=== PATIENT | female | born 1935 | race Asian ===

== ENCOUNTER 2016-10-08 09:34 | Emergency (ER) | payer MEDICARE, MEDICAID ==
--- NOTE | 2016-10-08 09:56 | ED Physician Chart ---
Chief Complaint/HPI - Patient Information Date Seen:: 10/08/16 Time Seen:: 09:40 Chief Complaint:: left shoulder pain History of Present Illness:: Patient fell out of bed last night injuring her left shoulder. Allergies:: Allergies Allergy/AdvReac Type Severity Reaction Status Date / Time MDX No Known Allergies - Nka Allergy Verified 05/10/15 16:37 [No Known Allergies - Nka] Historian:: Patient Review:: Nurse's Note Reviewed Review of Systems - Review of Systems General/Constitutional: No fever, No chills Skin: No skin lesions Head: No headache Eyes: No loss of vision ENT: No earache Neck: No neck pain Cardio Vascular: No chest pain, No palpitations Pulmonary: No SOB GI: No nausea, No vomiting G/U: No dysuria Musculoskeletal: No bone or joint pain, No muscle pain Endocrine: No polyuria, No polydipsia Psychiatric: No prior psych history, No depression, No anxiety Hematopoietic: No bruising Allergic/Immuno: No urticaria Neurological: No syncope, Focal symptoms Past Medical History - Past Medical History Past Medical History: HTN, DM, CVA/TIA, Other (less sided paralysis; thrombocytopenia; arthritis; asthma; cardiomegaly; acute embolism and thrombosis of left femoral vein; chronic renal disease; colostomy; GERD; diabetes; hyperlipidemia; colon carcinoma) Family Medical History - Family Member Mother History Unknown: Yes Physical Exam - Physical Examination General/Constitutional: Well-developed, well-nourished Other Gen/Cons comments:: Patient's skin is very pale although her conjunctivae are normal color Head: Atraumatic Eyes: Lids, conjuctiva normal Skin: No rash ENMT: External ears, nose nl Neck: No nuchal rigidity Respiratory: Nl effort/Exclusion, Clear to Auscultation Cardio Vascular: RRR GI: No tenderness/rebounding/guarding, No organomegaly, No hernia, Normal BS's, Nondistended, No mass/bruits : No CVA tenderness Other Extremities comments:: Left-sided paralysis; tenderness humeral head left shoulder and surgical neck left shoulder Neuro/Psych: Alert/oriented Other Neuro/Psych comments:: Slight drooping left side of mouth Labs/Radiology/EKG Results - Lab Results Results: Fracture surgical neck left humerus Assessment - Assessment General Assessment: I spoke to Dr. Pranav Gonzalez who felt patient could return to her facility. ED Septic Shock - . Is Septic Shock (SBP<90, OR Lactate>4 mmol\L) present?: No Reassessment (Disposition) - Reassessment Reassessment Condition:: Unchanged - Diagnosis Diagnosis:: Fracture surgical neck humerus left shoulder - Aftercare/Follow up Instructions Aftercare/Follow-Up Instructions:: Refer to Discharge Instructions - Patient Disposition Discharge/Transfer:: Risk Control Director Care - SNF Condition at Disposition:: Stable, Unchanged
--- NOTE | 2016-10-08 10:18 | Diagnostic Imaging Report ---
Left shoulder (2 views) HISTORY: Pain Exam demonstrates mildly displaced fracture involving the left humeral neck. No definite dislocation. Degenerative changes with narrowing and hypertrophic bone formation noted about the acromioclavicular joint. Hypertrophic degenerative changes noted along the lateral aspect of the humeral head. IMPRESSION: 1. Mildly displaced fracture through the left humeral neck 2. Degenerative changes
== END 2016-10-08 12:15 | disposition home or self-care (01) ==
LOC: ER 09:34
DX: S42.295A Other nondisplaced fracture of upper end of left humerus, initial encounter for closed fracture (principal); I10 Essential (primary) hypertension; E11.9 Type 2 diabetes mellitus without complications; Z86.73 Personal history of transient ischemic attack (TIA), and cerebral infarction without residual deficits; W06.XXXA Fall from bed, initial encounter; Y93.89 Activity, other specified; Y92.89 Other specified places as the place of occurrence of the external cause; Y99.8 Other external cause status
CPT/HCPCS: 73030-TC-LT; Z7502

== ENCOUNTER 2016-10-23 00:08 | Inpatient (IN) | payer MEDICARE, MEDICAID ==
--- NOTE | 2016-10-23 00:47 | ED Physician Chart ---
Chief Complaint/HPI - Patient Information Date Seen:: 10/23/16 Time Seen:: 00:15 Chief Complaint:: anemia History of Present Illness:: Labs drawn yesterday showed a hemoglobin of 5.6 and a hematocrit of 17.6 and ABO and of 43 and a creatinine at 2.67. Allergies:: Allergies Allergy/AdvReac Type Severity Reaction Status Date / Time No Known Allergies Allergy Verified 10/08/16 10:25 Vitals:: Vital Signs - 8 hr 10/23/16 00:26 Temp 98.3 F HR 62 RR 19 BP 171/56 O2 Sat % 96 Historian:: Patient Review:: Nurse's Note Reviewed, Transfer documents Reviewed Review of Systems - Review of Systems General/Constitutional: No fever, No chills Skin: No skin lesions Head: No headache Eyes: No loss of vision ENT: No earache Neck: No neck pain Cardio Vascular: No chest pain Pulmonary: No SOB GI: No nausea, No vomiting G/U: No dysuria Musculoskeletal: No bone or joint pain, No muscle pain Endocrine: No polyuria, No polydipsia Psychiatric: No prior psych history Past Medical History - Past Medical History Past Medical History: CVA/TIA, Other (left hemiplegia; thrombocytopenia; cardiomegaly; status post deep vein thrombosis; bronchitis; asthma; chronic renal disease; colon carcinoma; diabetes; thyroidism; hyper lipidemia; ) Family History: None Social History: Non Smoker, No Alcohol, Care Facility Surgical History: other (colostomy) Psychiatricy History: None Family Medical History - Family Member Mother History Unknown: Yes Physical Exam - Physical Examination General/Constitutional: No distress Other Gen/Cons comments:: Very pale Head: Atraumatic Eyes: Lids, conjuctiva normal Skin: Nl inspection, No rash ENMT: External ears, nose nl Neck: No nuchal rigidity Respiratory: Nl effort/Exclusion Cardio Vascular: RRR GI: No tenderness/rebounding/guarding : No CVA tenderness Extremities: Normal digits & nails Other Neuro/Psych comments:: Left hemiplegia ED Septic Shock - . Is Septic Shock (SBP<90, OR Lactate>4 mmol\L) present?: No - <6hrs of presentation: Vital Signs: Vital Signs - 8 hr 10/23/16 00:26 Temp 98.3 F HR 62 RR 19 BP 171/56 O2 Sat % 96 Reassessment (Disposition) - Reassessment Reassessment Condition:: Unchanged - Diagnosis Diagnosis:: Anemia; left hemiplegia - Patient Disposition Admitted to:: Med/Surg Spoke to:: Ashish Gonzalez Admitting Medical Physician:: Ashish Gonzalez Condition at Disposition:: Stable, Unchanged
[2016-10-23 01:17] LABS: MEAN CELL VOLUME 88.5 fl (81-100); MEAN CORPUSCULAR HEMOGLOBIN 28.9 pg (27.0-31.0); MEAN CORPUSCULAR HGB CONC 32.7 pg (28.0-36.0); MEAN PLATELET VOLUME 12.1 fl; PLATELET COUNT 71 Th/cmm (150-400); RED BLOOD COUNT 2.04 Mil/cmm (3.80-5.20); RED CELL DISTRIBUTION WIDTH 16.3 % (11.5-20.0)
[2016-10-23 01:22] LABS: HEMATOCRIT 18.1 % (35.0-45.0); HEMOGLOBIN 5.9 gm/dL (11.7-16.1)
[2016-10-23 01:23] LABS: INR 1.05 (0.5-1.4); PROTHROMBIN TIME (TEST) 10.9 SECONDS (9.5-11.5)
[2016-10-23 01:26] LABS: ANION GAP 10.5 (7.0-16.0); BUN - UREA NITROGEN 42 mg/dL (7-25); CALCIUM SERUM 8.9 mg/dL (8.6-10.3); CARBON DIOXIDE 21.9 mEq/L (21.0-31.0); CHLORIDE 110 mEq/L (98-107); CREATININE - SERUM 2.8 mg/dL (0.6-1.2); GLUCOSE 243 mg/dL (70-105); POTASSIUM SERUM 4.4 mEq/L (3.5-5.1); SODIUM SERUM 138 mEq/L (136-145)
[2016-10-23 01:43] LABS: ANISOCYTOSIS 1+; MICROCYTOSIS 1+; NEUTROPHILS 84 % (40-80); PLATELET ESTIMATE DECREASED PLATELETS (NORMAL); PLATELET MORPHOLOGY NORMAL (NORMAL); POLYCHROMASIA 1+; TOTAL CELLS COUNTED 100
[2016-10-23] MEDS: D5-0.45NS 1,000 ML IV SCH (03:00)
--- NOTE | 2016-10-23 03:46 | Admit Criteria Form ---
Admit Criteria Forms - Admit Criteria Diagnosis: ANEMIA Clinical Indications for Inpatient Care (Place 'X' for any and all applicable criteria) Ongoing inpatient care may be needed for anemia with 1 or more of the following (1)(2)(3)(4)(18)(37): [X]I. Severe signs or symptoms unresponsive to transfusion or volume replacement, including ANY ONE of the following: []a) Heart failure []b) Chest pain []c) Myocardial ischemia []d) Exertional dyspnea []e) Syncope []f) Acute peripheral ischemia (eg, pulseless, cool, mottled, or cyanotic extremity) [X]g) Other severe signs or symptoms []II. Cognitive impairment []III. Active hemorrhage []IV.Active hemolysis with rapidly progressive anemia []V. Hemodynamic instability Extended stay beyond goal length of stay for the primary condition may be needed until ALL of the following are present (1)(2)(3)(4): []a) Hemodynamic stability []b) Any active blood loss controlled []c) Severe signs or symptoms resolved []d) Mental status normal or at baseline []e) Stable hemoglobin after transfusion []f) Any underlying disorder or complications of treatment controlled The original [employer] content created by [employer] has been revised. The portions of the content which have been revised are identified through the use of italic text or in bold, and [email or web address] has neither reviewed nor approved the modified material. All other unmodified content is copyright [facility] [email or web address]. Please see references footnoted in the original [facility] edition 2016
[2016-10-23 04:26] LABS: URINE COLOR YELLOW
[2016-10-23 04:27] LABS: URINE BILIRUBIN NEGATIVE (NEGATIVE); URINE BLOOD SMALL (NEGATIVE); URINE GLUCOSE (UA) 250 mg/dL (NEGATIVE); URINE KETONE 15 mg/dL (NEGATIVE); URINE PROTEIN >300 mg/dL (NEGATIVE); URINE UROBILINOGEN 0.2 E.U./dL (0.2 - 1.0)
[2016-10-23 04:28] LABS: URINE AMORPHOUS SEDIMENT MODERATE URATES (NONE SEEN); URINE BACTERIA MANY /hpf (NONE SEEN); URINE EPITHELIAL CELLS FEW /lpf (FEW)
[2016-10-23] MEDS ORDERED: Magnesium Hydroxide (MOM) 30 mL UDC PO PRN (07:28)
[2016-10-23] MEDS ORDERED: INSULIN HUMAN REGULAR 100 UNITS/ML UNIT SUBQ SCH (09:00)
[2016-10-23] MEDS: Fenofibrate, Micronized 134 mg Cap PO SCH (09:49)
[2016-10-23] MEDS: Levothyroxine 0.025 Mg Tab PO SCH (09:49)
[2016-10-23] MEDS: Ferrous Sulfate 325 MG TAB PO SCH (09:51)
[2016-10-23] MEDS: INSULIN ASPART SLIDING SCALE 100 UNITS/ML UNIT SUBQ SCH ×3 (12:07→22:39)
--- NOTE | 2016-10-23 15:18 | Consultation ---
Consult Note - Consult Note Service Date: 10/23/16 Consult Note: PHYSICIAN Consultation Note: Date of Admission: 10/23/16 Purpose of Consultation: Kidney Failure Chief Complaint: abnormal labs History of Present Illness: 80 y/o [place] PMH: CKD was brought in because of abnormal labs. 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 A few hours prior to admission, his labs revealed hemoglobin/hematocrit of 5.6/17.6 and BUN/CR in the 43/2.67. Labs at ER revealed hemoglobin/hematocrit of 5.9/18.1 and BUN/creatinine 42/2.8. No obvious bleed (hematemesis, melena, hematochezia, epistaxis, dysfunctional bleeding, hemoptysis). Past Medical History: CKD, hypertension, type 2 diabetes, left leg DVT, dyslipidemia, GERD, status post CVA with left geri, bronchial asthma, colon CA, thrombocytopenia, severe malnutrition, anemia of CKD Allergies Allergy/AdvReac Type Severity Reaction Status Date / Time No Known Allergies Allergy Verified 10/08/16 10:25 Vital Signs Temp 99.0 F 10/23/16 12:00 Pulse 62 10/23/16 12:30 Resp 18 10/23/16 12:00 BP 171/69 10/23/16 12:30 Pulse Ox 92 10/23/16 12:00 Laboratory Results - last 24 hr 10/23/16 10/23/16 02:45 11:28 POC Glucose 248 H Urine Source CATH Urine Color YELLOW Urine Clarity HAZY Urine pH 5.0 Ur Specific [place] 1.025 Urine Protein >300 H Urine Glucose (UA) 250 H Urine Ketones 15 H Urine Blood SMALL H Urine Nitrate POSITIVE H Urine Bilirubin NEGATIVE Urine Urobilinogen 0.2 Ur Leukocyte Esterase NEGATIVE Urine RBC 2-5 Urine WBC 2-5 Ur Epithelial Cells FEW Amorphous Sediment MODERATE URATES Urine Bacteria MANY Home Medication Medication Instructions Recorded Type Atenolol [Tenormin*] 100 mg PO DAILY 05/10/15 History Glimepiride [Amaryl*] 4 mg PO DAILY 05/10/15 History Insulin Aspart Mix 70/30 [NovoLOG 18 units SUBQ QPM 05/10/15 History MIX 70/30] Insulin Aspart Mix 70/30 [NovoLOG 30 units SUBQ QAM 05/10/15 History MIX 70/30] Insulin Human Regular [humuLIN R] 0 units SUBQ BID 05/10/15 History Levothyroxine [Synthroid] 25 mcg PO DAILY 05/10/15 History Nitroglycerin [Nitroglycerin*] 0.4 mg SL Q5MIN PRN 05/10/15 History amLODIPine Besylate [Norvasc*] 10 mg PO DAILY 05/10/15 History cloNIDine HCl [Catapres] 0.1 mg PO BID 05/10/15 History Acetaminophen [Tylenol] 650 mg PO Q6HR PRN 06/07/15 History Simvastatin [Zocor] 10 mg PO QPM 06/07/15 History Fenofibrate Nanocrystallized 134 mg PO DAILY 06/25/15 History [Tricor] Insulin Aspart Sliding Scale 0 units SUBQ ACHS #0 unit 06/27/15 Rx [NovoLOG INSULIN SLIDING SCALE] Aspirin 81 mg PO DAILY 10/23/16 History Ferrous Sulfate [Feosol] 325 mg PO DAILY 10/23/16 History Gabapentin 300 mg PO DAILY 10/23/16 History Losartan Potassium [Cozaar] 50 mg PO DAILY 10/23/16 History Magnesium Hydroxide [Milk of 30 ml PO DAILY PRN 10/23/16 History Magnesia] Ondansetron HCl [Zofran*] 4 mg PO Q6HR PRN 10/23/16 History Ranitidine HCl [Zantac] 150 mg PO HS 10/23/16 History Tramadol HCl [Ultram] 50 mg PO Q12HR 10/23/16 History Current Medications Generic Name Dose Route Start Last Admin Trade Name Freq PRN Reason Stop Dose Admin Amlodipine Besylate 10 mg 10/23/16 09:00 10/23/16 09:49 Norvasc PO 12/22/16 08:59 10 mg DAILY VLAD Administration Atenolol 100 mg 10/23/16 09:00 10/23/16 09:49 Tenormin PO 12/22/16 08:59 100 mg DAILY VLAD Administration Clonidine HCl 0.1 mg 10/23/16 09:00 10/23/16 09:49 Catapres PO 12/22/16 08:59 0.1 mg BID VLAD Administration Clonidine HCl 0.1 mg 10/23/16 11:13 10/23/16 11:30 Catapres PO 12/22/16 11:12 0.1 mg Q8HR PRN Administration BP MAINTENANCE (PER PROTOCOL) Fenofibrate 134 mg 10/23/16 09:00 10/23/16 09:49 Tricor PO 12/22/16 08:59 134 mg DAILY VLAD Administration Ferrous Sulfate 325 mg 10/23/16 09:00 10/23/16 09:51 Iron PO 12/22/16 08:59 325 mg DAILY VLAD Administration Gabapentin 300 mg 10/23/16 09:00 10/23/16 09:50 Neurontin PO 12/22/16 08:59 300 mg DAILY VLAD Administration Dextrose/Sodium Chloride 1,000 mls @ 50 mls/hr 10/23/16 02:19 10/23/16 03:00 D5-0.45ns IV 12/22/16 02:18 50 mls/hr .Q20H VLAD Administration Ceftriaxone Sodium 1 gm/ 50 mls @ 100 mls/hr 10/23/16 09:00 Dextrose IV 12/22/16 08:59 Q24H VLAD Insulin Aspart 0 units 10/23/16 11:30 10/23/16 12:07 Novolog Insulin Sliding Scale SUBQ 12/22/16 11:29 Not Given ACHS VLAD Protocol Levothyroxine Sodium 0.025 mg 10/23/16 08:15 10/23/16 09:49 Synthroid PO 12/22/16 08:14 0.025 mg QDAC VLAD Administration Losartan Potassium 50 mg 10/23/16 09:00 10/23/16 09:50 Cozaar PO 12/22/16 08:59 50 mg DAILY VLAD Administration Magnesium Hydroxide 30 ml 10/23/16 07:28 Milk Of Magnesia PO 12/22/16 07:27 DAILY PRN Constipation Nitroglycerin 0.4 mg 10/23/16 07:28 Nitrostat SL 12/22/16 07:27 Q5MIN PRN Chest Pain Ondansetron HCl 4 mg 10/23/16 07:28 Zofran Odt PO Q6HR PRN Nausea / Vomiting Pantoprazole Sodium 40 mg 10/23/16 09:00 Protonix IVP 12/22/16 08:59 QDAC VLAD Review of Systems: A 12 point ROS was reviewed with the pertinent positive and negatives noted in the HPI. Social History Smoking Status Never smoker Drug Use No Alcohol Use No Family Medical History Family Medical History Start: 10/23/16 04: 16 Freq: ONCE Status: Active Document 10/23/16 04:16 THOMAS (Rec: 10/23/16 08:24 THOMAS [id number]) Family Medical History Mother History Unknown Yes Ethnicity Unknown Living Status Unknown Other Medical History Patien unable to give information regarding family history. Physical Exam: General: Alert and Oriented x3, No Acute Distress HEENT: EOMI Bilaterally, PERRLA Bilaterally, Head is normocephalic, atraumatic on inspection. 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
[2016-10-23] MEDS ORDERED: Magnesium Citrate 1.75 GM/300 mL Bottle PO ONE (15:19)
--- NOTE | 2016-10-23 15:25 | Consultation ---
Consult Note - Consult Note Service Date: 10/23/16 (site) Referring Physician: Pranav Gonzalez Consult Note: PHYSICIAN Consultation Note: Date of Admission: 10/23/16 Purpose of Consultation: Evaluation for anemia. Chief Complaint: 80-year-old poor historian with visceral diabetes hypertension hyperlipidemia and colon cancer who presented with weakness and found to be severely anemic with hemoglobin 5.9 patient denies any overt GI bleed she thinks have lost some weight is occasional nausea vomiting occasional loose bowel movements from the colostomy bag multilobe any bleeding from the History of Present Illness: Patient GLADYS BRAY was admitted to [facility] Unit I with ANEMIA. Past Medical History: Diabetes mellitus, hypertension, hyperlipidemia, and history of colon cancer status post resection and colostomy Allergies Allergy/AdvReac Type Severity Reaction Status Date / Time No Known Allergies Allergy Verified 10/08/16 10:25 Vital Signs Temp 99.0 F 10/23/16 12:00 Pulse 62 10/23/16 12:30 Resp 18 10/23/16 12:00 BP 171/69 10/23/16 12:30 Pulse Ox 92 10/23/16 12:00 Laboratory Results - last 24 hr 10/23/16 10/23/16 02:45 11:28 POC Glucose 248 H Urine Source CATH Urine Color YELLOW Urine Clarity HAZY Urine pH 5.0 Ur Specific [place] 1.025 Urine Protein >300 H Urine Glucose (UA) 250 H Urine Ketones 15 H Urine Blood SMALL H Urine Nitrate POSITIVE H Urine Bilirubin NEGATIVE Urine Urobilinogen 0.2 Ur Leukocyte Esterase NEGATIVE Urine RBC 2-5 Urine WBC 2-5 Ur Epithelial Cells FEW Amorphous Sediment MODERATE URATES Urine Bacteria MANY Home Medication Medication Instructions Recorded Type Atenolol [Tenormin*] 100 mg PO DAILY 05/10/15 History Glimepiride [Amaryl*] 4 mg PO DAILY 05/10/15 History Insulin Aspart Mix 70/30 [NovoLOG 18 units SUBQ QPM 05/10/15 History MIX 70/30] Insulin Aspart Mix 70/30 [NovoLOG 30 units SUBQ QAM 05/10/15 History MIX 70/30] Insulin Human Regular [humuLIN R] 0 units SUBQ BID 05/10/15 History Levothyroxine [Synthroid] 25 mcg PO DAILY 05/10/15 History Nitroglycerin [Nitroglycerin*] 0.4 mg SL Q5MIN PRN 05/10/15 History amLODIPine Besylate [Norvasc*] 10 mg PO DAILY 05/10/15 History cloNIDine HCl [Catapres] 0.1 mg PO BID 05/10/15 History Acetaminophen [Tylenol] 650 mg PO Q6HR PRN 06/07/15 History Simvastatin [Zocor] 10 mg PO QPM 06/07/15 History Fenofibrate Nanocrystallized 134 mg PO DAILY 06/25/15 History [Tricor] Insulin Aspart Sliding Scale 0 units SUBQ ACHS #0 unit 06/27/15 Rx [NovoLOG INSULIN SLIDING SCALE] Aspirin 81 mg PO DAILY 10/23/16 History Ferrous Sulfate [Feosol] 325 mg PO DAILY 10/23/16 History Gabapentin 300 mg PO DAILY 10/23/16 History Losartan Potassium [Cozaar] 50 mg PO DAILY 10/23/16 History Magnesium Hydroxide [Milk of 30 ml PO DAILY PRN 10/23/16 History Magnesia] Ondansetron HCl [Zofran*] 4 mg PO Q6HR PRN 10/23/16 History Ranitidine HCl [Zantac] 150 mg PO HS 10/23/16 History Tramadol HCl [Ultram] 50 mg PO Q12HR 10/23/16 History Current Medications Generic Name Dose Route Start Last Admin Trade Name Fre PRN Reason Stop Dose Admin Amlodipine Besylate 10 mg 10/23/16 09:00 10/23/16 09:49 Norvasc PO 12/22/16 08:59 10 mg DAILY VLAD Administration Atenolol 100 mg 10/23/16 09:00 10/23/16 09:49 Tenormin PO 12/22/16 08:59 100 mg DAILY VLAD Administration Clonidine HCl 0.1 mg 10/23/16 09:00 10/23/16 09:49 Catapres PO 12/22/16 08:59 0.1 mg BID VLAD Administration Clonidine HCl 0.1 mg 10/23/16 11:13 10/23/16 11:30 Catapres PO 12/22/16 11:12 0.1 mg Q8HR PRN Administration BP MAINTENANCE (PER PROTOCOL) Fenofibrate 134 mg 10/23/16 09:00 10/23/16 09:49 Tricor PO 12/22/16 08:59 134 mg DAILY VLAD Administration Ferrous Sulfate 325 mg 10/23/16 09:00 10/23/16 09:51 Iron PO 12/22/16 08:59 325 mg DAILY VLAD Administration Gabapentin 300 mg 10/23/16 09:00 10/23/16 09:50 Neurontin PO 12/22/16 08:59 300 mg DAILY VLAD Administration Dextrose/Sodium Chloride 1,000 mls @ 50 mls/hr 10/23/16 02:19 10/23/16 03:00 D5-0.45ns IV 12/22/16 02:18 50 mls/hr .Q20H VLDA Administration Ceftriaxone Sodium 1 gm/ 50 mls @ 100 mls/hr 10/23/16 09:00 Dextrose IV 12/22/16 08:59 Q24H VLAD Insulin Aspart 0 units 10/23/16 11:30 10/23/16 12:07 Novolog Insulin Sliding Scale SUBQ 12/22/16 11:29 Not Given ACHS VLAD Protocol Levothyroxine Sodium 0.025 mg 10/23/16 08:15 10/23/16 09:49 Synthroid PO 12/22/16 08:14 0.025 mg QDAC VLAD Administration Losartan Potassium 50 mg 10/23/16 09:00 10/23/16 09:50 Cozaar PO 12/22/16 08:59 50 mg DAILY VLAD Administration Magnesium Citrate 17.5 gm 10/23/16 15:19 Citroma PO 10/23/16 15:20 X1 ONE Magnesium Hydroxide 30 ml 10/23/16 07:28 Milk Of Magnesia PO 12/22/16 07:27 DAILY PRN Constipation Nitroglycerin 0.4 mg 10/23/16 07:28 Nitrostat SL 12/22/16 07:27 Q5MIN PRN Chest Pain Ondansetron HCl 4 mg 10/23/16 07:28 Zofran Odt PO Q6HR PRN Nausea / Vomiting Pantoprazole Sodium 40 mg 10/23/16 09:00 Protonix IVP 12/22/16 08:59 QDAC VLAD Review of Systems: A 12 point ROS was reviewed with the pertinent positive and negatives noted in the HPI. Social History Smoking Status Never smoker Drug Use No Alcohol Use No Family Medical History Family Medical History Start: 10/23/16 04: 16 Freq: ONCE Status: Active Document 10/23/16 04:16 NBENASA (Rec: 10/23/16 08:24 THOMAS [id number]) Family Medical History Mother History Unknown Yes Ethnicity Unknown Living Status Unknown Other Medical History Patien unable to give information regarding family history. Physical Exam: General: Alert and Oriented x3, No Acute Distress HEENT: EOMI Bilaterally, PERRLA Bilaterally, Head is normocephalic, atraumatic on inspection. Cardio: +S1/S2 Auscultated, RRR, no murmurs/rubs/gallops noted Respiratory: Clear to Auscultate Bilaterally Abdominal: Soft, Nondistended, Nontender to palpation x 4 quadrants. There is a midline scar with previous surgery and the colostomy on the left side of the abdomen Genital/Urinary: Extremities: No Edema noted in the lower extremities Neurological: Cranial Nerves II-XII intact bilaterally, Gait Steady, No Focal Deficits noted. Assessment/Plan: 1. Severe anemia. Patient is to be transfused 2 units of packed RBC today then check H&H and continue to transfuse as needed. Patient will need to have endoscopy and colonoscopy once she is being transfused. Upper bowel preps or possibly Wednesday or Wednesday depending on the status. 2. history of colon cancer. According to the patient she hasn't had a colonoscopy for 5 years. She is due for colonoscopy both as a surveillance and for evaluation of the anemia. Other medical problems such as diabetes hypertension hyperlipidemia etc. as per Dr. Sebastian. Thank you Dr. Giovanna brown but speaking with the overall size you have any further questions please let me know Tanisha Mason Osama A. [id number]
[2016-10-23] MEDS ORDERED: VTE Chemical Prophylaxis Screen/Admission MC PRN (15:40)
[2016-10-23 17:58] LABS: HEMOGLOBIN 9.4 gm/dL (11.7-16.1)
[2016-10-24 06:10] LABS: % BASOPHILS 0.3 % (0.0-2.0); % EOSINOPHILS 2.9 % (0.0-5.0); % LYMPHOCYTES 21.6 % (20.0-50.0); % MONOCYTES 5.5 % (2.0-10.0); % NEUTROPHILS 69.7 % (40.0-80.0); HEMATOCRIT 26.9 % (35.0-45.0); MEAN CELL VOLUME 88.4 fl (81-100); MEAN CORPUSCULAR HEMOGLOBIN 29.5 pg (27.0-31.0); MEAN CORPUSCULAR HGB CONC 33.4 pg (28.0-36.0); MEAN PLATELET VOLUME 12.6 fl; NEUTROPHILE ABSOLUTE 8.4 Th/cmm (1.8-8.0); PLATELET COUNT 64 Th/cmm (150-400); RED BLOOD COUNT 3.05 Mil/cmm (3.80-5.20); RED CELL DISTRIBUTION WIDTH 13.7 % (11.5-20.0)
[2016-10-24 06:14] LABS: WHITE BLOOD COUNT 12.1 Th/cmm (4.8-10.8)
[2016-10-24 06:27] LABS: ALB/GLOB RATIO 1.1 (1.0-1.8); ALKALINE PHOSPHATASE 69 U/L (34-104); ANION GAP 6.7 (7.0-16.0); BILIRUBIN,TOTAL 0.3 mg/dL (0.3-1.0); BUN - UREA NITROGEN 40 mg/dL (7-25); BUN/CREATININE RATIO 14.8; CALCIUM SERUM 8.4 mg/dL (8.6-10.3); CARBON DIOXIDE 22.6 mEq/L (21.0-31.0); CHLORIDE 113 mEq/L (98-107); CREATININE - SERUM 2.7 mg/dL (0.6-1.2); GLUCOSE 157 mg/dL (70-105); MAGNESIUM 2.7 mg/dL (1.9-2.7); PHOSPHOROUS 2.6 mg/dL (2.5-5.0); POTASSIUM SERUM 4.3 mEq/L (3.5-5.1); SGOT 11 U/L (13-39); SGPT/ALT 6 U/L (7-52); SODIUM SERUM 138 mEq/L (136-145); URIC ACID 7.2 mg/dL (2.3-6.6)
[2016-10-24 06:32] LABS: INR 1.03 (0.5-1.4); PROTHROMBIN TIME (TEST) 10.7 SECONDS (9.5-11.5)
[2016-10-24] MEDS: INSULIN ASPART SLIDING SCALE 100 UNITS/ML UNIT SUBQ SCH ×4 (06:51→20:29)
[2016-10-24] MEDS: Levothyroxine 0.025 Mg Tab PO SCH (09:40)
[2016-10-24] MEDS: Fenofibrate, Micronized 134 mg Cap PO SCH (09:41)
[2016-10-24] MEDS: Ferrous Sulfate 325 MG TAB PO SCH (09:41)
--- NOTE | 2016-10-24 10:20 | Diagnostic Imaging Report ---
Examination: Renal ultrasound. HISTORY: Chronic renal failure. Findings. Real-time ultrasound sedation kidneys performed multiple planes. The study demonstrates right kidney measuring 10.6 x 4.8 x 4.3 cm. There is evidence for hypoechoic structure in the right upper renal pole measuring 1.5 x 1.2 cm might represent a prominent column of [place],clinical correlation CT examination of the helpful. Left kidney measures 10.0 x 5 x 4.7 cm contains a small 2.1 cm cyst in the left lower renal pole. There is no evidence of obstructive uropathy or nephrolithiasis. The urinary bladder contains Hager catheter. IMPRESSION 1. 1.5 x 1.2 cm hyperechoic structure in the upper pole of right kidney might represent a column of K[place]hawn. 2. 2.1 cm cyst inferior left renal pole. No evidence of obstructive uropathy or hydronephrosis. No evidence for nephrolithiasis. Report 3. Urinary bladder contains a Hager catheter
[2016-10-24] MEDS: D5-0.45NS 1,000 ML IV SCH (11:53)
--- NOTE | 2016-10-24 15:01 | Consultation ---
Consult Note - Consult Note Service Date: 10/24/16 Referring Physician: Ashish Gonzalez Consult Note: PHYSICIAN Consultation Note: Date of Admission: 10/23/16 Purpose of Consultation: ANEMIA Chief Complaint: History of Present Illness: Patient GLADYS BRAY was admitted to [facility] with ANEMIA. WAS TRANSFUSED AND HGB IMPROVED FROM 5 TO 9. STOOL OB IS POSITIVE. WAS SEEN BY GI/ REVIEW OF OLD RECORDS ARE CONSISTENT WITH IRON DEFICIENCY AND ANEMIA OF CHRONIC DISEASE. Past Medical History: Diagnoses ANEMIA IN CHRONIC KIDNEY DISEASE (10/23/16) ANEMIA, UNSPECIFIED (10/23/16) THROMBOCYTOPENIA, UNSPECIFIED (10/23/16) TYPE 2 DIABETES MELLITUS W DIABETIC CHRONIC KIDNEY DISEASE (10/23/16) UNSPECIFIED SEVERE PROTEIN-CALORIE MALNUTRITION (10/23/16) HYPERLIPIDEMIA, UNSPECIFIED (10/23/16) HYPERTENSIVE CHRONIC KIDNEY DISEASE W STG 1-4/UNSP CHR KDNY (10/23/16) CARDIOMEGALY (10/23/16) HEMIPLGA FOLLOWING CEREBRAL INFRC AFFECTING LEFT NONDOM SIDE (10/23/16) UNSPECIFIED ASTHMA, UNCOMPLICATED (10/23/16) CHRONIC KIDNEY DISEASE, UNSPECIFIED (10/23/16) URINARY TRACT INFECTION, SITE NOT SPECIFIED (10/23/16) DO NOT RESUSCITATE (10/23/16) PERSONAL HISTORY OF MALIGNANT NEOPLASM OF LARGE INTESTINE (10/23/16) COLOSTOMY STATUS (10/23/16) Allergies Allergy/AdvReac Type Severity Reaction Status Date / Time No Known Allergies Allergy Verified 10/08/16 10:25 Vital Signs Temp 97.0 F 10/24/16 11:31 Pulse 53 10/24/16 11:31 Resp 18 10/24/16 11:31 BP 148/65 10/24/16 11:31 Pulse Ox 96 10/24/16 11:31 Intake & Output 10/23/16 10/24/16 10/24/16 18:59 06:59 18:59 Intake Total 50 1200 50 Output Total 550 Balance 50 650 50 Weight (lbs) 62.777 kg Intake: Intake, IV Amount 50 1000 50 D5-0.45NS 1,000 ml @ 50 1000 mls/hr IV .Q20H [facility] Rx#: [id number] cefTRIAXone 1 gm In 50 50 Dextrose 5% 50 ml @ 100 mls/hr IV Q24H [facility] Rx#: [id number] Oral 200 Output: Urine 550 Laboratory Results - last 24 hr 10/23/16 10/23/16 10/23/16 16:31 17:30 17:30 WBC RBC Hgb Hct MCV MCH MCHC Differential RDW Plt Count MPV Neutrophils % Lymphocytes % Monocytes % Eosinophils % Basophils % Eos Smear Source URINE Eos Smear Total Cells NONE SEEN PT INR PTT (Actin FS) Sodium Potassium Chloride Carbon Dioxide Anion Gap BUN Creatinine Est GFR ( Amer) Est GFR (Non-Af Amer) BUN/Creatinine Ratio Glucose POC Glucose 242 H Uric Acid Calcium Phosphorus Magnesium Total Bilirubin AST ALT Alkaline Phosphatase Total Protein Albumin Globulin Albumin/Globulin Ratio Ur Random Sodium 48 Urine Creatinine 89.0 Stool Occult Blood 10/23/16 10/23/16 10/24/16 17:48 22:27 05:42 WBC 12.1 H RBC 3.05 L Hgb 9.4 L D 9.0 L Hct 28.0 L D 26.9 L MCV 88.4 MCH 29.5 MCHC Differential 33.4 RDW 13.7 Plt Count 64 L MPV 12.6 Neutrophils % 69.7 Lymphocytes % 21.6 Monocytes % 5.5 Eosinophils % 2.9 Basophils % 0.3 Eos Smear Source Eos Smear Total Cells PT INR PTT (Actin FS) Sodium Potassium Chloride Carbon Dioxide Anion Gap BUN Creatinine Est GFR ( Amer) Est GFR (Non-Af Amer) BUN/Creatinine Ratio Glucose POC Glucose 251 H Uric Acid Calcium Phosphorus Magnesium Total Bilirubin AST ALT Alkaline Phosphatase Total Protein Albumin Globulin Albumin/Globulin Ratio Ur Random Sodium Urine Creatinine Stool Occult Blood 10/24/16 10/24/16 10/24/16 05:42 05:42 06:41 WBC RBC Hgb Hct MCV MCH MCHC Differential RDW Plt Count MPV Neutrophils % Lymphocytes % Monocytes % Eosinophils % Basophils % Eos Smear Source Eos Smear Total Cells PT 10.7 INR 1.03 PTT (Actin FS) 23.4 L Sodium 138 Potassium 4.3 Chloride 113 H Carbon Dioxide 22.6 Anion Gap 6.7 L BUN 40 H Creatinine 2.7 H Est GFR ( Amer) TNP Est GFR (Non-Af Amer) TNP BUN/Creatinine Ratio 14.8 Glucose 157 H POC Glucose 179 H Uric Acid 7.2 H Calcium 8.4 L Phosphorus 2.6 Magnesium 2.7 Total Bilirubin 0.3 AST 11 L ALT 6 L Alkaline Phosphatase 69 Total Protein 5.8 L Albumin 3.0 L Globulin 2.8 Albumin/Globulin Ratio 1.1 Ur Random Sodium Urine Creatinine Stool Occult Blood 10/24/16 10/24/16 09:50 11:15 WBC RBC Hgb Hct MCV MCH MCHC Differential RDW Plt Count MPV Neutrophils % Lymphocytes % Monocytes % Eosinophils % Basophils % Eos Smear Source Eos Smear Total Cells PT INR PTT (Actin FS) Sodium Potassium Chloride Carbon Dioxide Anion Gap BUN Creatinine Est GFR ( Amer) Est GFR (Non-Af Amer) BUN/Creatinine Ratio Glucose POC Glucose 225 H Uric Acid Calcium Phosphorus Magnesium Total Bilirubin AST ALT Alkaline Phosphatase Total Protein Albumin Globulin Albumin/Globulin Ratio Ur Random Sodium Urine Creatinine Stool Occult Blood POSITIVE Home Medication Medication Instructions Recorded Type Atenolol [Tenormin*] 100 mg PO DAILY 05/10/15 History Glimepiride [Amaryl*] 4 mg PO DAILY 05/10/15 History Insulin Aspart Mix 70/30 [NovoLOG 18 units SUBQ QPM 05/10/15 History MIX 70/30] Insulin Aspart Mix 70/30 [NovoLOG 30 units SUBQ QAM 05/10/15 History MIX 70/30] Insulin Human Regular [humuLIN R] 0 units SUBQ BID 05/10/15 History Levothyroxine [Synthroid] 25 mcg PO DAILY 05/10/15 History Nitroglycerin [Nitroglycerin*] 0.4 mg SL Q5MIN PRN 05/10/15 History amLODIPine Besylate [Norvasc*] 10 mg PO DAILY 05/10/15 History cloNIDine HCl [Catapres] 0.1 mg PO BID 05/10/15 History Acetaminophen [Tylenol] 650 mg PO Q6HR PRN 06/07/15 History Simvastatin [Zocor] 10 mg PO QPM 06/07/15 History Fenofibrate Nanocrystallized 134 mg PO DAILY 06/25/15 History [Tricor] Insulin Aspart Sliding Scale 0 units SUBQ ACHS #0 unit 06/27/15 Rx [NovoLOG INSULIN SLIDING SCALE] Aspirin 81 mg PO DAILY 10/23/16 History Ferrous Sulfate [Feosol] 325 mg PO DAILY 10/23/16 History Gabapentin 300 mg PO DAILY 10/23/16 History Losartan Potassium [Cozaar] 50 mg PO DAILY 10/23/16 History Magnesium Hydroxide [Milk of 30 ml PO DAILY PRN 10/23/16 History Magnesia] Ondansetron HCl [Zofran*] 4 mg PO Q6HR PRN 10/23/16 History Ranitidine HCl [Zantac] 150 mg PO HS 10/23/16 History Tramadol HCl [Ultram] 50 mg PO Q12HR 10/23/16 History Current Medications Generic Name Dose Route Start Last Admin Trade Name Freq PRN Reason Stop Dose Admin Amlodipine Besylate 10 mg 10/23/16 09:00 10/24/16 09:40 Norvasc PO 12/22/16 08:59 10 mg DAILY [facility] Administration Atenolol 100 mg 10/23/16 09:00 10/24/16 09:41 Tenormin PO 12/22/16 08:59 100 mg DAILY [facility] Administration Clonidine HCl 0.1 mg 10/23/16 09:00 10/24/16 09:40 Catapres PO 12/22/16 08:59 0.1 mg BID [facility] Administration Clonidine HCl 0.1 mg 10/23/16 11:13 10/23/16 11:30 Catapres PO 12/22/16 11:12 0.1 mg Q8HR PRN Administration BP MAINTENANCE (PER PROTOCOL) Fenofibrate 134 mg 10/23/16 09:00 10/24/16 09:41 Tricor PO 12/22/16 08:59 134 mg DAILY [facility] Administration Ferrous Sulfate 325 mg 10/23/16 09:00 10/24/16 09:41 Iron PO 12/22/16 08:59 325 mg DAILY [facility] Administration Gabapentin 300 mg 10/23/16 09:00 10/24/16 09:40 Neurontin PO 12/22/16 08:59 300 mg DAILY [facility] Administration Dextrose/Sodium Chloride 1,000 mls @ 50 mls/hr 10/23/16 02:19 10/24/16 11:53 D5-0.45ns IV 12/22/16 02:18 50 mls/hr .Q20H [facility] Administration Ceftriaxone Sodium 1 gm/ 50 mls @ 100 mls/hr 10/23/16 09:00 10/24/16 09:53 Dextrose IV 12/22/16 08:59 Infused Q24H [facility] Infusion Insulin Aspart 0 units 10/23/16 11:30 10/24/16 11:55 Novolog Insulin Sliding Scale SUBQ 12/22/16 11:29 4 units ACHS VLAD Administration Protocol Levothyroxine Sodium 0.025 mg 10/23/16 08:15 10/24/16 09:40 Synthroid PO 12/22/16 08:14 0.025 mg QDAC [facility] Administration Losartan Potassium 50 mg 10/23/16 09:00 10/24/16 09:41 Cozaar PO 12/22/16 08:59 50 mg DAILY [facility] Administration Magnesium Hydroxide 30 ml 10/23/16 07:28 Milk Of Magnesia PO 12/22/16 07:27 DAILY PRN Constipation Miscellaneous 1 ea 10/23/16 15:40 Vte Chemical Prophylaxis Screen/ Admission 12/22/16 15:39 PRN PRN PROTOCOL Nitroglycerin 0.4 mg 10/23/16 07:28 Nitrostat SL 12/22/16 07:27 Q5MIN PRN Chest Pain Ondansetron HCl 4 mg 10/23/16 07:28 Zofran Odt PO Q6HR PRN Nausea / Vomiting Pantoprazole Sodium 40 mg 10/23/16 09:00 10/24/16 09:41 Protonix IVP 12/22/16 08:59 40 mg QDAC [facility] Administration Review of Systems: A 12 point ROS was reviewed with the pertinent positive and negatives noted in the HPI. Social History Smoking Status Never smoker Drug Use No Alcohol Use No Family Medical History Family Medical History Start: 10/23/16 04: 16 Freq: ONCE Status: Active Document 10/23/16 04:16 THOMAS (Rec: 10/23/16 08:24 THOMAS [id number]) Family Medical History Mother History Unknown Yes Ethnicity Unknown Living Status Unknown Other Medical History Patien unable to give information regarding family history. Physical Exam: General: Alert and Oriented x3, No Acute Distress HEENT: EOMI Bilaterally, PERRLA Bilaterally, Head is normocephalic, atraumatic on inspection. Cardio: +S1/S2 Auscultated, RRR, no murmurs/rubs/gallops noted Respiratory: Clear to Auscultate Bilaterally Abdominal: Soft, Nondistended, Nontender to palpation x 4 quadrants Genital/Urinary: Extremities: No Edema noted in the lower extremities Neurological: Cranial Nerves II-XII intact bilaterally, Gait Steady, No Focal Deficits noted. Assessment/Plan: * ANEMIA OF GI BLOOD LOSS * IRON DEFICIENCY ANEMIA * ANEMIA OF CHRONIC KIDNEY DISEASE START IV IRON, FOLIC ACID THEN EPOGEN AFTER CORRECTING IRON STORES. Signed, Rex Lyn [id number]
[2016-10-24] MEDS: Sodium Ferric Gluconate 125 MG in Sodium Chloride 0.9% 100 ML IV SCH (15:46)
--- NOTE | 2016-10-24 15:58 | General Progress Note ---
Subjective - Review of Systems Service Date: 10/24/16 Subjective: Alert, feels better Objective - Results Result Diagrams: 10/24/16 05:42 10/24/16 05:42 Recent Labs: Laboratory Last Values WBC 12.1 Th/cmm (4.8-10.8) H 10/24/16 05:42 RBC 3.05 Mil/cmm (3.80-5.20) L 10/24/16 05:42 Hgb 9.0 gm/dL (11.7-16.1) L 10/24/16 05:42 Hct 26.9 % (35.0-45.0) L 10/24/16 05:42 MCV 88.4 fl (81-100) 10/24/16 05:42 MCH 29.5 pg (27.0-31.0) 10/24/16 05:42 MCHC Differential 33.4 pg (28.0-36.0) 10/24/16 05:42 RDW 13.7 % (11.5-20.0) 10/24/16 05:42 Plt Count 64 Th/cmm (150-400) L 10/24/16 05:42 MPV 12.6 fl 10/24/16 05:42 Neutrophils % 69.7 % (40.0-80.0) 10/24/16 05:42 Lymphocytes % 21.6 % (20.0-50.0) 10/24/16 05:42 Monocytes % 5.5 % (2.0-10.0) 10/24/16 05:42 Eosinophils % 2.9 % (0.0-5.0) 10/24/16 05:42 Basophils % 0.3 % (0.0-2.0) 10/24/16 05:42 Neutrophils (Manual) 84 % (40-80) H 10/23/16 01:03 Lymphocytes 14 % (20-50) L 10/23/16 01:03 Monocytes 2 % (2-10) 10/23/16 01:03 Platelet Estimate DECREASED PLATELETS (NORMAL) 10/23/16 01:03 Platelet Morphology NORMAL (NORMAL) 10/23/16 01:03 Polychromasia 1+ 10/23/16 01:03 Anisocytosis 1+ 10/23/16 01:03 Microcytosis 1+ 10/23/16 01:03 RBC Morph Micro Appear ABNORMAL (NORMAL) 10/23/16 01:03 Eos Smear Source URINE 10/23/16 17:30 Eos Smear Total Cells NONE SEEN (NONE SEEN) 10/23/16 17:30 PT 10.7 SECONDS (9.5-11.5) 10/24/16 05:42 INR 1.03 (0.5-1.4) 10/24/16 05:42 PTT (Actin FS) 23.4 SECONDS (26.0-38.0) L 10/24/16 05:42 Sodium 138 mEq/L (136-145) 10/24/16 05:42 Potassium 4.3 mEq/L (3.5-5.1) 10/24/16 05:42 Chloride 113 mEq/L (98-107) H 10/24/16 05:42 Carbon Dioxide 22.6 mEq/L (21.0-31.0) 10/24/16 05:42 Anion Gap 6.7 (7.0-16.0) L 10/24/16 05:42 BUN 40 mg/dL (7-25) H 10/24/16 05:42 Creatinine 2.7 mg/dL (0.6-1.2) H 10/24/16 05:42 Est GFR ( Amer) TNP 10/24/16 05:42 Est GFR (Non-Af Amer) TNP 10/24/16 05:42 BUN/Creatinine Ratio 14.8 10/24/16 05:42 Glucose 157 mg/dL (70-105) H 10/24/16 05:42 POC Glucose 225 MG/DL (70 - 105) H 10/24/16 11:15 Hemoglobin A1c % 7.1 % (4.0-6.0) H 10/23/16 01:03 Whole Bld Lactic Acid 0.59 mmol/L (0.60-1.99) L 10/23/16 01:03 Uric Acid 7.2 mg/dL (2.3-6.6) H 10/24/16 05:42 Calcium 8.4 mg/dL (8.6-10.3) L 10/24/16 05:42 Phosphorus 2.6 mg/dL (2.5-5.0) 10/24/16 05:42 Magnesium 2.7 mg/dL (1.9-2.7) 10/24/16 05:42 Total Bilirubin 0.3 mg/dL (0.3-1.0) 10/24/16 05:42 AST 11 U/L (13-39) L 10/24/16 05:42 ALT 6 U/L (7-52) L 10/24/16 05:42 Alkaline Phosphatase 69 U/L (34-104) 10/24/16 05:42 Total Protein 5.8 gm/dL (6.0-8.3) L 10/24/16 05:42 Albumin 3.0 gm/dL (3.7-5.3) L 10/24/16 05:42 Globulin 2.8 gm/dL 10/24/16 05:42 Albumin/Globulin Ratio 1.1 (1.0-1.8) 10/24/16 05:42 Urine Source CATH 10/23/16 02:45 Urine Color YELLOW 10/23/16 02:45 Urine Clarity HAZY (CLEAR) 10/23/16 02:45 Urine pH 5.0 10/23/16 02:45 Ur Specific Frederica 1.025 (1.005-1.030) 10/23/16 02:45 Urine Protein >300 mg/dL (NEGATIVE) H 10/23/16 02:45 Urine Glucose (UA) 250 mg/dL (NEGATIVE) H 10/23/16 02:45 Urine Ketones 15 mg/dL (NEGATIVE) H 10/23/16 02:45 Urine Blood SMALL (NEGATIVE) H 10/23/16 02:45 Urine Nitrate POSITIVE (NEGATIVE) H 10/23/16 02:45 Urine Bilirubin NEGATIVE (NEGATIVE) 10/23/16 02:45 Urine Urobilinogen 0.2 E.U./dL (0.2 - 1.0) 10/23/16 02:45 Ur Leukocyte Esterase NEGATIVE (NEGATIVE) 10/23/16 02:45 Urine RBC 2-5 /hpf (0-5) 10/23/16 02:45 Urine WBC 2-5 /hpf (0-5) 10/23/16 02:45 Ur Epithelial Cells FEW /lpf (FEW) 10/23/16 02:45 Amorphous Sediment MODERATE URATES (NONE SEEN) 10/23/16 02:45 Urine Bacteria MANY /hpf (NONE SEEN) 10/23/16 02:45 Ur Random Sodium 48 mmol/L 10/23/16 17:30 Urine Creatinine 89.0 mg/dl (28.0-217.0) 10/23/16 17:30 Stool Occult Blood POSITIVE (NEGATIVE) 10/24/16 09:50 Blood Type O POSITIVE 10/23/16 01:03 Antibody Screen NEGATIVE 10/23/16 01:03 Crossmatch See Detail 10/23/16 01:03 - Physical Exam Vitals and I&O: Vital Signs Temp 97.0 F 10/24/16 11:31 Pulse 53 10/24/16 11:31 Resp 18 10/24/16 11:31 BP 148/65 10/24/16 11:31 Pulse Ox 96 10/24/16 11:31 Intake & Output 10/23/16 10/24/16 10/24/16 18:59 06:59 18:59 Intake Total 50 1200 50 Output Total 550 Balance 50 650 50 Weight (lbs) 62.777 kg Intake: Intake, IV Amount 50 1000 50 D5-0.45NS 1,000 ml @ 50 1000 mls/hr IV .Q20H [facility] Rx#: [id number] cefTRIAXone 1 gm In 50 50 Dextrose 5% 50 ml @ 100 mls/hr IV Q24H [facility] Rx#: [id number] Oral 200 Output: Urine 550 Active Medications: Current Medications Amlodipine Besylate (Norvasc) 10 mg PO DAILY [facility] Stop: 12/22/16 08:59 Last Admin: 10/24/16 09:40 Dose: 10 mg Atenolol (Tenormin) 100 mg PO DAILY [facility] Stop: 12/22/16 08:59 Last Admin: 10/24/16 09:41 Dose: 100 mg Clonidine HCl (Catapres) 0.1 mg PO BID [facility] Stop: 12/22/16 08:59 Last Admin: 10/24/16 09:40 Dose: 0.1 mg Clonidine HCl (Catapres) 0.1 mg PO Q8HR PRN PRN Reason: BP MAINTENANCE (PER PROTOCOL) Stop: 12/22/16 11:12 Last Admin: 10/23/16 11:30 Dose: 0.1 mg Fenofibrate (Tricor) 134 mg PO DAILY [facility] Stop: 12/22/16 08:59 Last Admin: 10/24/16 09:41 Dose: 134 mg Ferrous Sulfate (Iron) 325 mg PO DAILY [facility] Stop: 12/22/16 08:59 Last Admin: 10/24/16 09:41 Dose: 325 mg Folic Acid (Folate) 1 mg PO DAILY [facility] Stop: 12/24/16 08:59 Gabapentin (Neurontin) 300 mg PO DAILY [facility] Stop: 12/22/16 08:59 Last Admin: 10/24/16 09:40 Dose: 300 mg Ceftriaxone Sodium 1 gm/ (Dextrose) 50 mls @ 100 mls/hr IV Q24H [facility] Stop: 12/22/16 08:59 Last Infusion: 10/24/16 09:53 Dose: Infused Ferric Sodium Gluconate Complex 125 mg/ Sodium Chloride 110 mls @ 100 mls/hr IV Q24HR [facility] Stop: 11/01/16 15:14 Last Admin: 10/24/16 15:46 Dose: 100 mls/hr Insulin Aspart (Novolog Insulin Sliding Scale) 0 units SUBQ ACHS [facility] PRN Reason: Protocol Stop: 12/22/16 11:29 Last Admin: 10/24/16 11:55 Dose: 4 units Levothyroxine Sodium (Synthroid) 0.025 mg PO QDAC [facility] Stop: 12/22/16 08:14 Last Admin: 10/24/16 09:40 Dose: 0.025 mg Losartan Potassium (Cozaar) 50 mg PO DAILY [facility] Stop: 12/22/16 08:59 Last Admin: 10/24/16 09:41 Dose: 50 mg Magnesium Hydroxide (Milk Of Magnesia) 30 ml PO DAILY PRN PRN Reason: Constipation Stop: 12/22/16 07:27 Miscellaneous (Vte Chemical Prophylaxis Screen/ Admission) 1 ea [facility] PRN PRN PRN Reason: PROTOCOL Stop: 12/22/16 15:39 Nitroglycerin (Nitrostat) 0.4 mg SL Q5MIN PRN PRN Reason: Chest Pain Stop: 12/22/16 07:27 Ondansetron HCl (Zofran Odt) 4 mg PO Q6HR PRN PRN Reason: Nausea / Vomiting Pantoprazole Sodium (Protonix) 40 mg IVP QDAC [facility] Stop: 12/22/16 08:59 Last Admin: 10/24/16 09:41 Dose: 40 mg General: Alert, Oriented x3, No acute distress HEENT: Atraumatic, PERRLA, EOMI, Mucous membr. moist/pink Neck: Supple, +2 carotid pulse wo bruit Cardiovascular: Regular rate, Normal S1, Normal S2 Lungs: Clear to auscultation Abdomen: Bowel sounds, Soft Extremities: no Edema Neurological: Sensation intact Skin: no Rash Psych/Mental Status: Mood NL - Procedures Procedures: Procedures Procedure Code Date BLOOD TRANSFUSION SERVICE 63963 10/23/16 TRANSFUSE NONAUT PLATELETS IN PERIPH VEIN, [facility] [id number] 06/25/15 TRANSFUSE NONAUT RED BLOOD CELLS IN PERIPH VEIN, [facility] [id number] 10/23/16 Assessment/Plan - Problem List Patient Problems: All Active Problems Severe hypertension (Acute) I10 - Assessment Assessment: 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, hypertensive nephrosclerosis History of hypertension with CKD Type 2 diabetes mellitus with CKD Anemia acute on chronic disease Left leg DVT Status post CVA with left hemiparesis Dyslipidemia Colon CA status post colostomy Thrombocytopenia - Plan Plan: Lab - Result Diagrams 10/24/16 05:42 10/24/16 05:42 Current Medications Amlodipine Besylate (Norvasc) 10 mg PO DAILY [facility] Stop: 12/22/16 08:59 Last Admin: 10/24/16 09:40 Dose: 10 mg Atenolol (Tenormin) 100 mg PO DAILY [facility] Stop: 12/22/16 08:59 Last Admin: 10/24/16 09:41 Dose: 100 mg Clonidine HCl (Catapres) 0.1 mg PO BID [facility] Stop: 12/22/16 08:59 Last Admin: 10/24/16 09:40 Dose: 0.1 mg Clonidine HCl (Catapres) 0.1 mg PO Q8HR PRN PRN Reason: BP MAINTENANCE (PER PROTOCOL) Stop: 12/22/16 11:12 Last Admin: 10/23/16 11:30 Dose: 0.1 mg Fenofibrate (Tricor) 134 mg PO DAILY [facility] Stop: 12/22/16 08:59 Last Admin: 10/24/16 09:41 Dose: 134 mg Ferrous Sulfate (Iron) 325 mg PO DAILY [facility] Stop: 12/22/16 08:59 Last Admin: 10/24/16 09:41 Dose: 325 mg Folic Acid (Folate) 1 mg PO DAILY [facility] Stop: 12/24/16 08:59 Gabapentin (Neurontin) 300 mg PO DAILY [facility] Stop: 12/22/16 08:59 Last Admin: 10/24/16 09:40 Dose: 300 mg Ceftriaxone Sodium 1 gm/ (Dextrose) 50 mls @ 100 mls/hr IV Q24H [facility] Stop: 12/22/16 08:59 Last Infusion: 10/24/16 09:53 Dose: Infused Ferric Sodium Gluconate Complex 125 mg/ Sodium Chloride 110 mls @ 100 mls/hr IV Q24HR [facility] Stop: 11/01/16 15:14 Last Admin: 10/24/16 15:46 Dose: 100 mls/hr Insulin Aspart (Novolog Insulin Sliding Scale) 0 units SUBQ ACHS [facility] PRN Reason: Protocol Stop: 12/22/16 11:29 Last Admin: 10/24/16 11:55 Dose: 4 units Levothyroxine Sodium (Synthroid) 0.025 mg PO QDAC [facility] Stop: 12/22/16 08:14 Last Admin: 10/24/16 09:40 Dose: 0.025 mg Losartan Potassium (Cozaar) 50 mg PO DAILY [facility] Stop: 12/22/16 08:59 Last Admin: 10/24/16 09:41 Dose: 50 mg Magnesium Hydroxide (Milk Of Magnesia) 30 ml PO DAILY PRN PRN Reason: Constipation Stop: 12/22/16 07:27 Miscellaneous (Vte Chemical Prophylaxis Screen/ Admission) 1 ea [facility] PRN PRN PRN Reason: PROTOCOL Stop: 12/22/16 15:39 Nitroglycerin (Nitrostat) 0.4 mg SL Q5MIN PRN PRN Reason: Chest Pain Stop: 12/22/16 07:27 Ondansetron HCl (Zofran Odt) 4 mg PO Q6HR PRN PRN Reason: Nausea / Vomiting Pantoprazole Sodium (Protonix) 40 mg IVP QDAC [facility] Stop: 12/22/16 08:59 Last Admin: 10/24/16 09:41 Dose: 40 mg Kidney function basically discussing with a creatinine of 2.7 Increase IV fluid rate Hemoglobin/hematocrit improved to 9/20 6.9 after transfusion Stool for occult blood positive Started on IV iron by hematology Follow-up electrolytes, CBC Nutritional Asmnt/Malnutr-PDOC - Dietary Evaluation Malnutrition Findings (Please click <Entered> for more info): Nutritional Asmnt/Malnutrition Start: 10/23/16 12: 44 Text: Status: Complete Freq: Document 10/23/16 12:44 GSUN (Rec: 10/23/16 12:54 GSTRICIA [id number]) Nutritional Asmnt/Malnutrition Patient General Information Nutritional Screening High Risk Screening Diagnosis ER: enemia, left hemiplegia Pertinent Medical Hx/Surgical Hx ER: CVA/TIA, left hemiplegia, thrombocytopenia, cardiomegaly , s/p deep vein thrombosis, bronchitis, asthma, chronic renal disease, colon carcinoma , DM, thyroidism hyperlipidemia, colostomy Subjective Information 80 year old female from SNF. Pt undergoing blood transfusion during time of visit. Pt was pleasant, gave yes and no responses only. Not suitable for nutrition edu due to pt appeared lethargic. Teeth intact, pt denied difficulties chewing/ swallowing, denied allergies. Pt stated usually good appetite. No significant wasting noted. Spoek to WILIAN Tenorio RN stated NPO for now. Pt report UBW 131lb, CBW via bedscale 136.1lb. Current Diet Order/ Nutrition Support Per WILIAN Tenorio, verbally, pt is NPO for now. Pertinent Medications D5-0.45ns, Iron, Novolog, Synthroid, MOM, Zofran, Protonix Pertinent Labs 10/23: BUN 42H, creatinine 2.8H, glucose 243H, A1c 7.1H Nutritional Hx/Data Height 1.57 m Height (Calculated Centimeters) 157.5 Current Weight (lbs) 61.734 kg Weight (Calculated Kilograms) 61.7 Weight (Calculated Grams) 10771.9 Usual body Weight (lbs) 131 [place] Body Weight 110 Weight Status Approriate GI Symptoms Food Allergies No Usual diet at home [facility] [place], [facility]: CCHO, regular texture, thin consistency Estimated Nutritional Goals BEE in Kcals: Using Current wt Calories/Kcals/Kg CBW 136.1lb/61.9 Kcals Calculated 1548-1857kcal (25-30kcal/kg) Protein: Using Current wt Protein Calculated 62g (1g/kg) Fluid: ml 1548-1857ml (1ml/kcal) Nutritional Problem 1. Problem Problem No nutritional problem at this time. Intervention/Recommendation Comments 1. When medically feasible to resume diet, recommend [id number] low sodium diet. Expected Outcomes/Goals Expected Outcomes/Goals 1. PO intake to meet at least 75% of estimated nutritional needs.
[2016-10-24] MEDS ORDERED: Magnesium Citrate 1.75 GM/300 mL Bottle PO ONE (16:06)
[2016-10-25] MEDS: D5-0.45NS 1,000 ML IV SCH ×2 (03:24→18:43)
[2016-10-25] MEDS: Levothyroxine 0.025 Mg Tab PO SCH (06:34)
[2016-10-25] MEDS: INSULIN ASPART SLIDING SCALE 100 UNITS/ML UNIT SUBQ SCH ×4 (06:37→21:00)
[2016-10-25 06:57] LABS: % BASOPHILS 0.4 % (0.0-2.0); % LYMPHOCYTES 21.7 % (20.0-50.0); % MONOCYTES 5.9 % (2.0-10.0); HEMATOCRIT 27.7 % (35.0-45.0); HEMOGLOBIN 9.3 gm/dL (11.7-16.1); MEAN CELL VOLUME 88.3 fl (81-100); MEAN CORPUSCULAR HEMOGLOBIN 29.5 pg (27.0-31.0); MEAN CORPUSCULAR HGB CONC 33.4 pg (28.0-36.0); MEAN PLATELET VOLUME 12.2 fl; NEUTROPHILE ABSOLUTE 5.5 Th/cmm (1.8-8.0); PLATELET COUNT 57 Th/cmm (150-400); RED BLOOD COUNT 3.13 Mil/cmm (3.80-5.20); RED CELL DISTRIBUTION WIDTH 14.1 % (11.5-20.0); WHITE BLOOD COUNT 8.2 Th/cmm (4.8-10.8)
[2016-10-25 07:16] LABS: PROTHROMBIN TIME (TEST) 10.4 SECONDS (9.5-11.5)
[2016-10-25 07:20] LABS: ALB/GLOB RATIO 1.1 (1.0-1.8); ALKALINE PHOSPHATASE 71 U/L (34-104); ANION GAP 6.7 (7.0-16.0); BILIRUBIN,TOTAL 0.3 mg/dL (0.3-1.0); BUN - UREA NITROGEN 26 mg/dL (7-25); BUN/CREATININE RATIO 11.8; CALCIUM SERUM 8.1 mg/dL (8.6-10.3); CARBON DIOXIDE 21.2 mEq/L (21.0-31.0); CHLORIDE 113 mEq/L (98-107); CREATININE - SERUM 2.2 mg/dL (0.6-1.2); GLUCOSE 209 mg/dL (70-105); POTASSIUM SERUM 3.9 mEq/L (3.5-5.1); SGOT 17 U/L (13-39); SGPT/ALT 5 U/L (7-52); SODIUM SERUM 137 mEq/L (136-145)
[2016-10-25 08:07] LABS: IRON SATURATION 9 % (15-55); TIBC (LCI) 375 ug/dL (250-450); UIBC 342 ug/dL (118-369)
[2016-10-25] MEDS: Ferrous Sulfate 325 MG TAB PO SCH (08:20)
[2016-10-25] MEDS: Fenofibrate, Micronized 134 mg Cap PO SCH (08:20)
[2016-10-25] MEDS: Sodium Ferric Gluconate 125 MG in Sodium Chloride 0.9% 100 ML IV SCH (14:34)
--- NOTE | 2016-10-25 15:41 | General Progress Note ---
Subjective - Review of Systems Service Date: 10/25/16 Subjective: Alert, feels better Objective - Results Result Diagrams: 10/25/16 06:25 10/25/16 06:25 Recent Labs: Laboratory Last Values WBC 8.2 Th/cmm (4.8-10.8) D 10/25/16 06:25 RBC 3.13 Mil/cmm (3.80-5.20) L 10/25/16 06:25 Hgb 9.3 gm/dL (11.7-16.1) L 10/25/16 06:25 Hct 27.7 % (35.0-45.0) L 10/25/16 06:25 MCV 88.3 fl (81-100) 10/25/16 06:25 MCH 29.5 pg (27.0-31.0) 10/25/16 06:25 MCHC Differential 33.4 pg (28.0-36.0) 10/25/16 06:25 RDW 14.1 % (11.5-20.0) 10/25/16 06:25 Plt Count 57 Th/cmm (150-400) L 10/25/16 06:25 MPV 12.2 fl 10/25/16 06:25 Neutrophils % 67.0 % (40.0-80.0) 10/25/16 06:25 Lymphocytes % 21.7 % (20.0-50.0) 10/25/16 06:25 Monocytes % 5.9 % (2.0-10.0) 10/25/16 06:25 Eosinophils % 5.0 % (0.0-5.0) 10/25/16 06:25 Basophils % 0.4 % (0.0-2.0) 10/25/16 06:25 Neutrophils (Manual) 84 % (40-80) H 10/23/16 01:03 Lymphocytes 14 % (20-50) L 10/23/16 01:03 Monocytes 2 % (2-10) 10/23/16 01:03 Platelet Estimate DECREASED PLATELETS (NORMAL) 10/23/16 01:03 Platelet Morphology NORMAL (NORMAL) 10/23/16 01:03 Polychromasia 1+ 10/23/16 01:03 Anisocytosis 1+ 10/23/16 01:03 Microcytosis 1+ 10/23/16 01:03 RBC Morph Micro Appear ABNORMAL (NORMAL) 10/23/16 01:03 Eos Smear Source URINE 10/23/16 17:30 Eos Smear Total Cells NONE SEEN (NONE SEEN) 10/23/16 17:30 PT 10.4 SECONDS (9.5-11.5) 10/25/16 06:25 INR 1.00 (0.5-1.4) 10/25/16 06:25 PTT (Actin FS) 27.0 SECONDS (26.0-38.0) 10/25/16 06:25 Sodium 137 mEq/L (136-145) 10/25/16 06:25 Potassium 3.9 mEq/L (3.5-5.1) 10/25/16 06:25 Chloride 113 mEq/L (98-107) H 10/25/16 06:25 Carbon Dioxide 21.2 mEq/L (21.0-31.0) 10/25/16 06:25 Anion Gap 6.7 (7.0-16.0) L 10/25/16 06:25 BUN 26 mg/dL (7-25) H 10/25/16 06:25 Creatinine 2.2 mg/dL (0.6-1.2) H 10/25/16 06:25 Est GFR ( Amer) TNP 10/25/16 06:25 Est GFR (Non-Af Amer) TNP 10/25/16 06:25 BUN/Creatinine Ratio 11.8 10/25/16 06:25 Glucose 209 mg/dL (70-105) H 10/25/16 06:25 POC Glucose 167 MG/DL (70 - 105) H 10/25/16 15:28 Hemoglobin A1c % 7.1 % (4.0-6.0) H 10/23/16 01:03 Whole Bld Lactic Acid 0.59 mmol/L (0.60-1.99) L 10/23/16 01:03 Uric Acid 7.2 mg/dL (2.3-6.6) H 10/24/16 05:42 Calcium 8.1 mg/dL (8.6-10.3) L 10/25/16 06:25 Phosphorus 2.6 mg/dL (2.5-5.0) 10/24/16 05:42 Magnesium 2.7 mg/dL (1.9-2.7) 10/24/16 05:42 Iron 33 ug/dL (27-139) 10/24/16 05:42 TIBC 375 ug/dL (250-450) 10/24/16 05:42 Iron Saturation 9 % (15-55) L 10/24/16 05:42 Unsaturated IBC 342 ug/dL (118-369) 10/24/16 05:42 Total Bilirubin 0.3 mg/dL (0.3-1.0) 10/25/16 06:25 AST 17 U/L (13-39) 10/25/16 06:25 ALT 5 U/L (7-52) L 10/25/16 06:25 Alkaline Phosphatase 71 U/L (34-104) 10/25/16 06:25 Total Protein 5.8 gm/dL (6.0-8.3) L 10/25/16 06:25 Albumin 3.0 gm/dL (3.7-5.3) L 10/25/16 06:25 Globulin 2.8 gm/dL 10/25/16 06:25 Albumin/Globulin Ratio 1.1 (1.0-1.8) 10/25/16 06:25 Urine Source CATH 10/23/16 02:45 Urine Color YELLOW 10/23/16 02:45 Urine Clarity HAZY (CLEAR) 10/23/16 02:45 Urine pH 5.0 10/23/16 02:45 Ur Specific [place] 1.025 (1.005-1.030) 10/23/16 02:45 Urine Protein >300 mg/dL (NEGATIVE) H 10/23/16 02:45 Urine Glucose (UA) 250 mg/dL (NEGATIVE) H 10/23/16 02:45 Urine Ketones 15 mg/dL (NEGATIVE) H 10/23/16 02:45 Urine Blood SMALL (NEGATIVE) H 10/23/16 02:45 Urine Nitrate POSITIVE (NEGATIVE) H 10/23/16 02:45 Urine Bilirubin NEGATIVE (NEGATIVE) 10/23/16 02:45 Urine Urobilinogen 0.2 E.U./dL (0.2 - 1.0) 10/23/16 02:45 Ur Leukocyte Esterase NEGATIVE (NEGATIVE) 10/23/16 02:45 Urine RBC 2-5 /hpf (0-5) 10/23/16 02:45 Urine WBC 2-5 /hpf (0-5) 10/23/16 02:45 Ur Epithelial Cells FEW /lpf (FEW) 10/23/16 02:45 Amorphous Sediment MODERATE URATES (NONE SEEN) 10/23/16 02:45 Urine Bacteria MANY /hpf (NONE SEEN) 10/23/16 02:45 Ur Random Sodium 48 mmol/L 10/23/16 17:30 Urine Creatinine 89.0 mg/dl (28.0-217.0) 10/23/16 17:30 Stool Occult Blood POSITIVE (NEGATIVE) 10/25/16 07:50 Blood Type O POSITIVE 10/23/16 01:03 Antibody Screen NEGATIVE 10/23/16 01:03 Crossmatch See Detail 10/23/16 01:03 - Physical Exam Vitals and I&O: Vital Signs Temp 97.4 F 10/25/16 12:00 Pulse 53 10/25/16 12:00 Resp 18 10/25/16 12:00 BP 162/69 10/25/16 12:00 Pulse Ox 98 10/25/16 12:00 Intake & Output 10/24/16 10/25/16 10/25/16 18:59 06:59 18:59 Intake Total 160 350 50 Output Total 1000 Balance 160 -650 50 Weight (lbs) 62.641 kg Intake: Intake, IV Amount 160 50 Sodium Ferric Gluconate 110 125 mg In Sodium Chloride 0.9% 100 ml @ 100 mls/hr IV Q24HR [facility] Rx#: [id number] cefTRIAXone 1 gm In 50 50 Dextrose 5% 50 ml @ 100 mls/hr IV Q24H [facility] Rx#: [id number] Oral 350 Output: Urine 800 Stool 200 Active Medications: Current Medications Amlodipine Besylate (Norvasc) 10 mg PO DAILY [facility] Stop: 12/22/16 08:59 Last Admin: 10/25/16 08:22 Dose: 10 mg Atenolol (Tenormin) 100 mg PO DAILY [facility] Stop: 12/22/16 08:59 Last Admin: 10/25/16 08:21 Dose: 100 mg Bisacodyl (Dulcolax 5 Mg Ec Tab) 10 mg PO X1 ONE Stop: 10/25/16 16:01 Last Admin: 10/25/16 15:25 Dose: 10 mg Clonidine HCl (Catapres) 0.1 mg PO BID [facility] Stop: 12/22/16 08:59 Last Admin: 10/25/16 08:21 Dose: 0.1 mg Clonidine HCl (Catapres) 0.1 mg PO Q8HR PRN PRN Reason: BP MAINTENANCE (PER PROTOCOL) Stop: 12/22/16 11:12 Last Admin: 10/23/16 11:30 Dose: 0.1 mg Fenofibrate (Tricor) 134 mg PO DAILY [facility] Stop: 12/22/16 08:59 Last Admin: 10/25/16 08:20 Dose: 134 mg Ferrous Sulfate (Iron) 325 mg PO DAILY [facility] Stop: 12/22/16 08:59 Last Admin: 10/25/16 08:20 Dose: 325 mg Folic Acid (Folate) 1 mg PO DAILY [facility] Stop: 12/24/16 08:59 Last Admin: 10/25/16 08:20 Dose: 1 mg Gabapentin (Neurontin) 300 mg PO DAILY [facility] Stop: 12/22/16 08:59 Last Admin: 10/25/16 08:21 Dose: 300 mg Ceftriaxone Sodium 1 gm/ (Dextrose) 50 mls @ 100 mls/hr IV Q24H [facility] Stop: 12/22/16 08:59 Last Infusion: 10/25/16 08:48 Dose: Infused Ferric Sodium Gluconate Complex 125 mg/ Sodium Chloride 110 mls @ 100 mls/hr IV Q24HR [facility] Stop: 11/01/16 15:14 Last Admin: 10/25/16 14:34 Dose: 100 mls/hr Dextrose/Sodium Chloride (D5-0.45ns) 1,000 mls @ 75 mls/hr IV .[id number] [facility] Stop: 12/22/16 02:18 Last Admin: 10/25/16 03:24 Dose: 75 mls/hr Insulin Aspart (Novolog Insulin Sliding Scale) 0 units SUBQ ACHS [facility] PRN Reason: Protocol Stop: 12/22/16 11:29 Last Admin: 10/25/16 11:22 Dose: 4 units Levothyroxine Sodium (Synthroid) 0.025 mg PO QDAC [facility] Stop: 12/22/16 08:14 Last Admin: 10/25/16 06:34 Dose: 0.025 mg Losartan Potassium (Cozaar) 50 mg PO DAILY [facility] Stop: 12/22/16 08:59 Last Admin: 10/25/16 08:21 Dose: 50 mg Magnesium Hydroxide (Milk Of Magnesia) 30 ml PO DAILY PRN PRN Reason: Constipation Stop: 12/22/16 07:27 Miscellaneous (Vte Chemical Prophylaxis Screen/ Admission) 1 ea [facility] PRN PRN PRN Reason: PROTOCOL Stop: 12/22/16 15:39 Nitroglycerin (Nitrostat) 0.4 mg SL Q5MIN PRN PRN Reason: Chest Pain Stop: 12/22/16 07:27 Ondansetron HCl (Zofran Odt) 4 mg PO Q6HR PRN PRN Reason: Nausea / Vomiting Pantoprazole Sodium (Protonix) 40 mg IVP QDAC [facility] Stop: 12/22/16 08:59 Last Admin: 10/25/16 06:35 Dose: 40 mg Polyethylene Glycol/Electrolytes (Golytely) 4,000 ml PO X1 ONE Stop: 10/25/16 16:07 Last Admin: 10/25/16 15:26 Dose: 4,000 ml General: Alert, Oriented x3, No acute distress HEENT: Atraumatic, PERRLA, EOMI, Mucous membr. moist/pink Neck: Supple, +2 carotid pulse wo bruit Cardiovascular: Regular rate, Normal S1, Normal S2 Lungs: Clear to auscultation Abdomen: Bowel sounds, Soft Extremities: no Edema Neurological: Sensation intact Skin: no Rash Psych/Mental Status: Mood NL - Procedures Procedures: Procedures Procedure Code Date BLOOD TRANSFUSION SERVICE 69382 10/23/16 TRANSFUSE NONAUT PLATELETS IN PERIPH VEIN, [facility] [id number] 06/25/15 TRANSFUSE NONAUT RED BLOOD CELLS IN PERIPH VEIN, 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, hypertensive nephrosclerosis History of hypertension with CKD Type 2 diabetes mellitus with CKD Anemia acute on chronic disease Left leg DVT Status post CVA with left hemiparesis Dyslipidemia Colon CA status post colostomy Thrombocytopenia - Plan Plan: Lab - Result Diagrams 10/24/16 05:42 10/24/16 05:42 Current Medications Amlodipine Besylate (Norvasc) 10 mg PO DAILY [facility] Stop: 12/22/16 08:59 Last Admin: 10/24/16 09:40 Dose: 10 mg Atenolol (Tenormin) 100 mg PO DAILY [facility] Stop: 12/22/16 08:59 Last Admin: 10/24/16 09:41 Dose: 100 mg Clonidine HCl (Catapres) 0.1 mg PO BID [facility] Stop: 12/22/16 08:59 Last Admin: 10/24/16 09:40 Dose: 0.1 mg Clonidine HCl (Catapres) 0.1 mg PO Q8HR PRN PRN Reason: BP MAINTENANCE (PER PROTOCOL) Stop: 12/22/16 11:12 Last Admin: 10/23/16 11:30 Dose: 0.1 mg Fenofibrate (Tricor) 134 mg PO DAILY [facility] Stop: 12/22/16 08:59 Last Admin: 10/24/16 09:41 Dose: 134 mg Ferrous Sulfate (Iron) 325 mg PO DAILY [facility] Stop: 12/22/16 08:59 Last Admin: 10/24/16 09:41 Dose: 325 mg Folic Acid (Folate) 1 mg PO DAILY [facility] Stop: 12/24/16 08:59 Gabapentin (Neurontin) 300 mg PO DAILY [facility] Stop: 12/22/16 08:59 Last Admin: 10/24/16 09:40 Dose: 300 mg Ceftriaxone Sodium 1 gm/ (Dextrose) 50 mls @ 100 mls/hr IV Q24H [facility] Stop: 12/22/16 08:59 Last Infusion: 10/24/16 09:53 Dose: Infused Ferric Sodium Gluconate Complex 125 mg/ Sodium Chloride 110 mls @ 100 mls/hr IV Q24HR [facility] Stop: 11/01/16 15:14 Last Admin: 10/24/16 15:46 Dose: 100 mls/hr Insulin Aspart (Novolog Insulin Sliding Scale) 0 units SUBQ ACHS [facility] PRN Reason: Protocol Stop: 12/22/16 11:29 Last Admin: 10/24/16 11:55 Dose: 4 units Levothyroxine Sodium (Synthroid) 0.025 mg PO QDAC [facility] Stop: 12/22/16 08:14 Last Admin: 10/24/16 09:40 Dose: 0.025 mg Losartan Potassium (Cozaar) 50 mg PO DAILY [facility] Stop: 12/22/16 08:59 Last Admin: 10/24/16 09:41 Dose: 50 mg Magnesium Hydroxide (Milk Of Magnesia) 30 ml PO DAILY PRN PRN Reason: Constipation Stop: 12/22/16 07:27 Miscellaneous (Vte Chemical Prophylaxis Screen/ Admission) 1 ea [facility] PRN PRN PRN Reason: PROTOCOL Stop: 12/22/16 15:39 Nitroglycerin (Nitrostat) 0.4 mg SL Q5MIN PRN PRN Reason: Chest Pain Stop: 12/22/16 07:27 Ondansetron HCl (Zofran Odt) 4 mg PO Q6HR PRN PRN Reason: Nausea / Vomiting Pantoprazole Sodium (Protonix) 40 mg IVP QDAC [facility] Stop: 12/22/16 08:59 Last Admin: 10/24/16 09:41 Dose: 40 mg Kidney function improving with BUN/creatinine of 26/2.2 Increase IV fluid rate Hemoglobin/hematocrit improved to 9.3 over 27.7 after transfusion Stool for occult blood positive Started on IV iron by hematology Follow-up electrolytes, CBC For EGD and colonoscopy in a.m. Nutritional Asmnt/Malnutr-PDOC - Dietary Evaluation Malnutrition Findings (Please click <Entered> for more info): Nutritional Asmnt/Malnutrition Start: 10/23/16 12: 44 Text: Status: Complete Freq: Document 10/23/16 12:44 GSUN (Rec: 10/23/16 12:54 GSUN [id number]) Nutritional Asmnt/Malnutrition Patient General Information Nutritional Screening High Risk Screening Diagnosis ER: enemia, left hemiplegia Pertinent Medical Hx/Surgical Hx ER: CVA/TIA, left hemiplegia, thrombocytopenia, cardiomegaly , s/p deep vein thrombosis, bronchitis, asthma, chronic renal disease, colon carcinoma , DM, thyroidism hyperlipidemia, colostomy Subjective Information 80 year old female from SNF. Pt undergoing blood transfusion during time of visit. Pt was pleasant, gave yes and no responses only. Not suitable for nutrition edu due to pt appeared lethargic. Teeth intact, pt denied difficulties chewing/ swallowing, denied allergies. Pt stated usually good appetite. No significant wasting noted. Spoek to WILIAN Tenorio RN stated NPO for now. Pt report UBW 131lb, CBW via bedscale 136.1lb. Current Diet Order/ Nutrition Support Per WILIAN Tenorio, verbally, pt is NPO for now. Pertinent Medications D5-0.45ns, Iron, Novolog, Synthroid, MOM, Zofran, Protonix Pertinent Labs 7/7: BUN 42H, creatinine 2.8H, glucose 243H, A1c 7.1H Nutritional Hx/Data Height 1.57 m Height (Calculated Centimeters) 157.5 Current Weight (lbs) 61.734 kg Weight (Calculated Kilograms) 61.7 Weight (Calculated Grams) 95961.9 Usual body Weight (lbs) 131 [place] Body Weight 110 Weight Status Approriate GI Symptoms Food Allergies No Usual diet at home [facility] [place], regular texture, thin consistency Estimated Nutritional Goals BEE in Kcals: Using Current wt Calories/Kcals/Kg CBW 136.1lb/61.9 Kcals Calculated 1548-1857kcal (25-30kcal/kg) Protein: Using Current wt Protein Calculated 62g (1g/kg) Fluid: ml 1548-1857ml (1ml/kcal) Nutritional Problem 1. Problem Problem No nutritional problem at this time. Intervention/Recommendation Comments 1. When medically feasible to resume diet, recommend [id number] low sodium diet. Expected Outcomes/Goals Expected Outcomes/Goals 1. PO intake to meet at least 75% of estimated nutritional needs.
[2016-10-25] MEDS ORDERED: Magnesium Citrate 1.75 GM/300 mL Bottle PO ONE (21:11)
[2016-10-25] MEDS ORDERED: Magnesium Citrate 1.75 GM/300 mL Bottle ONE (21:49)
[2016-10-26] MEDS: Levothyroxine 0.025 Mg Tab PO SCH (06:58)
[2016-10-26] MEDS: INSULIN ASPART SLIDING SCALE 100 UNITS/ML UNIT SUBQ SCH ×2 (07:03→11:34)
[2016-10-26 07:17] LABS: % BASOPHILS 0.3 % (0.0-2.0); % EOSINOPHILS 3.9 % (0.0-5.0); % LYMPHOCYTES 18.6 % (20.0-50.0); % MONOCYTES 5.8 % (2.0-10.0); % NEUTROPHILS 71.4 % (40.0-80.0); HEMATOCRIT 28.1 % (35.0-45.0); HEMOGLOBIN 9.4 gm/dL (11.7-16.1); MEAN CORPUSCULAR HEMOGLOBIN 29.7 pg (27.0-31.0); MEAN CORPUSCULAR HGB CONC 33.3 pg (28.0-36.0); MEAN PLATELET VOLUME 12.4 fl; RED BLOOD COUNT 3.15 Mil/cmm (3.80-5.20); RED CELL DISTRIBUTION WIDTH 14.3 % (11.5-20.0); WHITE BLOOD COUNT 8.4 Th/cmm (4.8-10.8)
[2016-10-26 07:25] LABS: ANION GAP 7.2 (7.0-16.0); BUN - UREA NITROGEN 18 mg/dL (7-25); BUN/CREATININE RATIO 9.5; CARBON DIOXIDE 20.6 mEq/L (21.0-31.0); CHLORIDE 112 mEq/L (98-107); CREATININE - SERUM 1.9 mg/dL (0.6-1.2); GLUCOSE 222 mg/dL (70-105); POTASSIUM SERUM 3.8 mEq/L (3.5-5.1); SODIUM SERUM 136 mEq/L (136-145)
[2016-10-26 07:26] LABS: PLATELET COUNT 64 Th/cmm (150-400)
[2016-10-26] MEDS: Fenofibrate, Micronized 134 mg Cap PO SCH (08:59)
[2016-10-26] MEDS: Ferrous Sulfate 325 MG TAB PO SCH (08:59)
[2016-10-26] MEDS: D5-0.45NS 1,000 ML IV SCH (11:27)
--- NOTE | 2016-10-26 11:51 | General Progress Note ---
Subjective - Review of Systems Service Date: 10/26/16 Events since last encounter: no bleeding Objective - Results Result Diagrams: 10/26/16 06:10 10/26/16 06:10 Recent Labs: Laboratory Last Values WBC 8.4 Th/cmm (4.8-10.8) 10/26/16 06:10 RBC 3.15 Mil/cmm (3.80-5.20) L 10/26/16 06:10 Hgb 9.4 gm/dL (11.7-16.1) L 10/26/16 06:10 Hct 28.1 % (35.0-45.0) L 10/26/16 06:10 MCV 89.0 fl (81-100) 10/26/16 06:10 MCH 29.7 pg (27.0-31.0) 10/26/16 06:10 MCHC Differential 33.3 pg (28.0-36.0) 10/26/16 06:10 RDW 14.3 % (11.5-20.0) 10/26/16 06:10 Plt Count 64 Th/cmm (150-400) L 10/26/16 06:10 MPV 12.4 fl 10/26/16 06:10 Neutrophils % 71.4 % (40.0-80.0) 10/26/16 06:10 Lymphocytes % 18.6 % (20.0-50.0) L 10/26/16 06:10 Monocytes % 5.8 % (2.0-10.0) 10/26/16 06:10 Eosinophils % 3.9 % (0.0-5.0) 10/26/16 06:10 Basophils % 0.3 % (0.0-2.0) 10/26/16 06:10 Neutrophils (Manual) 84 % (40-80) H 10/23/16 01:03 Lymphocytes 14 % (20-50) L 10/23/16 01:03 Monocytes 2 % (2-10) 10/23/16 01:03 Platelet Estimate DECREASED PLATELETS (NORMAL) 10/23/16 01:03 Platelet Morphology NORMAL (NORMAL) 10/23/16 01:03 Polychromasia 1+ 10/23/16 01:03 Anisocytosis 1+ 10/23/16 01:03 Microcytosis 1+ 10/23/16 01:03 RBC Morph Micro Appear ABNORMAL (NORMAL) 10/23/16 01:03 Eos Smear Source URINE 10/23/16 17:30 Eos Smear Total Cells NONE SEEN (NONE SEEN) 10/23/16 17:30 PT 10.4 SECONDS (9.5-11.5) 10/25/16 06:25 INR 1.00 (0.5-1.4) 10/25/16 06:25 PTT (Actin FS) 27.0 SECONDS (26.0-38.0) 10/25/16 06:25 Sodium 136 mEq/L (136-145) 10/26/16 06:10 Potassium 3.8 mEq/L (3.5-5.1) 10/26/16 06:10 Chloride 112 mEq/L (98-107) H 10/26/16 06:10 Carbon Dioxide 20.6 mEq/L (21.0-31.0) L 10/26/16 06:10 Anion Gap 7.2 (7.0-16.0) 10/26/16 06:10 BUN 18 mg/dL (7-25) 10/26/16 06:10 Creatinine 1.9 mg/dL (0.6-1.2) H 10/26/16 06:10 Est GFR ( Amer) TNP 10/26/16 06:10 Est GFR (Non-Af Amer) TNP 10/26/16 06:10 BUN/Creatinine Ratio 9.5 10/26/16 06:10 Glucose 222 mg/dL (70-105) H 10/26/16 06:10 POC Glucose 264 MG/DL (70 - 105) H 10/26/16 08:50 Hemoglobin A1c % 7.1 % (4.0-6.0) H 10/23/16 01:03 Whole Bld Lactic Acid 0.59 mmol/L (0.60-1.99) L 10/23/16 01:03 Uric Acid 7.2 mg/dL (2.3-6.6) H 10/24/16 05:42 Calcium 8.0 mg/dL (8.6-10.3) L 10/26/16 06:10 Phosphorus 2.6 mg/dL (2.5-5.0) 10/24/16 05:42 Magnesium 2.7 mg/dL (1.9-2.7) 10/24/16 05:42 Iron 33 ug/dL (27-139) 10/24/16 05:42 TIBC 375 ug/dL (250-450) 10/24/16 05:42 Iron Saturation 9 % (15-55) L 10/24/16 05:42 Unsaturated IBC 342 ug/dL (118-369) 10/24/16 05:42 Total Bilirubin 0.3 mg/dL (0.3-1.0) 10/25/16 06:25 AST 17 U/L (13-39) 10/25/16 06:25 ALT 5 U/L (7-52) L 10/25/16 06:25 Alkaline Phosphatase 71 U/L (34-104) 10/25/16 06:25 Total Protein 5.8 gm/dL (6.0-8.3) L 10/25/16 06:25 Albumin 3.0 gm/dL (3.7-5.3) L 10/25/16 06:25 Globulin 2.8 gm/dL 10/25/16 06:25 Albumin/Globulin Ratio 1.1 (1.0-1.8) 10/25/16 06:25 Urine Source CATH 10/23/16 02:45 Urine Color YELLOW 10/23/16 02:45 Urine Clarity HAZY (CLEAR) 10/23/16 02:45 Urine pH 5.0 10/23/16 02:45 Ur Specific [place] 1.025 (1.005-1.030) 10/23/16 02:45 Urine Protein >300 mg/dL (NEGATIVE) H 10/23/16 02:45 Urine Glucose (UA) 250 mg/dL (NEGATIVE) H 10/23/16 02:45 Urine Ketones 15 mg/dL (NEGATIVE) H 10/23/16 02:45 Urine Blood SMALL (NEGATIVE) H 10/23/16 02:45 Urine Nitrate POSITIVE (NEGATIVE) H 10/23/16 02:45 Urine Bilirubin NEGATIVE (NEGATIVE) 10/23/16 02:45 Urine Urobilinogen 0.2 E.U./dL (0.2 - 1.0) 10/23/16 02:45 Ur Leukocyte Esterase NEGATIVE (NEGATIVE) 10/23/16 02:45 Urine RBC 2-5 /hpf (0-5) 10/23/16 02:45 Urine WBC 2-5 /hpf (0-5) 10/23/16 02:45 Ur Epithelial Cells FEW /lpf (FEW) 10/23/16 02:45 Amorphous Sediment MODERATE URATES (NONE SEEN) 10/23/16 02:45 Urine Bacteria MANY /hpf (NONE SEEN) 10/23/16 02:45 Ur Random Sodium 48 mmol/L 10/23/16 17:30 Urine Creatinine 89.0 mg/dl (28.0-217.0) 10/23/16 17:30 Stool Occult Blood POSITIVE (NEGATIVE) 10/25/16 07:50 Blood Type O POSITIVE 10/23/16 01:03 Antibody Screen NEGATIVE 10/23/16 01:03 Crossmatch See Detail 10/23/16 01:03 - Physical Exam Vitals and I&O: Vital Signs Temp 97 F 10/26/16 08:42 Pulse 55 10/26/16 09:16 Resp 20 10/26/16 08:42 BP 164/67 10/26/16 09:16 Pulse Ox 96 10/26/16 08:42 Intake & Output 10/25/16 10/26/16 10/26/16 18:59 06:59 18:59 Intake Total 4344 741 8338 Output Total 1400 Balance 1160 -1280 1050 Weight (lbs) 63.594 kg Intake: Intake, IV Amount 1160 1050 D5-0.45NS 1,000 ml @ 75 1000 1000 mls/hr IV .[id number] [facility] Rx #:[id number] Sodium Ferric Gluconate 110 125 mg In Sodium Chloride 0.9% 100 ml @ 100 mls/hr IV Q24HR [facility] Rx#: [id number] cefTRIAXone 1 gm In 50 50 Dextrose 5% 50 ml @ 100 mls/hr IV Q24H [facility] Rx#: [id number] Oral 120 Output: Urine 700 Other 700 Other: # Bowel Movements 0 Stool Characteristics Soft Active Medications: Current Medications Amlodipine Besylate (Norvasc) 10 mg PO DAILY [facility] Stop: 12/22/16 08:59 Last Admin: 10/26/16 09:15 Dose: Not Given Atenolol (Tenormin) 100 mg PO DAILY [facility] Stop: 12/22/16 08:59 Last Admin: 10/26/16 09:16 Dose: Not Given Clonidine HCl (Catapres) 0.1 mg PO BID [facility] Stop: 12/22/16 08:59 Last Admin: 10/26/16 08:59 Dose: 0.1 mg Clonidine HCl (Catapres) 0.1 mg PO Q8HR PRN PRN Reason: BP MAINTENANCE (PER PROTOCOL) Stop: 12/22/16 11:12 Last Admin: 10/23/16 11:30 Dose: 0.1 mg Fenofibrate (Tricor) 134 mg PO DAILY [facility] Stop: 12/22/16 08:59 Last Admin: 10/26/16 08:59 Dose: 134 mg Ferrous Sulfate (Iron) 325 mg PO DAILY [facility] Stop: 12/22/16 08:59 Last Admin: 10/26/16 08:59 Dose: 325 mg Folic Acid (Folate) 1 mg PO DAILY [facility] Stop: 12/24/16 08:59 Last Admin: 10/26/16 08:59 Dose: 1 mg Gabapentin (Neurontin) 300 mg PO DAILY [facility] Stop: 12/22/16 08:59 Last Admin: 10/26/16 08:59 Dose: 300 mg Ceftriaxone Sodium 1 gm/ (Dextrose) 50 mls @ 100 mls/hr IV Q24H [facility] Stop: 12/22/16 08:59 Last Infusion: 10/26/16 10:31 Dose: Infused Ferric Sodium Gluconate Complex 125 mg/ Sodium Chloride 110 mls @ 100 mls/hr IV Q24HR [facility] Stop: 11/01/16 15:14 Last Infusion: 10/25/16 15:40 Dose: Infused Dextrose/Sodium Chloride (D5-0.45ns) 1,000 mls @ 75 mls/hr IV .[id number] [facility] Stop: 12/22/16 02:18 Last Admin: 10/26/16 11:27 Dose: 75 mls/hr Insulin Aspart (Novolog Insulin Sliding Scale) 0 units SUBQ ACHS [facility] PRN Reason: Protocol Stop: 12/22/16 11:29 Last Admin: 10/26/16 11:34 Dose: 6 units Levothyroxine Sodium (Synthroid) 0.025 mg PO QDAC [facility] Stop: 12/22/16 08:14 Last Admin: 10/26/16 06:58 Dose: 0.025 mg Losartan Potassium (Cozaar) 50 mg PO DAILY [facility] Stop: 12/22/16 08:59 Last Admin: 10/26/16 09:12 Dose: 50 mg Magnesium Hydroxide (Milk Of Magnesia) 30 ml PO DAILY PRN PRN Reason: Constipation Stop: 12/22/16 07:27 Miscellaneous (Vte Chemical Prophylaxis Screen/ Admission) 1 ea [facility] PRN PRN PRN Reason: PROTOCOL Stop: 12/22/16 15:39 Nitroglycerin (Nitrostat) 0.4 mg SL Q5MIN PRN PRN Reason: Chest Pain Stop: 12/22/16 07:27 Ondansetron HCl (Zofran Odt) 4 mg PO Q6HR PRN PRN Reason: Nausea / Vomiting Pantoprazole Sodium (Protonix) 40 mg IVP QDAC [facility] Stop: 12/22/16 08:59 Last Admin: 10/26/16 06:58 Dose: 40 mg General: Alert, Oriented x3, No acute distress HEENT: Atraumatic, PERRLA, EOMI, Mucous membr. moist/pink Neck: Supple, +2 carotid pulse wo bruit Cardiovascular: Regular rate, Normal S1, Normal S2 Lungs: Clear to auscultation Abdomen: Bowel sounds, Soft Extremities: no Edema Neurological: Sensation intact Skin: no Rash Psych/Mental Status: Mood NL - Procedures Procedures: Procedures Procedure Code Date BLOOD TRANSFUSION SERVICE 13918 10/23/16 TRANSFUSE NONAUT PLATELETS IN PERIPH VEIN, [facility] 13961P4 06/25/15 TRANSFUSE NONAUT RED BLOOD CELLS IN PERIPH VEIN, [facility] 71708S0 10/23/16 Assessment/Plan - Problem List Patient Problems: All Active Problems Severe hypertension (Acute) I10 - Assessment Assessment: * Anemia of chronic kidney disease. * Anemia of iron deficiency. * Anemia of GI blood loss. continue iv iron follow GI rec. Continue folic acid Nutritional Asmnt/Malnutr-PDOC - Dietary Evaluation Malnutrition Findings (Please click <Entered> for more info): Nutritional Asmnt/Malnutrition Start: 10/23/16 12: 44 Text: Status: Complete Freq: Document 10/23/16 12:44 GSUN (Rec: 10/23/16 12:54 GSUN [id number]) Nutritional Asmnt/Malnutrition Patient General Information Nutritional Screening High Risk Screening Diagnosis ER: enemia, left hemiplegia Pertinent Medical Hx/Surgical Hx ER: CVA/TIA, left hemiplegia, thrombocytopenia, cardiomegaly , s/p deep vein thrombosis, bronchitis, asthma, chronic renal disease, colon carcinoma , DM, thyroidism hyperlipidemia, colostomy Subjective Information 80 year old female from SNF. Pt undergoing blood transfusion during time of visit. Pt was pleasant, gave yes and no responses only. Not suitable for nutrition edu due to pt appeared lethargic. Teeth intact, pt denied difficulties chewing/ swallowing, denied allergies. Pt stated usually good appetite. No significant wasting noted. Spoek to WILIAN Tenorio RN stated NPO for now. Pt report UBW 131lb, CBW via bedscale 136.1lb. Current Diet Order/ Nutrition Support Per WILIAN Tenorio, verbally, pt is NPO for now. Pertinent Medications D5-0.45ns, Iron, Novolog, Synthroid, MOM, Zofran, Protonix Pertinent Labs 10/23: BUN 42H, creatinine 2.8H, glucose 243H, A1c 7.1H Nutritional Hx/Data Height 1.57 m Height (Calculated Centimeters) 157.5 Current Weight (lbs) 61.734 kg Weight (Calculated Kilograms) 61.7 Weight (Calculated Grams) 30749.9 Usual body Weight (lbs) 131 [place] Body Weight 110 Weight Status Approriate GI Symptoms Food Allergies No Usual diet at home [facility]: CCHO, regular texture, thin consistency Estimated Nutritional Goals BEE in Kcals: Using Current wt Calories/Kcals/Kg CBW 136.1lb/61.9 Kcals Calculated 1548-1857kcal (25-30kcal/kg) Protein: Using Current wt Protein Calculated 62g (1g/kg) Fluid: ml 1548-1857ml (1ml/kcal) Nutritional Problem 1. Problem Problem No nutritional problem at this time. Intervention/Recommendation Comments 1. When medically feasible to resume diet, recommend [id number] low sodium diet. Expected Outcomes/Goals Expected Outcomes/Goals 1. PO intake to meet at least 75% of estimated nutritional needs.
--- NOTE | 2016-10-26 12:33 | General Progress Note ---
Subjective - Review of Systems Service Date: 10/26/16 Subjective: Alert, feels better Objective - Results Result Diagrams: 10/26/16 06:10 10/26/16 06:10 Recent Labs: Laboratory Last Values WBC 8.4 Th/cmm (4.8-10.8) 10/26/16 06:10 RBC 3.15 Mil/cmm (3.80-5.20) L 10/26/16 06:10 Hgb 9.4 gm/dL (11.7-16.1) L 10/26/16 06:10 Hct 28.1 % (35.0-45.0) L 10/26/16 06:10 MCV 89.0 fl (81-100) 10/26/16 06:10 MCH 29.7 pg (27.0-31.0) 10/26/16 06:10 MCHC Differential 33.3 pg (28.0-36.0) 10/26/16 06:10 RDW 14.3 % (11.5-20.0) 10/26/16 06:10 Plt Count 64 Th/cmm (150-400) L 10/26/16 06:10 MPV 12.4 fl 10/26/16 06:10 Neutrophils % 71.4 % (40.0-80.0) 10/26/16 06:10 Lymphocytes % 18.6 % (20.0-50.0) L 10/26/16 06:10 Monocytes % 5.8 % (2.0-10.0) 10/26/16 06:10 Eosinophils % 3.9 % (0.0-5.0) 10/26/16 06:10 Basophils % 0.3 % (0.0-2.0) 10/26/16 06:10 Neutrophils (Manual) 84 % (40-80) H 10/23/16 01:03 Lymphocytes 14 % (20-50) L 10/23/16 01:03 Monocytes 2 % (2-10) 10/23/16 01:03 Platelet Estimate DECREASED PLATELETS (NORMAL) 10/23/16 01:03 Platelet Morphology NORMAL (NORMAL) 10/23/16 01:03 Polychromasia 1+ 10/23/16 01:03 Anisocytosis 1+ 10/23/16 01:03 Microcytosis 1+ 10/23/16 01:03 RBC Morph Micro Appear ABNORMAL (NORMAL) 10/23/16 01:03 Eos Smear Source URINE 10/23/16 17:30 Eos Smear Total Cells NONE SEEN (NONE SEEN) 10/23/16 17:30 PT 10.4 SECONDS (9.5-11.5) 10/25/16 06:25 INR 1.00 (0.5-1.4) 10/25/16 06:25 PTT (Actin FS) 27.0 SECONDS (26.0-38.0) 10/25/16 06:25 Sodium 136 mEq/L (136-145) 10/26/16 06:10 Potassium 3.8 mEq/L (3.5-5.1) 10/26/16 06:10 Chloride 112 mEq/L (98-107) H 10/26/16 06:10 Carbon Dioxide 20.6 mEq/L (21.0-31.0) L 10/26/16 06:10 Anion Gap 7.2 (7.0-16.0) 10/26/16 06:10 BUN 18 mg/dL (7-25) 10/26/16 06:10 Creatinine 1.9 mg/dL (0.6-1.2) H 10/26/16 06:10 Est GFR ( Amer) TNP 10/26/16 06:10 Est GFR (Non-Af Amer) TNP 10/26/16 06:10 BUN/Creatinine Ratio 9.5 10/26/16 06:10 Glucose 222 mg/dL (70-105) H 10/26/16 06:10 POC Glucose 286 MG/DL (70 - 105) H 10/26/16 11:28 Hemoglobin A1c % 7.1 % (4.0-6.0) H 10/23/16 01:03 Whole Bld Lactic Acid 0.59 mmol/L (0.60-1.99) L 10/23/16 01:03 Uric Acid 7.2 mg/dL (2.3-6.6) H 10/24/16 05:42 Calcium 8.0 mg/dL (8.6-10.3) L 10/26/16 06:10 Phosphorus 2.6 mg/dL (2.5-5.0) 10/24/16 05:42 Magnesium 2.7 mg/dL (1.9-2.7) 10/24/16 05:42 Iron 33 ug/dL (27-139) 10/24/16 05:42 TIBC 375 ug/dL (250-450) 10/24/16 05:42 Iron Saturation 9 % (15-55) L 10/24/16 05:42 Unsaturated IBC 342 ug/dL (118-369) 10/24/16 05:42 Total Bilirubin 0.3 mg/dL (0.3-1.0) 10/25/16 06:25 AST 17 U/L (13-39) 10/25/16 06:25 ALT 5 U/L (7-52) L 10/25/16 06:25 Alkaline Phosphatase 71 U/L (34-104) 10/25/16 06:25 Total Protein 5.8 gm/dL (6.0-8.3) L 10/25/16 06:25 Albumin 3.0 gm/dL (3.7-5.3) L 10/25/16 06:25 Globulin 2.8 gm/dL 10/25/16 06:25 Albumin/Globulin Ratio 1.1 (1.0-1.8) 10/25/16 06:25 Urine Source CATH 10/23/16 02:45 Urine Color YELLOW 10/23/16 02:45 Urine Clarity HAZY (CLEAR) 10/23/16 02:45 Urine pH 5.0 10/23/16 02:45 Ur Specific [place] 1.025 (1.005-1.030) 10/23/16 02:45 Urine Protein >300 mg/dL (NEGATIVE) H 10/23/16 02:45 Urine Glucose (UA) 250 mg/dL (NEGATIVE) H 10/23/16 02:45 Urine Ketones 15 mg/dL (NEGATIVE) H 10/23/16 02:45 Urine Blood SMALL (NEGATIVE) H 10/23/16 02:45 Urine Nitrate POSITIVE (NEGATIVE) H 10/23/16 02:45 Urine Bilirubin NEGATIVE (NEGATIVE) 10/23/16 02:45 Urine Urobilinogen 0.2 E.U./dL (0.2 - 1.0) 10/23/16 02:45 Ur Leukocyte Esterase NEGATIVE (NEGATIVE) 10/23/16 02:45 Urine RBC 2-5 /hpf (0-5) 10/23/16 02:45 Urine WBC 2-5 /hpf (0-5) 10/23/16 02:45 Ur Epithelial Cells FEW /lpf (FEW) 10/23/16 02:45 Amorphous Sediment MODERATE URATES (NONE SEEN) 10/23/16 02:45 Urine Bacteria MANY /hpf (NONE SEEN) 10/23/16 02:45 Ur Random Sodium 48 mmol/L 10/23/16 17:30 Urine Creatinine 89.0 mg/dl (28.0-217.0) 10/23/16 17:30 Stool Occult Blood POSITIVE (NEGATIVE) 10/25/16 07:50 Blood Type O POSITIVE 10/23/16 01:03 Antibody Screen NEGATIVE 10/23/16 01:03 Crossmatch See Detail 10/23/16 01:03 - Physical Exam Vitals and I&O: Vital Signs Temp 97.3 F 10/26/16 11:53 Pulse 59 10/26/16 11:53 Resp 20 10/26/16 11:53 BP 166/67 10/26/16 11:53 Pulse Ox 96 10/26/16 11:53 Intake & Output 10/25/16 10/26/16 10/26/16 18:59 06:59 18:59 Intake Total 7967 346 9539 Output Total 1400 Balance 1160 -1280 1050 Weight (lbs) 63.594 kg Intake: Intake, IV Amount 1160 1050 D5-0.45NS 1,000 ml @ 75 1000 1000 mls/hr IV .[id number] VLAD Rx #:[id number] Sodium Ferric Gluconate 110 125 mg In Sodium Chloride 0.9% 100 ml @ 100 mls/hr IV Q24HR VLAD Rx#: [id number] cefTRIAXone 1 gm In 50 50 Dextrose 5% 50 ml @ 100 mls/hr IV Q24H VLAD Rx#: [id number] Oral 120 Output: Urine 700 Other 700 Other: # Bowel Movements 0 Stool Characteristics Soft Active Medications: Current Medications Amlodipine Besylate (Norvasc) 10 mg PO DAILY [facility] Stop: 12/22/16 08:59 Last Admin: 10/26/16 09:15 Dose: Not Given Atenolol (Tenormin) 100 mg PO DAILY VLAD Stop: 12/22/16 08:59 Last Admin: 10/26/16 09:16 Dose: Not Given Clonidine HCl (Catapres) 0.1 mg PO BID [facility] Stop: 12/22/16 08:59 Last Admin: 10/26/16 08:59 Dose: 0.1 mg Clonidine HCl (Catapres) 0.1 mg PO Q8HR PRN PRN Reason: BP MAINTENANCE (PER PROTOCOL) Stop: 12/22/16 11:12 Last Admin: 10/23/16 11:30 Dose: 0.1 mg Fenofibrate (Tricor) 134 mg PO DAILY VLAD Stop: 12/22/16 08:59 Last Admin: 10/26/16 08:59 Dose: 134 mg Ferrous Sulfate (Iron) 325 mg PO DAILY VLAD Stop: 12/22/16 08:59 Last Admin: 10/26/16 08:59 Dose: 325 mg Folic Acid (Folate) 1 mg PO DAILY VLAD Stop: 12/24/16 08:59 Last Admin: 10/26/16 08:59 Dose: 1 mg Gabapentin (Neurontin) 300 mg PO DAILY VLAD Stop: 12/22/16 08:59 Last Admin: 10/26/16 08:59 Dose: 300 mg Ceftriaxone Sodium 1 gm/ (Dextrose) 50 mls @ 100 mls/hr IV Q24H VLAD Stop: 12/22/16 08:59 Last Infusion: 10/26/16 10:31 Dose: Infused Ferric Sodium Gluconate Complex 125 mg/ Sodium Chloride 110 mls @ 100 mls/hr IV Q24HR VLAD Stop: 11/01/16 15:14 Last Infusion: 10/25/16 15:40 Dose: Infused Dextrose/Sodium Chloride (D5-0.45ns) 1,000 mls @ 75 mls/hr IV .[id number] [facility] Stop: 12/22/16 02:18 Last Admin: 10/26/16 11:27 Dose: 75 mls/hr Insulin Aspart (Novolog Insulin Sliding Scale) 0 units SUBQ ACHS VLAD PRN Reason: Protocol Stop: 12/22/16 11:29 Last Admin: 10/26/16 11:34 Dose: 6 units Levothyroxine Sodium (Synthroid) 0.025 mg PO QDAC VLAD Stop: 12/22/16 08:14 Last Admin: 10/26/16 06:58 Dose: 0.025 mg Losartan Potassium (Cozaar) 50 mg PO DAILY [facility] Stop: 12/22/16 08:59 Last Admin: 10/26/16 09:12 Dose: 50 mg Magnesium Hydroxide (Milk Of Magnesia) 30 ml PO DAILY PRN PRN Reason: Constipation Stop: 12/22/16 07:27 Miscellaneous (Vte Chemical Prophylaxis Screen/ Admission) 1 ea [facility] PRN PRN PRN Reason: PROTOCOL Stop: 12/22/16 15:39 Nitroglycerin (Nitrostat) 0.4 mg SL Q5MIN PRN PRN Reason: Chest Pain Stop: 12/22/16 07:27 Ondansetron HCl (Zofran Odt) 4 mg PO Q6HR PRN PRN Reason: Nausea / Vomiting Pantoprazole Sodium (Protonix) 40 mg IVP QDAC VLAD Stop: 12/22/16 08:59 Last Admin: 10/26/16 06:58 Dose: 40 mg General: Alert, Oriented x3, No acute distress HEENT: Atraumatic, PERRLA, EOMI, Mucous membr. moist/pink Neck: Supple, +2 carotid pulse wo bruit Cardiovascular: Regular rate, Normal S1, Normal S2 Lungs: Clear to auscultation Abdomen: Bowel sounds, Soft Extremities: no Edema Neurological: Sensation intact Skin: no Rash Psych/Mental Status: Mood NL - Procedures Procedures: Procedures Procedure Code Date BLOOD TRANSFUSION SERVICE 56084 10/23/16 TRANSFUSE NONAUT PLATELETS IN PERIPH VEIN, [facility] 25139Y1 06/25/15 TRANSFUSE NONAUT RED BLOOD CELLS IN PERIPH VEIN, [facility] 34355R1 10/23/16 Assessment/Plan - Problem List Patient Problems: All Active Problems Severe hypertension (Acute) I10 - Assessment Assessment: CKD secondary to diabetic nephropathy, hypertensive nephrosclerosis History of hypertension with CKD Type 2 diabetes mellitus with CKD Anemia acute on chronic disease Left leg DVT Status post CVA with left hemiparesis Dyslipidemia Colon CA status post colostomy Thrombocytopenia - Plan Plan: Lab - Result Diagrams 10/24/16 05:42 10/24/16 05:42 Current Medications Amlodipine Besylate (Norvasc) 10 mg PO DAILY VLAD Stop: 12/22/16 08:59 Last Admin: 10/24/16 09:40 Dose: 10 mg Atenolol (Tenormin) 100 mg PO DAILY VLAD Stop: 12/22/16 08:59 Last Admin: 10/24/16 09:41 Dose: 100 mg Clonidine HCl (Catapres) 0.1 mg PO BID VLAD Stop: 12/22/16 08:59 Last Admin: 10/24/16 09:40 Dose: 0.1 mg Clonidine HCl (Catapres) 0.1 mg PO Q8HR PRN PRN Reason: BP MAINTENANCE (PER PROTOCOL) Stop: 12/22/16 11:12 Last Admin: 10/23/16 11:30 Dose: 0.1 mg Fenofibrate (Tricor) 134 mg PO DAILY VLAD Stop: 12/22/16 08:59 Last Admin: 10/24/16 09:41 Dose: 134 mg Ferrous Sulfate (Iron) 325 mg PO DAILY VLAD Stop: 12/22/16 08:59 Last Admin: 10/24/16 09:41 Dose: 325 mg Folic Acid (Folate) 1 mg PO DAILY [facility] Stop: 12/24/16 08:59 Gabapentin (Neurontin) 300 mg PO DAILY VLAD Stop: 12/22/16 08:59 Last Admin: 10/24/16 09:40 Dose: 300 mg Ceftriaxone Sodium 1 gm/ (Dextrose) 50 mls @ 100 mls/hr IV Q24H VLAD Stop: 12/22/16 08:59 Last Infusion: 10/24/16 09:53 Dose: Infused Ferric Sodium Gluconate Complex 125 mg/ Sodium Chloride 110 mls @ 100 mls/hr IV Q24HR [facility] Stop: 11/01/16 15:14 Last Admin: 10/24/16 15:46 Dose: 100 mls/hr Insulin Aspart (Novolog Insulin Sliding Scale) 0 units SUBQ ACHS VLAD PRN Reason: Protocol Stop: 12/22/16 11:29 Last Admin: 10/24/16 11:55 Dose: 4 units Levothyroxine Sodium (Synthroid) 0.025 mg PO QDAC [facility] Stop: 12/22/16 08:14 Last Admin: 10/24/16 09:40 Dose: 0.025 mg Losartan Potassium (Cozaar) 50 mg PO DAILY [facility] Stop: 12/22/16 08:59 Last Admin: 10/24/16 09:41 Dose: 50 mg Magnesium Hydroxide (Milk Of Magnesia) 30 ml PO DAILY PRN PRN Reason: Constipation Stop: 12/22/16 07:27 Miscellaneous (Vte Chemical Prophylaxis Screen/ Admission) 1 ea [facility] PRN PRN PRN Reason: PROTOCOL Stop: 12/22/16 15:39 Nitroglycerin (Nitrostat) 0.4 mg SL Q5MIN PRN PRN Reason: Chest Pain Stop: 12/22/16 07:27 Ondansetron HCl (Zofran Odt) 4 mg PO Q6HR PRN PRN Reason: Nausea / Vomiting Pantoprazole Sodium (Protonix) 40 mg IVP QDAC VLAD Stop: 12/22/16 08:59 Last Admin: 10/24/16 09:41 Dose: 40 mg Kidney function improving with BUN/creatinine of 18/1.9 Increase IV fluid rate Hemoglobin/hematocrit improved to 9.4/28.1 after transfusion Stool for occult blood positive Started on IV iron by hematology Family refused further workup Possible DC back to ECF Nutritional Asmnt/Malnutr-PDOC - Dietary Evaluation Malnutrition Findings (Please click <Entered> for more info): Nutritional Asmnt/Malnutrition Start: 10/23/16 12: 44 Text: Status: Complete Freq: Document 10/23/16 12:44 GSUN (Rec: 10/23/16 12:54 GSUN [id number]) Nutritional Asmnt/Malnutrition Patient General Information Nutritional Screening High Risk Screening Diagnosis ER: enemia, left hemiplegia Pertinent Medical Hx/Surgical Hx ER: CVA/TIA, left hemiplegia, thrombocytopenia, cardiomegaly , s/p deep vein thrombosis, bronchitis, asthma, chronic renal disease, colon carcinoma , DM, thyroidism hyperlipidemia, colostomy Subjective Information 80 year old female from SNF. Pt undergoing blood transfusion during time of visit. Pt was pleasant, gave yes and no responses only. Not suitable for nutrition edu due to pt appeared lethargic. Teeth intact, pt denied difficulties chewing/ swallowing, denied allergies. Pt stated usually good appetite. No significant wasting noted. Spoek to WILIAN Tenorio RN stated NPO for now. Pt report UBW 131lb, CBW via bedscale 136.1lb. Current Diet Order/ Nutrition Support Per WILIAN Tenorio, verbally, pt is NPO for now. Pertinent Medications D5-0.45ns, Iron, Novolog, Synthroid, MOM, Zofran, Protonix Pertinent Labs 10/23: BUN 42H, creatinine 2.8H, glucose 243H, A1c 7.1H Nutritional Hx/Data Height 1.57 m Height (Calculated Centimeters) 157.5 Current Weight (lbs) 61.734 kg Weight (Calculated Kilograms) 61.7 Weight (Calculated Grams) 74366.9 Usual body Weight (lbs) 131 [place] Body Weight 110 Weight Status Approriate GI Symptoms Food Allergies No Usual diet at home [facility]: CCHO, regular texture, thin consistency Estimated Nutritional Goals BEE in Kcals: Using Current wt Calories/Kcals/Kg CBW 136.1lb/61.9 Kcals Calculated 1548-1857kcal (25-30kcal/kg) Protein: Using Current wt Protein Calculated 62g (1g/kg) Fluid: ml 1548-1857ml (1ml/kcal) Nutritional Problem 1. Problem Problem No nutritional problem at this time. Intervention/Recommendation Comments 1. When medically feasible to resume diet, recommend [id number] low sodium diet. Expected Outcomes/Goals Expected Outcomes/Goals 1. PO intake to meet at least 75% of estimated nutritional needs.
== END 2016-10-26 13:15 | disposition home or self-care (01) | DRG 377 ==
LOC: ER 00:08 → MSI 02:10
PROVIDERS: ADMIT Family Medicine; ATTEND Family Medicine
PROC: 30233N1 Transfusion of Nonautologous Red Blood Cells into Peripheral Vein, Percutaneous Approach (ICD-10-PCS; principal; 2016-10-23)
DX: K92.2 Gastrointestinal hemorrhage, unspecified (principal); E43 Unspecified severe protein-calorie malnutrition; D69.6 Thrombocytopenia, unspecified; I69.354 Hemiplegia and hemiparesis following cerebral infarction affecting left non-dominant side; E11.21 Type 2 diabetes mellitus with diabetic nephropathy; N39.0 Urinary tract infection, site not specified; N18.9 Chronic kidney disease, unspecified; I12.9 Hypertensive chronic kidney disease with stage 1 through stage 4 chronic kidney disease, or unspecified chronic kidney disease; E78.5 Hyperlipidemia, unspecified; D50.0 Iron deficiency anemia secondary to blood loss (chronic); J45.909 Unspecified asthma, uncomplicated; D63.1 Anemia in chronic kidney disease; K21.9 Gastro-esophageal reflux disease without esophagitis; Z85.038 Personal history of other malignant neoplasm of large intestine; Z93.3 Colostomy status; Z79.01 Long term (current) use of anticoagulants; Z79.4 Long term (current) use of insulin; Z86.718 Personal history of other venous thrombosis and embolism; Z68.25 Body mass index [BMI] 25.0-25.9, adult
CPT/HCPCS: 36415-UA; 76770-TC; 80048-TC; 80053-TC; 81001-TC; 81015-TC; 82270-TC; 82570-TC; 82728-90; 82948-90; 83036-90; 83540-90; 83550-90; 83605; 83735-TC; 84100-TC; 84300-TC; 84550-TC; 85007-TC; 85014-TC; 85018-TC; 85025-TC; 85027-TC; 85610-TC; 85730-TC; 86850-TC; 86900-TC; 86901-TC; 86922-TC; C9113; J0696; J1815; J2916; J7040; P9016; Z7610

== ENCOUNTER 2016-11-03 20:56 | Inpatient (IN) | payer MEDICARE, MEDICAID ==
--- NOTE | 2016-11-03 21:21 | ED Physician Chart ---
Chief Complaint/HPI - Patient Information Date Seen:: 11/03/16 Time Seen:: 21:15 Chief Complaint:: low platelets History of Present Illness:: pt sent from [facility] after vomited 1x earlier. c/o abd p earlier but not now. pt had recent labs showing very low plts. pt looks very pale. she has a colostomy that has been fxning ok. no blood loss/bleeding recently no fever. nonambulatory from l side cva weakness. PMD DR Brothers Allergies:: Allergies Allergy/AdvReac Type Severity Reaction Status Date / Time No Known Allergies Allergy Verified 10/08/16 10:25 Historian:: Patient Review of Systems - Review of Systems General/Constitutional: No fever, No chills, No weight loss, No weakness, No diaphoresis, No edema, No loss of appetite Skin: No skin lesions, No rash, No bruising Head: No headache, No light-headedness Eyes: No loss of vision, No pain, No diplopia ENT: No earache, No nasal drainage, No sore throat, No tinnitus Neck: No neck pain, No swelling, No thyromegaly, No stiffness, No mass noted Cardio Vascular: No chest pain, No palpitations, No PND, No orthopnea, No edema Pulmonary: No SOB, No cough, No sputum, No wheezing GI: No nausea, No vomiting, No diarrhea, No pain, No melena, No hematochezia, No constipation, No hematemesis G/U: No dysuria, No frequency, No hematuria Musculoskeletal: No bone or joint pain, No back pain, No muscle pain Endocrine: No polyuria, No polydipsia Psychiatric: No prior psych history, No depression, No anxiety, No suicidal ideation Hematopoietic: No bruising, No lymphadenopathy Allergic/Immuno: No urticaria, No angioedema Neurological: No syncope, No focal symptoms, No weakness, No paresthesia, No headache, No seizure, No dizziness, No confusion, No vertigo Past Medical History - Past Medical History Past Medical History: HTN, DM, CVA/TIA (l side weak), Dyslipidemia, Other ( anemia, fx l shldr, colostomy...hx colon ca s/p sx) Social History: Care Facility Surgical History: other (colostomy bag 2nd ca colon sx) Medication: Reviewed Family Medical History - Family Member Mother History Unknown: Yes Ethnicity: Unknown Living Status: Unknown Physical Exam - Physical Examination General/Constitutional: Awake, Well-developed, well-nourished, Alert, No distress, GCS 15, Non-toxic appearing, Ambulatory Other Gen/Cons comments:: very pale. alert/oriented. no sob. Head: Atraumatic Eyes: Lids, conjuctiva normal, PERRL, EOMI Skin: Nl inspection, No rash, No skin lesions, No ecchymosis, Well hydrated, No lymphadenopathy ENMT: External ears, nose nl, Nasal exam nl, Lips, teeth, gums nl Neck: Nontender, Full ROM w/o pain, No JVD, No nuchal rigidity, No bruit, No mass, No stridor Respiratory: Nl effort/Exclusion, Clear to Auscultation, No Wheeze/Rhonchi/Rales Cardio Vascular: RRR, No murmur, gallop, rubs, NL S1 S2 GI: No tenderness/rebounding/guarding, No organomegaly, No hernia, Normal BS's, Nondistended, No mass/bruits, No McBurney tenderness Other GI comments:: colostomy site at l abd appears clean noninfected abd is soft and nontndr. pos nabs. : No CVA tenderness Extremities: No tenderness or effusion, Full ROM, normal strength in all extremities, No edema, Normal digits & nails Neuro/Psych: Alert/oriented, DTR's symmetric, Normal sensory exam, Judgement/ insight normal, Mood normal, Normal gait, No focal deficits Other Neuro/Psych comments:: l side weak from prior cva Misc: normal gait, Normal back, No paraspinal tenderness Labs/Radiology/EKG Results - Lab Results Results: Laboratory Tests 11/03/16 11/03/16 11/03/16 21:49 21:49 21:49 WBC 10.1 D RBC 3.46 L Hgb 10.3 L Hct 30.5 L MCV 88.3 MCH 29.8 MCHC Differential 33.8 RDW 14.8 Plt Count 68 L MPV 11.8 Neutrophils % 75.0 Lymphocytes % 18.8 L Monocytes % 4.2 Eosinophils % 1.5 Basophils % 0.5 PT 10.9 INR 1.05 PTT (Actin FS) 27.7 Sodium 133 L Potassium 4.9 Chloride 105 Carbon Dioxide 23.4 Anion Gap 9.5 BUN 21 Creatinine 2.2 H Est GFR ( Amer) TNP Est GFR (Non-Af Amer) TNP BUN/Creatinine Ratio 9.5 Glucose 130 H Calcium 9.0 Total Bilirubin 0.4 AST 19 ALT 10 Alkaline Phosphatase 82 Troponin I Total Protein 7.1 Albumin 3.3 L Globulin 3.8 Albumin/Globulin Ratio 0.9 L Lipase 3 L Urine Source Urine Color Urine Clarity Urine pH Ur Specific [place] Urine Protein Urine Glucose (UA) Urine Ketones Urine Blood Urine Nitrate Urine Bilirubin Urine Urobilinogen Ur Leukocyte Esterase Urine RBC Urine WBC Ur Epithelial Cells Urine Bacteria Blood Type Antibody Screen 11/03/16 11/03/16 11/03/16 21:49 21:49 22:00 WBC RBC Hgb Hct MCV MCH MCHC Differential RDW Plt Count MPV Neutrophils % Lymphocytes % Monocytes % Eosinophils % Basophils % PT INR PTT (Actin FS) Sodium Potassium Chloride Carbon Dioxide Anion Gap BUN Creatinine Est GFR ( Amer) Est GFR (Non-Af Amer) BUN/Creatinine Ratio Glucose Calcium Total Bilirubin AST ALT Alkaline Phosphatase Troponin I 0.01 Total Protein Albumin Globulin Albumin/Globulin Ratio Lipase Urine Source CLEAN C Urine Color YELLOW Urine Clarity CLEAR Urine pH 6.0 Ur Specific [place] 1.010 Urine Protein NEGATIVE Urine Glucose (UA) NEGATIVE Urine Ketones NEGATIVE Urine Blood NEGATIVE Urine Nitrate NEGATIVE Urine Bilirubin NEGATIVE Urine Urobilinogen 0.2 Ur Leukocyte Esterase NEGATIVE Urine RBC 0-2 Urine WBC 0-2 Ur Epithelial Cells FEW Urine Bacteria FEW Blood Type O POSITIVE Antibody Screen NEGATIVE ED Septic Shock - . Is Septic Shock (SBP<90, OR Lactate>4 mmol\L) present?: No Reassessment (Disposition) - Reassessment Reassessment:: case dw dr brothers who has mad decision to admit pt Reassessment Condition:: Unchanged - Diagnosis Diagnosis:: 1 anemia 2 thrombocytopenia - Patient Disposition Admitted to:: Med/Surg Condition at Disposition:: Unchanged
[2016-11-03 22:00] LABS: % BASOPHILS 0.5 % (0.0-2.0); % EOSINOPHILS 1.5 % (0.0-5.0); % LYMPHOCYTES 18.8 % (20.0-50.0); % MONOCYTES 4.2 % (2.0-10.0); HEMATOCRIT 30.5 % (35.0-45.0); HEMOGLOBIN 10.3 gm/dL (11.7-16.1); MEAN CELL VOLUME 88.3 fl (81-100); MEAN CORPUSCULAR HEMOGLOBIN 29.8 pg (27.0-31.0); MEAN CORPUSCULAR HGB CONC 33.8 pg (28.0-36.0); MEAN PLATELET VOLUME 11.8 fl; NEUTROPHILE ABSOLUTE 7.5 Th/cmm (1.8-8.0); PLATELET COUNT 68 Th/cmm (150-400); RED BLOOD COUNT 3.46 Mil/cmm (3.80-5.20); RED CELL DISTRIBUTION WIDTH 14.8 % (11.5-20.0)
[2016-11-03 22:01] LABS: WHITE BLOOD COUNT 10.1 Th/cmm (4.8-10.8)
[2016-11-03 22:17] LABS: INR 1.05 (0.5-1.4); PROTHROMBIN TIME (TEST) 10.9 SECONDS (9.5-11.5)
[2016-11-03 22:33] LABS: ALB/GLOB RATIO 0.9 (1.0-1.8); ANION GAP 9.5 (7.0-16.0); BUN - UREA NITROGEN 21 mg/dL (7-25); BUN/CREATININE RATIO 9.5; CARBON DIOXIDE 23.4 mEq/L (21.0-31.0); CHLORIDE 105 mEq/L (98-107); CREATININE - SERUM 2.2 mg/dL (0.6-1.2); GLUCOSE 130 mg/dL (70-105); POTASSIUM SERUM 4.9 mEq/L (3.5-5.1); SODIUM SERUM 133 mEq/L (136-145)
[2016-11-03 22:34] LABS: ALKALINE PHOSPHATASE 82 U/L (34-104); BILIRUBIN,TOTAL 0.4 mg/dL (0.3-1.0); LIPASE 3 U/L (11-82); SGOT 19 U/L (13-39); SGPT/ALT 10 U/L (7-52)
[2016-11-03 22:44] LABS: URINE BILIRUBIN NEGATIVE (NEGATIVE); URINE BLOOD NEGATIVE (NEGATIVE); URINE COLOR YELLOW; URINE GLUCOSE (UA) NEGATIVE (NEGATIVE); URINE KETONE NEGATIVE (NEGATIVE); URINE PROTEIN NEGATIVE (NEGATIVE); URINE UROBILINOGEN 0.2 E.U./dL (0.2 - 1.0)
[2016-11-03 22:45] LABS: URINE BACTERIA FEW /hpf (NONE SEEN); URINE EPITHELIAL CELLS FEW /lpf (FEW); URINE RBC 0-2 /hpf (0-5); URINE WBC 0-2 /hpf (0-5)
--- NOTE | 2016-11-04 00:24 | Admit Criteria Form ---
Admit Criteria Forms - Admit Criteria Diagnosis: ANEMIA, IRON DEFICIENCY OR UNSPECIFIED Clinical Indications for Inpatient Care (Place 'X' for any and all applicable criteria): Admission is indicated for ANY ONE of the following(1)(2)(3)(4)(5)(6)(7): [X] I. Inpatient admission required rather than observation care (Also use Anemia, Iron Deficiency or Unspecified: Observation Care guideline as appropriate) because of ANY ONE of the following: [] a) Hemodynamic instability that is severe or persistent [] b) Active bleeding that cannot be rapidly controlled [] c) CVS symptoms (i.e., dyspnea, chest pain, heart failure) that are severe or persistent [] d) Neurologic symptoms (i.e., cognitive impairment, recurrent syncope or near syncope) that are severe or persistent [] e) Cardiac arrhythmias of immediate concern [] f) Acute peripheral ischemia (e.g., pulseless, cool, mottled, or cyanotic extremity) [] g) High-risk low platelet count [] h) Acute renal failure [] i) Ongoing transfusion for blood loss (greater than 2 units) [] j) IV fluid to replace significant ongoing (eg, >24 hours) losses (> 3 L/m2 per day) [] k) Pulmonary artery catheter monitoring [] l) Supplemental oxygen or respiratory treatments for over 24 hours that are performable only in acute inpatient setting [] m) Immediate inpatient surgery [X] n) Other condition, treatment or monitoring requiring inpatient admission [] II Active massive hemorrhage [] III. Active hemolysis with rapidly progressive anemia [A](6) Extended stay beyond goal length of stay may be needed for (17)(18) []a) Diagnosed cause of anemia requiring longer hospitalization (eg, active GI bleeding, immune hemolysis requiring electrophoresis, complications of malignancy requiring acute care []b) Continued emergent anemia indicators (23) []c) Transfusion reactions []d) Associated leukopenia or thrombocytopenia needing inpatient care []e) Active comorbidities (eg, renal failure, heart failure) The original [employer] content created by [employer] has been revised. The portions of the content which have been revised are identified through the use of italic text or in bold. [employer] has neither reviewed nor approved the modified material. All other unmodified content is copyright [employer]. Please see references footnoted in the original [facility] edition 2016 Admit Criteria Met?: Yes
[2016-11-04 07:03] LABS: HEMATOCRIT 28.2 % (35.0-45.0); HEMOGLOBIN 9.2 gm/dL (11.7-16.1); MEAN CELL VOLUME 88.8 fl (81-100); MEAN CORPUSCULAR HEMOGLOBIN 29.1 pg (27.0-31.0); MEAN CORPUSCULAR HGB CONC 32.7 pg (28.0-36.0); PLATELET COUNT 65 Th/cmm (150-400); RED BLOOD COUNT 3.18 Mil/cmm (3.80-5.20); RED CELL DISTRIBUTION WIDTH 14.6 % (11.5-20.0)
--- NOTE | 2016-11-04 07:40 | Consultation ---
Consult Note - Consult Note Service Date: 11/04/16 Consult Note: PHYSICIAN Consultation Note: Date of Admission: 11/03/16 Purpose of Consultation: Chief Complaint: vomiting History of Present Illness: Patient GLADYS BRAY was admitted to location Medical/Surgical Unit I with ANEMIA,THROMBOCYTOPENIA. C/o upper abd pain with vomiting. Denies GI bleeding, diarrhea, constipation. Past Medical History: Colon CA Allergies Allergy/AdvReac Type Severity Reaction Status Date / Time No Known Allergies Allergy Verified 10/08/16 10:25 Vital Signs Temp 98.1 F 11/04/16 06:39 Pulse 66 11/04/16 06:39 Resp 18 11/04/16 06:39 BP 115/60 11/04/16 06:39 Pulse Ox 97 11/04/16 06:39 Laboratory Results - last 24 hr 11/04/16 06:40 WBC 8.0 D RBC 3.18 L Hgb 9.2 L Hct 28.2 L MCV 88.8 MCH 29.1 MCHC Differential 32.7 RDW 14.6 Plt Count 65 L MPV 11.0 Home Medication Medication Instructions Recorded Type Atenolol [Tenormin*] 100 mg PO DAILY 05/10/15 History Glimepiride [Amaryl*] 4 mg PO DAILY 05/10/15 History Insulin Aspart Mix 70/30 [NovoLOG 18 units SUBQ QPM 05/10/15 History MIX 70/30] Insulin Aspart Mix 70/30 [NovoLOG 30 units SUBQ QAM 05/10/15 History MIX 70/30] Insulin Human Regular [humuLIN R] 0 units SUBQ BID 05/10/15 History Levothyroxine [Synthroid] 25 mcg PO DAILY 05/10/15 History Nitroglycerin [Nitroglycerin*] 0.4 mg SL Q5MIN PRN 05/10/15 History amLODIPine Besylate [Norvasc*] 10 mg PO DAILY 05/10/15 History cloNIDine HCl [Catapres] 0.1 mg PO BID 05/10/15 History Acetaminophen [Tylenol] 650 mg PO Q6HR PRN 06/07/15 History Simvastatin [Zocor] 10 mg PO QPM 06/07/15 History Fenofibrate Nanocrystallized 134 mg PO DAILY 06/25/15 History [Tricor] Insulin Aspart Sliding Scale 0 units SUBQ ACHS #0 unit 06/27/15 Rx [NovoLOG INSULIN SLIDING SCALE] Aspirin 81 mg PO DAILY 10/23/16 History Ferrous Sulfate [Feosol*] 325 mg PO DAILY 10/23/16 History Gabapentin 300 mg PO DAILY 10/23/16 History Losartan Potassium [Cozaar] 50 mg PO DAILY 10/23/16 History Magnesium Hydroxide [Milk of 30 ml PO DAILY PRN 10/23/16 History Magnesia] Ondansetron HCl [Zofran*] 4 mg PO Q6HR PRN 10/23/16 History Ranitidine HCl [Zantac] 150 mg PO HS 10/23/16 History Tramadol HCl [Ultram] 50 mg PO Q12HR 10/23/16 History Folic Acid [Folate*] 1 mg PO DAILY tab 10/26/16 Rx cloNIDine HCl [Catapres] 0.1 mg PO Q8HR PRN tab 10/26/16 Rx Glucagon,Human Recombinant 1 mg IM DAILY PRN 11/03/16 History [Glucagon Emergency Kit] Current Medications Generic Name Dose Route Start Last Admin Trade Name Freq PRN Reason Stop Dose Admin Ondansetron HCl 4 mg 11/03/16 23:18 Zofran IV 01/02/17 23:17 Q4H PRN Nausea Review of Systems: A 12 point ROS was reviewed with the pertinent positive and negatives noted in the HPI. Physical Exam: General: WDWN NAD HEENT: clear op Cardio: rrr Respiratory:cta nl eff Abdominal:soft nd ttp upper abd Genital/Urinary: Extremities: no cyanosis Neurological: aao x 3 Assessment: 80 yo female with vomiting and upper abd pain. Could be pud vs gallstones vs pancreatitis etc. Plan: 1.egd 2.check ct 3.check labs 4.heme eval for low plt 5.ppi Signed, Marco A Uriarte M.D. [id number]
--- NOTE | 2016-11-04 08:06 | History and Physical ---
History of Present Illness - HPI Chief Complaint: abdominal pain, nausea, vomiting HPI: 80 y/o female who was transferred to [facility] ER from [facility] for abdominal pain, nausea, and vomiting. Patient was initially sent to the ER one week ago for similar complaints. Was admitted for severe anemia and given 2 units of packed RBC's Was to have an upper and lower endoscopy but patient refused at the time. The patient return to the ER for similar complaints but was noted to have thrombocytopenia. Patient has a history of colostomy, colon CA CVA/TIA, Left Hemiplegia, thrombocytopenia, cardiomegaly, S/P DVT, Bronchitis , Asthma, CRF, Diabetes mellitus, thyroid disorder and hyperlipidemia. While in the ER patient has an initially WBC 8.0, Hemoglobin of 9.2 hemotocrit of 28.2 and platelets of 65K. Patient was subsequently admitted for further evaluation and treatment. 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: CVA, TIA GI: Report: GI Bleed, Other (Colon CA, colostomy) Rheumatologic: Report: Other (Osteoarthritis) Renal/: Report: Chronic Renal Failure Endocrine: Report: Diabetes, Hypothyroidism (Colostomy) Family Medical History - Family Member Mother History Unknown: Yes Ethnicity: Unknown Living Status: Unknown Social History Smoke: No Alcohol: None Drugs: None Lives: Detention - Medications Home Medications: Home Medication Medication Instructions Recorded Type Atenolol [Tenormin*] 100 mg PO DAILY 05/10/15 History Glimepiride [Amaryl*] 4 mg PO DAILY 05/10/15 History Insulin Aspart Mix 70/30 [NovoLOG 18 units SUBQ QPM 05/10/15 History MIX 70/30] Insulin Aspart Mix 70/30 [NovoLOG 30 units SUBQ QAM 05/10/15 History MIX 70/30] Insulin Human Regular [humuLIN R] 0 units SUBQ BID 05/10/15 History Levothyroxine [Synthroid] 25 mcg PO DAILY 05/10/15 History Nitroglycerin [Nitroglycerin*] 0.4 mg SL Q5MIN PRN 05/10/15 History amLODIPine Besylate [Norvasc*] 10 mg PO DAILY 05/10/15 History cloNIDine HCl [Catapres] 0.1 mg PO BID 05/10/15 History Acetaminophen [Tylenol] 650 mg PO Q6HR PRN 06/07/15 History Simvastatin [Zocor] 10 mg PO QPM 06/07/15 History Fenofibrate Nanocrystallized 134 mg PO DAILY 06/25/15 History [Tricor] Insulin Aspart Sliding Scale 0 units SUBQ ACHS #0 unit 06/27/15 Rx [NovoLOG INSULIN SLIDING SCALE] Aspirin 81 mg PO DAILY 10/23/16 History Ferrous Sulfate [Feosol*] 325 mg PO DAILY 10/23/16 History Gabapentin 300 mg PO DAILY 10/23/16 History Losartan Potassium [Cozaar] 50 mg PO DAILY 10/23/16 History Magnesium Hydroxide [Milk of 30 ml PO DAILY PRN 10/23/16 History Magnesia] Ondansetron HCl [Zofran*] 4 mg PO Q6HR PRN 10/23/16 History Ranitidine HCl [Zantac] 150 mg PO HS 10/23/16 History Tramadol HCl [Ultram] 50 mg PO Q12HR 10/23/16 History Folic Acid [Folate*] 1 mg PO DAILY tab 10/26/16 Rx cloNIDine HCl [Catapres] 0.1 mg PO Q8HR PRN tab 10/26/16 Rx Glucagon,Human Recombinant 1 mg IM DAILY PRN 11/03/16 History [Glucagon Emergency Kit] - Allergies Allergies/Adverse Reactions: Allergies Allergy/AdvReac Type Severity Reaction Status Date / Time No Known Allergies Allergy Verified 10/08/16 10:25 Review of Systems - Review of Systems Constitutional: Report: No Significant Eyes: Report: No Significant Respiratory: Report: No Significant Cardiovascular: Report: No Significant Gastrointestinal: Report: Nausea, Vomiting, Abdominal Pain Neurological: Report: No Significant Physical Exam - Physical Exam Abdomen: Report: Tender to palpation - Lab Results All Lab Results last 24 hours: Laboratory Last Values WBC 8.0 Th/cmm (4.8-10.8) D 11/04/16 06:40 RBC 3.18 Mil/cmm (3.80-5.20) L 11/04/16 06:40 Hgb 9.2 gm/dL (11.7-16.1) L 11/04/16 06:40 Hct 28.2 % (35.0-45.0) L 11/04/16 06:40 MCV 88.8 fl (81-100) 11/04/16 06:40 MCH 29.1 pg (27.0-31.0) 11/04/16 06:40 MCHC Differential 32.7 pg (28.0-36.0) 11/04/16 06:40 RDW 14.6 % (11.5-20.0) 11/04/16 06:40 Plt Count 65 Th/cmm (150-400) L 11/04/16 06:40 MPV 11.0 fl 11/04/16 06:40 Neutrophils % 75.0 % (40.0-80.0) 11/03/16 21:49 Lymphocytes % 18.8 % (20.0-50.0) L 11/03/16 21:49 Monocytes % 4.2 % (2.0-10.0) 11/03/16 21:49 Eosinophils % 1.5 % (0.0-5.0) 11/03/16 21:49 Basophils % 0.5 % (0.0-2.0) 11/03/16 21:49 PT 10.9 SECONDS (9.5-11.5) 11/03/16 21:49 INR 1.05 (0.5-1.4) 11/03/16 21:49 PTT (Actin FS) 27.7 SECONDS (26.0-38.0) 11/03/16 21:49 Sodium 133 mEq/L (136-145) L 11/03/16 21:49 Potassium 4.9 mEq/L (3.5-5.1) 11/03/16 21:49 Chloride 105 mEq/L (98-107) 11/03/16 21:49 Carbon Dioxide 23.4 mEq/L (21.0-31.0) 11/03/16 21:49 Anion Gap 9.5 (7.0-16.0) 11/03/16 21:49 BUN 21 mg/dL (7-25) 11/03/16 21:49 Creatinine 2.2 mg/dL (0.6-1.2) H 11/03/16 21:49 Est GFR ( Amer) TNP 11/03/16 21:49 Est GFR (Non-Af Amer) TNP 11/03/16 21:49 BUN/Creatinine Ratio 9.5 11/03/16 21:49 Glucose 130 mg/dL (70-105) H 11/03/16 21:49 Calcium 9.0 mg/dL (8.6-10.3) 11/03/16 21:49 Total Bilirubin 0.4 mg/dL (0.3-1.0) 11/03/16 21:49 AST 19 U/L (13-39) 11/03/16 21:49 ALT 10 U/L (7-52) 11/03/16 21:49 Alkaline Phosphatase 82 U/L (34-104) 11/03/16 21:49 Troponin I 0.01 ng/mL (0.01-0.05) 11/03/16 21:49 Total Protein 7.1 gm/dL (6.0-8.3) 11/03/16 21:49 Albumin 3.3 gm/dL (3.7-5.3) L 11/03/16 21:49 Globulin 3.8 gm/dL 11/03/16 21:49 Albumin/Globulin Ratio 0.9 (1.0-1.8) L 11/03/16 21:49 Lipase 3 U/L (11-82) L 11/03/16 21:49 Urine Source CLEAN C 11/03/16 22:00 Urine Color YELLOW 11/03/16 22:00 Urine Clarity CLEAR (CLEAR) 11/03/16 22:00 Urine pH 6.0 11/03/16 22:00 Ur Specific [place] 1.010 (1.005-1.030) 11/03/16 22:00 Urine Protein NEGATIVE mg/dL (NEGATIVE) 11/03/16 22:00 Urine Glucose (UA) NEGATIVE mg/dL (NEGATIVE) 11/03/16 22:00 Urine Ketones NEGATIVE mg/dL (NEGATIVE) 11/03/16 22:00 Urine Blood NEGATIVE (NEGATIVE) 11/03/16 22:00 Urine Nitrate NEGATIVE (NEGATIVE) 11/03/16 22:00 Urine Bilirubin NEGATIVE (NEGATIVE) 11/03/16 22:00 Urine Urobilinogen 0.2 E.U./dL (0.2 - 1.0) 11/03/16 22:00 Ur Leukocyte Esterase NEGATIVE (NEGATIVE) 11/03/16 22:00 Urine RBC 0-2 /hpf (0-5) 11/03/16 22:00 Urine WBC 0-2 /hpf (0-5) 11/03/16 22:00 Ur Epithelial Cells FEW /lpf (FEW) 11/03/16 22:00 Urine Bacteria FEW /hpf (NONE SEEN) 11/03/16 22:00 Blood Type O POSITIVE 11/03/16 21:49 Antibody Screen NEGATIVE 11/03/16 21:49 Laboratory Results - last 24 hr 11/04/16 06:40 WBC 8.0 D RBC 3.18 L Hgb 9.2 L Hct 28.2 L MCV 88.8 MCH 29.1 MCHC Differential 32.7 RDW 14.6 Plt Count 65 L MPV 11.0 - Assessment Assessment: Anemia acute vs chronic Thrombocytopenia CVA TIA Left Hemiplegia Cardiomegaly S/P DVT Bronchitis/Asthma Chronic renal Failure Colon CA Diabetes Mellitus Thyroid disorder Hyperlipidemia - Plan Plan: Will repeat CBC this AM Will order GI consult Will order Hem/Onc Consult will resume previous medications Patient to have CT scan of the abdomen
[2016-11-04] MEDS ORDERED: GLUCAGON HCl 1 MG KIT IM PRN (08:15)
[2016-11-04] MEDS ORDERED: Magnesium Hydroxide (MOM) 30 mL UDC PO PRN (08:15)
[2016-11-04 08:48] LABS: BAND NEUTROPHILE 1 % (0-10); BASOPHIL 1 % (0-3); EOSINOPHIL 2 % (0-5); NEUTROPHILS 64 % (40-80); TOTAL CELLS COUNTED 100
[2016-11-04 08:49] LABS: ANISOCYTOSIS 1+; PLATELET ESTIMATE DECREASED PLATELETS (NORMAL); PLATELET MORPHOLOGY NORMAL (NORMAL)
[2016-11-04] MEDS ORDERED: INSULIN HUMAN REGULAR 100 UNITS/ML UNIT SUBQ SCH (09:00)
[2016-11-04] MEDS ORDERED: Non-Formulary Item 1 EA (Insulin Aspart Mix 70/30 [Novolog Mix 70/30] 30 UNITS) SUBQ SCH (09:00)
[2016-11-04] MEDS: Ferrous Sulfate 325 MG TAB PO SCH (11:01)
[2016-11-04] MEDS ORDERED: INSULIN ASPART SLIDING SCALE 100 UNITS/ML UNIT SUBQ SCH (11:30)
--- NOTE | 2016-11-04 12:13 | Consultation ---
Consult Note - Consult Note Service Date: 10/28/16 Consult Note: PHYSICIAN Consultation Note: Date of Admission: 11/03/16 Purpose of Consultation: colon cancer Chief Complaint: anemia History of Present Illness: Patient GLADYS BRAY was admitted to location Medical/Surgical Unit I with ANEMIA,THROMBOCYTOPENIA. she has h/o colon cancer and anemia. refused colonoscopy in the past. No reported bleeding. Past Medical History: colon cancer CKD DM ANEMIA Allergies Allergy/AdvReac Type Severity Reaction Status Date / Time No Known Allergies Allergy Verified 10/08/16 10:25 Vital Signs Temp 97.8 F 11/04/16 08:28 Pulse 52 11/04/16 11:01 Resp 19 11/04/16 11:41 BP 169/57 11/04/16 11:01 Pulse Ox 94 11/04/16 08:28 Intake & Output 11/03/16 11/04/16 11/04/16 18:59 06:59 18:59 Weight (lbs) 50 kg Laboratory Results - last 24 hr 11/04/16 11/04/16 06:40 10:59 WBC 8.0 D RBC 3.18 L Hgb 9.2 L Hct 28.2 L MCV 88.8 MCH 29.1 MCHC Differential 32.7 RDW 14.6 Plt Count 65 L MPV 11.0 Band Neutrophils % 1 Neutrophils (Manual) 64 Lymphocytes 24 Monocytes 8 Eosinophils 2 Basophils 1 Platelet Estimate DECREASED PLATELETS Platelet Morphology NORMAL Anisocytosis 1+ RBC Morph Micro Appear ABNORMAL POC Glucose 142 H Home Medication Medication Instructions Recorded Type Atenolol [Tenormin*] 100 mg PO DAILY 05/10/15 History Glimepiride [Amaryl*] 4 mg PO DAILY 05/10/15 History Insulin Aspart Mix 70/30 [NovoLOG 18 units SUBQ QPM 05/10/15 History MIX 70/30] Insulin Aspart Mix 70/30 [NovoLOG 30 units SUBQ QAM 05/10/15 History MIX 70/30] Insulin Human Regular [humuLIN R] 0 units SUBQ BID 05/10/15 History Levothyroxine [Synthroid] 25 mcg PO DAILY 05/10/15 History Nitroglycerin [Nitroglycerin*] 0.4 mg SL Q5MIN PRN 05/10/15 History amLODIPine Besylate [Norvasc*] 10 mg PO DAILY 05/10/15 History cloNIDine HCl [Catapres] 0.1 mg PO BID 05/10/15 History Acetaminophen [Tylenol] 650 mg PO Q6HR PRN 06/07/15 History Simvastatin [Zocor] 10 mg PO QPM 06/07/15 History Fenofibrate Nanocrystallized 134 mg PO DAILY 06/25/15 History [Tricor] Insulin Aspart Sliding Scale 0 units SUBQ ACHS #0 unit 06/27/15 Rx [NovoLOG INSULIN SLIDING SCALE] Aspirin 81 mg PO DAILY 10/23/16 History Ferrous Sulfate [Feosol*] 325 mg PO DAILY 10/23/16 History Gabapentin 300 mg PO DAILY 10/23/16 History Losartan Potassium [Cozaar] 50 mg PO DAILY 10/23/16 History Magnesium Hydroxide [Milk of 30 ml PO DAILY PRN 10/23/16 History Magnesia] Ondansetron HCl [Zofran*] 4 mg PO Q6HR PRN 10/23/16 History Ranitidine HCl [Zantac] 150 mg PO HS 10/23/16 History Tramadol HCl [Ultram] 50 mg PO Q12HR 10/23/16 History Folic Acid [Folate*] 1 mg PO DAILY tab 10/26/16 Rx cloNIDine HCl [Catapres] 0.1 mg PO Q8HR PRN tab 10/26/16 Rx Glucagon,Human Recombinant 1 mg IM DAILY PRN 11/03/16 History [Glucagon Emergency Kit] Current Medications Generic Name Dose Route Start Last Admin Trade Name Freq PRN Reason Stop Dose Admin Acetaminophen 650 mg 11/04/16 08:15 Tylenol PO 01/03/17 08:14 Q6H PRN MILD Pain Amlodipine Besylate 10 mg 11/04/16 09:00 11/04/16 11:01 Norvasc PO 01/03/17 08:59 10 mg DAILY VLAD Administration Atenolol 100 mg 11/04/16 09:00 Tenormin PO 01/03/17 08:59 DAILY VLAD Clonidine HCl 0.1 mg 11/04/16 08:15 Catapres PO 01/03/17 08:14 Q8H PRN BP MAINTENANCE (PER PROTOCOL) Clonidine HCl 0.1 mg 11/04/16 09:00 11/04/16 11:01 Catapres PO 01/03/17 08:59 0.1 mg BID VLAD Administration Famotidine 20 mg 11/04/16 21:00 Pepcid PO 01/03/17 20:59 HS VLAD Fenofibrate 134 mg 11/04/16 09:00 Tricor PO 01/03/17 08:59 DAILY VLAD Ferrous Sulfate 325 mg 11/04/16 09:00 11/04/16 11:01 Iron PO 01/03/17 08:59 325 mg DAILY VLAD Administration Folic Acid 1 mg 11/04/16 09:00 11/04/16 11:01 Folate PO 01/03/17 08:59 1 mg DAILY VLAD Administration Gabapentin 300 mg 11/04/16 09:00 11/04/16 11:01 Neurontin PO 01/03/17 08:59 300 mg DAILY VLAD Administration Glimepiride 4 mg 11/04/16 09:00 Amaryl PO 01/03/17 08:59 DAILY VLAD Glucagon 1 mg 11/04/16 08:15 Glucagen IM DAILY PRN IF BS BELOW 60 Ferric Sodium Gluconate 110 mls @ 100 mls/hr 11/04/16 12:15 Complex 125 mg/ Sodium IV 11/12/16 12:14 Chloride Q24HR [facility] Insulin Aspart 1 units 11/04/16 11:30 Novolog Insulin Sliding Scale SUBQ 01/03/17 11:29 ACHS [facility] Protocol Insulin Human Isoph/Insulin Regular 30 units 11/05/16 06:30 Novolin 70/30 SUBQ 01/04/17 06:29 QAM [facility] Protocol Insulin Human Isoph/Insulin Regular 18 units 11/04/16 17:00 Novolin 70/30 SUBQ 01/03/17 16:59 QPM [facility] Protocol Insulin Human Regular 1 units 11/04/16 09:00 Novolin R SUBQ 01/03/17 08:59 BID [facility] Levothyroxine Sodium 0.025 mg 11/04/16 10:00 Synthroid PO 01/03/17 09:59 QDAC [facility] Losartan Potassium 50 mg 11/04/16 09:00 Cozaar PO 01/03/17 08:59 DAILY VLAD Magnesium Hydroxide 30 ml 11/04/16 08:15 Milk Of Magnesia PO 01/03/17 08:14 DAILY PRN Constipation Nitroglycerin 0.4 mg 11/04/16 08:15 Nitrostat SL 01/03/17 08:14 Q5MIN PRN Chest Pain Ondansetron HCl 4 mg 11/03/16 23:18 Zofran IV 01/02/17 23:17 Q4H PRN Nausea Ondansetron HCl 4 mg 11/04/16 08:15 Zofran Odt SL 01/03/17 08:14 Q6H PRN Nausea / Vomiting Pantoprazole Sodium 40 mg 11/04/16 09:00 11/04/16 09:33 Protonix IVP 01/03/17 08:59 40 mg DAILY VLAD Administration Simvastatin 10 mg 11/04/16 17:00 Zocor PO 01/03/17 16:59 QPM [facility] Protocol Tramadol HCl 50 mg 11/04/16 10:00 11/04/16 11:01 Ultram PO 01/03/17 09:59 50 mg Q12H VLAD Administration Review of Systems: A 12 point ROS was reviewed with the pertinent positive and negatives noted in the HPI. Social History Smoking Status Smoker, status unknown Family Medical History Family Medical History Start: 11/04/16 00: 19 Freq: ONCE Status: Active Document 11/04/16 00:19 MARIANA (Rec: 11/04/16 11:26 MARIANA [id number]) Family Medical History Mother History Unknown Yes Ethnicity Non- Living Status Still Living Hx Family Cancer Yes Hx Family Coronary Artery Disease No Hx Family Congestive Heart Failure No Hx Family Hypertension Yes Hx Family Stroke Yes Hx Family Diabetes Yes Hx Family Seizures No Hx Family Dementia No Hx Family AIDS No Hx Family HIV No Hx Family COPD No Hx Family Hepatitis No Hx Family Psychiatric Problems No Hx Family Tuberculosis No Physical Exam: General: PALE HEENT: ATRAUMAATIC Cardio: Respiratory: Abdominal: COLOSTOMY Genital/Urinary: Extremities: NO EDEMA Neurological: Assessment: * ANEMIA OF CKD * MILD THROMBOCYTOPENIA * Plan: * IV FERRLECIT * CONTINUE FOLIC ACID * CHECK OB AND COLONSCOPY Signed, Rex Lyn [id number]
--- NOTE | 2016-11-04 12:21 | Diagnostic Imaging Report ---
CT scan abdomen and pelvis without intravenous contrast HISTORY: Pain Total DLP equals 451 CTDI equals 10.4 Axial sections were obtained from the xiphoid process down to the pubic symphysis. Limited sections of the lower chest demonstrate a linear density in the right lower lobe consistent with scarring or subsegmental atelectasis. The liver exhibits a normal size and contour. No focal lesions. Surgical clips are seen in the tommie hepatis region consistent with a prior cholecystectomy. The spleen appears normal. No focal amenities seen in the region of the pancreas. The right kidney appears normal. There is a focal defect noted in the lateral cortex of the left kidney consistent with scarring. No calculi or hydronephrosis. An inferior vena cava filter is seen. Atherosclerotic calcination seen in the abdominal aorta and iliac vessels. There is an approximate 4.5 cm defect noted in the left lower anterior abdominal wall associated with nondilated small bowel extending into the subcutaneous tissues. Little change compared to prior study of June 26, 2015. The remainder of the pelvis demonstrates preservation of normal fat planes. No abnormal soft tissue masses or abnormal fluid collections. Intraluminal air is seen within the urinary bladder presumably related to recent catheterization. Degenerative changes seen to the spine. IMPRESSION: 1. Defect in the left lower anterior abdominal wall associated with nondilated small bowel extending into the subcutaneous fatty tissues. The appearance is unchanged compared with prior study of June 26, 2015. 2. Findings of a prior cholecystectomy 3. Inferior vena cava filter 4. Atherosclerotic vascular changes 5. Small amount of air within the lumen of the urinary bladder presumably related to recent catheterization.
[2016-11-04] MEDS: Sodium Ferric Gluconate 125 MG in Sodium Chloride 0.9% 100 ML IV SCH (13:04)
[2016-11-04] MEDS: Fenofibrate, Micronized 134 mg Cap PO SCH (13:12)
[2016-11-04] MEDS: Levothyroxine 0.025 Mg Tab PO SCH (13:12)
[2016-11-04] MEDS ORDERED: VTE Chemical Prophylaxis Screen/Admission MC PRN (14:15)
[2016-11-04] MEDS ORDERED: INSULIN ASPART MIX SUBQ SCH (17:00)
[2016-11-04] MEDS: INSULIN 70/30 100 UNITS/ML SUBQ SCH (17:10)
--- NOTE | 2016-11-04 19:51 | Consultation ---
Consult Note - Consult Note Service Date: 11/04/16 Consult Note: PHYSICIAN Consultation Note: Date of Admission: 11/03/16 Purpose of Consultation: Chronic kidney disease Chief Complaint: Worsening kidney function History of Present Illness: 77-year-old [place] past medical history chronic kidney disease who came in because of abdominal pain. One day prior to admission, labs drawn revealed a hemoglobin/hematocrit of 9.1/ 27.9. She was recently transfused 3 units 2 weeks ago. If the hours prior to admission, she experienced recurrent abdominal pain. This was associated with nausea and vomiting. She was then brought to the emergency room for further evaluation and management. Patient has history of chronic kidney disease. Her BUN and creatinine were 19/ 1.96 at the [facility]. However her BUN/creatinine upon admission here were 21/2.2. There was no history of diarrhea, fever/chills, melena, hematochezia. Past Medical History: CK D Colon CA Anemia acute on chronic kidney disease Status post CVA with left hemiplegia Bronchial asthma Type 2 diabetes mellitus mellitus Essential hypertension Alzheimer dementia Left proximal humeral fracture Past surgical history: Status post colostomy Diagnoses ANEMIA IN CHRONIC KIDNEY DISEASE (11/03/16) THROMBOCYTOPENIA, UNSPECIFIED (11/03/16) TYPE 2 DIABETES MELLITUS WITHOUT COMPLICATIONS (11/03/16) HYPERLIPIDEMIA, UNSPECIFIED (11/03/16) CARDIOMEGALY (11/03/16) HEMIPLGA FOL UNSP CEREBVASC DISEASE AFF LEFT NONDOM SIDE (11/03/16) UNSPECIFIED OSTEOARTHRITIS, UNSPECIFIED SITE (11/03/16) CHRONIC KIDNEY DISEASE, UNSPECIFIED (11/03/16) UNSPECIFIED ABDOMINAL PAIN (11/03/16) DO NOT RESUSCITATE (11/03/16) PERSONAL HISTORY OF MALIGNANT NEOPLASM OF LARGE INTESTINE (11/03/16) PERSONAL HISTORY OF OTHER VENOUS THROMBOSIS AND EMBOLISM (11/03/16) COLOSTOMY STATUS (11/03/16) Allergies Allergy/AdvReac Type Severity Reaction Status Date / Time No Known Allergies Allergy Verified 10/08/16 10:25 Vital Signs Temp 97.7 F 11/04/16 16:00 Pulse 65 11/04/16 17:11 Resp 18 11/04/16 16:00 BP 152/70 11/04/16 16:00 Pulse Ox 93 11/04/16 12:00 Intake & Output 07/11/04/16 11/05/16 06:59 18:59 06:59 Intake Total 110 Balance 110 Weight (lbs) 50 kg Intake: Intake, IV Amount 110 Sodium Ferric Gluconate 110 125 mg In Sodium Chloride 0.9% 100 ml @ 100 mls/hr IV Q24H [facility] Rx#: [id number] Laboratory Results - last 24 hr 11/04/16 11/04/16 11/04/16 06:40 10:59 16:23 WBC 8.0 D RBC 3.18 L Hgb 9.2 L Hct 28.2 L MCV 88.8 MCH 29.1 MCHC Differential 32.7 RDW 14.6 Plt Count 65 L MPV 11.0 Band Neutrophils % 1 Neutrophils (Manual) 64 Lymphocytes 24 Monocytes 8 Eosinophils 2 Basophils 1 Platelet Estimate DECREASED PLATELETS Platelet Morphology NORMAL Anisocytosis 1+ RBC Morph Micro Appear ABNORMAL POC Glucose 142 H 214 H Home Medication Medication Instructions Recorded Type Atenolol [Tenormin*] 100 mg PO DAILY 05/10/15 History Glimepiride [Amaryl*] 4 mg PO DAILY 05/10/15 History Insulin Aspart Mix 70/30 [NovoLOG 18 units SUBQ QPM 05/10/15 History MIX 70/30] Insulin Aspart Mix 70/30 [NovoLOG 30 units SUBQ QAM 05/10/15 History MIX 70/30] Insulin Human Regular [humuLIN R] 0 units SUBQ BID 05/10/15 History Levothyroxine [Synthroid] 25 mcg PO DAILY 05/10/15 History Nitroglycerin [Nitroglycerin*] 0.4 mg SL Q5MIN PRN 05/10/15 History amLODIPine Besylate [Norvasc*] 10 mg PO DAILY 05/10/15 History cloNIDine HCl [Catapres] 0.1 mg PO BID 05/10/15 History Acetaminophen [Tylenol] 650 mg PO Q6HR PRN 06/07/15 History Simvastatin [Zocor] 10 mg PO QPM 06/07/15 History Fenofibrate Nanocrystallized 134 mg PO DAILY 06/25/15 History [Tricor] Insulin Aspart Sliding Scale 0 units SUBQ ACHS #0 unit 06/27/15 Rx [NovoLOG INSULIN SLIDING SCALE] Aspirin 81 mg PO DAILY 10/23/16 History Ferrous Sulfate [Feosol*] 325 mg PO DAILY 10/23/16 History Gabapentin 300 mg PO DAILY 10/23/16 History Losartan Potassium [Cozaar] 50 mg PO DAILY 10/23/16 History Magnesium Hydroxide [Milk of 30 ml PO DAILY PRN 10/23/16 History Magnesia] Ondansetron HCl [Zofran*] 4 mg PO Q6HR PRN 10/23/16 History Ranitidine HCl [Zantac] 150 mg PO HS 10/23/16 History Tramadol HCl [Ultram] 50 mg PO Q12HR 10/23/16 History Folic Acid [Folate*] 1 mg PO DAILY tab 10/26/16 Rx cloNIDine HCl [Catapres] 0.1 mg PO Q8HR PRN tab 10/26/16 Rx Glucagon,Human Recombinant 1 mg IM DAILY PRN 11/03/16 History [Glucagon Emergency Kit] Current Medications Generic Name Dose Route Start Last Admin Trade Name Freq PRN Reason Stop Dose Admin Acetaminophen 650 mg 11/04/16 08:15 Tylenol PO 01/03/17 08:14 Q6H PRN MILD Pain Amlodipine Besylate 10 mg 11/04/16 09:00 11/04/16 11:01 Norvasc PO 01/03/17 08:59 10 mg DAILY VLAD Administration Atenolol 100 mg 11/04/16 09:00 11/04/16 13:12 Tenormin PO 01/03/17 08:59 100 mg DAILY VLAD Administration Clonidine HCl 0.1 mg 11/04/16 08:15 Catapres PO 01/03/17 08:14 Q8H PRN BP MAINTENANCE (PER PROTOCOL) Clonidine HCl 0.1 mg 11/04/16 09:00 11/04/16 17:11 Catapres PO 01/03/17 08:59 0.1 mg BID VLAD Administration Famotidine 20 mg 11/04/16 21:00 Pepcid PO 01/03/17 20:59 HS VLAD Fenofibrate 134 mg 11/04/16 09:00 11/04/16 13:12 Tricor PO 01/03/17 08:59 134 mg DAILY VLAD Administration Ferrous Sulfate 325 mg 11/04/16 09:00 11/04/16 11:01 Iron PO 01/03/17 08:59 325 mg DAILY VLAD Administration Folic Acid 1 mg 11/04/16 09:00 11/04/16 11:01 Folate PO 01/03/17 08:59 1 mg DAILY VLAD Administration Gabapentin 300 mg 11/04/16 09:00 11/04/16 11:01 Neurontin PO 01/03/17 08:59 300 mg DAILY VLAD Administration Glimepiride 4 mg 11/04/16 09:00 11/04/16 13:12 Amaryl PO 01/03/17 08:59 4 mg DAILY VLAD Administration Glucagon 1 mg 11/04/16 08:15 Glucagen IM DAILY PRN IF BS BELOW 60 Ferric Sodium Gluconate 110 mls @ 100 mls/hr 11/04/16 14:00 11/04/16 17:11 Complex 125 mg/ Sodium IV 11/14/16 13:59 Infused Chloride Q24H VLAD Infusion Insulin Aspart 2 - 12 units 11/04/16 17:09 Novolog Insulin Sliding Scale SUBQ 01/03/17 17:07 ACHS VLAD Protocol Insulin Human Isoph/Insulin Regular 30 units 11/05/16 07:30 Novolin 70/30 SUBQ 01/04/17 07:29 QDAC [facility] Protocol Insulin Human Isoph/Insulin Regular 18 units 11/04/16 17:00 11/04/16 17:10 Novolin 70/30 SUBQ 01/03/17 16:59 18 units QPM VLAD Administration Protocol Levothyroxine Sodium 0.025 mg 11/04/16 10:00 11/04/16 13:12 Synthroid PO 01/03/17 09:59 0.025 mg QDAC VLAD Administration Losartan Potassium 50 mg 11/04/16 09:00 11/04/16 13:12 Cozaar PO 01/03/17 08:59 50 mg DAILY VLAD Administration Magnesium Hydroxide 30 ml 11/04/16 08:15 Milk Of Magnesia PO 01/03/17 08:14 DAILY PRN Constipation Miscellaneous 1 ea 11/04/16 14:15 Vte Chemical Prophylaxis Screen/ Admission 01/03/17 14:14 PRN PRN PROTOCOL Nitroglycerin 0.4 mg 11/04/16 08:15 Nitrostat SL 01/03/17 08:14 Q5MIN PRN Chest Pain Ondansetron HCl 4 mg 11/03/16 23:18 Zofran IV 01/02/17 23:17 Q4H PRN Nausea Ondansetron HCl 4 mg 11/04/16 08:15 Zofran Odt 01/03/17 08:14 Q6H PRN Nausea / Vomiting Pantoprazole Sodium 40 mg 11/04/16 09:00 11/04/16 09:33 Protonix IVP 01/03/17 08:59 40 mg DAILY VLAD Administration Simvastatin 10 mg 11/04/16 17:00 11/04/16 17:11 Zocor PO 01/03/17 16:59 10 mg QPM VLAD Administration Protocol Tramadol HCl 50 mg 11/04/16 10:00 11/04/16 11:01 Ultram PO 01/03/17 09:59 50 mg Q12H VLAD Administration Review of Systems: A 12 point ROS was reviewed with the pertinent positive and negatives noted in the HPI. Social History Smoking Status Smoker, status unknown Family Medical History Family Medical History Start: 11/04/16 00: 19 Freq: ONCE Status: Active Document 11/04/16 00:19 MARIANA (Rec: 11/04/16 11:26 MARIANA [id number]) Family Medical History Mother History Unknown Yes Ethnicity Non- Living Status Still Living Hx Family Cancer Yes Hx Family Coronary Artery Disease No Hx Family Congestive Heart Failure No Hx Family Hypertension Yes Hx Family Stroke Yes Hx Family Diabetes Yes Hx Family Seizures No Hx Family Dementia No Hx Family AIDS No Hx Family HIV No Hx Family COPD No Hx Family Hepatitis No Hx Family Psychiatric Problems No Hx Family Tuberculosis No Physical Exam: General: Sleeping, arousable, denies further abdominal pain extraocular muscles intact, conjunctivae HEENT: Extraocular muscles intact, pale conjunctivae Cardio: S1-S2, no rub Respiratory: Clear to auscultation without any wheeze Abdominal: Flat soft positive for bowel sounds no tenderness on palpation, no muscle rigidity or guarding, presence of left colostomy bag Genital/Urinary: Within normal limits Extremities: No evidence of edema nor cyanosis, palpable femoral but unable to palpate dorsalis pedis or popliteal arteries Neurological: Arousable, motor left is 4/5, right is 5 over 5, sensory intact Assessment: 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 Her current lab values may represent gradual progression of her kidney disease. Colon CA, status post colostomy Anemia acute on chronic kidney disease Acute thrombocytopenia possibly DIC, or from meds Abdominal pain etiology the visceral in nature? Possible vitiligo? Status post CVA with left hemiparesis Bronchial asthma Type 2 diabetes mellitus with CK D Essential hypertension with CK D Alzheimer dementia Left proximal humerus fracture Plan: Urine sodium, eosinophils and creatinine Urine microalbumin to creatinine ratio Encouraged increase by mouth fluid intake Follow up electrolytes and CBC Transfuse as necessary Signed, Paul Carrasco [id number]
[2016-11-04] MEDS: INSULIN ASPART SLIDING SCALE 100 UNITS/ML UNIT SUBQ SCH (21:00)
[2016-11-04] MEDS ORDERED: Dextrose 50% 50 mL Abboject IVP ONE (21:24)
[2016-11-04] MEDS: D5-0.45NS 1,000 ML IV SCH (23:56)
[2016-11-05 07:23] LABS: HEMATOCRIT 29.7 % (35.0-45.0); HEMOGLOBIN 9.7 gm/dL (11.7-16.1); MEAN CORPUSCULAR HEMOGLOBIN 29.1 pg (27.0-31.0); MEAN CORPUSCULAR HGB CONC 32.7 pg (28.0-36.0); MEAN PLATELET VOLUME 11.4 fl; RED BLOOD COUNT 3.34 Mil/cmm (3.80-5.20); RED CELL DISTRIBUTION WIDTH 14.2 % (11.5-20.0)
[2016-11-05] MEDS: INSULIN ASPART SLIDING SCALE 100 UNITS/ML UNIT SUBQ SCH ×4 (07:44→23:07)
[2016-11-05] MEDS: Levothyroxine 0.025 Mg Tab PO SCH (07:44)
[2016-11-05] MEDS: INSULIN 70/30 100 UNITS/ML SUBQ SCH ×2 (07:44→18:57)
--- NOTE | 2016-11-05 07:52 | Operative Report ---
GI Operative Report - Gastroenterology Procedure:: EGD with bx Indication for procedure:: vomiting and abd pain Procedure consent:: risk benefits alternatives discussed mentioned bleeding infection perforation disability cardiopulmonary distress/arrest need for surgery family gave informed consent Anesthesia:: mac Preoperative diagnosis:: vomiting abd pain Postoperative diagnosis:: esophagitis mild duodenal ulcers Description of Procedure:: egd with bx Recommendations:: 1.GE at 37 cm with mild esophagitis and small hiatal hernia s/p bx 2.normal stomach 3.duodenal ulcers x 3 in the bulb s/p bx 1.take protonix bid 2.await bx 3.consider surgery eval for repair of abd hernia per hospitalist and pcp
[2016-11-05 08:07] LABS: ALKALINE PHOSPHATASE 77 U/L (34-104); ANION GAP 6.7 (7.0-16.0); BILIRUBIN,TOTAL 0.3 mg/dL (0.3-1.0); BUN - UREA NITROGEN 23 mg/dL (7-25); BUN/CREATININE RATIO 10.5; CALCIUM SERUM 8.8 mg/dL (8.6-10.3); CARBON DIOXIDE 25.1 mEq/L (21.0-31.0); CHLORIDE 104 mEq/L (98-107); CREATININE - SERUM 2.2 mg/dL (0.6-1.2); GLUCOSE 184 mg/dL (70-105); POTASSIUM SERUM 4.8 mEq/L (3.5-5.1); SGOT 13 U/L (13-39); SGPT/ALT 7 U/L (7-52); SODIUM SERUM 131 mEq/L (136-145)
[2016-11-05 08:15] LABS: INR 1.02 (0.5-1.4); PLATELET COUNT 46 Th/cmm (150-400); PROTHROMBIN TIME (TEST) 10.6 SECONDS (9.5-11.5); WHITE BLOOD COUNT 6.3 Th/cmm (4.8-10.8)
--- NOTE | 2016-11-05 08:20 | General Progress Note ---
Subjective - Review of Systems Service Date: 11/05/16 Subjective: For GI evaluation this AM. Patient at GI lab this morning for evaluation of abdominal pain and anemia with history of colon ca. Objective - Results Result Diagrams: 11/05/16 07:15 11/05/16 07:15 Recent Labs: Laboratory Last Values WBC 6.3 Th/cmm (4.8-10.8) D 11/05/16 07:15 RBC 3.34 Mil/cmm (3.80-5.20) L 11/05/16 07:15 Hgb 9.7 gm/dL (11.7-16.1) L 11/05/16 07:15 Hct 29.7 % (35.0-45.0) L 11/05/16 07:15 MCV 89.0 fl (81-100) 11/05/16 07:15 MCH 29.1 pg (27.0-31.0) 11/05/16 07:15 MCHC Differential 32.7 pg (28.0-36.0) 11/05/16 07:15 RDW 14.2 % (11.5-20.0) 11/05/16 07:15 Plt Count 46 Th/cmm (150-400) L D 11/05/16 07:15 MPV 11.4 fl 11/05/16 07:15 Neutrophils % 75.0 % (40.0-80.0) 11/03/16 21:49 Band Neutrophils % 1 % (0-10) 11/04/16 06:40 Lymphocytes % 18.8 % (20.0-50.0) L 11/03/16 21:49 Monocytes % 4.2 % (2.0-10.0) 11/03/16 21:49 Eosinophils % 1.5 % (0.0-5.0) 11/03/16 21:49 Basophils % 0.5 % (0.0-2.0) 11/03/16 21:49 Neutrophils (Manual) 64 % (40-80) 11/04/16 06:40 Lymphocytes 24 % (20-50) 11/04/16 06:40 Monocytes 8 % (2-10) 11/04/16 06:40 Eosinophils 2 % (0-5) 11/04/16 06:40 Basophils 1 % (0-3) 11/04/16 06:40 Platelet Estimate DECREASED PLATELETS (NORMAL) 11/04/16 06:40 Platelet Morphology NORMAL (NORMAL) 11/04/16 06:40 Anisocytosis 1+ 11/04/16 06:40 RBC Morph Micro Appear ABNORMAL (NORMAL) 11/04/16 06:40 PT 10.6 SECONDS (9.5-11.5) 11/05/16 07:15 INR 1.02 (0.5-1.4) 11/05/16 07:15 PTT (Actin FS) 27.7 SECONDS (26.0-38.0) 11/03/16 21:49 Sodium 131 mEq/L (136-145) L 11/05/16 07:15 Potassium 4.8 mEq/L (3.5-5.1) 11/05/16 07:15 Chloride 104 mEq/L (98-107) 11/05/16 07:15 Carbon Dioxide 25.1 mEq/L (21.0-31.0) 11/05/16 07:15 Anion Gap 6.7 (7.0-16.0) L 11/05/16 07:15 BUN 23 mg/dL (7-25) 11/05/16 07:15 Creatinine 2.2 mg/dL (0.6-1.2) H 11/05/16 07:15 Est GFR ( Amer) TNP 11/05/16 07:15 Est GFR (Non-Af Amer) TNP 11/05/16 07:15 BUN/Creatinine Ratio 10.5 11/05/16 07:15 Glucose 184 mg/dL (70-105) H 11/05/16 07:15 POC Glucose 175 MG/DL (70 - 105) H 11/05/16 06:02 Calcium 8.8 mg/dL (8.6-10.3) 11/05/16 07:15 Total Bilirubin 0.3 mg/dL (0.3-1.0) 11/05/16 07:15 AST 13 U/L (13-39) 11/05/16 07:15 ALT 7 U/L (7-52) 11/05/16 07:15 Alkaline Phosphatase 77 U/L (34-104) 11/05/16 07:15 Troponin I 0.01 ng/mL (0.01-0.05) 11/03/16 21:49 Total Protein 6.3 gm/dL (6.0-8.3) 11/05/16 07:15 Albumin 3.2 gm/dL (3.7-5.3) L 11/05/16 07:15 Globulin 3.1 gm/dL 11/05/16 07:15 Albumin/Globulin Ratio 1.0 (1.0-1.8) 11/05/16 07:15 Lipase 3 U/L (11-82) L 11/03/16 21:49 Urine Source CLEAN C 11/03/16 22:00 Urine Color YELLOW 11/03/16 22:00 Urine Clarity CLEAR (CLEAR) 11/03/16 22:00 Urine pH 6.0 11/03/16 22:00 Ur Specific [place] 1.010 (1.005-1.030) 11/03/16 22:00 Urine Protein NEGATIVE mg/dL (NEGATIVE) 11/03/16 22:00 Urine Glucose (UA) NEGATIVE mg/dL (NEGATIVE) 11/03/16 22:00 Urine Ketones NEGATIVE mg/dL (NEGATIVE) 11/03/16 22:00 Urine Blood NEGATIVE (NEGATIVE) 11/03/16 22:00 Urine Nitrate NEGATIVE (NEGATIVE) 11/03/16 22:00 Urine Bilirubin NEGATIVE (NEGATIVE) 11/03/16 22:00 Urine Urobilinogen 0.2 E.U./dL (0.2 - 1.0) 11/03/16 22:00 Ur Leukocyte Esterase NEGATIVE (NEGATIVE) 11/03/16 22:00 Urine RBC 0-2 /hpf (0-5) 11/03/16 22:00 Urine WBC 0-2 /hpf (0-5) 11/03/16 22:00 Ur Epithelial Cells FEW /lpf (FEW) 11/03/16 22:00 Urine Bacteria FEW /hpf (NONE SEEN) 11/03/16 22:00 Blood Type O POSITIVE 11/03/16 21:49 Antibody Screen NEGATIVE 11/03/16 21:49 - Physical Exam Vitals and I&O: Vital Signs Temp 96.3 F 11/05/16 04:00 Pulse 46 11/05/16 04:00 Resp 18 11/05/16 04:00 BP 157/76 11/05/16 04:00 Pulse Ox 92 11/05/16 04:00 Intake & Output 11/04/16 11/05/16 11/05/16 18:59 06:59 18:59 Intake Total 110 Balance 110 Weight (lbs) 49.442 kg 50 kg Intake: Intake, IV Amount 110 Sodium Ferric Gluconate 110 125 mg In Sodium Chloride 0.9% 100 ml @ 100 mls/hr IV Q24H [facility] Rx#: [id number] Other: # Voids 1 # Bowel Movements 0 Active Medications: Current Medications Acetaminophen (Tylenol) 650 mg PO Q6H PRN PRN Reason: MILD Pain Stop: 01/03/17 08:14 Amlodipine Besylate (Norvasc) 10 mg PO DAILY [facility] Stop: 01/03/17 08:59 Last Admin: 11/04/16 11:01 Dose: 10 mg Atenolol (Tenormin) 100 mg PO DAILY [facility] Stop: 01/03/17 08:59 Last Admin: 11/04/16 13:12 Dose: 100 mg Clonidine HCl (Catapres) 0.1 mg PO Q8H PRN PRN Reason: BP MAINTENANCE (PER PROTOCOL) Stop: 01/03/17 08:14 Clonidine HCl (Catapres) 0.1 mg PO BID [facility] Stop: 01/03/17 08:59 Last Admin: 11/04/16 17:11 Dose: 0.1 mg Famotidine (Pepcid) 20 mg PO HS [facility] Stop: 01/03/17 20:59 Last Admin: 11/04/16 21:16 Dose: 20 mg Fenofibrate (Tricor) 134 mg PO DAILY [facility] Stop: 01/03/17 08:59 Last Admin: 11/04/16 13:12 Dose: 134 mg Ferrous Sulfate (Iron) 325 mg PO DAILY [facility] Stop: 01/03/17 08:59 Last Admin: 11/04/16 11:01 Dose: 325 mg Folic Acid (Folate) 1 mg PO DAILY [facility] Stop: 01/03/17 08:59 Last Admin: 11/04/16 11:01 Dose: 1 mg Gabapentin (Neurontin) 300 mg PO DAILY [facility] Stop: 01/03/17 08:59 Last Admin: 11/04/16 11:01 Dose: 300 mg Glimepiride (Amaryl) 4 mg PO DAILY [facility] Stop: 01/03/17 08:59 Last Admin: 11/04/16 13:12 Dose: 4 mg Glucagon (Glucagen) 1 mg IM DAILY PRN PRN Reason: IF BS BELOW 60 Ferric Sodium Gluconate Complex 125 mg/ Sodium Chloride 110 mls @ 100 mls/hr IV Q24H [facility] Stop: 11/14/16 13:59 Last Infusion: 11/04/16 17:11 Dose: Infused Dextrose/Sodium Chloride (D5-0.45ns) 1,000 mls @ 50 mls/hr IV .Q20H [facility] Stop: 01/03/17 23:16 Last Admin: 11/04/16 23:56 Dose: 50 mls/hr Insulin Aspart (Novolog Insulin Sliding Scale) 2 - 12 units SUBQ ACHS VLAD PRN Reason: Protocol Stop: 01/03/17 17:07 Last Admin: 11/05/16 07:44 Dose: Not Given Insulin Human Isoph/Insulin Regular (Novolin 70/30) 30 units SUBQ QDAC VLAD PRN Reason: Protocol Stop: 01/04/17 07:29 Last Admin: 11/05/16 07:44 Dose: Not Given Insulin Human Isoph/Insulin Regular (Novolin 70/30) 18 units SUBQ QPM VLAD PRN Reason: Protocol Stop: 01/03/17 16:59 Last Admin: 11/04/16 17:10 Dose: 18 units Levothyroxine Sodium (Synthroid) 0.025 mg PO QDAC [facility] Stop: 01/03/17 09:59 Last Admin: 11/05/16 07:44 Dose: Not Given Losartan Potassium (Cozaar) 50 mg PO DAILY [facility] Stop: 01/03/17 08:59 Last Admin: 11/04/16 13:12 Dose: 50 mg Magnesium Hydroxide (Milk Of Magnesia) 30 ml PO DAILY PRN PRN Reason: Constipation Stop: 01/03/17 08:14 Miscellaneous (Vte Chemical Prophylaxis Screen/ Admission) 1 ea MC PRN PRN PRN Reason: PROTOCOL Stop: 01/03/17 14:14 Nitroglycerin (Nitrostat) 0.4 mg SL Q5MIN PRN PRN Reason: Chest Pain Stop: 01/03/17 08:14 Ondansetron HCl (Zofran) 4 mg IV Q4H PRN PRN Reason: Nausea Stop: 01/02/17 23:17 Ondansetron HCl (Zofran Odt) 4 mg SL Q6H PRN PRN Reason: Nausea / Vomiting Stop: 01/03/17 08:14 Pantoprazole Sodium (Protonix) 40 mg IVP BID VLAD Stop: 01/04/17 08:59 Simvastatin (Zocor) 10 mg PO QPM VLAD PRN Reason: Protocol Stop: 01/03/17 16:59 Last Admin: 11/04/16 17:11 Dose: 10 mg Tramadol HCl (Ultram) 50 mg PO Q12H [facility] Stop: 01/03/17 09:59 Last Admin: 11/04/16 21:16 Dose: 50 mg General: Alert HEENT: Atraumatic Neck: Supple Cardiovascular: Regular rate Lungs: Clear to auscultation Abdomen: Bowel sounds - Procedures Procedures: Procedures Procedure Code Date BLOOD TRANSFUSION SERVICE 64782 10/23/16 TRANSFUSE NONAUT PLATELETS IN PERIPH VEIN, [facility] [id number] 06/25/15 TRANSFUSE NONAUT RED BLOOD CELLS IN PERIPH VEIN, [facility] [id number] 10/23/16 Assessment/Plan - Problem List Patient Problems: All Active Problems Abdominal hernia (Acute) Duodenal ulcer (Acute) Hyponatremia (Acute) E87.1 Asthma (Acute) J45.909 CVA, old, 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 - Assessment Assessment: Anemia acute vs chronic Thrombocytopenia CVA TIA Left Hemiplegia Cardiomegaly S/P DVT Bronchitis/Asthma Chronic renal Failure Colon CA Diabetes Mellitus Thyroid disorder Hyperlipidemia abdominal hernia - Plan Plan: Will repeat CBC this AM Will order GI consult Will order Hem/Onc Consult will resume previous medications Patient to have CT scan of the abdomen Will request surgical consult with Dr. Michael for evaluation of abdominal hernia noted on CT scan
--- NOTE | 2016-11-05 09:14 | Consultation ---
Consult Note - Consult Note Service Date: 11/05/16 Consult Note: PHYSICIAN Consultation Note: Date of Admission: 11/03/16 Purpose of Consultation: Chief Complaint: History of Present Illness: Patient GLADYS BRAY was admitted to [facility] I with ANEMIA,THROMBOCYTOPENIA. 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 (11/03/16) UNSPECIFIED OSTEOARTHRITIS, UNSPECIFIED SITE (11/03/16) CHRONIC KIDNEY DISEASE, UNSPECIFIED (11/03/16) UNSPECIFIED ABDOMINAL PAIN (11/03/16) DO NOT RESUSCITATE (11/03/16) PERSONAL HISTORY OF MALIGNANT NEOPLASM OF LARGE INTESTINE (11/03/16) PERSONAL HISTORY OF OTHER VENOUS THROMBOSIS AND EMBOLISM (11/03/16) COLOSTOMY STATUS (11/03/16) Allergies Allergy/AdvReac Type Severity Reaction Status Date / Time No Known Allergies Allergy Verified 10/08/16 10:25 Vital Signs Temp 96.3 F 11/05/16 04:00 Pulse 46 11/05/16 04:00 Resp 18 11/05/16 04:00 BP 157/76 11/05/16 04:00 Pulse Ox 92 11/05/16 04:00 Intake & Output 11/04/16 11/05/16 11/05/16 18:59 06:59 18:59 Intake Total 110 Balance 110 Weight (lbs) 49.442 kg 50 kg Intake: Intake, IV Amount 110 Sodium Ferric Gluconate 110 125 mg In Sodium Chloride 0.9% 100 ml @ 100 mls/hr IV Q24H [facility] Rx#: [id number] Other: # Voids 1 # Bowel Movements 0 Laboratory Results - last 24 hr 11/04/16 11/04/16 11/04/16 10:59 16:23 21:49 WBC RBC Hgb Hct MCV MCH MCHC Differential RDW Plt Count MPV PT INR Sodium Potassium Chloride Carbon Dioxide Anion Gap BUN Creatinine Est GFR ( Amer) Est GFR (Non-Af Amer) BUN/Creatinine Ratio Glucose 253 H POC Glucose 142 H 214 H Calcium Total Bilirubin AST ALT Alkaline Phosphatase Total Protein Albumin Globulin Albumin/Globulin Ratio 11/04/16 11/05/16 11/05/16 22:09 06:02 07:15 WBC RBC Hgb Hct MCV MCH MCHC Differential RDW Plt Count MPV PT 10.6 INR 1.02 Sodium Potassium Chloride Carbon Dioxide Anion Gap BUN Creatinine Est GFR ( Amer) Est GFR (Non-Af Amer) BUN/Creatinine Ratio Glucose POC Glucose 182 H 175 H Calcium Total Bilirubin AST ALT Alkaline Phosphatase Total Protein Albumin Globulin Albumin/Globulin Ratio 11/05/16 11/05/16 07:15 07:15 WBC 6.3 D RBC 3.34 L Hgb 9.7 L Hct 29.7 L MCV 89.0 MCH 29.1 MCHC Differential 32.7 RDW 14.2 Plt Count 46 L D MPV 11.4 PT INR Sodium 131 L Potassium 4.8 Chloride 104 Carbon Dioxide 25.1 Anion Gap 6.7 L BUN 23 Creatinine 2.2 H Est GFR ( Amer) TNP Est GFR (Non-Af Amer) TNP BUN/Creatinine Ratio 10.5 Glucose 184 H POC Glucose Calcium 8.8 Total Bilirubin 0.3 AST 13 ALT 7 Alkaline Phosphatase 77 Total Protein 6.3 Albumin 3.2 L Globulin 3.1 Albumin/Globulin Ratio 1.0 Home Medication Medication Instructions Recorded Type Atenolol [Tenormin*] 100 mg PO DAILY 05/10/15 History Glimepiride [Amaryl*] 4 mg PO DAILY 05/10/15 History Insulin Aspart Mix 70/30 [NovoLOG 18 units SUBQ QPM 05/10/15 History MIX 70/30] Insulin Aspart Mix 70/30 [NovoLOG 30 units SUBQ QAM 05/10/15 History MIX 70/30] Insulin Human Regular [humuLIN R] 0 units SUBQ BID 05/10/15 History Levothyroxine [Synthroid] 25 mcg PO DAILY 05/10/15 History Nitroglycerin [Nitroglycerin*] 0.4 mg SL Q5MIN PRN 05/10/15 History amLODIPine Besylate [Norvasc*] 10 mg PO DAILY 05/10/15 History cloNIDine HCl [Catapres] 0.1 mg PO BID 05/10/15 History Acetaminophen [Tylenol] 650 mg PO Q6HR PRN 06/07/15 History Simvastatin [Zocor] 10 mg PO QPM 06/07/15 History Fenofibrate Nanocrystallized 134 mg PO DAILY 06/25/15 History [Tricor] Insulin Aspart Sliding Scale 0 units SUBQ ACHS #0 unit 06/27/15 Rx [NovoLOG INSULIN SLIDING SCALE] Aspirin 81 mg PO DAILY 10/23/16 History Ferrous Sulfate [Feosol*] 325 mg PO DAILY 10/23/16 History Gabapentin 300 mg PO DAILY 10/23/16 History Losartan Potassium [Cozaar] 50 mg PO DAILY 10/23/16 History Magnesium Hydroxide [Milk of 30 ml PO DAILY PRN 10/23/16 History Magnesia] Ondansetron HCl [Zofran*] 4 mg PO Q6HR PRN 10/23/16 History Ranitidine HCl [Zantac] 150 mg PO HS 10/23/16 History Tramadol HCl [Ultram] 50 mg PO Q12HR 10/23/16 History Folic Acid [Folate*] 1 mg PO DAILY tab 10/26/16 Rx cloNIDine HCl [Catapres] 0.1 mg PO Q8HR PRN tab 10/26/16 Rx Glucagon,Human Recombinant 1 mg IM DAILY PRN 11/03/16 History [Glucagon Emergency Kit] Current Medications Generic Name Dose Route Start Last Admin Trade Name Freq PRN Reason Stop Dose Admin Acetaminophen 650 mg 11/04/16 08:15 Tylenol PO 01/03/17 08:14 Q6H PRN MILD Pain Amlodipine Besylate 10 mg 11/04/16 09:00 11/04/16 11:01 Norvasc PO 01/03/17 08:59 10 mg DAILY VLAD Administration Atenolol 100 mg 11/04/16 09:00 11/04/16 13:12 Tenormin PO 01/03/17 08:59 100 mg DAILY VLAD Administration Clonidine HCl 0.1 mg 11/04/16 08:15 Catapres PO 01/03/17 08:14 Q8H PRN BP MAINTENANCE (PER PROTOCOL) Clonidine HCl 0.1 mg 11/04/16 09:00 11/04/16 17:11 Catapres PO 01/03/17 08:59 0.1 mg BID VLAD Administration Famotidine 20 mg 11/04/16 21:00 11/04/16 21:16 Pepcid PO 01/03/17 20:59 20 mg HS VLAD Administration Fenofibrate 134 mg 11/04/16 09:00 11/04/16 13:12 Tricor PO 01/03/17 08:59 134 mg DAILY VLAD Administration Ferrous Sulfate 325 mg 11/04/16 09:00 11/04/16 11:01 Iron PO 01/03/17 08:59 325 mg DAILY VLAD Administration Folic Acid 1 mg 11/04/16 09:00 11/04/16 11:01 Folate PO 01/03/17 08:59 1 mg DAILY VLAD Administration Gabapentin 300 mg 11/04/16 09:00 11/04/16 11:01 Neurontin PO 01/03/17 08:59 300 mg DAILY VLAD Administration Glimepiride 4 mg 11/04/16 09:00 11/04/16 13:12 Amaryl PO 01/03/17 08:59 4 mg DAILY VLAD Administration Glucagon 1 mg 11/04/16 08:15 Glucagen IM DAILY PRN IF BS BELOW 60 Ferric Sodium Gluconate 110 mls @ 100 mls/hr 11/04/16 14:00 11/04/16 17:11 Complex 125 mg/ Sodium IV 11/14/16 13:59 Infused Chloride Q24H VLAD Infusion Dextrose/Sodium Chloride 1,000 mls @ 50 mls/hr 11/04/16 23:17 11/04/16 23:56 D5-0.45ns IV 01/03/17 23:16 50 mls/hr .Q20H VLAD Administration Insulin Aspart 2 - 12 units 11/04/16 17:09 11/05/16 07:44 Novolog Insulin Sliding Scale SUBQ 01/03/17 17:07 Not Given ACHS [facility] Protocol Insulin Human Isoph/Insulin Regular 30 units 11/05/16 07:30 11/05/16 07:44 Novolin 70/30 SUBQ 01/04/17 07:29 Not Given QDAC [facility] Protocol Insulin Human Isoph/Insulin Regular 18 units 11/04/16 17:00 11/04/16 17:10 Novolin 70/30 SUBQ 01/03/17 16:59 18 units QPM VLAD Administration Protocol Levothyroxine Sodium 0.025 mg 11/04/16 10:00 11/05/16 07:44 Synthroid PO 01/03/17 09:59 Not Given QDAC VLAD Losartan Potassium 50 mg 11/04/16 09:00 11/04/16 13:12 Cozaar PO 01/03/17 08:59 50 mg DAILY VLAD Administration Magnesium Hydroxide 30 ml 11/04/16 08:15 Milk Of Magnesia PO 01/03/17 08:14 DAILY PRN Constipation Miscellaneous 1 ea 11/04/16 14:15 Vte Chemical Prophylaxis Screen/ Admission 01/03/17 14:14 PRN PRN PROTOCOL Nitroglycerin 0.4 mg 11/04/16 08:15 Nitrostat SL 01/03/17 08:14 Q5MIN PRN Chest Pain Ondansetron HCl 4 mg 11/03/16 23:18 Zofran IV 01/02/17 23:17 Q4H PRN Nausea Ondansetron HCl 4 mg 11/04/16 08:15 Zofran Odt SL 01/03/17 08:14 Q6H PRN Nausea / Vomiting Pantoprazole Sodium 40 mg 11/05/16 09:00 Protonix IVP 01/04/17 08:59 BID VLAD Simvastatin 10 mg 11/04/16 17:00 11/04/16 17:11 Zocor PO 01/03/17 16:59 10 mg QPM VLAD Administration Protocol Tramadol HCl 50 mg 11/04/16 10:00 11/04/16 21:16 Ultram PO 01/03/17 09:59 50 mg Q12H VLAD Administration Review of Systems: A 12 point ROS was reviewed with the pertinent positive and negatives noted in the HPI. Social History Smoking Status Smoker, status unknown Family Medical History Family Medical History Start: 11/04/16 00: 19 Freq: ONCE Status: Active Document 11/04/16 00:19 MARIANA (Rec: 11/04/16 11:26 MARIANA [id number]) Family Medical History Mother History Unknown Yes Ethnicity Non- Living Status Still Living Hx Family Cancer Yes Hx Family Coronary Artery Disease No Hx Family Congestive Heart Failure No Hx Family Hypertension Yes Hx Family Stroke Yes Hx Family Diabetes Yes Hx Family Seizures No Hx Family Dementia No Hx Family AIDS No Hx Family HIV No Hx Family COPD No Hx Family Hepatitis No Hx Family Psychiatric Problems No Hx Family Tuberculosis No Physical Exam: General: HEENT: Cardio: Respiratory: Abdominal: Genital/Urinary: Extremities: Neurological: Assessment: EGD results noted. Has hiatal hernia and gastric ulcers Plan: continue antacid treatment, pending test results for H.Pylori Signed, Milo Michael [id number]
[2016-11-05 09:40] LABS: BAND NEUTROPHILE 1 % (0-10); BASOPHIL 1 % (0-3); EOSINOPHIL 2 % (0-5); NEUTROPHILS 67 % (40-80); TOTAL CELLS COUNTED 100
[2016-11-05 09:41] LABS: PLATELET ESTIMATE DECREASED PLATELETS (NORMAL); PLATELET MORPHOLOGY NORMAL (NORMAL)
[2016-11-05] MEDS: Fenofibrate, Micronized 134 mg Cap PO SCH (09:59)
[2016-11-05] MEDS: Ferrous Sulfate 325 MG TAB PO SCH (10:00)
--- NOTE | 2016-11-05 11:29 | Diagnostic Imaging Report ---
Ultrasound abdomen HISTORY: Decreased platelet counts, previous cholecystectomy COMPARISON: The abdomen and pelvis on 11/04/2017 and ultrasound abdomen on 116 Technique: Sonography of the abdomen was performed in multiple planes. FINDINGS: The liver demonstrates normal echogenicity with no evidence of focal lesions. The liver measures 14.6 cm. The patient is status post cholecystectomy. The Common bile duct measures 4 mm. Evaluation of the pancreas is limited due to bowel gas. The right kidney measures 10.5 cm. No evidence of focal lesions or hydronephrosis. The left kidney measures 10.0 cm. There is a 2.8 cm sonolucent lesion of the left inferior pole compatible with a cyst.. No evidence of hydronephrosis. The spleen measures 9.7 x 3.8 cm. The visualized portion of the abdominal aorta are within normal limits in size. Atherosclerotic vascular disease is noted. IMPRESSION: Spleen within normal limits in size measuring 9.7 x 3.8 cm. 2.8 cm sonolucent lesion of left kidney most compatible with a cyst. Evidence of prior cholecystectomy. Atherosclerotic vascular disease.
--- NOTE | 2016-11-05 12:33 | Diagnostic Imaging Report ---
Exam: Chest x-ray portable supine. HISTORY: Preop. Portable supine examination of chest at 0550 hours was reviewed. The study demonstrates displaced fracture off the left humeral neck. There is evidence for medial displacement of the proximal shaft approximately 2 cm. Mediastinal structures midline. The heart is prominent. No acute pulmonic infiltrates or effusions are noted. The aortic arch calcified. IMPRESSION: Displaced fracture of the left humeral neck.
--- NOTE | 2016-11-05 14:27 | General Progress Note ---
Subjective - Review of Systems Service Date: 11/05/16 Subjective: Alert, denied any further nausea and vomiting, abdominal pain resolved Objective - Results Result Diagrams: 11/05/16 07:15 11/05/16 07:15 Recent Labs: Laboratory Last Values WBC 6.3 Th/cmm (4.8-10.8) D 11/05/16 07:15 RBC 3.34 Mil/cmm (3.80-5.20) L 11/05/16 07:15 Hgb 9.7 gm/dL (11.7-16.1) L 11/05/16 07:15 Hct 29.7 % (35.0-45.0) L 11/05/16 07:15 MCV 89.0 fl (81-100) 11/05/16 07:15 MCH 29.1 pg (27.0-31.0) 11/05/16 07:15 MCHC Differential 32.7 pg (28.0-36.0) 11/05/16 07:15 RDW 14.2 % (11.5-20.0) 11/05/16 07:15 Plt Count 46 Th/cmm (150-400) L D 11/05/16 07:15 MPV 11.4 fl 11/05/16 07:15 Neutrophils % 75.0 % (40.0-80.0) 11/03/16 21:49 Band Neutrophils % 1 % (0-10) 11/05/16 07:15 Lymphocytes % 18.8 % (20.0-50.0) L 11/03/16 21:49 Monocytes % 4.2 % (2.0-10.0) 11/03/16 21:49 Eosinophils % 1.5 % (0.0-5.0) 11/03/16 21:49 Basophils % 0.5 % (0.0-2.0) 11/03/16 21:49 Neutrophils (Manual) 67 % (40-80) 11/05/16 07:15 Lymphocytes 24 % (20-50) 11/05/16 07:15 Monocytes 5 % (2-10) 11/05/16 07:15 Eosinophils 2 % (0-5) 11/05/16 07:15 Basophils 1 % (0-3) 11/05/16 07:15 Platelet Estimate DECREASED PLATELETS (NORMAL) 11/05/16 07:15 Platelet Morphology NORMAL (NORMAL) 11/05/16 07:15 Anisocytosis 1+ 11/04/16 06:40 RBC Morph Micro Appear NORMAL (NORMAL) 11/05/16 07:15 PT 10.6 SECONDS (9.5-11.5) 11/05/16 07:15 INR 1.02 (0.5-1.4) 11/05/16 07:15 PTT (Actin FS) 27.7 SECONDS (26.0-38.0) 11/03/16 21:49 Sodium 131 mEq/L (136-145) L 11/05/16 07:15 Potassium 4.8 mEq/L (3.5-5.1) 11/05/16 07:15 Chloride 104 mEq/L (98-107) 11/05/16 07:15 Carbon Dioxide 25.1 mEq/L (21.0-31.0) 11/05/16 07:15 Anion Gap 6.7 (7.0-16.0) L 11/05/16 07:15 BUN 23 mg/dL (7-25) 11/05/16 07:15 Creatinine 2.2 mg/dL (0.6-1.2) H 11/05/16 07:15 Est GFR ( Amer) TNP 11/05/16 07:15 Est GFR (Non-Af Amer) TNP 11/05/16 07:15 BUN/Creatinine Ratio 10.5 11/05/16 07:15 Glucose 184 mg/dL (70-105) H 11/05/16 07:15 POC Glucose 142 MG/DL (70 - 105) H 11/05/16 13:06 Calcium 8.8 mg/dL (8.6-10.3) 11/05/16 07:15 Total Bilirubin 0.3 mg/dL (0.3-1.0) 11/05/16 07:15 AST 13 U/L (13-39) 11/05/16 07:15 ALT 7 U/L (7-52) 11/05/16 07:15 Alkaline Phosphatase 77 U/L (34-104) 11/05/16 07:15 Troponin I 0.01 ng/mL (0.01-0.05) 11/03/16 21:49 Total Protein 6.3 gm/dL (6.0-8.3) 11/05/16 07:15 Albumin 3.2 gm/dL (3.7-5.3) L 11/05/16 07:15 Globulin 3.1 gm/dL 11/05/16 07:15 Albumin/Globulin Ratio 1.0 (1.0-1.8) 11/05/16 07:15 Lipase 3 U/L (11-82) L 11/03/16 21:49 Urine Source CLEAN C 11/03/16 22:00 Urine Color YELLOW 11/03/16 22:00 Urine Clarity CLEAR (CLEAR) 11/03/16 22:00 Urine pH 6.0 11/03/16 22:00 Ur Specific [place] 1.010 (1.005-1.030) 11/03/16 22:00 Urine Protein NEGATIVE mg/dL (NEGATIVE) 11/03/16 22:00 Urine Glucose (UA) NEGATIVE mg/dL (NEGATIVE) 11/03/16 22:00 Urine Ketones NEGATIVE mg/dL (NEGATIVE) 11/03/16 22:00 Urine Blood NEGATIVE (NEGATIVE) 11/03/16 22:00 Urine Nitrate NEGATIVE (NEGATIVE) 11/03/16 22:00 Urine Bilirubin NEGATIVE (NEGATIVE) 11/03/16 22:00 Urine Urobilinogen 0.2 E.U./dL (0.2 - 1.0) 11/03/16 22:00 Ur Leukocyte Esterase NEGATIVE (NEGATIVE) 11/03/16 22:00 Urine RBC 0-2 /hpf (0-5) 11/03/16 22:00 Urine WBC 0-2 /hpf (0-5) 11/03/16 22:00 Ur Epithelial Cells FEW /lpf (FEW) 11/03/16 22:00 Urine Bacteria FEW /hpf (NONE SEEN) 11/03/16 22:00 Blood Type O POSITIVE 11/03/16 21:49 Antibody Screen NEGATIVE 11/03/16 21:49 - Physical Exam Vitals and I&O: Vital Signs Temp 96.3 F 11/05/16 04:00 Pulse 48 11/05/16 10:08 Resp 18 11/05/16 04:00 BP 181/83 11/05/16 10:04 Pulse Ox 92 11/05/16 04:00 Intake & Output 11/04/16 11/05/16 11/05/16 18:59 06:59 18:59 Intake Total 110 Balance 110 Weight (lbs) 49.442 kg 50 kg Intake: Intake, IV Amount 110 Sodium Ferric Gluconate 110 125 mg In Sodium Chloride 0.9% 100 ml @ 100 mls/hr IV Q24H [facility] Rx#: [id number] Other: # Voids 1 # Bowel Movements 0 Active Medications: Current Medications Acetaminophen (Tylenol) 650 mg PO Q6H PRN PRN Reason: MILD Pain Stop: 01/03/17 08:14 Amlodipine Besylate (Norvasc) 10 mg PO DAILY [facility] Stop: 01/03/17 08:59 Last Admin: 11/05/16 09:59 Dose: 10 mg Atenolol (Tenormin) 100 mg PO DAILY [facility] Stop: 01/03/17 08:59 Last Admin: 11/05/16 10:04 Dose: Not Given Clonidine HCl (Catapres) 0.1 mg PO Q8H PRN PRN Reason: BP MAINTENANCE (PER PROTOCOL) Stop: 01/03/17 08:14 Last Admin: 11/05/16 09:58 Dose: 0.1 mg Clonidine HCl (Catapres) 0.1 mg PO BID [facility] Stop: 01/03/17 08:59 Last Admin: 11/05/16 10:08 Dose: 0.1 mg Famotidine (Pepcid) 20 mg PO HS [facility] Stop: 01/03/17 20:59 Last Admin: 11/04/16 21:16 Dose: 20 mg Fenofibrate (Tricor) 134 mg PO DAILY [facility] Stop: 01/03/17 08:59 Last Admin: 11/05/16 09:59 Dose: 134 mg Ferrous Sulfate (Iron) 325 mg PO DAILY [facility] Stop: 01/03/17 08:59 Last Admin: 11/05/16 10:00 Dose: 325 mg Folic Acid (Folate) 1 mg PO DAILY [facility] Stop: 01/03/17 08:59 Last Admin: 11/05/16 09:59 Dose: 1 mg Gabapentin (Neurontin) 300 mg PO DAILY [facility] Stop: 01/03/17 08:59 Last Admin: 11/05/16 09:57 Dose: 300 mg Glimepiride (Amaryl) 4 mg PO DAILY [facility] Stop: 01/03/17 08:59 Last Admin: 11/05/16 09:59 Dose: 4 mg Glucagon (Glucagen) 1 mg IM DAILY PRN PRN Reason: IF BS BELOW 60 Ferric Sodium Gluconate Complex 125 mg/ Sodium Chloride 110 mls @ 100 mls/hr IV Q24H [facility] Stop: 11/14/16 13:59 Last Infusion: 11/04/16 17:11 Dose: Infused Dextrose/Sodium Chloride (D5-0.45ns) 1,000 mls @ 50 mls/hr IV .Q20H [facility] Stop: 01/03/17 23:16 Last Admin: 11/04/16 23:56 Dose: 50 mls/hr Insulin Aspart (Novolog Insulin Sliding Scale) 2 - 12 units SUBQ ACHS [facility] PRN Reason: Protocol Stop: 01/03/17 17:07 Last Admin: 11/05/16 13:50 Dose: Not Given Insulin Human Isoph/Insulin Regular (Novolin 70/30) 30 units SUBQ QDAC [facility] PRN Reason: Protocol Stop: 01/04/17 07:29 Last Admin: 11/05/16 07:44 Dose: Not Given Insulin Human Isoph/Insulin Regular (Novolin 70/30) 18 units SUBQ QPM [facility] PRN Reason: Protocol Stop: 01/03/17 16:59 Last Admin: 11/04/16 17:10 Dose: 18 units Levothyroxine Sodium (Synthroid) 0.025 mg PO QDAC [facility] Stop: 01/03/17 09:59 Last Admin: 11/05/16 07:44 Dose: Not Given Losartan Potassium (Cozaar) 50 mg PO DAILY [facility] Stop: 01/03/17 08:59 Last Admin: 11/05/16 10:00 Dose: 50 mg Magnesium Hydroxide (Milk Of Magnesia) 30 ml PO DAILY PRN PRN Reason: Constipation Stop: 01/03/17 08:14 Miscellaneous (Vte Chemical Prophylaxis Screen/ Admission) 1 ea [facility] PRN PRN PRN Reason: PROTOCOL Stop: 01/03/17 14:14 Nitroglycerin (Nitrostat) 0.4 mg SL Q5MIN PRN PRN Reason: Chest Pain Stop: 01/03/17 08:14 Ondansetron HCl (Zofran) 4 mg IV Q4H PRN PRN Reason: Nausea Stop: 01/02/17 23:17 Ondansetron HCl (Zofran Odt) 4 mg SL Q6H PRN PRN Reason: Nausea / Vomiting Stop: 01/03/17 08:14 Pantoprazole Sodium (Protonix) 40 mg IVP BID [facility] Stop: 01/04/17 08:59 Last Admin: 11/05/16 10:06 Dose: 40 mg Simvastatin (Zocor) 10 mg PO QPM [facility] PRN Reason: Protocol Stop: 01/03/17 16:59 Last Admin: 11/04/16 17:11 Dose: 10 mg Tramadol HCl (Ultram) 50 mg PO Q12H [facility] Stop: 01/03/17 09:59 Last Admin: 11/05/16 10:00 Dose: 50 mg General: Alert HEENT: Atraumatic Neck: Supple, +2 carotid pulse wo bruit Cardiovascular: Regular rate, Normal S1, Normal S2 Lungs: Clear to auscultation, Normal air movement Abdomen: Bowel sounds, Soft, no Tender Extremities: no Edema Neurological: Sensation intact Skin: no Rash Psych/Mental Status: Mood NL - Procedures Procedures: Procedures Procedure Code Date BLOOD TRANSFUSION SERVICE 08051 10/23/16 EGD BIOPSY SINGLE/MULTIPLE 84361 11/03/16 EXCISION OF ESOPHAGUS, ENDO, DIAGN [id number] 11/03/16 TRANSFUSE NONAUT PLATELETS IN PERIPH VEIN, [facility] [id number] 06/25/15 TRANSFUSE NONAUT RED BLOOD CELLS IN PERIPH VEIN, [facility] [id number] 10/23/16 Assessment/Plan - Problem List Patient Problems: All Active Problems Abdominal hernia (Acute) Duodenal ulcer (Acute) Hyponatremia (Acute) E87.1 Asthma (Acute) J45.909 CVA, old, 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 - Assessment Assessment: Chronic kidney disease Colon CA status post colostomy Anemia acute on chronic kidney disease Acute thrombocytopenia Abdominal pain etiology? Status post CVA with left hemiparesis Bronchial asthma Type 2 diabetes mellitus with CKD Essential hypertension with CKD Alzheimer dementia Left proximal humeral fracture - Plan Plan: Lab - Result Diagrams 11/05/16 07:15 11/05/16 07:15 Current Medications Acetaminophen (Tylenol) 650 mg PO Q6H PRN PRN Reason: MILD Pain Stop: 01/03/17 08:14 Amlodipine Besylate (Norvasc) 10 mg PO DAILY [facility] Stop: 01/03/17 08:59 Last Admin: 11/05/16 09:59 Dose: 10 mg Atenolol (Tenormin) 100 mg PO DAILY [facility] Stop: 01/03/17 08:59 Last Admin: 11/05/16 10:04 Dose: Not Given Clonidine HCl (Catapres) 0.1 mg PO Q8H PRN PRN Reason: BP MAINTENANCE (PER PROTOCOL) Stop: 01/03/17 08:14 Last Admin: 11/05/16 09:58 Dose: 0.1 mg Clonidine HCl (Catapres) 0.1 mg PO BID [facility]AD Stop: 01/03/17 08:59 Last Admin: 11/05/16 10:08 Dose: 0.1 mg Famotidine (Pepcid) 20 mg PO HS [facility] Stop: 01/03/17 20:59 Last Admin: 11/04/16 21:16 Dose: 20 mg Fenofibrate (Tricor) 134 mg PO DAILY [facility] Stop: 01/03/17 08:59 Last Admin: 11/05/16 09:59 Dose: 134 mg Ferrous Sulfate (Iron) 325 mg PO DAILY [facility] Stop: 01/03/17 08:59 Last Admin: 11/05/16 10:00 Dose: 325 mg Folic Acid (Folate) 1 mg PO DAILY [facility] Stop: 01/03/17 08:59 Last Admin: 11/05/16 09:59 Dose: 1 mg Gabapentin (Neurontin) 300 mg PO DAILY [facility] Stop: 01/03/17 08:59 Last Admin: 11/05/16 09:57 Dose: 300 mg Glimepiride (Amaryl) 4 mg PO DAILY [facility] Stop: 01/03/17 08:59 Last Admin: 11/05/16 09:59 Dose: 4 mg Glucagon (Glucagen) 1 mg IM DAILY PRN PRN Reason: IF BS BELOW 60 Ferric Sodium Gluconate Complex 125 mg/ Sodium Chloride 110 mls @ 100 mls/hr IV Q24H [facility] Stop: 11/14/16 13:59 Last Infusion: 11/04/16 17:11 Dose: Infused Dextrose/Sodium Chloride (D5-0.45ns) 1,000 mls @ 50 mls/hr IV .Q20H [facility] Stop: 01/03/17 23:16 Last Admin: 11/04/16 23:56 Dose: 50 mls/hr Insulin Aspart (Novolog Insulin Sliding Scale) 2 - 12 units SUBQ ACHS [facility] PRN Reason: Protocol Stop: 01/03/17 17:07 Last Admin: 11/05/16 13:50 Dose: Not Given Insulin Human Isoph/Insulin Regular (Novolin 70/30) 30 units SUBQ QDAC [facility] PRN Reason: Protocol Stop: 01/04/17 07:29 Last Admin: 11/05/16 07:44 Dose: Not Given Insulin Human Isoph/Insulin Regular (Novolin 70/30) 18 units SUBQ QPM [facility] PRN Reason: Protocol Stop: 01/03/17 16:59 Last Admin: 11/04/16 17:10 Dose: 18 units Levothyroxine Sodium (Synthroid) 0.025 mg PO QDAC [facility] Stop: 01/03/17 09:59 Last Admin: 11/05/16 07:44 Dose: Not Given Losartan Potassium (Cozaar) 50 mg PO DAILY [facility] Stop: 01/03/17 08:59 Last Admin: 11/05/16 10:00 Dose: 50 mg Magnesium Hydroxide (Milk Of Magnesia) 30 ml PO DAILY PRN PRN Reason: Constipation Stop: 01/03/17 08:14 Miscellaneous (Vte Chemical Prophylaxis Screen/ Admission) 1 ea [facility] PRN PRN PRN Reason: PROTOCOL Stop: 01/03/17 14:14 Nitroglycerin (Nitrostat) 0.4 mg SL Q5MIN PRN PRN Reason: Chest Pain Stop: 01/03/17 08:14 Ondansetron HCl (Zofran) 4 mg IV Q4H PRN PRN Reason: Nausea Stop: 01/02/17 23:17 Ondansetron HCl (Zofran Odt) 4 mg SL Q6H PRN PRN Reason: Nausea / Vomiting Stop: 01/03/17 08:14 Pantoprazole Sodium (Protonix) 40 mg IVP BID [facility] Stop: 01/04/17 08:59 Last Admin: 11/05/16 10:06 Dose: 40 mg Simvastatin (Zocor) 10 mg PO QPM VLAD PRN Reason: Protocol Stop: 01/03/17 16:59 Last Admin: 11/04/16 17:11 Dose: 10 mg Tramadol HCl (Ultram) 50 mg PO Q12H [facility] Stop: 01/03/17 09:59 Last Admin: 11/05/16 10:00 Dose: 50 mg Kidney function remains stable with a BUN/creatinine of 23/2.2 She has adequate urine output Follow-up kidney workup
[2016-11-05] MEDS: Sodium Ferric Gluconate 125 MG in Sodium Chloride 0.9% 100 ML IV SCH (17:00)
[2016-11-06] MEDS: INSULIN ASPART SLIDING SCALE 100 UNITS/ML UNIT SUBQ SCH ×4 (01:05→17:04)
--- NOTE | 2016-11-06 07:54 | General Progress Note ---
Subjective - Review of Systems Service Date: 11/06/16 Subjective: Patient is awake, alert, afebrile Objective - Results Result Diagrams: 11/05/16 07:15 11/05/16 07:15 Recent Labs: Laboratory Last Values WBC 6.3 Th/cmm (4.8-10.8) D 11/05/16 07:15 RBC 3.34 Mil/cmm (3.80-5.20) L 11/05/16 07:15 Hgb 9.7 gm/dL (11.7-16.1) L 11/05/16 07:15 Hct 29.7 % (35.0-45.0) L 11/05/16 07:15 MCV 89.0 fl (81-100) 11/05/16 07:15 MCH 29.1 pg (27.0-31.0) 11/05/16 07:15 MCHC Differential 32.7 pg (28.0-36.0) 11/05/16 07:15 RDW 14.2 % (11.5-20.0) 11/05/16 07:15 Plt Count 46 Th/cmm (150-400) L D 11/05/16 07:15 MPV 11.4 fl 11/05/16 07:15 Neutrophils % 75.0 % (40.0-80.0) 11/03/16 21:49 Band Neutrophils % 1 % (0-10) 11/05/16 07:15 Lymphocytes % 18.8 % (20.0-50.0) L 11/03/16 21:49 Monocytes % 4.2 % (2.0-10.0) 11/03/16 21:49 Eosinophils % 1.5 % (0.0-5.0) 11/03/16 21:49 Basophils % 0.5 % (0.0-2.0) 11/03/16 21:49 Neutrophils (Manual) 67 % (40-80) 11/05/16 07:15 Lymphocytes 24 % (20-50) 11/05/16 07:15 Monocytes 5 % (2-10) 11/05/16 07:15 Eosinophils 2 % (0-5) 11/05/16 07:15 Basophils 1 % (0-3) 11/05/16 07:15 Platelet Estimate DECREASED PLATELETS (NORMAL) 11/05/16 07:15 Platelet Morphology NORMAL (NORMAL) 11/05/16 07:15 Anisocytosis 1+ 11/04/16 06:40 RBC Morph Micro Appear NORMAL (NORMAL) 11/05/16 07:15 PT 10.6 SECONDS (9.5-11.5) 11/05/16 07:15 INR 1.02 (0.5-1.4) 11/05/16 07:15 PTT (Actin FS) 27.7 SECONDS (26.0-38.0) 11/03/16 21:49 Sodium 131 mEq/L (136-145) L 11/05/16 07:15 Potassium 4.8 mEq/L (3.5-5.1) 11/05/16 07:15 Chloride 104 mEq/L (98-107) 11/05/16 07:15 Carbon Dioxide 25.1 mEq/L (21.0-31.0) 11/05/16 07:15 Anion Gap 6.7 (7.0-16.0) L 11/05/16 07:15 BUN 23 mg/dL (7-25) 11/05/16 07:15 Creatinine 2.2 mg/dL (0.6-1.2) H 11/05/16 07:15 Est GFR ( Amer) TNP 11/05/16 07:15 Est GFR (Non-Af Amer) TNP 11/05/16 07:15 BUN/Creatinine Ratio 10.5 11/05/16 07:15 Glucose 184 mg/dL (70-105) H 11/05/16 07:15 POC Glucose 70 MG/DL (70 - 105) 11/06/16 06:42 Calcium 8.8 mg/dL (8.6-10.3) 11/05/16 07:15 Total Bilirubin 0.3 mg/dL (0.3-1.0) 11/05/16 07:15 AST 13 U/L (13-39) 11/05/16 07:15 ALT 7 U/L (7-52) 11/05/16 07:15 Alkaline Phosphatase 77 U/L (34-104) 11/05/16 07:15 Troponin I 0.01 ng/mL (0.01-0.05) 11/03/16 21:49 Total Protein 6.3 gm/dL (6.0-8.3) 11/05/16 07:15 Albumin 3.2 gm/dL (3.7-5.3) L 11/05/16 07:15 Globulin 3.1 gm/dL 11/05/16 07:15 Albumin/Globulin Ratio 1.0 (1.0-1.8) 11/05/16 07:15 Lipase 3 U/L (11-82) L 11/03/16 21:49 Urine Source CLEAN C 11/03/16 22:00 Urine Color YELLOW 11/03/16 22:00 Urine Clarity CLEAR (CLEAR) 11/03/16 22:00 Urine pH 6.0 11/03/16 22:00 Ur Specific [place] 1.010 (1.005-1.030) 11/03/16 22:00 Urine Protein NEGATIVE mg/dL (NEGATIVE) 11/03/16 22:00 Urine Glucose (UA) NEGATIVE mg/dL (NEGATIVE) 11/03/16 22:00 Urine Ketones NEGATIVE mg/dL (NEGATIVE) 11/03/16 22:00 Urine Blood NEGATIVE (NEGATIVE) 11/03/16 22:00 Urine Nitrate NEGATIVE (NEGATIVE) 11/03/16 22:00 Urine Bilirubin NEGATIVE (NEGATIVE) 11/03/16 22:00 Urine Urobilinogen 0.2 E.U./dL (0.2 - 1.0) 11/03/16 22:00 Ur Leukocyte Esterase NEGATIVE (NEGATIVE) 11/03/16 22:00 Urine RBC 0-2 /hpf (0-5) 11/03/16 22:00 Urine WBC 0-2 /hpf (0-5) 11/03/16 22:00 Ur Epithelial Cells FEW /lpf (FEW) 11/03/16 22:00 Urine Bacteria FEW /hpf (NONE SEEN) 11/03/16 22:00 Blood Type O POSITIVE 11/03/16 21:49 Antibody Screen NEGATIVE 11/03/16 21:49 - Physical Exam Vitals and I&O: Vital Signs Temp 97.0 F 11/06/16 05:13 Pulse 49 11/06/16 05:13 Resp 18 11/06/16 05:13 BP 120/53 11/06/16 05:13 Pulse Ox 95 11/06/16 05:13 Intake & Output 11/05/16 11/06/16 11/06/16 18:59 06:59 18:59 Intake Total 400 Output Total 0 Balance 400 0 Weight (lbs) 49.895 kg 50.53 kg Intake: Oral 400 Output: Stool 0 Other: # Voids 2 2 Active Medications: Current Medications Acetaminophen (Tylenol) 650 mg PO Q6H PRN PRN Reason: MILD Pain Stop: 01/03/17 08:14 Amlodipine Besylate (Norvasc) 10 mg PO DAILY [facility] Stop: 01/03/17 08:59 Last Admin: 11/05/16 09:59 Dose: 10 mg Atenolol (Tenormin) 100 mg PO DAILY [facility] Stop: 01/03/17 08:59 Last Admin: 11/05/16 10:04 Dose: Not Given Clonidine HCl (Catapres) 0.1 mg PO Q8H PRN PRN Reason: BP MAINTENANCE (PER PROTOCOL) Stop: 01/03/17 08:14 Last Admin: 11/05/16 09:58 Dose: 0.1 mg Famotidine (Pepcid) 20 mg PO HS [facility] Stop: 01/03/17 20:59 Last Admin: 11/05/16 21:29 Dose: 20 mg Fenofibrate (Tricor) 134 mg PO DAILY [facility] Stop: 01/03/17 08:59 Last Admin: 11/05/16 09:59 Dose: 134 mg Ferrous Sulfate (Iron) 325 mg PO DAILY [facility] Stop: 01/03/17 08:59 Last Admin: 11/05/16 10:00 Dose: 325 mg Folic Acid (Folate) 1 mg PO DAILY [facility] Stop: 01/03/17 08:59 Last Admin: 11/05/16 09:59 Dose: 1 mg Gabapentin (Neurontin) 300 mg PO DAILY [facility] Stop: 01/03/17 08:59 Last Admin: 11/05/16 09:57 Dose: 300 mg Glimepiride (Amaryl) 4 mg PO DAILY [facility] Stop: 01/03/17 08:59 Last Admin: 11/05/16 09:59 Dose: 4 mg Glucagon (Glucagen) 1 mg IM DAILY PRN PRN Reason: IF BS BELOW 60 Ferric Sodium Gluconate Complex 125 mg/ Sodium Chloride 110 mls @ 100 mls/hr IV Q24H [facility] Stop: 11/14/16 13:59 Last Admin: 11/05/16 17:00 Dose: 100 mls/hr Dextrose/Sodium Chloride (D5-0.45ns) 1,000 mls @ 50 mls/hr IV .Q20H [facility] Stop: 01/03/17 23:16 Last Admin: 11/04/16 23:56 Dose: 50 mls/hr Insulin Aspart (Novolog Insulin Sliding Scale) 2 - 12 units SUBQ ACHS [facility] PRN Reason: Protocol Stop: 01/03/17 17:07 Last Admin: 11/05/16 23:07 Dose: Not Given Insulin Human Isoph/Insulin Regular (Novolin 70/30) 30 units SUBQ QDAC [facility] PRN Reason: Protocol Stop: 01/04/17 07:29 Last Admin: 11/05/16 07:44 Dose: Not Given Insulin Human Isoph/Insulin Regular (Novolin 70/30) 18 units SUBQ QPM [facility] PRN Reason: Protocol Stop: 01/03/17 16:59 Last Admin: 11/05/16 18:57 Dose: 18 units Levothyroxine Sodium (Synthroid) 0.025 mg PO QDAC [facility] Stop: 01/03/17 09:59 Last Admin: 11/05/16 07:44 Dose: Not Given Losartan Potassium (Cozaar) 50 mg PO DAILY [facility] Stop: 01/03/17 08:59 Last Admin: 11/05/16 10:00 Dose: 50 mg Magnesium Hydroxide (Milk Of Magnesia) 30 ml PO DAILY PRN PRN Reason: Constipation Stop: 01/03/17 08:14 Miscellaneous (Vte Chemical Prophylaxis Screen/ Admission) 1 ea [facility] PRN PRN PRN Reason: PROTOCOL Stop: 01/03/17 14:14 Nitroglycerin (Nitrostat) 0.4 mg SL Q5MIN PRN PRN Reason: Chest Pain Stop: 01/03/17 08:14 Ondansetron HCl (Zofran) 4 mg IV Q4H PRN PRN Reason: Nausea Stop: 01/02/17 23:17 Ondansetron HCl (Zofran Odt) 4 mg SL Q6H PRN PRN Reason: Nausea / Vomiting Stop: 01/03/17 08:14 Pantoprazole Sodium (Protonix) 40 mg IVP BID [facility] Stop: 01/04/17 08:59 Last Admin: 11/05/16 19:01 Dose: 40 mg Simvastatin (Zocor) 10 mg PO QPM [facility] PRN Reason: Protocol Stop: 01/03/17 16:59 Last Admin: 11/05/16 19:02 Dose: 10 mg Tramadol HCl (Ultram) 50 mg PO Q12H [facility] Stop: 01/03/17 09:59 Last Admin: 11/05/16 21:31 Dose: 50 mg General: Alert HEENT: Atraumatic Neck: Supple, +2 carotid pulse wo bruit Cardiovascular: Regular rate, Normal S1, Normal S2 Lungs: Clear to auscultation, Normal air movement Abdomen: Bowel sounds, Soft, no Tender Extremities: no Edema Neurological: Sensation intact Skin: no Rash Psych/Mental Status: Mood NL - Procedures Procedures: Procedures Procedure Code Date BLOOD TRANSFUSION SERVICE 58948 10/23/16 EGD BIOPSY SINGLE/MULTIPLE 00389 11/03/16 EXCISION OF ESOPHAGUS, ENDO, DIAGN [id number] 11/03/16 TRANSFUSE NONAUT PLATELETS IN PERIPH VEIN, [facility] [id number] 06/25/15 TRANSFUSE NONAUT RED BLOOD CELLS IN PERIPH VEIN, [facility] [id number] 10/23/16 Assessment/Plan - Problem List Patient Problems: All Active Problems Abdominal hernia (Acute) Duodenal ulcer (Acute) Hyponatremia (Acute) E87.1 Asthma (Acute) J45.909 CVA, old, 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 - Assessment Assessment: Anemia acute vs chronic Thrombocytopenia CVA TIA Left Hemiplegia Cardiomegaly S/P DVT Bronchitis/Asthma Chronic renal Failure Colon CA Diabetes Mellitus Thyroid disorder Hyperlipidemia abdominal hernia - Plan Plan: Will repeat CBC this AM Will order GI consult Will order Hem/Onc Consult will resume previous medications Patient to have CT scan of the abdomen Will request surgical consult with Dr. Michael for evaluation of abdominal hernia noted on CT scan. Patient evaluated by General Surgery. Please see dictated note. Patient recently underwent upper endoscopy for severe anemia. Please dictated report. Now on Protonix BID. Awaiting biopsy. Patient was seen and evaluated by Hem/Onc for anemia and thrombocytopenia. Please see dictated report. Patient was seen and evaluated by Nephrology for chronic renal failure. Please see dictated report.
[2016-11-06] MEDS: D5-0.45NS 1,000 ML IV SCH (08:00)
[2016-11-06 08:10] LABS: HEMATOCRIT 28.9 % (35.0-45.0); HEMOGLOBIN 9.6 gm/dL (11.7-16.1); MEAN CELL VOLUME 88.9 fl (81-100); MEAN CORPUSCULAR HEMOGLOBIN 29.4 pg (27.0-31.0); MEAN CORPUSCULAR HGB CONC 33.1 pg (28.0-36.0); MEAN PLATELET VOLUME 10.5 fl; PLATELET COUNT 47 Th/cmm (150-400); RED BLOOD COUNT 3.25 Mil/cmm (3.80-5.20); RED CELL DISTRIBUTION WIDTH 14.2 % (11.5-20.0)
[2016-11-06 08:13] LABS: BUN - UREA NITROGEN 20 mg/dL (7-25); BUN/CREATININE RATIO 9.5; CALCIUM SERUM 8.3 mg/dL (8.6-10.3); CARBON DIOXIDE 20.3 mEq/L (21.0-31.0); CHLORIDE 109 mEq/L (98-107); CREATININE - SERUM 2.1 mg/dL (0.6-1.2); GLUCOSE 61 mg/dL (70-105); PHOSPHOROUS 2.8 mg/dL (2.5-5.0); POTASSIUM SERUM 4.3 mEq/L (3.5-5.1); SODIUM SERUM 133 mEq/L (136-145); URIC ACID 5.2 mg/dL (2.3-6.6)
[2016-11-06 08:18] LABS: WHITE BLOOD COUNT 9.4 Th/cmm (4.8-10.8)
[2016-11-06] MEDS: Fenofibrate, Micronized 134 mg Cap PO SCH (08:20)
[2016-11-06] MEDS: Ferrous Sulfate 325 MG TAB PO SCH (08:20)
--- NOTE | 2016-11-06 08:29 | General Progress Note ---
Subjective - Review of Systems Service Date: 11/06/16 Events since last encounter: feeling better today denies pain tolerating oral intake Objective - Results Result Diagrams: 11/06/16 06:50 11/05/16 07:15 Recent Labs: Laboratory Last Values WBC 9.4 Th/cmm (4.8-10.8) D 11/06/16 06:50 RBC 3.25 Mil/cmm (3.80-5.20) L 11/06/16 06:50 Hgb 9.6 gm/dL (11.7-16.1) L 11/06/16 06:50 Hct 28.9 % (35.0-45.0) L 11/06/16 06:50 MCV 88.9 fl (81-100) 11/06/16 06:50 MCH 29.4 pg (27.0-31.0) 11/06/16 06:50 MCHC Differential 33.1 pg (28.0-36.0) 11/06/16 06:50 RDW 14.2 % (11.5-20.0) 11/06/16 06:50 Plt Count 47 Th/cmm (150-400) L 11/06/16 06:50 MPV 10.5 fl 11/06/16 06:50 Neutrophils % 75.0 % (40.0-80.0) 11/03/16 21:49 Band Neutrophils % 1 % (0-10) 11/05/16 07:15 Lymphocytes % 18.8 % (20.0-50.0) L 11/03/16 21:49 Monocytes % 4.2 % (2.0-10.0) 11/03/16 21:49 Eosinophils % 1.5 % (0.0-5.0) 11/03/16 21:49 Basophils % 0.5 % (0.0-2.0) 11/03/16 21:49 Neutrophils (Manual) 67 % (40-80) 11/05/16 07:15 Lymphocytes 24 % (20-50) 11/05/16 07:15 Monocytes 5 % (2-10) 11/05/16 07:15 Eosinophils 2 % (0-5) 11/05/16 07:15 Basophils 1 % (0-3) 11/05/16 07:15 Platelet Estimate DECREASED PLATELETS (NORMAL) 11/05/16 07:15 Platelet Morphology NORMAL (NORMAL) 11/05/16 07:15 Anisocytosis 1+ 11/04/16 06:40 RBC Morph Micro Appear NORMAL (NORMAL) 11/05/16 07:15 PT 10.6 SECONDS (9.5-11.5) 11/05/16 07:15 INR 1.02 (0.5-1.4) 11/05/16 07:15 PTT (Actin FS) 27.7 SECONDS (26.0-38.0) 11/03/16 21:49 Sodium 131 mEq/L (136-145) L 11/05/16 07:15 Potassium 4.8 mEq/L (3.5-5.1) 11/05/16 07:15 Chloride 104 mEq/L (98-107) 11/05/16 07:15 Carbon Dioxide 25.1 mEq/L (21.0-31.0) 11/05/16 07:15 Anion Gap 6.7 (7.0-16.0) L 11/05/16 07:15 BUN 23 mg/dL (7-25) 11/05/16 07:15 Creatinine 2.2 mg/dL (0.6-1.2) H 11/05/16 07:15 Est GFR ( Amer) TNP 11/05/16 07:15 Est GFR (Non-Af Amer) TNP 11/05/16 07:15 BUN/Creatinine Ratio 10.5 11/05/16 07:15 Glucose 184 mg/dL (70-105) H 11/05/16 07:15 POC Glucose 70 MG/DL (70 - 105) 11/06/16 06:42 Calcium 8.8 mg/dL (8.6-10.3) 11/05/16 07:15 Total Bilirubin 0.3 mg/dL (0.3-1.0) 11/05/16 07:15 AST 13 U/L (13-39) 11/05/16 07:15 ALT 7 U/L (7-52) 11/05/16 07:15 Alkaline Phosphatase 77 U/L (34-104) 11/05/16 07:15 Troponin I 0.01 ng/mL (0.01-0.05) 11/03/16 21:49 Total Protein 6.3 gm/dL (6.0-8.3) 11/05/16 07:15 Albumin 3.2 gm/dL (3.7-5.3) L 11/05/16 07:15 Globulin 3.1 gm/dL 11/05/16 07:15 Albumin/Globulin Ratio 1.0 (1.0-1.8) 11/05/16 07:15 Lipase 3 U/L (11-82) L 11/03/16 21:49 Urine Source CLEAN C 11/03/16 22:00 Urine Color YELLOW 11/03/16 22:00 Urine Clarity CLEAR (CLEAR) 11/03/16 22:00 Urine pH 6.0 11/03/16 22:00 Ur Specific [place] 1.010 (1.005-1.030) 11/03/16 22:00 Urine Protein NEGATIVE mg/dL (NEGATIVE) 11/03/16 22:00 Urine Glucose (UA) NEGATIVE mg/dL (NEGATIVE) 11/03/16 22:00 Urine Ketones NEGATIVE mg/dL (NEGATIVE) 11/03/16 22:00 Urine Blood NEGATIVE (NEGATIVE) 11/03/16 22:00 Urine Nitrate NEGATIVE (NEGATIVE) 11/03/16 22:00 Urine Bilirubin NEGATIVE (NEGATIVE) 11/03/16 22:00 Urine Urobilinogen 0.2 E.U./dL (0.2 - 1.0) 11/03/16 22:00 Ur Leukocyte Esterase NEGATIVE (NEGATIVE) 11/03/16 22:00 Urine RBC 0-2 /hpf (0-5) 11/03/16 22:00 Urine WBC 0-2 /hpf (0-5) 11/03/16 22:00 Ur Epithelial Cells FEW /lpf (FEW) 11/03/16 22:00 Urine Bacteria FEW /hpf (NONE SEEN) 11/03/16 22:00 Blood Type O POSITIVE 11/03/16 21:49 Antibody Screen NEGATIVE 11/03/16 21:49 - Physical Exam Vitals and I&O: Vital Signs Temp 97.0 F 11/06/16 05:13 Pulse 49 11/06/16 05:13 Resp 18 11/06/16 05:13 BP 120/53 11/06/16 05:13 Pulse Ox 95 11/06/16 05:13 Intake & Output 07/20/17 07/21/17 07/21/17 18:59 06:59 18:59 Intake Total 400 Output Total 0 Balance 400 0 Weight (lbs) 49.895 kg 50.53 kg Intake: Oral 400 Output: Stool 0 Other: # Voids 2 2 Active Medications: Current Medications Acetaminophen (Tylenol) 650 mg PO Q6H PRN PRN Reason: MILD Pain Stop: 01/03/17 08:14 Amlodipine Besylate (Norvasc) 10 mg PO DAILY [facility] Stop: 01/03/17 08:59 Last Admin: 11/05/16 09:59 Dose: 10 mg Atenolol (Tenormin) 100 mg PO DAILY [facility] Stop: 01/03/17 08:59 Last Admin: 11/05/16 10:04 Dose: Not Given Clonidine HCl (Catapres) 0.1 mg PO Q8H PRN PRN Reason: BP MAINTENANCE (PER PROTOCOL) Stop: 01/03/17 08:14 Last Admin: 11/05/16 09:58 Dose: 0.1 mg Famotidine (Pepcid) 20 mg PO HS [facility] Stop: 01/03/17 20:59 Last Admin: 11/05/16 21:29 Dose: 20 mg Fenofibrate (Tricor) 134 mg PO DAILY [facility] Stop: 01/03/17 08:59 Last Admin: 11/06/16 08:20 Dose: 134 mg Ferrous Sulfate (Iron) 325 mg PO DAILY [facility] Stop: 01/03/17 08:59 Last Admin: 11/06/16 08:20 Dose: 325 mg Folic Acid (Folate) 1 mg PO DAILY [facility] Stop: 01/03/17 08:59 Last Admin: 11/06/16 08:20 Dose: 1 mg Gabapentin (Neurontin) 300 mg PO DAILY [facility] Stop: 01/03/17 08:59 Last Admin: 11/06/16 08:20 Dose: 300 mg Glimepiride (Amaryl) 4 mg PO DAILY [facility] Stop: 01/03/17 08:59 Last Admin: 11/06/16 08:20 Dose: 4 mg Glucagon (Glucagen) 1 mg IM DAILY PRN PRN Reason: IF BS BELOW 60 Ferric Sodium Gluconate Complex 125 mg/ Sodium Chloride 110 mls @ 100 mls/hr IV Q24H [facility] Stop: 11/14/16 13:59 Last Admin: 11/05/16 17:00 Dose: 100 mls/hr Dextrose/Sodium Chloride (D5-0.45ns) 1,000 mls @ 50 mls/hr IV .Q20H [facility] Stop: 01/03/17 23:16 Last Admin: 11/04/16 23:56 Dose: 50 mls/hr Insulin Aspart (Novolog Insulin Sliding Scale) 2 - 12 units SUBQ ACHS [facility] PRN Reason: Protocol Stop: 01/03/17 17:07 Last Admin: 11/05/16 23:07 Dose: Not Given Insulin Human Isoph/Insulin Regular (Novolin 70/30) 30 units SUBQ QDAC [facility] PRN Reason: Protocol Stop: 01/04/17 07:29 Last Admin: 11/05/16 07:44 Dose: Not Given Insulin Human Isoph/Insulin Regular (Novolin 70/30) 18 units SUBQ QPM [facility] PRN Reason: Protocol Stop: 01/03/17 16:59 Last Admin: 11/05/16 18:57 Dose: 18 units Levothyroxine Sodium (Synthroid) 0.025 mg PO QDAC [facility] Stop: 01/03/17 09:59 Last Admin: 11/05/16 07:44 Dose: Not Given Losartan Potassium (Cozaar) 50 mg PO DAILY [facility] Stop: 01/03/17 08:59 Last Admin: 11/05/16 10:00 Dose: 50 mg Magnesium Hydroxide (Milk Of Magnesia) 30 ml PO DAILY PRN PRN Reason: Constipation Stop: 01/03/17 08:14 Miscellaneous (Vte Chemical Prophylaxis Screen/ Admission) 1 ea [facility] PRN PRN PRN Reason: PROTOCOL Stop: 01/03/17 14:14 Nitroglycerin (Nitrostat) 0.4 mg SL Q5MIN PRN PRN Reason: Chest Pain Stop: 01/03/17 08:14 Ondansetron HCl (Zofran) 4 mg IV Q4H PRN PRN Reason: Nausea Stop: 01/02/17 23:17 Ondansetron HCl (Zofran Odt) 4 mg SL Q6H PRN PRN Reason: Nausea / Vomiting Stop: 01/03/17 08:14 Pantoprazole Sodium (Protonix) 40 mg IVP BID [facility] Stop: 01/04/17 08:59 Last Admin: 11/05/16 19:01 Dose: 40 mg Simvastatin (Zocor) 10 mg PO QPM [facility] PRN Reason: Protocol Stop: 01/03/17 16:59 Last Admin: 11/05/16 19:02 Dose: 10 mg Tramadol HCl (Ultram) 50 mg PO Q12H [facility] Stop: 01/03/17 09:59 Last Admin: 11/05/16 21:31 Dose: 50 mg General: Alert HEENT: Atraumatic Neck: Supple, +2 carotid pulse wo bruit Cardiovascular: Regular rate, Normal S1, Normal S2 Lungs: Clear to auscultation, Normal air movement Abdomen: Bowel sounds, Soft, no Tender Extremities: no Edema Neurological: Sensation intact Skin: no Rash Psych/Mental Status: Mood NL - Procedures Procedures: Procedures Procedure Code Date BLOOD TRANSFUSION SERVICE 28998 10/23/16 EGD BIOPSY SINGLE/MULTIPLE 52135 11/03/16 EXCISION OF ESOPHAGUS, ENDO, DIAGN [id number] 11/03/16 TRANSFUSE NONAUT PLATELETS IN PERIPH VEIN, [facility] [id number] 06/25/15 TRANSFUSE NONAUT RED BLOOD CELLS IN PERIPH VEIN, [facility] [id number] 10/23/16 Assessment/Plan - Problem List Patient Problems: All Active Problems Abdominal hernia (Acute) Duodenal ulcer (Acute) Hyponatremia (Acute) E87.1 Asthma (Acute) J45.909 CVA, old, 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
[2016-11-06 09:10] LABS: ALKALINE PHOSPHATASE 69 U/L (34-104); ANION GAP 9.9 (7.0-16.0); BILIRUBIN,TOTAL 0.3 mg/dL (0.3-1.0); BUN - UREA NITROGEN 20 mg/dL (7-25); BUN/CREATININE RATIO 9.5; CALCIUM SERUM 8.3 mg/dL (8.6-10.3); CARBON DIOXIDE 18.4 mEq/L (21.0-31.0); CHLORIDE 109 mEq/L (98-107); CREATININE - SERUM 2.1 mg/dL (0.6-1.2); GLUCOSE 60 mg/dL (70-105); POTASSIUM SERUM 4.3 mEq/L (3.5-5.1); SGOT 14 U/L (13-39); SGPT/ALT 5 U/L (7-52); SODIUM SERUM 133 mEq/L (136-145)
[2016-11-06 09:17] LABS: BAND NEUTROPHILE 1 % (0-10); EOSINOPHIL 7 % (0-5); NEUTROPHILS 63 % (40-80); TOTAL CELLS COUNTED 100
[2016-11-06 09:18] LABS: PLATELET ESTIMATE DECREASED PLATELETS (NORMAL)
[2016-11-06] MEDS: INSULIN 70/30 100 UNITS/ML SUBQ SCH ×2 (09:55→17:06)
--- NOTE | 2016-11-06 11:51 | Pathology Report ---
[id number] Collection date: 11/05/2016 Surgeon: Dr. Fanny Uriarte Specimen Description: 1: Duodenum biopsy 2: Antrum biopsy 3: Esophagus biopsy Gross Description: Part I: Received in formalin are two villavicencio soft tissue fragments each measuring 0.1 cm in greatest dimension. Totally submitted in one cassette labeled A. Gross Description: Part II: Received in formalin is a single fragment of villavicencio soft tissue measuring 0.2 cm in greatest dimension. Totally submitted in one cassette labeled B. Gross Description: Part III: Received in formalin are two villavicencio soft tissue fragments each measuring 0.1 cm in greatest dimension. Totally submitted in one cassette labeled C. Microscopic Description: Part I: The histologic sections show duodenal mucosa with intact intestinal villi, showing no evidence for villous abnormality. Focal areas show mild chronic inflammation consisting of slightly increased number of lymphocytes and plasma cells. Diagnosis: Part I: 1. Mild non-specific chronic inflammation, duodenal biopsy. 2. There is no evidence for celiac disease / Spr[place]. Microscopic Description: Part II: The histologic sections show gastric mucosa with mild chronic inflammation present consisting of lymphocytes and plasma cells. The Giemsa stain shows no evidence for Helicobacter pylori. Diagnosis: Part II: 1. Mild chronic gastritis, antrum biopsy. 2. The Giemsa stain is negative for Helicobacter pylori. Microscopic Description: Part III: The histologic sections show esophageal squamous mucosa with mild chronic inflammation present consisting of slightly increased numbers of lymphocytes and plasma cells. The PAS stain shows no evidence for fungal organisms. The Alcian blue stain shows no evidence for abnormality. Diagnosis: Part III: Mild chronic esophagitis. [facility]# [id number] [facility]
--- NOTE | 2016-11-06 14:46 | General Progress Note ---
Subjective - Review of Systems Service Date: 11/06/16 Subjective: Alert, denied any further nausea and vomiting, abdominal pain resolved Objective - Results Result Diagrams: 11/06/16 06:50 11/06/16 06:50 Recent Labs: Laboratory Last Values WBC 9.4 Th/cmm (4.8-10.8) D 11/06/16 06:50 RBC 3.25 Mil/cmm (3.80-5.20) L 11/06/16 06:50 Hgb 9.6 gm/dL (11.7-16.1) L 11/06/16 06:50 Hct 28.9 % (35.0-45.0) L 11/06/16 06:50 MCV 88.9 fl (81-100) 11/06/16 06:50 MCH 29.4 pg (27.0-31.0) 11/06/16 06:50 MCHC Differential 33.1 pg (28.0-36.0) 11/06/16 06:50 RDW 14.2 % (11.5-20.0) 11/06/16 06:50 Plt Count 47 Th/cmm (150-400) L 11/06/16 06:50 MPV 10.5 fl 11/06/16 06:50 Neutrophils % 75.0 % (40.0-80.0) 11/03/16 21:49 Band Neutrophils % 1 % (0-10) 11/06/16 06:50 Lymphocytes % 18.8 % (20.0-50.0) L 11/03/16 21:49 Monocytes % 4.2 % (2.0-10.0) 11/03/16 21:49 Eosinophils % 1.5 % (0.0-5.0) 11/03/16 21:49 Basophils % 0.5 % (0.0-2.0) 11/03/16 21:49 Neutrophils (Manual) 63 % (40-80) 11/06/16 06:50 Lymphocytes 24 % (20-50) 11/06/16 06:50 Monocytes 5 % (2-10) 11/06/16 06:50 Eosinophils 7 % (0-5) H 11/06/16 06:50 Basophils 1 % (0-3) 11/05/16 07:15 Platelet Estimate DECREASED PLATELETS (NORMAL) 11/06/16 06:50 Platelet Morphology NORMAL (NORMAL) 11/05/16 07:15 Anisocytosis 1+ 11/04/16 06:40 RBC Morph Micro Appear NORMAL (NORMAL) 11/05/16 07:15 PT 10.6 SECONDS (9.5-11.5) 11/05/16 07:15 INR 1.02 (0.5-1.4) 11/05/16 07:15 PTT (Actin FS) 27.7 SECONDS (26.0-38.0) 11/03/16 21:49 Sodium 133 mEq/L (136-145) L 11/06/16 06:50 Potassium 4.3 mEq/L (3.5-5.1) 11/06/16 06:50 Chloride 109 mEq/L (98-107) H 11/06/16 06:50 Carbon Dioxide 18.4 mEq/L (21.0-31.0) L 11/06/16 06:50 Anion Gap 9.9 (7.0-16.0) 11/06/16 06:50 BUN 20 mg/dL (7-25) 11/06/16 06:50 Creatinine 2.1 mg/dL (0.6-1.2) H 11/06/16 06:50 Est GFR ( Amer) TNP 11/06/16 06:50 Est GFR (Non-Af Amer) TNP 11/06/16 06:50 BUN/Creatinine Ratio 9.5 11/06/16 06:50 Glucose 60 mg/dL (70-105) L 11/06/16 06:50 POC Glucose 71 MG/DL (70 - 105) 11/06/16 11:32 Uric Acid 5.2 mg/dL (2.3-6.6) 11/06/16 06:50 Calcium 8.3 mg/dL (8.6-10.3) L 11/06/16 06:50 Phosphorus 2.8 mg/dL (2.5-5.0) 11/06/16 06:50 Magnesium 2.0 mg/dL (1.9-2.7) 11/06/16 06:50 Total Bilirubin 0.3 mg/dL (0.3-1.0) 11/06/16 06:50 AST 14 U/L (13-39) 11/06/16 06:50 ALT 5 U/L (7-52) L 11/06/16 06:50 Alkaline Phosphatase 69 U/L (34-104) 11/06/16 06:50 Troponin I 0.01 ng/mL (0.01-0.05) 11/03/16 21:49 Total Protein 6.1 gm/dL (6.0-8.3) 11/06/16 06:50 Albumin 3.1 gm/dL (3.7-5.3) L 11/06/16 06:50 Globulin 3.0 gm/dL 11/06/16 06:50 Albumin/Globulin Ratio 1.0 (1.0-1.8) 11/06/16 06:50 Lipase 3 U/L (11-82) L 11/03/16 21:49 Urine Source CLEAN C 11/03/16 22:00 Urine Color YELLOW 11/03/16 22:00 Urine Clarity CLEAR (CLEAR) 11/03/16 22:00 Urine pH 6.0 11/03/16 22:00 Ur Specific [place] 1.010 (1.005-1.030) 11/03/16 22:00 Urine Protein NEGATIVE mg/dL (NEGATIVE) 11/03/16 22:00 Urine Glucose (UA) NEGATIVE mg/dL (NEGATIVE) 11/03/16 22:00 Urine Ketones NEGATIVE mg/dL (NEGATIVE) 11/03/16 22:00 Urine Blood NEGATIVE (NEGATIVE) 11/03/16 22:00 Urine Nitrate NEGATIVE (NEGATIVE) 11/03/16 22:00 Urine Bilirubin NEGATIVE (NEGATIVE) 11/03/16 22:00 Urine Urobilinogen 0.2 E.U./dL (0.2 - 1.0) 11/03/16 22:00 Ur Leukocyte Esterase NEGATIVE (NEGATIVE) 11/03/16 22:00 Urine RBC 0-2 /hpf (0-5) 11/03/16 22:00 Urine WBC 0-2 /hpf (0-5) 11/03/16 22:00 Ur Epithelial Cells FEW /lpf (FEW) 11/03/16 22:00 Urine Bacteria FEW /hpf (NONE SEEN) 11/03/16 22:00 Blood Type O POSITIVE 11/03/16 21:49 Antibody Screen NEGATIVE 11/03/16 21:49 - Physical Exam Vitals and I&O: Vital Signs Temp 98.4 F 11/06/16 12:02 Pulse 56 11/06/16 12:02 Resp 17 11/06/16 12:02 BP 161/67 11/06/16 12:02 Pulse Ox 96 11/06/16 12:02 Intake & Output 11/05/16 11/06/16 11/06/16 18:59 06:59 18:59 Intake Total 400 1000 Output Total 0 Balance 400 1000 Weight (lbs) 49.895 kg 50.53 kg Intake: Intake, IV Amount 1000 D5-0.45NS 1,000 ml @ 50 1000 mls/hr IV .Q20H [facility] Rx#: [id number] Oral 400 Output: Stool 0 Other: # Voids 2 2 Active Medications: Current Medications Acetaminophen (Tylenol) 650 mg PO Q6H PRN PRN Reason: MILD Pain Stop: 01/03/17 08:14 Amlodipine Besylate (Norvasc) 10 mg PO DAILY [facility] Stop: 01/03/17 08:59 Last Admin: 11/06/16 09:30 Dose: Not Given Atenolol (Tenormin) 100 mg PO DAILY [facility] Stop: 01/03/17 08:59 Last Admin: 11/06/16 09:33 Dose: Not Given Clonidine HCl (Catapres) 0.1 mg PO Q8H PRN PRN Reason: BP MAINTENANCE (PER PROTOCOL) Stop: 01/03/17 08:14 Last Admin: 11/05/16 09:58 Dose: 0.1 mg Famotidine (Pepcid) 20 mg PO HS [facility] Stop: 01/03/17 20:59 Last Admin: 11/05/16 21:29 Dose: 20 mg Fenofibrate (Tricor) 134 mg PO DAILY [facility] Stop: 01/03/17 08:59 Last Admin: 11/06/16 08:20 Dose: 134 mg Ferrous Sulfate (Iron) 325 mg PO DAILY [facility] Stop: 01/03/17 08:59 Last Admin: 11/06/16 08:20 Dose: 325 mg Folic Acid (Folate) 1 mg PO DAILY [facility] Stop: 01/03/17 08:59 Last Admin: 11/06/16 08:20 Dose: 1 mg Gabapentin (Neurontin) 300 mg PO DAILY [facility] Stop: 01/03/17 08:59 Last Admin: 11/06/16 08:20 Dose: 300 mg Glimepiride (Amaryl) 4 mg PO DAILY [facility] Stop: 01/03/17 08:59 Last Admin: 11/06/16 08:20 Dose: 4 mg Glucagon (Glucagen) 1 mg IM DAILY PRN PRN Reason: IF BS BELOW 60 Ferric Sodium Gluconate Complex 125 mg/ Sodium Chloride 110 mls @ 100 mls/hr IV Q24H [facility] Stop: 11/14/16 13:59 Last Admin: 11/05/16 17:00 Dose: 100 mls/hr Dextrose/Sodium Chloride (D5-0.45ns) 1,000 mls @ 50 mls/hr IV .Q20H [facility] Stop: 01/03/17 23:16 Last Admin: 11/06/16 08:00 Dose: 50 mls/hr Insulin Aspart (Novolog Insulin Sliding Scale) 2 - 12 units SUBQ ACHS VLAD PRN Reason: Protocol Stop: 01/03/17 17:07 Last Admin: 11/06/16 09:55 Dose: Not Given Insulin Human Isoph/Insulin Regular (Novolin 70/30) 30 units SUBQ QDAC VLAD PRN Reason: Protocol Stop: 01/04/17 07:29 Last Admin: 11/06/16 09:55 Dose: Not Given Insulin Human Isoph/Insulin Regular (Novolin 70/30) 18 units SUBQ QPM [facility]AD PRN Reason: Protocol Stop: 01/03/17 16:59 Last Admin: 11/05/16 18:57 Dose: 18 units Levothyroxine Sodium (Synthroid) 0.025 mg PO QDAC [facility] Stop: 01/03/17 09:59 Last Admin: 11/05/16 07:44 Dose: Not Given Losartan Potassium (Cozaar) 50 mg PO DAILY [facility] Stop: 01/03/17 08:59 Last Admin: 11/06/16 10:00 Dose: 50 mg Magnesium Hydroxide (Milk Of Magnesia) 30 ml PO DAILY PRN PRN Reason: Constipation Stop: 01/03/17 08:14 Miscellaneous (Vte Chemical Prophylaxis Screen/ Admission) 1 ea [facility] PRN PRN PRN Reason: PROTOCOL Stop: 01/03/17 14:14 Nitroglycerin (Nitrostat) 0.4 mg SL Q5MIN PRN PRN Reason: Chest Pain Stop: 01/03/17 08:14 Ondansetron HCl (Zofran) 4 mg IV Q4H PRN PRN Reason: Nausea Stop: 01/02/17 23:17 Ondansetron HCl (Zofran Odt) 4 mg SL Q6H PRN PRN Reason: Nausea / Vomiting Stop: 01/03/17 08:14 Pantoprazole Sodium (Protonix) 40 mg IVP BID [facility] Stop: 01/04/17 08:59 Last Admin: 11/06/16 10:00 Dose: 40 mg Simvastatin (Zocor) 10 mg PO QPM [facility] PRN Reason: Protocol Stop: 01/03/17 16:59 Last Admin: 11/05/16 19:02 Dose: 10 mg Tramadol HCl (Ultram) 50 mg PO Q12H [facility] Stop: 01/03/17 09:59 Last Admin: 11/06/16 11:44 Dose: Not Given General: Alert HEENT: Atraumatic Neck: Supple, +2 carotid pulse wo bruit Cardiovascular: Regular rate, Normal S1, Normal S2 Lungs: Clear to auscultation, Normal air movement Abdomen: Bowel sounds, Soft, no Tender Extremities: no Edema Neurological: Sensation intact Skin: no Rash Psych/Mental Status: Mood NL - Procedures Procedures: Procedures Procedure Code Date BLOOD TRANSFUSION SERVICE 57768 10/23/16 EGD BIOPSY SINGLE/MULTIPLE 11646 11/03/16 EXCISION OF ESOPHAGUS, ENDO, DIAGN [id number] 11/03/16 TRANSFUSE NONAUT PLATELETS IN PERIPH VEIN, [facility] [id number] 06/25/15 TRANSFUSE NONAUT RED BLOOD CELLS IN PERIPH VEIN, [facility] [id number] 10/23/16 Assessment/Plan - Problem List Patient Problems: All Active Problems Abdominal hernia (Acute) Duodenal ulcer (Acute) Hyponatremia (Acute) E87.1 Asthma (Acute) J45.909 CVA, old, 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 - Assessment Assessment: Chronic kidney disease Colon CA status post colostomy Anemia acute on chronic kidney disease Acute thrombocytopenia Abdominal pain etiology? Status post CVA with left hemiparesis Bronchial asthma Type 2 diabetes mellitus with CKD Essential hypertension with CKD Alzheimer dementia Left proximal humeral fracture - Plan Plan: Lab - Result Diagrams 11/05/16 07:15 11/05/16 07:15 Current Medications Acetaminophen (Tylenol) 650 mg PO Q6H PRN PRN Reason: MILD Pain Stop: 01/03/17 08:14 Amlodipine Besylate (Norvasc) 10 mg PO DAILY [facility] Stop: 01/03/17 08:59 Last Admin: 11/05/16 09:59 Dose: 10 mg Atenolol (Tenormin) 100 mg PO DAILY [facility] Stop: 01/03/17 08:59 Last Admin: 11/05/16 10:04 Dose: Not Given Clonidine HCl (Catapres) 0.1 mg PO Q8H PRN PRN Reason: BP MAINTENANCE (PER PROTOCOL) Stop: 01/03/17 08:14 Last Admin: 11/05/16 09:58 Dose: 0.1 mg Clonidine HCl (Catapres) 0.1 mg PO BID [facility] Stop: 01/03/17 08:59 Last Admin: 11/05/16 10:08 Dose: 0.1 mg Famotidine (Pepcid) 20 mg PO HS [facility] Stop: 01/03/17 20:59 Last Admin: 11/04/16 21:16 Dose: 20 mg Fenofibrate (Tricor) 134 mg PO DAILY [facility] Stop: 01/03/17 08:59 Last Admin: 11/05/16 09:59 Dose: 134 mg Ferrous Sulfate (Iron) 325 mg PO DAILY [facility] Stop: 01/03/17 08:59 Last Admin: 11/05/16 10:00 Dose: 325 mg Folic Acid (Folate) 1 mg PO DAILY [facility] Stop: 01/03/17 08:59 Last Admin: 11/05/16 09:59 Dose: 1 mg Gabapentin (Neurontin) 300 mg PO DAILY [facility] Stop: 01/03/17 08:59 Last Admin: 11/05/16 09:57 Dose: 300 mg Glimepiride (Amaryl) 4 mg PO DAILY [facility] Stop: 01/03/17 08:59 Last Admin: 11/05/16 09:59 Dose: 4 mg Glucagon (Glucagen) 1 mg IM DAILY PRN PRN Reason: IF BS BELOW 60 Ferric Sodium Gluconate Complex 125 mg/ Sodium Chloride 110 mls @ 100 mls/hr IV Q24H [facility] Stop: 11/14/16 13:59 Last Infusion: 11/04/16 17:11 Dose: Infused Dextrose/Sodium Chloride (D5-0.45ns) 1,000 mls @ 50 mls/hr IV .Q20H [facility] Stop: 01/03/17 23:16 Last Admin: 11/04/16 23:56 Dose: 50 mls/hr Insulin Aspart (Novolog Insulin Sliding Scale) 2 - 12 units SUBQ ACHS VLAD PRN Reason: Protocol Stop: 01/03/17 17:07 Last Admin: 11/05/16 13:50 Dose: Not Given Insulin Human Isoph/Insulin Regular (Novolin 70/30) 30 units SUBQ QDAC [facility] PRN Reason: Protocol Stop: 01/04/17 07:29 Last Admin: 11/05/16 07:44 Dose: Not Given Insulin Human Isoph/Insulin Regular (Novolin 70/30) 18 units SUBQ QPM VLAD PRN Reason: Protocol Stop: 01/03/17 16:59 Last Admin: 11/04/16 17:10 Dose: 18 units Levothyroxine Sodium (Synthroid) 0.025 mg PO QDAC [facility] Stop: 01/03/17 09:59 Last Admin: 11/05/16 07:44 Dose: Not Given Losartan Potassium (Cozaar) 50 mg PO DAILY [facility] Stop: 01/03/17 08:59 Last Admin: 11/05/16 10:00 Dose: 50 mg Magnesium Hydroxide (Milk Of Magnesia) 30 ml PO DAILY PRN PRN Reason: Constipation Stop: 01/03/17 08:14 Miscellaneous (Vte Chemical Prophylaxis Screen/ Admission) 1 ea [facility] PRN PRN PRN Reason: PROTOCOL Stop: 01/03/17 14:14 Nitroglycerin (Nitrostat) 0.4 mg SL Q5MIN PRN PRN Reason: Chest Pain Stop: 01/03/17 08:14 Ondansetron HCl (Zofran) 4 mg IV Q4H PRN PRN Reason: Nausea Stop: 01/02/17 23:17 Ondansetron HCl (Zofran Odt) 4 mg SL Q6H PRN PRN Reason: Nausea / Vomiting Stop: 01/03/17 08:14 Pantoprazole Sodium (Protonix) 40 mg IVP BID [facility] Stop: 01/04/17 08:59 Last Admin: 11/05/16 10:06 Dose: 40 mg Simvastatin (Zocor) 10 mg PO QPM [facility] PRN Reason: Protocol Stop: 01/03/17 16:59 Last Admin: 11/04/16 17:11 Dose: 10 mg Tramadol HCl (Ultram) 50 mg PO Q12H [facility] Stop: 01/03/17 09:59 Last Admin: 11/05/16 10:00 Dose: 50 mg Kidney function remains stable with a BUN/creatinine of 20/2.1 She has adequate urine output Hgb/Hct stable @ 9.6/28.9 EGD showed chronic inflammation, gastritis and esophagitis, but no source of bleeding
--- NOTE | 2016-11-06 15:13 | General Progress Note ---
Subjective - Review of Systems Service Date: 11/06/16 Objective - Results Result Diagrams: 11/06/16 06:50 11/06/16 06:50 Recent Labs: Laboratory Last Values WBC 9.4 Th/cmm (4.8-10.8) D 11/06/16 06:50 RBC 3.25 Mil/cmm (3.80-5.20) L 11/06/16 06:50 Hgb 9.6 gm/dL (11.7-16.1) L 11/06/16 06:50 Hct 28.9 % (35.0-45.0) L 11/06/16 06:50 MCV 88.9 fl (81-100) 11/06/16 06:50 MCH 29.4 pg (27.0-31.0) 11/06/16 06:50 MCHC Differential 33.1 pg (28.0-36.0) 11/06/16 06:50 RDW 14.2 % (11.5-20.0) 11/06/16 06:50 Plt Count 47 Th/cmm (150-400) L 11/06/16 06:50 MPV 10.5 fl 11/06/16 06:50 Neutrophils % 75.0 % (40.0-80.0) 11/03/16 21:49 Band Neutrophils % 1 % (0-10) 11/06/16 06:50 Lymphocytes % 18.8 % (20.0-50.0) L 11/03/16 21:49 Monocytes % 4.2 % (2.0-10.0) 11/03/16 21:49 Eosinophils % 1.5 % (0.0-5.0) 11/03/16 21:49 Basophils % 0.5 % (0.0-2.0) 11/03/16 21:49 Neutrophils (Manual) 63 % (40-80) 11/06/16 06:50 Lymphocytes 24 % (20-50) 11/06/16 06:50 Monocytes 5 % (2-10) 11/06/16 06:50 Eosinophils 7 % (0-5) H 11/06/16 06:50 Basophils 1 % (0-3) 11/05/16 07:15 Platelet Estimate DECREASED PLATELETS (NORMAL) 11/06/16 06:50 Platelet Morphology NORMAL (NORMAL) 11/05/16 07:15 Anisocytosis 1+ 11/04/16 06:40 RBC Morph Micro Appear NORMAL (NORMAL) 11/05/16 07:15 PT 10.6 SECONDS (9.5-11.5) 11/05/16 07:15 INR 1.02 (0.5-1.4) 11/05/16 07:15 PTT (Actin FS) 27.7 SECONDS (26.0-38.0) 11/03/16 21:49 Sodium 133 mEq/L (136-145) L 11/06/16 06:50 Potassium 4.3 mEq/L (3.5-5.1) 11/06/16 06:50 Chloride 109 mEq/L (98-107) H 11/06/16 06:50 Carbon Dioxide 18.4 mEq/L (21.0-31.0) L 11/06/16 06:50 Anion Gap 9.9 (7.0-16.0) 11/06/16 06:50 BUN 20 mg/dL (7-25) 11/06/16 06:50 Creatinine 2.1 mg/dL (0.6-1.2) H 11/06/16 06:50 Est GFR ( Amer) TNP 11/06/16 06:50 Est GFR (Non-Af Amer) TNP 11/06/16 06:50 BUN/Creatinine Ratio 9.5 11/06/16 06:50 Glucose 60 mg/dL (70-105) L 11/06/16 06:50 POC Glucose 71 MG/DL (70 - 105) 11/06/16 11:32 Uric Acid 5.2 mg/dL (2.3-6.6) 11/06/16 06:50 Calcium 8.3 mg/dL (8.6-10.3) L 11/06/16 06:50 Phosphorus 2.8 mg/dL (2.5-5.0) 11/06/16 06:50 Magnesium 2.0 mg/dL (1.9-2.7) 11/06/16 06:50 Total Bilirubin 0.3 mg/dL (0.3-1.0) 11/06/16 06:50 AST 14 U/L (13-39) 11/06/16 06:50 ALT 5 U/L (7-52) L 11/06/16 06:50 Alkaline Phosphatase 69 U/L (34-104) 11/06/16 06:50 Troponin I 0.01 ng/mL (0.01-0.05) 11/03/16 21:49 Total Protein 6.1 gm/dL (6.0-8.3) 11/06/16 06:50 Albumin 3.1 gm/dL (3.7-5.3) L 11/06/16 06:50 Globulin 3.0 gm/dL 11/06/16 06:50 Albumin/Globulin Ratio 1.0 (1.0-1.8) 11/06/16 06:50 Lipase 3 U/L (11-82) L 11/03/16 21:49 Urine Source CLEAN C 11/03/16 22:00 Urine Color YELLOW 11/03/16 22:00 Urine Clarity CLEAR (CLEAR) 11/03/16 22:00 Urine pH 6.0 11/03/16 22:00 Ur Specific [place] 1.010 (1.005-1.030) 11/03/16 22:00 Urine Protein NEGATIVE mg/dL (NEGATIVE) 11/03/16 22:00 Urine Glucose (UA) NEGATIVE mg/dL (NEGATIVE) 11/03/16 22:00 Urine Ketones NEGATIVE mg/dL (NEGATIVE) 11/03/16 22:00 Urine Blood NEGATIVE (NEGATIVE) 11/03/16 22:00 Urine Nitrate NEGATIVE (NEGATIVE) 11/03/16 22:00 Urine Bilirubin NEGATIVE (NEGATIVE) 11/03/16 22:00 Urine Urobilinogen 0.2 E.U./dL (0.2 - 1.0) 11/03/16 22:00 Ur Leukocyte Esterase NEGATIVE (NEGATIVE) 11/03/16 22:00 Urine RBC 0-2 /hpf (0-5) 11/03/16 22:00 Urine WBC 0-2 /hpf (0-5) 11/03/16 22:00 Ur Epithelial Cells FEW /lpf (FEW) 11/03/16 22:00 Urine Bacteria FEW /hpf (NONE SEEN) 11/03/16 22:00 Blood Type O POSITIVE 11/03/16 21:49 Antibody Screen NEGATIVE 11/03/16 21:49 - Physical Exam Vitals and I&O: Vital Signs Temp 98.4 F 11/06/16 12:02 Pulse 56 11/06/16 12:02 Resp 17 11/06/16 12:02 BP 161/67 11/06/16 12:02 Pulse Ox 96 11/06/16 12:02 Intake & Output 11/05/16 11/06/16 11/06/16 18:59 06:59 18:59 Intake Total 400 1000 Output Total 0 Balance 400 1000 Weight (lbs) 49.895 kg 50.53 kg Intake: Intake, IV Amount 1000 D5-0.45NS 1,000 ml @ 50 1000 mls/hr IV .Q20H [facility] Rx#: [id number] Oral 400 Output: Stool 0 Other: # Voids 2 2 Active Medications: Current Medications Acetaminophen (Tylenol) 650 mg PO Q6H PRN PRN Reason: MILD Pain Stop: 01/03/17 08:14 Amlodipine Besylate (Norvasc) 10 mg PO DAILY [facility] Stop: 01/03/17 08:59 Last Admin: 11/06/16 09:30 Dose: Not Given Atenolol (Tenormin) 100 mg PO DAILY [facility] Stop: 01/03/17 08:59 Last Admin: 11/06/16 09:33 Dose: Not Given Clonidine HCl (Catapres) 0.1 mg PO Q8H PRN PRN Reason: BP MAINTENANCE (PER PROTOCOL) Stop: 01/03/17 08:14 Last Admin: 11/05/16 09:58 Dose: 0.1 mg Famotidine (Pepcid) 20 mg PO HS [facility] Stop: 01/03/17 20:59 Last Admin: 11/05/16 21:29 Dose: 20 mg Fenofibrate (Tricor) 134 mg PO DAILY [facility] Stop: 01/03/17 08:59 Last Admin: 11/06/16 08:20 Dose: 134 mg Ferrous Sulfate (Iron) 325 mg PO DAILY [facility] Stop: 01/03/17 08:59 Last Admin: 11/06/16 08:20 Dose: 325 mg Folic Acid (Folate) 1 mg PO DAILY [facility] Stop: 01/03/17 08:59 Last Admin: 11/06/16 08:20 Dose: 1 mg Gabapentin (Neurontin) 300 mg PO DAILY [facility] Stop: 01/03/17 08:59 Last Admin: 11/06/16 08:20 Dose: 300 mg Glimepiride (Amaryl) 4 mg PO DAILY [facility] Stop: 01/03/17 08:59 Last Admin: 11/06/16 08:20 Dose: 4 mg Glucagon (Glucagen) 1 mg IM DAILY PRN PRN Reason: IF BS BELOW 60 Ferric Sodium Gluconate Complex 125 mg/ Sodium Chloride 110 mls @ 100 mls/hr IV Q24H [facility] Stop: 11/14/16 13:59 Last Admin: 11/05/16 17:00 Dose: 100 mls/hr Dextrose/Sodium Chloride (D5-0.45ns) 1,000 mls @ 50 mls/hr IV .Q20H [facility] Stop: 01/03/17 23:16 Last Admin: 11/06/16 08:00 Dose: 50 mls/hr Insulin Aspart (Novolog Insulin Sliding Scale) 2 - 12 units SUBQ ACHS [facility] PRN Reason: Protocol Stop: 01/03/17 17:07 Last Admin: 11/06/16 09:55 Dose: Not Given Insulin Human Isoph/Insulin Regular (Novolin 70/30) 30 units SUBQ QDAC [facility] PRN Reason: Protocol Stop: 01/04/17 07:29 Last Admin: 11/06/16 09:55 Dose: Not Given Insulin Human Isoph/Insulin Regular (Novolin 70/30) 18 units SUBQ QPM [facility] PRN Reason: Protocol Stop: 01/03/17 16:59 Last Admin: 11/05/16 18:57 Dose: 18 units Levothyroxine Sodium (Synthroid) 0.025 mg PO QDAC [facility] Stop: 01/03/17 09:59 Last Admin: 11/05/16 07:44 Dose: Not Given Losartan Potassium (Cozaar) 50 mg PO DAILY [facility] Stop: 01/03/17 08:59 Last Admin: 11/06/16 10:00 Dose: 50 mg Magnesium Hydroxide (Milk Of Magnesia) 30 ml PO DAILY PRN PRN Reason: Constipation Stop: 01/03/17 08:14 Miscellaneous (Vte Chemical Prophylaxis Screen/ Admission) 1 ea [facility] PRN PRN PRN Reason: PROTOCOL Stop: 01/03/17 14:14 Nitroglycerin (Nitrostat) 0.4 mg SL Q5MIN PRN PRN Reason: Chest Pain Stop: 01/03/17 08:14 Ondansetron HCl (Zofran) 4 mg IV Q4H PRN PRN Reason: Nausea Stop: 01/02/17 23:17 Ondansetron HCl (Zofran Odt) 4 mg SL Q6H PRN PRN Reason: Nausea / Vomiting Stop: 01/03/17 08:14 Pantoprazole Sodium (Protonix) 40 mg IVP BID [facility] Stop: 01/04/17 08:59 Last Admin: 11/06/16 10:00 Dose: 40 mg Simvastatin (Zocor) 10 mg PO QPM VLAD PRN Reason: Protocol Stop: 01/03/17 16:59 Last Admin: 11/05/16 19:02 Dose: 10 mg Tramadol HCl (Ultram) 50 mg PO Q12H [facility] Stop: 01/03/17 09:59 Last Admin: 11/06/16 11:44 Dose: Not Given General: Alert HEENT: Atraumatic Neck: Supple, +2 carotid pulse wo bruit Cardiovascular: Regular rate, Normal S1, Normal S2 Lungs: Clear to auscultation, Normal air movement Abdomen: Bowel sounds, Soft, no Tender Extremities: no Edema Neurological: Sensation intact Skin: no Rash Psych/Mental Status: Mood NL - Procedures Procedures: Procedures Procedure Code Date BLOOD TRANSFUSION SERVICE 74047 10/23/16 EGD BIOPSY SINGLE/MULTIPLE 35664 11/03/16 EXCISION OF ESOPHAGUS, ENDO, DIAGN [id number] 11/03/16 TRANSFUSE NONAUT PLATELETS IN PERIPH VEIN, [facility] [id number] 06/25/15 TRANSFUSE NONAUT RED BLOOD CELLS IN PERIPH VEIN, [facility] [id number] 10/23/16 Assessment/Plan - Problem List Patient Problems: All Active Problems Abdominal hernia (Acute) Duodenal ulcer (Acute) Hyponatremia (Acute) E87.1 Asthma (Acute) J45.909 CVA, old, 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 * functional iron deficiency anemia. * Anemia of chronic kidney disease. Continue ferrlecit, folate
[2016-11-06] MEDS: Sodium Ferric Gluconate 125 MG in Sodium Chloride 0.9% 100 ML IV SCH (17:12)
[2016-11-07] MEDS: INSULIN ASPART SLIDING SCALE 100 UNITS/ML UNIT SUBQ SCH ×5 (06:39→22:39)
--- NOTE | 2016-11-07 06:58 | General Progress Note ---
Subjective - Review of Systems Service Date: 11/07/16 Events since last encounter: patient feeling better. no nausea no vomiting. Subjective: Patient is awake, alert, afebrile Objective - Results Result Diagrams: 11/06/16 06:50 11/06/16 06:50 Recent Labs: Laboratory Last Values WBC 9.4 Th/cmm (4.8-10.8) D 11/06/16 06:50 RBC 3.25 Mil/cmm (3.80-5.20) L 11/06/16 06:50 Hgb 9.6 gm/dL (11.7-16.1) L 11/06/16 06:50 Hct 28.9 % (35.0-45.0) L 11/06/16 06:50 MCV 88.9 fl (81-100) 11/06/16 06:50 MCH 29.4 pg (27.0-31.0) 11/06/16 06:50 MCHC Differential 33.1 pg (28.0-36.0) 11/06/16 06:50 RDW 14.2 % (11.5-20.0) 11/06/16 06:50 Plt Count 47 Th/cmm (150-400) L 11/06/16 06:50 MPV 10.5 fl 11/06/16 06:50 Neutrophils % 75.0 % (40.0-80.0) 11/03/16 21:49 Band Neutrophils % 1 % (0-10) 11/06/16 06:50 Lymphocytes % 18.8 % (20.0-50.0) L 11/03/16 21:49 Monocytes % 4.2 % (2.0-10.0) 11/03/16 21:49 Eosinophils % 1.5 % (0.0-5.0) 11/03/16 21:49 Basophils % 0.5 % (0.0-2.0) 11/03/16 21:49 Neutrophils (Manual) 63 % (40-80) 11/06/16 06:50 Lymphocytes 24 % (20-50) 11/06/16 06:50 Monocytes 5 % (2-10) 11/06/16 06:50 Eosinophils 7 % (0-5) H 11/06/16 06:50 Basophils 1 % (0-3) 11/05/16 07:15 Platelet Estimate DECREASED PLATELETS (NORMAL) 11/06/16 06:50 Platelet Morphology NORMAL (NORMAL) 11/05/16 07:15 Anisocytosis 1+ 11/04/16 06:40 RBC Morph Micro Appear NORMAL (NORMAL) 11/05/16 07:15 Eos Smear Source URINE 11/07/16 04:00 Eos Smear Total Cells NONE SEEN (NONE SEEN) 11/07/16 04:00 PT 10.6 SECONDS (9.5-11.5) 11/05/16 07:15 INR 1.02 (0.5-1.4) 11/05/16 07:15 PTT (Actin FS) 27.7 SECONDS (26.0-38.0) 11/03/16 21:49 Sodium 133 mEq/L (136-145) L 11/06/16 06:50 Potassium 4.3 mEq/L (3.5-5.1) 11/06/16 06:50 Chloride 109 mEq/L (98-107) H 11/06/16 06:50 Carbon Dioxide 18.4 mEq/L (21.0-31.0) L 11/06/16 06:50 Anion Gap 9.9 (7.0-16.0) 11/06/16 06:50 BUN 20 mg/dL (7-25) 11/06/16 06:50 Creatinine 2.1 mg/dL (0.6-1.2) H 11/06/16 06:50 Est GFR ( Amer) TNP 11/06/16 06:50 Est GFR (Non-Af Amer) TNP 11/06/16 06:50 BUN/Creatinine Ratio 9.5 11/06/16 06:50 Glucose 60 mg/dL (70-105) L 11/06/16 06:50 POC Glucose 152 MG/DL (70 - 105) H 11/07/16 06:31 Uric Acid 5.2 mg/dL (2.3-6.6) 11/06/16 06:50 Calcium 8.3 mg/dL (8.6-10.3) L 11/06/16 06:50 Phosphorus 2.8 mg/dL (2.5-5.0) 11/06/16 06:50 Magnesium 2.0 mg/dL (1.9-2.7) 11/06/16 06:50 Total Bilirubin 0.3 mg/dL (0.3-1.0) 11/06/16 06:50 AST 14 U/L (13-39) 11/06/16 06:50 ALT 5 U/L (7-52) L 11/06/16 06:50 Alkaline Phosphatase 69 U/L (34-104) 11/06/16 06:50 Troponin I 0.01 ng/mL (0.01-0.05) 11/03/16 21:49 Total Protein 6.1 gm/dL (6.0-8.3) 11/06/16 06:50 Albumin 3.1 gm/dL (3.7-5.3) L 11/06/16 06:50 Globulin 3.0 gm/dL 11/06/16 06:50 Albumin/Globulin Ratio 1.0 (1.0-1.8) 11/06/16 06:50 Lipase 3 U/L (11-82) L 11/03/16 21:49 Urine Source CLEAN C 11/03/16 22:00 Urine Color YELLOW 11/03/16 22:00 Urine Clarity CLEAR (CLEAR) 11/03/16 22:00 Urine pH 6.0 11/03/16 22:00 Ur Specific [place] 1.010 (1.005-1.030) 11/03/16 22:00 Urine Protein NEGATIVE mg/dL (NEGATIVE) 11/03/16 22:00 Urine Glucose (UA) NEGATIVE mg/dL (NEGATIVE) 11/03/16 22:00 Urine Ketones NEGATIVE mg/dL (NEGATIVE) 11/03/16 22:00 Urine Blood NEGATIVE (NEGATIVE) 11/03/16 22:00 Urine Nitrate NEGATIVE (NEGATIVE) 11/03/16 22:00 Urine Bilirubin NEGATIVE (NEGATIVE) 11/03/16 22:00 Urine Urobilinogen 0.2 E.U./dL (0.2 - 1.0) 11/03/16 22:00 Ur Leukocyte Esterase NEGATIVE (NEGATIVE) 11/03/16 22:00 Urine RBC 0-2 /hpf (0-5) 11/03/16 22:00 Urine WBC 0-2 /hpf (0-5) 11/03/16 22:00 Ur Epithelial Cells FEW /lpf (FEW) 11/03/16 22:00 Urine Bacteria FEW /hpf (NONE SEEN) 11/03/16 22:00 Ur Random Sodium 106 mmol/L 11/07/16 04:00 Urine Creatinine 66.0 mg/dl (28.0-217.0) 11/07/16 04:00 Blood Type O POSITIVE 11/03/16 21:49 Antibody Screen NEGATIVE 11/03/16 21:49 - Physical Exam Vitals and I&O: Vital Signs Temp 97.9 F 11/07/16 04:00 Pulse 57 11/07/16 04:00 Resp 19 11/07/16 04:00 BP 159/66 11/07/16 04:00 Pulse Ox 93 11/07/16 04:00 Intake & Output 11/06/16 11/06/16 11/07/16 06:59 18:59 06:59 Intake Total 1000 320 Output Total 0 1 Balance 1000 319 Weight (lbs) 50.53 kg 50.349 kg Intake: Intake, IV Amount 1000 D5-0.45NS 1,000 ml @ 50 1000 mls/hr IV .Q20H [facility] [place] Rx#: [id number] Oral 320 Output: Urine 1 Stool 0 Other: # Voids 2 # Bowel Movements 0 Active Medications: Current Medications Acetaminophen (Tylenol) 650 mg PO Q6H PRN PRN Reason: MILD Pain Stop: 01/03/17 08:14 Amlodipine Besylate (Norvasc) 10 mg PO DAILY [facility] [place] Stop: 01/03/17 08:59 Last Admin: 11/06/16 09:30 Dose: Not Given Atenolol (Tenormin) 100 mg PO DAILY [facility] [place] Stop: 01/03/17 08:59 Last Admin: 11/06/16 09:33 Dose: Not Given Clonidine HCl (Catapres) 0.1 mg PO Q8H PRN PRN Reason: BP MAINTENANCE (PER PROTOCOL) Stop: 01/03/17 08:14 Last Admin: 11/06/16 16:50 Dose: 0.1 mg Famotidine (Pepcid) 20 mg PO HS [facility] [place] Stop: 01/03/17 20:59 Last Admin: 11/06/16 21:50 Dose: 20 mg Fenofibrate (Tricor) 134 mg PO DAILY [facility] [place] Stop: 01/03/17 08:59 Last Admin: 11/06/16 08:20 Dose: 134 mg Ferrous Sulfate (Iron) 325 mg PO DAILY [facility] [place] Stop: 01/03/17 08:59 Last Admin: 11/06/16 08:20 Dose: 325 mg Folic Acid (Folate) 1 mg PO DAILY [facility] [place] Stop: 01/03/17 08:59 Last Admin: 11/06/16 08:20 Dose: 1 mg Gabapentin (Neurontin) 300 mg PO DAILY [facility] Stop: 01/03/17 08:59 Last Admin: 11/06/16 08:20 Dose: 300 mg Glimepiride (Amaryl) 4 mg PO DAILY [facility] Stop: 01/03/17 08:59 Last Admin: 11/06/16 08:20 Dose: 4 mg Glucagon (Glucagen) 1 mg IM DAILY PRN PRN Reason: IF BS BELOW 60 Ferric Sodium Gluconate Complex 125 mg/ Sodium Chloride 110 mls @ 100 mls/hr IV Q24H [facility] [place] Stop: 11/14/16 13:59 Last Admin: 11/06/16 17:12 Dose: 100 mls/hr Dextrose/Sodium Chloride (D5-0.45ns) 1,000 mls @ 50 mls/hr IV .Q20H [facility] [place] Stop: 01/03/17 23:16 Last Admin: 11/06/16 08:00 Dose: 50 mls/hr Insulin Aspart (Novolog Insulin Sliding Scale) 2 - 12 units SUBQ ACHS [facility] [place] PRN Reason: Protocol Stop: 01/03/17 17:07 Last Admin: 11/07/16 06:39 Dose: 2 units Insulin Human Isoph/Insulin Regular (Novolin 70/30) 30 units SUBQ QDAC [facility] PRN Reason: Protocol Stop: 01/04/17 07:29 Last Admin: 11/06/16 09:55 Dose: Not Given Insulin Human Isoph/Insulin Regular (Novolin 70/30) 18 units SUBQ QPM [facility] PRN Reason: Protocol Stop: 01/03/17 16:59 Last Admin: 11/06/16 17:06 Dose: Not Given Levothyroxine Sodium (Synthroid) 0.025 mg PO QDAC [facility] [place] Stop: 01/03/17 09:59 Last Admin: 11/05/16 07:44 Dose: Not Given Losartan Potassium (Cozaar) 50 mg PO DAILY [facility] [place] Stop: 01/03/17 08:59 Last Admin: 11/06/16 10:00 Dose: 50 mg Magnesium Hydroxide (Milk Of Magnesia) 30 ml PO DAILY PRN PRN Reason: Constipation Stop: 01/03/17 08:14 Miscellaneous (Vte Chemical Prophylaxis Screen/ Admission) 1 ea MC PRN PRN PRN Reason: PROTOCOL Stop: 01/03/17 14:14 Nitroglycerin (Nitrostat) 0.4 mg SL Q5MIN PRN PRN Reason: Chest Pain Stop: 01/03/17 08:14 Ondansetron HCl (Zofran) 4 mg IV Q4H PRN PRN Reason: Nausea Stop: 01/02/17 23:17 Ondansetron HCl (Zofran Odt) 4 mg SL Q6H PRN PRN Reason: Nausea / Vomiting Stop: 01/03/17 08:14 Pantoprazole Sodium (Protonix) 40 mg IVP BID [facility] Stop: 01/04/17 08:59 Last Admin: 11/06/16 16:50 Dose: 40 mg Simvastatin (Zocor) 10 mg PO QPM [facility] PRN Reason: Protocol Stop: 01/03/17 16:59 Last Admin: 11/06/16 17:08 Dose: 10 mg Tramadol HCl (Ultram) 50 mg PO Q12H [facility] Stop: 01/03/17 09:59 Last Admin: 11/06/16 21:51 Dose: 50 mg General: Alert HEENT: Atraumatic Neck: Supple, +2 carotid pulse wo bruit Cardiovascular: Regular rate, Normal S1, Normal S2 Lungs: Clear to auscultation, Normal air movement Abdomen: Bowel sounds, Soft, no Tender Extremities: no Edema Neurological: Sensation intact Skin: no Rash Psych/Mental Status: Mood NL - Procedures Procedures: Procedures Procedure Code Date BLOOD TRANSFUSION SERVICE 07457 10/23/16 EGD BIOPSY SINGLE/MULTIPLE 04928 11/03/16 EXCISION OF ESOPHAGUS, ENDO, DIAGN [id number] 11/03/16 TRANSFUSE NONAUT PLATELETS IN PERIPH VEIN, PERC 66838G2 06/25/15 TRANSFUSE NONAUT RED BLOOD CELLS IN PERIPH VEIN, 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 Duodenal ulcer (Acute) Fracture of proximal end of left humerus (Acute) S42.202A Hyponatremia (Acute) E87.1 Asthma (Acute) J45.909 CVA, old, 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 - Assessment Assessment: see above - Plan Plan: Will repeat CBC this AM Will order GI consult Will order Hem/Onc Consult will resume previous medications Patient to have CT scan of the abdomen Will request surgical consult with Dr. Michael for evaluation of abdominal hernia noted on CT scan. Patient evaluated by General Surgery. Please see dictated note. Patient recently underwent upper endoscopy for severe anemia. Please dictated report. Now on Protonix BID. Biopsy report noted. Patient was seen and evaluated by Hem/Onc for anemia and thrombocytopenia. Please see dictated report. Will continue ferrous IV Patient was seen and evaluated by Nephrology for chronic renal failure. Please see dictated report. Currently stable. Will continue current treatment.
[2016-11-07] MEDS: INSULIN 70/30 100 UNITS/ML SUBQ SCH ×2 (06:59→17:20)
[2016-11-07] MEDS: Levothyroxine 0.025 Mg Tab PO SCH ×2 (07:04→13:05)
[2016-11-07] MEDS: D5-0.45NS 1,000 ML IV SCH (07:05)
[2016-11-07] MEDS: Ferrous Sulfate 325 MG TAB PO SCH (09:51)
[2016-11-07] MEDS: Fenofibrate, Micronized 134 mg Cap PO SCH (09:51)
[2016-11-07] MEDS: Sodium Ferric Gluconate 125 MG in Sodium Chloride 0.9% 100 ML IV SCH (13:58)
--- NOTE | 2016-11-07 15:09 | General Progress Note ---
Subjective - Review of Systems Service Date: 11/07/16 Subjective: Alert, denied any further nausea and vomiting, abdominal pain resolved, very poor appetite Objective - Results Result Diagrams: 11/06/16 06:50 11/06/16 06:50 Recent Labs: Laboratory Last Values WBC 9.4 Th/cmm (4.8-10.8) D 11/06/16 06:50 RBC 3.25 Mil/cmm (3.80-5.20) L 11/06/16 06:50 Hgb 9.6 gm/dL (11.7-16.1) L 11/06/16 06:50 Hct 28.9 % (35.0-45.0) L 11/06/16 06:50 MCV 88.9 fl (81-100) 11/06/16 06:50 MCH 29.4 pg (27.0-31.0) 11/06/16 06:50 MCHC Differential 33.1 pg (28.0-36.0) 11/06/16 06:50 RDW 14.2 % (11.5-20.0) 11/06/16 06:50 Plt Count 47 Th/cmm (150-400) L 11/06/16 06:50 MPV 10.5 fl 11/06/16 06:50 Neutrophils % 75.0 % (40.0-80.0) 11/03/16 21:49 Band Neutrophils % 1 % (0-10) 11/06/16 06:50 Lymphocytes % 18.8 % (20.0-50.0) L 11/03/16 21:49 Monocytes % 4.2 % (2.0-10.0) 11/03/16 21:49 Eosinophils % 1.5 % (0.0-5.0) 11/03/16 21:49 Basophils % 0.5 % (0.0-2.0) 11/03/16 21:49 Neutrophils (Manual) 63 % (40-80) 11/06/16 06:50 Lymphocytes 24 % (20-50) 11/06/16 06:50 Monocytes 5 % (2-10) 11/06/16 06:50 Eosinophils 7 % (0-5) H 11/06/16 06:50 Basophils 1 % (0-3) 11/05/16 07:15 Platelet Estimate DECREASED PLATELETS (NORMAL) 11/06/16 06:50 Platelet Morphology NORMAL (NORMAL) 11/05/16 07:15 Anisocytosis 1+ 11/04/16 06:40 RBC Morph Micro Appear NORMAL (NORMAL) 11/05/16 07:15 Eos Smear Source URINE 11/07/16 04:00 Eos Smear Total Cells NONE SEEN (NONE SEEN) 11/07/16 04:00 PT 10.6 SECONDS (9.5-11.5) 11/05/16 07:15 INR 1.02 (0.5-1.4) 11/05/16 07:15 PTT (Actin FS) 27.7 SECONDS (26.0-38.0) 11/03/16 21:49 Sodium 133 mEq/L (136-145) L 11/06/16 06:50 Potassium 4.3 mEq/L (3.5-5.1) 11/06/16 06:50 Chloride 109 mEq/L (98-107) H 11/06/16 06:50 Carbon Dioxide 18.4 mEq/L (21.0-31.0) L 11/06/16 06:50 Anion Gap 9.9 (7.0-16.0) 11/06/16 06:50 BUN 20 mg/dL (7-25) 11/06/16 06:50 Creatinine 2.1 mg/dL (0.6-1.2) H 11/06/16 06:50 Est GFR ( Amer) TNP 11/06/16 06:50 Est GFR (Non-Af Amer) TNP 11/06/16 06:50 BUN/Creatinine Ratio 9.5 11/06/16 06:50 Glucose 60 mg/dL (70-105) L 11/06/16 06:50 POC Glucose 91 MG/DL (70 - 105) 11/07/16 12:16 Uric Acid 5.2 mg/dL (2.3-6.6) 11/06/16 06:50 Calcium 8.3 mg/dL (8.6-10.3) L 11/06/16 06:50 Phosphorus 2.8 mg/dL (2.5-5.0) 11/06/16 06:50 Magnesium 2.0 mg/dL (1.9-2.7) 11/06/16 06:50 Total Bilirubin 0.3 mg/dL (0.3-1.0) 11/06/16 06:50 AST 14 U/L (13-39) 11/06/16 06:50 ALT 5 U/L (7-52) L 11/06/16 06:50 Alkaline Phosphatase 69 U/L (34-104) 11/06/16 06:50 Troponin I 0.01 ng/mL (0.01-0.05) 11/03/16 21:49 Total Protein 6.1 gm/dL (6.0-8.3) 11/06/16 06:50 Albumin 3.1 gm/dL (3.7-5.3) L 11/06/16 06:50 Globulin 3.0 gm/dL 11/06/16 06:50 Albumin/Globulin Ratio 1.0 (1.0-1.8) 11/06/16 06:50 Lipase 3 U/L (11-82) L 11/03/16 21:49 Urine Source CLEAN C 11/03/16 22:00 Urine Color YELLOW 11/03/16 22:00 Urine Clarity CLEAR (CLEAR) 11/03/16 22:00 Urine pH 6.0 11/03/16 22:[address] [place] 1.010 (1.005-1.030) 11/03/16 22:00 Urine Protein NEGATIVE mg/dL (NEGATIVE) 11/03/16 22:00 Urine Glucose (UA) NEGATIVE mg/dL (NEGATIVE) 11/03/16 22:00 Urine Ketones NEGATIVE mg/dL (NEGATIVE) 11/03/16 22:00 Urine Blood NEGATIVE (NEGATIVE) 11/03/16 22:00 Urine Nitrate NEGATIVE (NEGATIVE) 11/03/16 22:00 Urine Bilirubin NEGATIVE (NEGATIVE) 11/03/16 22:00 Urine Urobilinogen 0.2 E.U./dL (0.2 - 1.0) 11/03/16 22:00 Ur Leukocyte Esterase NEGATIVE (NEGATIVE) 11/03/16 22:00 Urine RBC 0-2 /hpf (0-5) 11/03/16 22:00 Urine WBC 0-2 /hpf (0-5) 11/03/16 22:00 Ur Epithelial Cells FEW /lpf (FEW) 11/03/16 22:00 Urine Bacteria FEW /hpf (NONE SEEN) 11/03/16 22:00 Ur Random Sodium 106 mmol/L 11/07/16 04:00 Urine Creatinine 66.0 mg/dl (28.0-217.0) 11/07/16 04:00 Blood Type O POSITIVE 11/03/16 21:49 Antibody Screen NEGATIVE 11/03/16 21:49 - Physical Exam Vitals and I&O: Vital Signs Temp 97 F 11/07/16 12:00 Pulse 55 11/07/16 12:00 Resp 19 11/07/16 12:00 BP 180/75 11/07/16 12:00 Pulse Ox 99 11/07/16 08:00 Intake & Output 11/06/16 11/07/16 11/07/16 18:59 06:59 18:59 Intake Total 110 1320 60 Output Total 1 Balance 110 1319 60 Weight (lbs) 50.349 kg 49.895 kg Intake: Intake, IV Amount 110 1000 D5-0.45NS 1,000 ml @ 50 1000 mls/hr IV .Q20H [facility] Rx#: [id number] Sodium Ferric Gluconate 110 125 mg In Sodium Chloride 0.9% 100 ml @ 100 mls/hr IV Q24H [facility] Rx#: [id number] Oral 320 60 Output: Urine 1 Other: # Bowel Movements 0 Active Medications: Current Medications Acetaminophen (Tylenol) 650 mg PO Q6H PRN PRN Reason: MILD Pain Stop: 01/03/17 08:14 Amlodipine Besylate (Norvasc) 10 mg PO DAILY [facility] Stop: 01/03/17 08:59 Last Admin: 11/07/16 09:53 Dose: 10 mg Atenolol (Tenormin) 100 mg PO DAILY [facility] Stop: 01/03/17 08:59 Last Admin: 11/07/16 09:54 Dose: 100 mg Clonidine HCl (Catapres) 0.1 mg PO Q8H PRN PRN Reason: BP MAINTENANCE (PER PROTOCOL) Stop: 01/03/17 08:14 Last Admin: 11/06/16 16:50 Dose: 0.1 mg Fenofibrate (Tricor) 134 mg PO DAILY [facility] Stop: 01/03/17 08:59 Last Admin: 11/07/16 09:51 Dose: 134 mg Ferrous Sulfate (Iron) 325 mg PO DAILY [facility] Stop: 01/03/17 08:59 Last Admin: 11/07/16 09:51 Dose: 325 mg Folic Acid (Folate) 1 mg PO DAILY [facility] Stop: 01/03/17 08:59 Last Admin: 11/07/16 09:51 Dose: 1 mg Gabapentin (Neurontin) 300 mg PO DAILY [facility] Stop: 01/03/17 08:59 Last Admin: 11/07/16 09:52 Dose: 300 mg Glimepiride (Amaryl) 4 mg PO DAILY [facility] Stop: 01/03/17 08:59 Last Admin: 11/07/16 09:51 Dose: 4 mg Glucagon (Glucagen) 1 mg IM DAILY PRN PRN Reason: IF BS BELOW 60 Ferric Sodium Gluconate Complex 125 mg/ Sodium Chloride 110 mls @ 100 mls/hr IV Q24H [facility] Stop: 11/14/16 13:59 Last Admin: 11/07/16 13:58 Dose: 100 mls/hr Dextrose/Sodium Chloride (D5-0.45ns) 1,000 mls @ 50 mls/hr IV .Q20H [facility] Stop: 01/03/17 23:16 Last Admin: 11/07/16 07:05 Dose: 50 mls/hr Insulin Aspart (Novolog Insulin Sliding Scale) 2 - 12 units SUBQ ACHS [facility] PRN Reason: Protocol Stop: 01/03/17 17:07 Last Admin: 11/07/16 13:01 Dose: Not Given Insulin Human Isoph/Insulin Regular (Novolin 70/30) 30 units SUBQ QDAC [facility] PRN Reason: Protocol Stop: 01/04/17 07:29 Last Admin: 11/07/16 06:59 Dose: 30 units Insulin Human Isoph/Insulin Regular (Novolin 70/30) 18 units SUBQ QPM [facility] PRN Reason: Protocol Stop: 01/03/17 16:59 Last Admin: 11/06/16 17:06 Dose: Not Given Levothyroxine Sodium (Synthroid) 0.025 mg PO QDAC [facility] Stop: 01/03/17 09:59 Last Admin: 11/07/16 13:05 Dose: Not Given Losartan Potassium (Cozaar) 50 mg PO DAILY [facility] Stop: 01/03/17 08:59 Last Admin: 11/07/16 10:03 Dose: 50 mg Magnesium Hydroxide (Milk Of Magnesia) 30 ml PO DAILY PRN PRN Reason: Constipation Stop: 01/03/17 08:14 Miscellaneous (Vte Chemical Prophylaxis Screen/ Admission) 1 ea MC PRN PRN PRN Reason: PROTOCOL Stop: 01/03/17 14:14 Nitroglycerin (Nitrostat) 0.4 mg SL Q5MIN PRN PRN Reason: Chest Pain Stop: 01/03/17 08:14 Ondansetron HCl (Zofran) 4 mg IV Q4H PRN PRN Reason: Nausea Stop: 01/02/17 23:17 Ondansetron HCl (Zofran Odt) 4 mg SL Q6H PRN PRN Reason: Nausea / Vomiting Stop: 01/03/17 08:14 Pantoprazole Sodium (Protonix) 40 mg IVP BID [facility] Stop: 01/04/17 08:59 Last Admin: 11/07/16 10:02 Dose: 40 mg Simvastatin (Zocor) 10 mg PO QPM [facility] PRN Reason: Protocol Stop: 01/03/17 16:59 Last Admin: 11/06/16 17:08 Dose: 10 mg Tramadol HCl (Ultram) 50 mg PO Q12H [facility] Stop: 01/03/17 09:59 Last Admin: 11/07/16 09:52 Dose: 50 mg General: Alert HEENT: Atraumatic Neck: Supple, +2 carotid pulse wo bruit Cardiovascular: Regular rate, Normal S1, Normal S2 Lungs: Clear to auscultation, Normal air movement Abdomen: Bowel sounds, Soft, no Tender Extremities: no Edema Neurological: Sensation intact Skin: no Rash Psych/Mental Status: Mood NL - Procedures Procedures: Procedures Procedure Code Date BLOOD TRANSFUSION SERVICE 92581 10/23/16 EGD BIOPSY SINGLE/MULTIPLE 21968 11/03/16 EXCISION OF ESOPHAGUS, ENDO, DIAGN [id number] 11/03/16 TRANSFUSE NONAUT PLATELETS IN PERIPH VEIN, [facility] [id number] 06/25/15 TRANSFUSE NONAUT RED BLOOD CELLS IN PERIPH VEIN, [facility] [id number] 10/23/16 Assessment/Plan - Problem List Patient Problems: All Active Problems Abdominal hernia (Acute) Abdominal pain (Acute) R10.9 Alzheimer's dementia (Acute) G30.9 Anemia of chronic renal failure (Acute) N18.9, D63.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.22 Duodenal ulcer (Acute) Fracture of proximal end of left humerus (Acute) S42.202A Hyponatremia (Acute) E87.1 Asthma (Acute) J45.909 CVA, old, 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 - Assessment Assessment: Chronic kidney disease Colon CA status post colostomy Anemia acute on chronic kidney disease Acute thrombocytopenia Abdominal pain etiology? Status post CVA with left hemiparesis Bronchial asthma Type 2 diabetes mellitus with CKD Essential hypertension with CKD Alzheimer dementia Left proximal humeral fracture Poor appetite w/ hypoglycemic episodes - Plan Plan: Lab - Result Diagrams 11/05/16 07:15 11/05/16 07:15 Current Medications Acetaminophen (Tylenol) 650 mg PO Q6H PRN PRN Reason: MILD Pain Stop: 01/03/17 08:14 Amlodipine Besylate (Norvasc) 10 mg PO DAILY [facility] Stop: 01/03/17 08:59 Last Admin: 11/05/16 09:59 Dose: 10 mg Atenolol (Tenormin) 100 mg PO DAILY [facility] Stop: 01/03/17 08:59 Last Admin: 11/05/16 10:04 Dose: Not Given Clonidine HCl (Catapres) 0.1 mg PO Q8H PRN PRN Reason: BP MAINTENANCE (PER PROTOCOL) Stop: 01/03/17 08:14 Last Admin: 11/05/16 09:58 Dose: 0.1 mg Clonidine HCl (Catapres) 0.1 mg PO BID [facility] Stop: 01/03/17 08:59 Last Admin: 11/05/16 10:08 Dose: 0.1 mg Famotidine (Pepcid) 20 mg PO HS [facility] Stop: 01/03/17 20:59 Last Admin: 11/04/16 21:16 Dose: 20 mg Fenofibrate (Tricor) 134 mg PO DAILY [facility] Stop: 01/03/17 08:59 Last Admin: 11/05/16 09:59 Dose: 134 mg Ferrous Sulfate (Iron) 325 mg PO DAILY [facility] Stop: 01/03/17 08:59 Last Admin: 11/05/16 10:00 Dose: 325 mg Folic Acid (Folate) 1 mg PO DAILY [facility] Stop: 01/03/17 08:59 Last Admin: 11/05/16 09:59 Dose: 1 mg Gabapentin (Neurontin) 300 mg PO DAILY [facility] Stop: 01/03/17 08:59 Last Admin: 11/05/16 09:57 Dose: 300 mg Glimepiride (Amaryl) 4 mg PO DAILY [facility] Stop: 01/03/17 08:59 Last Admin: 11/05/16 09:59 Dose: 4 mg Glucagon (Glucagen) 1 mg IM DAILY PRN PRN Reason: IF BS BELOW 60 Ferric Sodium Gluconate Complex 125 mg/ Sodium Chloride 110 mls @ 100 mls/hr IV Q24H [facility] Stop: 11/14/16 13:59 Last Infusion: 11/04/16 17:11 Dose: Infused Dextrose/Sodium Chloride (D5-0.45ns) 1,000 mls @ 50 mls/hr IV .Q20H [facility] Stop: 01/03/17 23:16 Last Admin: 11/04/16 23:56 Dose: 50 mls/hr Insulin Aspart (Novolog Insulin Sliding Scale) 2 - 12 units SUBQ ACHS [facility] PRN Reason: Protocol Stop: 01/03/17 17:07 Last Admin: 11/05/16 13:50 Dose: Not Given Insulin Human Isoph/Insulin Regular (Novolin 70/30) 30 units SUBQ QDAC [facility] PRN Reason: Protocol Stop: 01/04/17 07:29 Last Admin: 11/05/16 07:44 Dose: Not Given Insulin Human Isoph/Insulin Regular (Novolin 70/30) 18 units SUBQ QPM [facility] PRN Reason: Protocol Stop: 01/03/17 16:59 Last Admin: 11/04/16 17:10 Dose: 18 units Levothyroxine Sodium (Synthroid) 0.025 mg PO QDAC [facility] Stop: 01/03/17 09:59 Last Admin: 11/05/16 07:44 Dose: Not Given Losartan Potassium (Cozaar) 50 mg PO DAILY [facility] Stop: 01/03/17 08:59 Last Admin: 11/05/16 10:00 Dose: 50 mg Magnesium Hydroxide (Milk Of Magnesia) 30 ml PO DAILY PRN PRN Reason: Constipation Stop: 01/03/17 08:14 Miscellaneous (Vte Chemical Prophylaxis Screen/ Admission) 1 ea MC PRN PRN PRN Reason: PROTOCOL Stop: 01/03/17 14:14 Nitroglycerin (Nitrostat) 0.4 mg SL Q5MIN PRN PRN Reason: Chest Pain Stop: 01/03/17 08:14 Ondansetron HCl (Zofran) 4 mg IV Q4H PRN PRN Reason: Nausea Stop: 01/02/17 23:17 Ondansetron HCl (Zofran Odt) 4 mg SL Q6H PRN PRN Reason: Nausea / Vomiting Stop: 01/03/17 08:14 Pantoprazole Sodium (Protonix) 40 mg IVP BID [facility] Stop: 01/04/17 08:59 Last Admin: 11/05/16 10:06 Dose: 40 mg Simvastatin (Zocor) 10 mg PO QPM [facility] PRN Reason: Protocol Stop: 01/03/17 16:59 Last Admin: 11/04/16 17:11 Dose: 10 mg Tramadol HCl (Ultram) 50 mg PO Q12H [facility] Stop: 01/03/17 09:59 Last Admin: 11/05/16 10:00 Dose: 50 mg Kidney function remains stable with a BUN/creatinine of 20/2.1 She has adequate urine output Hgb/Hct stable @ 9.6/28.9 EGD showed chronic inflammation, gastritis and esophagitis, but no source of bleeding FE Na 2.54% suggestive of intrinsic kidney failure appetite very poor still on clear liquid, periods of hypoglycemia, advance gradually for now adjust insulin Nutritional Asmnt/Malnutr-PDOC - Dietary Evaluation Malnutrition Findings (Please click <Entered> for more info): Nutritional Asmnt/Malnutrition Start: 11/07/16 11: 45 Text: Status: Active Freq: Document 11/07/16 11:45 MMULN (Rec: 11/07/16 12:02 [email or web address] ESPARZA- [email or web address]) Nutritional Asmnt/Malnutrition Patient General Information Nutritional Screening Moderate Risk Screening Diagnosis Thrombocytopenia, unspecified hemiplegia, type 2 diabetes Pertinent Medical Hx/Surgical Hx Colostomy, colon Ca, CVA/TIA, left hemiplegia, thrombocytopenia, cardiomegaly , S/P DVT, bronchitis, asthma, CRF, diabetes, thyroid disorder and hyperlipidemia Subjective Information Angelika was admitted from SNF with abdominal pain, nausea and vomiting. No nausea or vomiting at this time. Patient tolerating clear liquids and has an appetite for solid food at this time. Colostomy present. Current Diet Order/ Nutrition Support Clear liquid Pertinent Medications D5-0.45NS at 50ml/hr, iron, folate, glucagon, insulin, synthroid, cozaar, MOM, zofran , protonix Pertinent Labs (11/06) Na 133, Cr 2.1, glucose 25-214, Ca 8.3, albumin 3.1 Nutritional Hx/Data Height 1.55 m Height (Calculated Centimeters) 154.9 Current Weight (lbs) 50.349 kg Weight (Calculated Kilograms) 50.3 Weight (Calculated Grams) 13889.8 Brea Body Weight 105 % Brea Body Weight 105 Recent Weight Change No Weight Status Approriate GI Symptoms Food Allergies No Cultural/Ethnic/Advent Belief none indicated Skin Integrity/Comment: David 11, area of concern Current %PO Poor (25-49%) Estimated Nutritional Goals BEE in Kcals: Using Current wt Calories/Kcals/Kg 111 lb/50kg - CBW Kcals Calculated 3133-9387 kcal/day (25-30kcal/ kg) Protein: Using Current wt Protein g/k.1-1.3 gm/kg CBW Protein Calculated 55-65 gm/day Fluid: ml 9364-5258 ml/day (1 ml/kcal) Nutritional Problem 2. Problem Problem Inadequate oral intake related to Etiology ongoing clear liquid diet aeb Signs/Symptoms: meeting <50% of estimated nutrient needs on current diet . 1. Problem Problem Altered nutrition related lab values relelated to Etiology electrolyte imbalance/hyper and hypoglycemic episodes aeb Signs/Symptoms: Na 133, Cr 2.1, glucose 25-214 , Ca 8.3 Intervention/Recommendation Comments 1. When medically appropriate, progress diet to 45 gm CCHO, mechanical soft. Expected Outcomes/Goals Expected Outcomes/Goals Oral intake with diet progression to meet >75% of estimated nutrient needs, nutrition related labs normalize without hypoglycemic episodes, weight stable.
--- NOTE | 2016-11-07 16:19 | General Progress Note ---
Subjective - Review of Systems Service Date: 11/07/16 Objective - Results Result Diagrams: 11/06/16 06:50 11/06/16 06:50 Recent Labs: Laboratory Last Values WBC 9.4 Th/cmm (4.8-10.8) D 11/06/16 06:50 RBC 3.25 Mil/cmm (3.80-5.20) L 11/06/16 06:50 Hgb 9.6 gm/dL (11.7-16.1) L 11/06/16 06:50 Hct 28.9 % (35.0-45.0) L 11/06/16 06:50 MCV 88.9 fl (81-100) 11/06/16 06:50 MCH 29.4 pg (27.0-31.0) 11/06/16 06:50 MCHC Differential 33.1 pg (28.0-36.0) 11/06/16 06:50 RDW 14.2 % (11.5-20.0) 11/06/16 06:50 Plt Count 47 Th/cmm (150-400) L 11/06/16 06:50 MPV 10.5 fl 11/06/16 06:50 Neutrophils % 75.0 % (40.0-80.0) 11/03/16 21:49 Band Neutrophils % 1 % (0-10) 11/06/16 06:50 Lymphocytes % 18.8 % (20.0-50.0) L 11/03/16 21:49 Monocytes % 4.2 % (2.0-10.0) 11/03/16 21:49 Eosinophils % 1.5 % (0.0-5.0) 11/03/16 21:49 Basophils % 0.5 % (0.0-2.0) 11/03/16 21:49 Neutrophils (Manual) 63 % (40-80) 11/06/16 06:50 Lymphocytes 24 % (20-50) 11/06/16 06:50 Monocytes 5 % (2-10) 11/06/16 06:50 Eosinophils 7 % (0-5) H 11/06/16 06:50 Basophils 1 % (0-3) 11/05/16 07:15 Platelet Estimate DECREASED PLATELETS (NORMAL) 11/06/16 06:50 Platelet Morphology NORMAL (NORMAL) 11/05/16 07:15 Anisocytosis 1+ 11/04/16 06:40 RBC Morph Micro Appear NORMAL (NORMAL) 11/05/16 07:15 Eos Smear Source URINE 11/07/16 04:00 Eos Smear Total Cells NONE SEEN (NONE SEEN) 11/07/16 04:00 PT 10.6 SECONDS (9.5-11.5) 11/05/16 07:15 INR 1.02 (0.5-1.4) 11/05/16 07:15 PTT (Actin FS) 27.7 SECONDS (26.0-38.0) 11/03/16 21:49 Sodium 133 mEq/L (136-145) L 11/06/16 06:50 Potassium 4.3 mEq/L (3.5-5.1) 11/06/16 06:50 Chloride 109 mEq/L (98-107) H 11/06/16 06:50 Carbon Dioxide 18.4 mEq/L (21.0-31.0) L 11/06/16 06:50 Anion Gap 9.9 (7.0-16.0) 11/06/16 06:50 BUN 20 mg/dL (7-25) 11/06/16 06:50 Creatinine 2.1 mg/dL (0.6-1.2) H 11/06/16 06:50 Est GFR ( Amer) TNP 11/06/16 06:50 Est GFR (Non-Af Amer) TNP 11/06/16 06:50 BUN/Creatinine Ratio 9.5 11/06/16 06:50 Glucose 60 mg/dL (70-105) L 11/06/16 06:50 POC Glucose 91 MG/DL (70 - 105) 11/07/16 12:16 Uric Acid 5.2 mg/dL (2.3-6.6) 11/06/16 06:50 Calcium 8.3 mg/dL (8.6-10.3) L 11/06/16 06:50 Phosphorus 2.8 mg/dL (2.5-5.0) 11/06/16 06:50 Magnesium 2.0 mg/dL (1.9-2.7) 11/06/16 06:50 Total Bilirubin 0.3 mg/dL (0.3-1.0) 11/06/16 06:50 AST 14 U/L (13-39) 11/06/16 06:50 ALT 5 U/L (7-52) L 11/06/16 06:50 Alkaline Phosphatase 69 U/L (34-104) 11/06/16 06:50 Troponin I 0.01 ng/mL (0.01-0.05) 11/03/16 21:49 Total Protein 6.1 gm/dL (6.0-8.3) 11/06/16 06:50 Albumin 3.1 gm/dL (3.7-5.3) L 11/06/16 06:50 Globulin 3.0 gm/dL 11/06/16 06:50 Albumin/Globulin Ratio 1.0 (1.0-1.8) 11/06/16 06:50 Lipase 3 U/L (11-82) L 11/03/16 21:49 Urine Source CLEAN C 11/03/16 22:00 Urine Color YELLOW 11/03/16 22:00 Urine Clarity CLEAR (CLEAR) 11/03/16 22:00 Urine pH 6.0 11/03/16 22:00 Ur Specific [place] 1.010 (1.005-1.030) 11/03/16 22:00 Urine Protein NEGATIVE mg/dL (NEGATIVE) 11/03/16 22:00 Urine Glucose (UA) NEGATIVE mg/dL (NEGATIVE) 11/03/16 22:00 Urine Ketones NEGATIVE mg/dL (NEGATIVE) 11/03/16 22:00 Urine Blood NEGATIVE (NEGATIVE) 11/03/16 22:00 Urine Nitrate NEGATIVE (NEGATIVE) 11/03/16 22:00 Urine Bilirubin NEGATIVE (NEGATIVE) 11/03/16 22:00 Urine Urobilinogen 0.2 E.U./dL (0.2 - 1.0) 11/03/16 22:00 Ur Leukocyte Esterase NEGATIVE (NEGATIVE) 11/03/16 22:00 Urine RBC 0-2 /hpf (0-5) 11/03/16 22:00 Urine WBC 0-2 /hpf (0-5) 11/03/16 22:00 Ur Epithelial Cells FEW /lpf (FEW) 11/03/16 22:00 Urine Bacteria FEW /hpf (NONE SEEN) 11/03/16 22:00 Ur Random Sodium 106 mmol/L 11/07/16 04:00 Urine Creatinine 66.0 mg/dl (28.0-217.0) 11/07/16 04:00 Blood Type O POSITIVE 11/03/16 21:49 Antibody Screen NEGATIVE 11/03/16 21:49 - Physical Exam Vitals and I&O: Vital Signs Temp 97 F 11/07/16 12:00 Pulse 55 11/07/16 12:00 Resp 19 11/07/16 12:00 BP 180/75 11/07/16 12:00 Pulse Ox 99 11/07/16 08:00 Intake & Output 11/06/16 11/07/16 11/07/16 18:59 06:59 18:59 Intake Total 110 1320 60 Output Total 1 Balance 110 1319 60 Weight (lbs) 50.349 kg 49.895 kg Intake: Intake, IV Amount 110 1000 D5-0.45NS 1,000 ml @ 50 1000 mls/hr IV .Q20H [facility] Rx#: [id number] Sodium Ferric Gluconate 110 125 mg In Sodium Chloride 0.9% 100 ml @ 100 mls/hr IV Q24H [facility] Rx#: [id number] Oral 320 60 Output: Urine 1 Other: # Bowel Movements 0 Active Medications: Current Medications Acetaminophen (Tylenol) 650 mg PO Q6H PRN PRN Reason: MILD Pain Stop: 01/03/17 08:14 Amlodipine Besylate (Norvasc) 10 mg PO DAILY [facility] Stop: 01/03/17 08:59 Last Admin: 11/07/16 09:53 Dose: 10 mg Atenolol (Tenormin) 100 mg PO DAILY [facility] Stop: 01/03/17 08:59 Last Admin: 11/07/16 09:54 Dose: 100 mg Clonidine HCl (Catapres) 0.1 mg PO Q8H PRN PRN Reason: BP MAINTENANCE (PER PROTOCOL) Stop: 01/03/17 08:14 Last Admin: 11/06/16 16:50 Dose: 0.1 mg Fenofibrate (Tricor) 134 mg PO DAILY [facility] Stop: 01/03/17 08:59 Last Admin: 11/07/16 09:51 Dose: 134 mg Ferrous Sulfate (Iron) 325 mg PO DAILY [facility] Stop: 01/03/17 08:59 Last Admin: 11/07/16 09:51 Dose: 325 mg Folic Acid (Folate) 1 mg PO DAILY [facility] Stop: 01/03/17 08:59 Last Admin: 11/07/16 09:51 Dose: 1 mg Gabapentin (Neurontin) 300 mg PO DAILY [facility] Stop: 01/03/17 08:59 Last Admin: 11/07/16 09:52 Dose: 300 mg Glimepiride (Amaryl) 4 mg PO DAILY [facility] Stop: 01/03/17 08:59 Last Admin: 11/07/16 09:51 Dose: 4 mg Glucagon (Glucagen) 1 mg IM DAILY PRN PRN Reason: IF BS BELOW 60 Ferric Sodium Gluconate Complex 125 mg/ Sodium Chloride 110 mls @ 100 mls/hr IV Q24H [facility] Stop: 11/14/16 13:59 Last Admin: 11/07/16 13:58 Dose: 100 mls/hr Dextrose/Sodium Chloride (D5-0.45ns) 1,000 mls @ 50 mls/hr IV .Q20H [facility] Stop: 01/03/17 23:16 Last Admin: 11/07/16 07:05 Dose: 50 mls/hr Insulin Aspart (Novolog Insulin Sliding Scale) 2 - 12 units SUBQ ACHS [facility] PRN Reason: Protocol Stop: 01/03/17 17:07 Last Admin: 11/07/16 13:01 Dose: Not Given Insulin Human Isoph/Insulin Regular (Novolin 70/30) 15 units SUBQ QDAC [facility] PRN Reason: Protocol Stop: 01/04/17 07:29 Insulin Human Isoph/Insulin Regular (Novolin 70/30) 8 units SUBQ QPM [facility] PRN Reason: Protocol Stop: 01/03/17 16:59 Levothyroxine Sodium (Synthroid) 0.025 mg PO QDAC [facility] Stop: 01/03/17 09:59 Last Admin: 11/07/16 13:05 Dose: Not Given Losartan Potassium (Cozaar) 50 mg PO DAILY [facility] Stop: 01/03/17 08:59 Last Admin: 11/07/16 10:03 Dose: 50 mg Magnesium Hydroxide (Milk Of Magnesia) 30 ml PO DAILY PRN PRN Reason: Constipation Stop: 01/03/17 08:14 Miscellaneous (Vte Chemical Prophylaxis Screen/ Admission) 1 ea MC PRN PRN PRN Reason: PROTOCOL Stop: 01/03/17 14:14 Nitroglycerin (Nitrostat) 0.4 mg SL Q5MIN PRN PRN Reason: Chest Pain Stop: 01/03/17 08:14 Ondansetron HCl (Zofran) 4 mg IV Q4H PRN PRN Reason: Nausea Stop: 01/02/17 23:17 Ondansetron HCl (Zofran Odt) 4 mg SL Q6H PRN PRN Reason: Nausea / Vomiting Stop: 01/03/17 08:14 Pantoprazole Sodium (Protonix) 40 mg IVP BID [facility] Stop: 01/04/17 08:59 Last Admin: 11/07/16 10:02 Dose: 40 mg Simvastatin (Zocor) 10 mg PO QPM [facility] PRN Reason: Protocol Stop: 01/03/17 16:59 Last Admin: 11/06/16 17:08 Dose: 10 mg Tramadol HCl (Ultram) 50 mg PO Q12H [facility] Stop: 01/03/17 09:59 Last Admin: 11/07/16 09:52 Dose: 50 mg General: Alert HEENT: Atraumatic Neck: Supple, +2 carotid pulse wo bruit Cardiovascular: Regular rate, Normal S1, Normal S2 Lungs: Clear to auscultation, Normal air movement Abdomen: Bowel sounds, Soft, no Tender Extremities: no Edema Neurological: Sensation intact Skin: no Rash Psych/Mental Status: Mood NL - Procedures Procedures: Procedures Procedure Code Date BLOOD TRANSFUSION SERVICE 85569 10/23/16 EGD BIOPSY SINGLE/MULTIPLE 72303 11/03/16 EXCISION OF ESOPHAGUS, ENDO, DIAGN [id number] 11/03/16 TRANSFUSE NONAUT PLATELETS IN PERIPH VEIN, [facility] [id number] 06/25/15 TRANSFUSE NONAUT RED BLOOD CELLS IN PERIPH VEIN, [facility] [id number] 10/23/16 Assessment/Plan - Problem List Patient Problems: All Active Problems Abdominal hernia (Acute) Abdominal pain (Acute) R10.9 Alzheimer's dementia (Acute) G30.9 Anemia of chronic renal failure (Acute) N18.9, D63.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 * functional iron deficiency anemia. * Anemia of chronic kidney disease. Continue ferrlecit, folate Nutritional Asmnt/Malnutr-PDOC - Dietary Evaluation Malnutrition Findings (Please click <Entered> for more info): Nutritional Asmnt/Malnutrition Start: 11/07/16 11: 45 Text: Status: Active Freq: Document 11/07/16 11:45 SANTOS (Rec: 11/07/16 12:02 [email or web address]- [email or web address]) Nutritional Asmnt/Malnutrition Patient General Information Nutritional Screening Moderate Risk Screening Diagnosis Thrombocytopenia, unspecified hemiplegia, type 2 diabetes Pertinent Medical Hx/Surgical Hx Colostomy, colon Ca, CVA/TIA, left hemiplegia, thrombocytopenia, cardiomegaly , S/P DVT, bronchitis, asthma, CRF, diabetes, thyroid disorder and hyperlipidemia Subjective Information Angelika was admitted from SNF with abdominal pain, nausea and vomiting. No nausea or vomiting at this time. Patient tolerating clear liquids and has an appetite for solid food at this time. Colostomy present. Current Diet Order/ Nutrition Support Clear liquid Pertinent Medications D5-0.45NS at 50ml/hr, iron, folate, glucagon, insulin, synthroid, cozaar, MOM, zofran , protonix Pertinent Labs (11/06) Na 133, Cr 2.1, glucose 25-214, Ca 8.3, albumin 3.1 Nutritional Hx/Data Height 1.55 m Height (Calculated Centimeters) 154.9 Current Weight (lbs) 50.349 kg Weight (Calculated Kilograms) 50.3 Weight (Calculated Grams) 90062.8 [place] Body Weight 105 % [place] Body Weight 105 Recent Weight Change No Weight Status Approriate GI Symptoms Food Allergies No Cultural/Ethnic/Yazidism Belief none indicated Skin Integrity/Comment: David 11, area of concern Current %PO Poor (25-49%) Estimated Nutritional Goals BEE in Kcals: Using Current wt Calories/Kcals/Kg 111 lb/50kg - CBW Kcals Calculated 2937-4067 kcal/day (25-30kcal/ kg) Protein: Using Current wt Protein g/k.1-1.3 gm/kg CBW Protein Calculated 55-65 gm/day Fluid: ml 5334-6486 ml/day (1 ml/kcal) Nutritional Problem 2. Problem Problem Inadequate oral intake related to Etiology ongoing clear liquid diet aeb Signs/Symptoms: meeting <50% of estimated nutrient needs on current diet . 1. Problem Problem Altered nutrition related lab values relelated to Etiology electrolyte imbalance/hyper and hypoglycemic episodes aeb Signs/Symptoms: Na 133, Cr 2.1, glucose 25-214 , Ca 8.3 Intervention/Recommendation Comments 1. When medically appropriate, progress diet to 45 gm CCHO, mechanical soft. Expected Outcomes/Goals Expected Outcomes/Goals Oral intake with diet progression to meet >75% of estimated nutrient needs, nutrition related labs normalize without hypoglycemic episodes, weight stable.
[2016-11-08] MEDS: D5-0.45NS 1,000 ML IV SCH (04:43)
[2016-11-08 06:47] LABS: % BASOPHILS 0.9 % (0.0-2.0); % LYMPHOCYTES 22.3 % (20.0-50.0); % MONOCYTES 6.3 % (2.0-10.0); % NEUTROPHILS 67.5 % (40.0-80.0); HEMATOCRIT 26.8 % (35.0-45.0); HEMOGLOBIN 9.1 gm/dL (11.7-16.1); MEAN CELL VOLUME 86.7 fl (81-100); MEAN CORPUSCULAR HEMOGLOBIN 29.5 pg (27.0-31.0); MEAN CORPUSCULAR HGB CONC 34.1 pg (28.0-36.0); MEAN PLATELET VOLUME 10.1 fl; NEUTROPHILE ABSOLUTE 5.8 Th/cmm (1.8-8.0); PLATELET COUNT 57 Th/cmm (150-400); RED BLOOD COUNT 3.09 Mil/cmm (3.80-5.20); RED CELL DISTRIBUTION WIDTH 13.9 % (11.5-20.0); WHITE BLOOD COUNT 8.8 Th/cmm (4.8-10.8)
[2016-11-08] MEDS: Levothyroxine 0.025 Mg Tab PO SCH (07:07)
[2016-11-08] MEDS: INSULIN ASPART SLIDING SCALE 100 UNITS/ML UNIT SUBQ SCH ×3 (07:09→16:37)
[2016-11-08] MEDS: INSULIN 70/30 100 UNITS/ML SUBQ SCH ×2 (07:11→16:59)
[2016-11-08] MEDS: Ferrous Sulfate 325 MG TAB PO SCH (09:39)
[2016-11-08] MEDS: Fenofibrate, Micronized 134 mg Cap PO SCH (09:39)
--- NOTE | 2016-11-08 10:35 | General Progress Note ---
Subjective - Review of Systems Service Date: 11/08/16 Subjective: Alert, denied any further nausea and vomiting, abdominal pain resolved, very poor appetite Objective - Results Result Diagrams: 11/08/16 06:20 11/06/16 06:50 Recent Labs: Laboratory Last Values WBC 8.8 Th/cmm (4.8-10.8) 11/08/16 06:20 RBC 3.09 Mil/cmm (3.80-5.20) L 11/08/16 06:20 Hgb 9.1 gm/dL (11.7-16.1) L 11/08/16 06:20 Hct 26.8 % (35.0-45.0) L 11/08/16 06:20 MCV 86.7 fl (81-100) 11/08/16 06:20 MCH 29.5 pg (27.0-31.0) 11/08/16 06:20 MCHC Differential 34.1 pg (28.0-36.0) 11/08/16 06:20 RDW 13.9 % (11.5-20.0) 11/08/16 06:20 Plt Count 57 Th/cmm (150-400) L D 11/08/16 06:20 MPV 10.1 fl 11/08/16 06:20 Neutrophils % 67.5 % (40.0-80.0) 11/08/16 06:20 Band Neutrophils % 1 % (0-10) 11/06/16 06:50 Lymphocytes % 22.3 % (20.0-50.0) 11/08/16 06:20 Monocytes % 6.3 % (2.0-10.0) 11/08/16 06:20 Eosinophils % 3.0 % (0.0-5.0) 11/08/16 06:20 Basophils % 0.9 % (0.0-2.0) 11/08/16 06:20 Neutrophils (Manual) 63 % (40-80) 11/06/16 06:50 Lymphocytes 24 % (20-50) 11/06/16 06:50 Monocytes 5 % (2-10) 11/06/16 06:50 Eosinophils 7 % (0-5) H 11/06/16 06:50 Basophils 1 % (0-3) 11/05/16 07:15 Platelet Estimate DECREASED PLATELETS (NORMAL) 11/06/16 06:50 Platelet Morphology NORMAL (NORMAL) 11/05/16 07:15 Anisocytosis 1+ 11/04/16 06:40 RBC Morph Micro Appear NORMAL (NORMAL) 11/05/16 07:15 Smear Path Review HUMAN RESOURCES RECRUITER 11/08/16 06:20 Eos Smear Source URINE 11/07/16 04:00 Eos Smear Total Cells NONE SEEN (NONE SEEN) 11/07/16 04:00 PT 10.6 SECONDS (9.5-11.5) 11/05/16 07:15 INR 1.02 (0.5-1.4) 11/05/16 07:15 PTT (Actin FS) 27.7 SECONDS (26.0-38.0) 11/03/16 21:49 Sodium 133 mEq/L (136-145) L 11/06/16 06:50 Potassium 4.3 mEq/L (3.5-5.1) 11/06/16 06:50 Chloride 109 mEq/L (98-107) H 11/06/16 06:50 Carbon Dioxide 18.4 mEq/L (21.0-31.0) L 11/06/16 06:50 Anion Gap 9.9 (7.0-16.0) 11/06/16 06:50 BUN 20 mg/dL (7-25) 11/06/16 06:50 Creatinine 2.1 mg/dL (0.6-1.2) H 11/06/16 06:50 Est GFR ( Amer) TNP 11/06/16 06:50 Est GFR (Non-Af Amer) TNP 11/06/16 06:50 BUN/Creatinine Ratio 9.5 11/06/16 06:50 Glucose 60 mg/dL (70-105) L 11/06/16 06:50 POC Glucose 143 MG/DL (70 - 105) H 11/08/16 06:10 Uric Acid 5.2 mg/dL (2.3-6.6) 11/06/16 06:50 Calcium 8.3 mg/dL (8.6-10.3) L 11/06/16 06:50 Phosphorus 2.8 mg/dL (2.5-5.0) 11/06/16 06:50 Magnesium 2.0 mg/dL (1.9-2.7) 11/06/16 06:50 Total Bilirubin 0.3 mg/dL (0.3-1.0) 11/06/16 06:50 AST 14 U/L (13-39) 11/06/16 06:50 ALT 5 U/L (7-52) L 11/06/16 06:50 Alkaline Phosphatase 69 U/L (34-104) 11/06/16 06:50 Troponin I 0.01 ng/mL (0.01-0.05) 11/03/16 21:49 Total Protein 6.1 gm/dL (6.0-8.3) 11/06/16 06:50 Albumin 3.1 gm/dL (3.7-5.3) L 11/06/16 06:50 Globulin 3.0 gm/dL 11/06/16 06:50 Albumin/Globulin Ratio 1.0 (1.0-1.8) 11/06/16 06:50 Lipase 3 U/L (11-82) L 11/03/16 21:49 Urine Source CLEAN C 11/03/16 22:00 Urine Color YELLOW 11/03/16 22:00 Urine Clarity CLEAR (CLEAR) 11/03/16 22:00 Urine pH 6.0 11/03/16 22:00 Ur Specific [place] 1.010 (1.005-1.030) 11/03/16 22:00 Urine Protein NEGATIVE mg/dL (NEGATIVE) 11/03/16 22:00 Urine Glucose (UA) NEGATIVE mg/dL (NEGATIVE) 11/03/16 22:00 Urine Ketones NEGATIVE mg/dL (NEGATIVE) 11/03/16 22:00 Urine Blood NEGATIVE (NEGATIVE) 11/03/16 22:00 Urine Nitrate NEGATIVE (NEGATIVE) 11/03/16 22:00 Urine Bilirubin NEGATIVE (NEGATIVE) 11/03/16 22:00 Urine Urobilinogen 0.2 E.U./dL (0.2 - 1.0) 11/03/16 22:00 Ur Leukocyte Esterase NEGATIVE (NEGATIVE) 11/03/16 22:00 Urine RBC 0-2 /hpf (0-5) 11/03/16 22:00 Urine WBC 0-2 /hpf (0-5) 11/03/16 22:00 Ur Epithelial Cells FEW /lpf (FEW) 11/03/16 22:00 Urine Bacteria FEW /hpf (NONE SEEN) 11/03/16 22:00 Ur Random Sodium 106 mmol/L 11/07/16 04:00 Urine Creatinine 66.0 mg/dl (28.0-217.0) 11/07/16 04:00 Stool Occult Blood NEGATIVE (NEGATIVE) 11/07/16 18:00 Blood Type O POSITIVE 11/03/16 21:49 Antibody Screen NEGATIVE 11/03/16 21:49 - Physical Exam Vitals and I&O: Vital Signs Temp 98.5 F 11/08/16 08:00 Pulse 55 11/08/16 09:39 Resp 18 11/08/16 08:00 BP 165/72 11/08/16 09:39 Pulse Ox 97 11/08/16 08:00 Intake & Output 11/07/16 11/08/16 11/08/16 18:59 06:59 18:59 Intake Total 60 1000 Output Total 200 Balance 60 1000 -200 Weight (lbs) 49.895 kg 58.06 kg 58.06 kg Intake: Intake, IV Amount 1000 D5-0.45NS 1,000 ml @ 50 1000 mls/hr IV .Q20H [facility] Rx#: [id number] Oral 60 Output: Stool 200 Other: Stool Characteristics Liquid Liquid Active Medications: Current Medications Acetaminophen (Tylenol) 650 mg PO Q6H PRN PRN Reason: MILD Pain Stop: 01/03/17 08:14 Amlodipine Besylate (Norvasc) 10 mg PO DAILY [facility] Stop: 01/03/17 08:59 Last Admin: 11/08/16 09:38 Dose: 10 mg Atenolol (Tenormin) 100 mg PO DAILY [facility] Stop: 01/03/17 08:59 Last Admin: 11/08/16 09:38 Dose: 100 mg Clonidine HCl (Catapres) 0.1 mg PO Q8H PRN PRN Reason: BP MAINTENANCE (PER PROTOCOL) Stop: 01/03/17 08:14 Last Admin: 11/08/16 09:38 Dose: 0.1 mg Fenofibrate (Tricor) 134 mg PO DAILY [facility] Stop: 01/03/17 08:59 Last Admin: 11/08/16 09:39 Dose: 134 mg Ferrous Sulfate (Iron) 325 mg PO DAILY [facility] Stop: 01/03/17 08:59 Last Admin: 11/08/16 09:39 Dose: 325 mg Folic Acid (Folate) 1 mg PO DAILY [facility] Stop: 01/03/17 08:59 Last Admin: 11/08/16 09:39 Dose: 1 mg Gabapentin (Neurontin) 300 mg PO DAILY [facility] Stop: 01/03/17 08:59 Last Admin: 11/08/16 09:39 Dose: 300 mg Glimepiride (Amaryl) 4 mg PO DAILY [facility] Stop: 01/03/17 08:59 Last Admin: 11/08/16 09:47 Dose: 4 mg Glucagon (Glucagen) 1 mg IM DAILY PRN PRN Reason: IF BS BELOW 60 Ferric Sodium Gluconate Complex 125 mg/ Sodium Chloride 110 mls @ 100 mls/hr IV Q24H [facility] Stop: 11/14/16 13:59 Last Admin: 11/07/16 13:58 Dose: 100 mls/hr Dextrose/Sodium Chloride (D5-0.45ns) 1,000 mls @ 50 mls/hr IV .Q20H [facility] Stop: 01/03/17 23:16 Last Admin: 11/08/16 04:43 Dose: 50 mls/hr Insulin Aspart (Novolog Insulin Sliding Scale) 2 - 12 units SUBQ ACHS [facility] PRN Reason: Protocol Stop: 01/03/17 17:07 Last Admin: 11/08/16 07:09 Dose: Not Given Insulin Human Isoph/Insulin Regular (Novolin 70/30) 15 units SUBQ QDAC [facility] PRN Reason: Protocol Stop: 01/04/17 07:29 Last Admin: 11/08/16 07:11 Dose: 15 units Insulin Human Isoph/Insulin Regular (Novolin 70/30) 8 units SUBQ QPM [facility] PRN Reason: Protocol Stop: 01/03/17 16:59 Last Admin: 11/07/16 17:20 Dose: 8 units Levothyroxine Sodium (Synthroid) 0.025 mg PO QDAC [facility] Stop: 01/03/17 09:59 Last Admin: 11/08/16 07:07 Dose: 0.025 mg Losartan Potassium (Cozaar) 50 mg PO DAILY [facility] Stop: 01/03/17 08:59 Last Admin: 11/08/16 09:39 Dose: 50 mg Magnesium Hydroxide (Milk Of Magnesia) 30 ml PO DAILY PRN PRN Reason: Constipation Stop: 01/03/17 08:14 Miscellaneous (Vte Chemical Prophylaxis Screen/ Admission) 1 ea [facility] PRN PRN PRN Reason: PROTOCOL Stop: 01/03/17 14:14 Nitroglycerin (Nitrostat) 0.4 mg SL Q5MIN PRN PRN Reason: Chest Pain Stop: 01/03/17 08:14 Ondansetron HCl (Zofran) 4 mg IV Q4H PRN PRN Reason: Nausea Stop: 01/02/17 23:17 Ondansetron HCl (Zofran Odt) 4 mg SL Q6H PRN PRN Reason: Nausea / Vomiting Stop: 01/03/17 08:14 Pantoprazole Sodium (Protonix) 40 mg IVP BID [facility] Stop: 01/04/17 08:59 Last Admin: 11/08/16 09:40 Dose: Not Given Simvastatin (Zocor) 10 mg PO QPM [facility] PRN Reason: Protocol Stop: 01/03/17 16:59 Last Admin: 11/07/16 19:01 Dose: 10 mg Tramadol HCl (Ultram) 50 mg PO Q12H [facility] Stop: 01/03/17 09:59 Last Admin: 11/08/16 10:07 Dose: Not Given General: Alert HEENT: Atraumatic Neck: Supple, +2 carotid pulse wo bruit Cardiovascular: Regular rate, Normal S1, Normal S2 Lungs: Clear to auscultation, Normal air movement Abdomen: Bowel sounds, Soft, no Tender Extremities: no Edema Neurological: Sensation intact Skin: no Rash Psych/Mental Status: Mood NL - Procedures Procedures: Procedures Procedure Code Date BLOOD TRANSFUSION SERVICE 70829 10/23/16 EGD BIOPSY SINGLE/MULTIPLE 94309 11/03/16 EXCISION OF ESOPHAGUS, ENDO, DIAGN [id number] 11/03/16 TRANSFUSE NONAUT PLATELETS IN PERIPH VEIN, PERC 33826S2 06/25/15 TRANSFUSE NONAUT RED BLOOD CELLS IN PERIPH VEIN, PERC 86558P3 10/23/16 Assessment/Plan - Problem List Patient Problems: All Active Problems Abdominal hernia (Acute) Abdominal pain (Acute) R10.9 Alzheimer's dementia (Acute) G30.9 Anemia of chronic renal failure (Acute) N18.9, D63.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.22 Duodenal ulcer (Acute) Fracture of proximal end of left humerus (Acute) S42.202A Hyponatremia (Acute) E87.1 Asthma (Acute) J45.909 CVA, old, 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 - Assessment Assessment: Chronic kidney disease Colon CA status post colostomy Anemia acute on chronic kidney disease Acute thrombocytopenia Abdominal pain etiology? Status post CVA with left hemiparesis Bronchial asthma Type 2 diabetes mellitus with CKD Essential hypertension with CKD Alzheimer dementia Left proximal humeral fracture Poor appetite w/ hypoglycemic episodes - Plan Plan: Lab - Result Diagrams 11/05/16 07:15 11/05/16 07:15 Current Medications Acetaminophen (Tylenol) 650 mg PO Q6H PRN PRN Reason: MILD Pain Stop: 01/03/17 08:14 Amlodipine Besylate (Norvasc) 10 mg PO DAILY [facility] Stop: 01/03/17 08:59 Last Admin: 11/05/16 09:59 Dose: 10 mg Atenolol (Tenormin) 100 mg PO DAILY [facility] Stop: 01/03/17 08:59 Last Admin: 11/05/16 10:04 Dose: Not Given Clonidine HCl (Catapres) 0.1 mg PO Q8H PRN PRN Reason: BP MAINTENANCE (PER PROTOCOL) Stop: 01/03/17 08:14 Last Admin: 11/05/16 09:58 Dose: 0.1 mg Clonidine HCl (Catapres) 0.1 mg PO BID [facility] Stop: 01/03/17 08:59 Last Admin: 11/05/16 10:08 Dose: 0.1 mg Famotidine (Pepcid) 20 mg PO HS [facility] Stop: 01/03/17 20:59 Last Admin: 11/04/16 21:16 Dose: 20 mg Fenofibrate (Tricor) 134 mg PO DAILY [facility] Stop: 01/03/17 08:59 Last Admin: 11/05/16 09:59 Dose: 134 mg Ferrous Sulfate (Iron) 325 mg PO DAILY [facility] Stop: 01/03/17 08:59 Last Admin: 11/05/16 10:00 Dose: 325 mg Folic Acid (Folate) 1 mg PO DAILY [facility] Stop: 01/03/17 08:59 Last Admin: 11/05/16 09:59 Dose: 1 mg Gabapentin (Neurontin) 300 mg PO DAILY [facility] Stop: 01/03/17 08:59 Last Admin: 11/05/16 09:57 Dose: 300 mg Glimepiride (Amaryl) 4 mg PO DAILY [facility] Stop: 01/03/17 08:59 Last Admin: 11/05/16 09:59 Dose: 4 mg Glucagon (Glucagen) 1 mg IM DAILY PRN PRN Reason: IF BS BELOW 60 Ferric Sodium Gluconate Complex 125 mg/ Sodium Chloride 110 mls @ 100 mls/hr IV Q24H [facility] Stop: 11/14/16 13:59 Last Infusion: 11/04/16 17:11 Dose: Infused Dextrose/Sodium Chloride (D5-0.45ns) 1,000 mls @ 50 mls/hr IV .Q20H [facility] Stop: 01/03/17 23:16 Last Admin: 11/04/16 23:56 Dose: 50 mls/hr Insulin Aspart (Novolog Insulin Sliding Scale) 2 - 12 units SUBQ ACHS [facility] PRN Reason: Protocol Stop: 01/03/17 17:07 Last Admin: 11/05/16 13:50 Dose: Not Given Insulin Human Isoph/Insulin Regular (Novolin 70/30) 30 units SUBQ QDAC [facility] PRN Reason: Protocol Stop: 01/04/17 07:29 Last Admin: 11/05/16 07:44 Dose: Not Given Insulin Human Isoph/Insulin Regular (Novolin 70/30) 18 units SUBQ QPM [facility] PRN Reason: Protocol Stop: 01/03/17 16:59 Last Admin: 11/04/16 17:10 Dose: 18 units Levothyroxine Sodium (Synthroid) 0.025 mg PO QDAC [facility] Stop: 01/03/17 09:59 Last Admin: 11/05/16 07:44 Dose: Not Given Losartan Potassium (Cozaar) 50 mg PO DAILY [facility] Stop: 01/03/17 08:59 Last Admin: 11/05/16 10:00 Dose: 50 mg Magnesium Hydroxide (Milk Of Magnesia) 30 ml PO DAILY PRN PRN Reason: Constipation Stop: 01/03/17 08:14 Miscellaneous (Vte Chemical Prophylaxis Screen/ Admission) 1 ea [facility] PRN PRN PRN Reason: PROTOCOL Stop: 01/03/17 14:14 Nitroglycerin (Nitrostat) 0.4 mg SL Q5MIN PRN PRN Reason: Chest Pain Stop: 01/03/17 08:14 Ondansetron HCl (Zofran) 4 mg IV Q4H PRN PRN Reason: Nausea Stop: 01/02/17 23:17 Ondansetron HCl (Zofran Odt) 4 mg SL Q6H PRN PRN Reason: Nausea / Vomiting Stop: 01/03/17 08:14 Pantoprazole Sodium (Protonix) 40 mg IVP BID [facility] Stop: 01/04/17 08:59 Last Admin: 11/05/16 10:06 Dose: 40 mg Simvastatin (Zocor) 10 mg PO QPM [facility] PRN Reason: Protocol Stop: 01/03/17 16:59 Last Admin: 11/04/16 17:11 Dose: 10 mg Tramadol HCl (Ultram) 50 mg PO Q12H [facility] Stop: 01/03/17 09:59 Last Admin: 11/05/16 10:00 Dose: 50 mg Kidney function remains stable with a BUN/creatinine of 20/2.1 She has adequate urine output Hgb/Hct stable @ 9.1/26.8 EGD showed chronic inflammation, gastritis and esophagitis, but no source of bleeding FE Na 2.54% suggestive of intrinsic kidney failure appetite very poor still on clear liquid, periods of hypoglycemia, advance gradually for now adjust insulin As per staff, patient's appetite has improved and ate more than 50% of her regular diet, encouraged family to bring in home meals, lesser episodes of hypoglycemia Nutritional Asmnt/Malnutr-PDOC - Dietary Evaluation Malnutrition Findings (Please click <Entered> for more info): Nutritional Asmnt/Malnutrition Start: 11/07/16 11: 45 Text: Status: Complete Freq: Document 11/07/16 16:35 SANTOS (Rec: 11/07/16 16:37 SANTOS ESPARZA- [email or web address]) Nutritional Asmnt/Malnutrition Patient General Information Patient / S.O Can't verbalize diet edu
[2016-11-08] MEDS: Sodium Ferric Gluconate 125 MG in Sodium Chloride 0.9% 100 ML IV SCH (15:09)
--- NOTE | 2016-11-08 19:58 | General Progress Note ---
Subjective - Review of Systems Service Date: 11/08/16 Subjective: Patient was seen and evaluated today. Patient denies nausea or vomiting. decrease abdominal pain. now on a regular diet. insulin 70/30 restarted. Objective - Results Result Diagrams: 11/08/16 06:20 11/06/16 06:50 Recent Labs: Laboratory Last Values WBC 8.8 Th/cmm (4.8-10.8) 11/08/16 06:20 RBC 3.09 Mil/cmm (3.80-5.20) L 11/08/16 06:20 Hgb 9.1 gm/dL (11.7-16.1) L 11/08/16 06:20 Hct 26.8 % (35.0-45.0) L 11/08/16 06:20 MCV 86.7 fl (81-100) 11/08/16 06:20 MCH 29.5 pg (27.0-31.0) 11/08/16 06:20 MCHC Differential 34.1 pg (28.0-36.0) 11/08/16 06:20 RDW 13.9 % (11.5-20.0) 11/08/16 06:20 Plt Count 57 Th/cmm (150-400) L D 11/08/16 06:20 MPV 10.1 fl 11/08/16 06:20 Neutrophils % 67.5 % (40.0-80.0) 11/08/16 06:20 Band Neutrophils % 1 % (0-10) 11/06/16 06:50 Lymphocytes % 22.3 % (20.0-50.0) 11/08/16 06:20 Monocytes % 6.3 % (2.0-10.0) 11/08/16 06:20 Eosinophils % 3.0 % (0.0-5.0) 11/08/16 06:20 Basophils % 0.9 % (0.0-2.0) 11/08/16 06:20 Neutrophils (Manual) 63 % (40-80) 11/06/16 06:50 Lymphocytes 24 % (20-50) 11/06/16 06:50 Monocytes 5 % (2-10) 11/06/16 06:50 Eosinophils 7 % (0-5) H 11/06/16 06:50 Basophils 1 % (0-3) 11/05/16 07:15 Platelet Estimate DECREASED PLATELETS (NORMAL) 11/06/16 06:50 Platelet Morphology NORMAL (NORMAL) 11/05/16 07:15 Anisocytosis 1+ 11/04/16 06:40 RBC Morph Micro Appear NORMAL (NORMAL) 11/05/16 07:15 Smear Path Review PANEL RAISER OPERATOR 11/08/16 06:20 Eos Smear Source URINE 11/07/16 04:00 Eos Smear Total Cells NONE SEEN (NONE SEEN) 11/07/16 04:00 PT 10.6 SECONDS (9.5-11.5) 11/05/16 07:15 INR 1.02 (0.5-1.4) 11/05/16 07:15 PTT (Actin FS) 27.7 SECONDS (26.0-38.0) 11/03/16 21:49 Sodium 133 mEq/L (136-145) L 11/06/16 06:50 Potassium 4.3 mEq/L (3.5-5.1) 11/06/16 06:50 Chloride 109 mEq/L (98-107) H 11/06/16 06:50 Carbon Dioxide 18.4 mEq/L (21.0-31.0) L 11/06/16 06:50 Anion Gap 9.9 (7.0-16.0) 11/06/16 06:50 BUN 20 mg/dL (7-25) 11/06/16 06:50 Creatinine 2.1 mg/dL (0.6-1.2) H 11/06/16 06:50 Est GFR ( Amer) TNP 11/06/16 06:50 Est GFR (Non-Af Amer) TNP 11/06/16 06:50 BUN/Creatinine Ratio 9.5 11/06/16 06:50 Glucose 60 mg/dL (70-105) L 11/06/16 06:50 POC Glucose 129 MG/DL (70 - 105) H 11/08/16 16:35 Uric Acid 5.2 mg/dL (2.3-6.6) 11/06/16 06:50 Calcium 8.3 mg/dL (8.6-10.3) L 11/06/16 06:50 Phosphorus 2.8 mg/dL (2.5-5.0) 11/06/16 06:50 Magnesium 2.0 mg/dL (1.9-2.7) 11/06/16 06:50 Total Bilirubin 0.3 mg/dL (0.3-1.0) 11/06/16 06:50 AST 14 U/L (13-39) 11/06/16 06:50 ALT 5 U/L (7-52) L 11/06/16 06:50 Alkaline Phosphatase 69 U/L (34-104) 11/06/16 06:50 Troponin I 0.01 ng/mL (0.01-0.05) 11/03/16 21:49 Total Protein 6.1 gm/dL (6.0-8.3) 11/06/16 06:50 Albumin 3.1 gm/dL (3.7-5.3) L 11/06/16 06:50 Globulin 3.0 gm/dL 11/06/16 06:50 Albumin/Globulin Ratio 1.0 (1.0-1.8) 11/06/16 06:50 Lipase 3 U/L (11-82) L 11/03/16 21:49 Urine Source CLEAN C 11/03/16 22:00 Urine Color YELLOW 11/03/16 22:00 Urine Clarity CLEAR (CLEAR) 11/03/16 22:00 Urine pH 6.0 11/03/16 22:00 Ur Specific [place] 1.010 (1.005-1.030) 11/03/16 22:00 Urine Protein NEGATIVE mg/dL (NEGATIVE) 11/03/16 22:00 Urine Glucose (UA) NEGATIVE mg/dL (NEGATIVE) 11/03/16 22:00 Urine Ketones NEGATIVE mg/dL (NEGATIVE) 11/03/16 22:00 Urine Blood NEGATIVE (NEGATIVE) 11/03/16 22:00 Urine Nitrate NEGATIVE (NEGATIVE) 11/03/16 22:00 Urine Bilirubin NEGATIVE (NEGATIVE) 11/03/16 22:00 Urine Urobilinogen 0.2 E.U./dL (0.2 - 1.0) 11/03/16 22:00 Ur Leukocyte Esterase NEGATIVE (NEGATIVE) 11/03/16 22:00 Urine RBC 0-2 /hpf (0-5) 11/03/16 22:00 Urine WBC 0-2 /hpf (0-5) 11/03/16 22:00 Ur Epithelial Cells FEW /lpf (FEW) 11/03/16 22:00 Urine Bacteria FEW /hpf (NONE SEEN) 11/03/16 22:00 Ur Random Sodium 106 mmol/L 11/07/16 04:00 Urine Creatinine 66.0 mg/dl (28.0-217.0) 11/07/16 04:00 Stool Occult Blood NEGATIVE (NEGATIVE) 11/07/16 18:00 Blood Type O POSITIVE 11/03/16 21:49 Antibody Screen NEGATIVE 11/03/16 21:49 - Physical Exam Vitals and I&O: Vital Signs Temp 98.4 F 11/08/16 16:00 Pulse 63 11/08/16 16:00 Resp 18 11/08/16 16:00 BP 144/66 11/08/16 16:00 Pulse Ox 98 11/08/16 16:00 Intake & Output 11/08/16 11/08/16 11/09/16 06:59 18:59 06:59 Intake Total 1000 110 Output Total 200 Balance 1000 -90 Weight (lbs) 58.06 kg 58.06 kg Intake: Intake, IV Amount 1000 110 D5-0.45NS 1,000 ml @ 50 1000 mls/hr IV .Q20H [facility] Rx#: [id number] Sodium Ferric Gluconate 110 125 mg In Sodium Chloride 0.9% 100 ml @ 100 mls/hr IV Q24H [facility] Rx#: [id number] Output: Stool 200 Other: Stool Characteristics Liquid Liquid Active Medications: Current Medications Acetaminophen (Tylenol) 650 mg PO Q6H PRN PRN Reason: MILD Pain Stop: 01/03/17 08:14 Amlodipine Besylate (Norvasc) 10 mg PO DAILY [facility] Stop: 01/03/17 08:59 Last Admin: 11/08/16 09:38 Dose: 10 mg Atenolol (Tenormin) 100 mg PO DAILY [facility] Stop: 01/03/17 08:59 Last Admin: 11/08/16 09:38 Dose: 100 mg Clonidine HCl (Catapres) 0.1 mg PO Q8H PRN PRN Reason: BP MAINTENANCE (PER PROTOCOL) Stop: 01/03/17 08:14 Last Admin: 11/08/16 09:38 Dose: 0.1 mg Fenofibrate (Tricor) 134 mg PO DAILY [facility] Stop: 01/03/17 08:59 Last Admin: 11/08/16 09:39 Dose: 134 mg Ferrous Sulfate (Iron) 325 mg PO DAILY [facility] Stop: 01/03/17 08:59 Last Admin: 11/08/16 09:39 Dose: 325 mg Folic Acid (Folate) 1 mg PO DAILY [facility] Stop: 01/03/17 08:59 Last Admin: 11/08/16 09:39 Dose: 1 mg Gabapentin (Neurontin) 300 mg PO DAILY [facility] Stop: 01/03/17 08:59 Last Admin: 11/08/16 09:39 Dose: 300 mg Glimepiride (Amaryl) 4 mg PO DAILY [facility] Stop: 01/03/17 08:59 Last Admin: 11/08/16 09:47 Dose: 4 mg Glucagon (Glucagen) 1 mg IM DAILY PRN PRN Reason: IF BS BELOW 60 Ferric Sodium Gluconate Complex 125 mg/ Sodium Chloride 110 mls @ 100 mls/hr IV Q24H [facility] Stop: 11/14/16 13:59 Last Infusion: 11/08/16 16:15 Dose: Infused Dextrose/Sodium Chloride (D5-0.45ns) 1,000 mls @ 50 mls/hr IV .Q20H [facility] Stop: 01/03/17 23:16 Last Admin: 11/08/16 04:43 Dose: 50 mls/hr Insulin Aspart (Novolog Insulin Sliding Scale) 2 - 12 units SUBQ ACHS [facility] PRN Reason: Protocol Stop: 01/03/17 17:07 Last Admin: 11/08/16 16:37 Dose: Not Given Insulin Human Isoph/Insulin Regular (Novolin 70/30) 15 units SUBQ QDAC [facility] PRN Reason: Protocol Stop: 01/04/17 07:29 Last Admin: 11/08/16 07:11 Dose: 15 units Insulin Human Isoph/Insulin Regular (Novolin 70/30) 8 units SUBQ QPM VLAD PRN Reason: Protocol Stop: 01/03/17 16:59 Last Admin: 11/08/16 16:59 Dose: 8 units Levothyroxine Sodium (Synthroid) 0.025 mg PO QDAC [facility] Stop: 01/03/17 09:59 Last Admin: 11/08/16 07:07 Dose: 0.025 mg Losartan Potassium (Cozaar) 50 mg PO DAILY [facility] Stop: 01/03/17 08:59 Last Admin: 11/08/16 09:39 Dose: 50 mg Magnesium Hydroxide (Milk Of Magnesia) 30 ml PO DAILY PRN PRN Reason: Constipation Stop: 01/03/17 08:14 Miscellaneous (Vte Chemical Prophylaxis Screen/ Admission) 1 ea MC PRN PRN PRN Reason: PROTOCOL Stop: 01/03/17 14:14 Nitroglycerin (Nitrostat) 0.4 mg SL Q5MIN PRN PRN Reason: Chest Pain Stop: 01/03/17 08:14 Ondansetron HCl (Zofran) 4 mg IV Q4H PRN PRN Reason: Nausea Stop: 01/02/17 23:17 Ondansetron HCl (Zofran Odt) 4 mg SL Q6H PRN PRN Reason: Nausea / Vomiting Stop: 01/03/17 08:14 Pantoprazole Sodium (Protonix) 40 mg IVP BID VLAD Stop: 01/04/17 08:59 Last Admin: 11/08/16 16:22 Dose: 40 mg Simvastatin (Zocor) 10 mg PO QPM VLAD PRN Reason: Protocol Stop: 01/03/17 16:59 Last Admin: 11/08/16 16:22 Dose: 10 mg Tramadol HCl (Ultram) 50 mg PO Q12H VLAD Stop: 01/03/17 09:59 Last Admin: 11/08/16 10:07 Dose: Not Given General: Alert HEENT: Atraumatic Neck: Supple, +2 carotid pulse wo bruit Cardiovascular: Regular rate, Normal S1, Normal S2 Lungs: Clear to auscultation, Normal air movement Abdomen: Bowel sounds, Soft, no Tender Extremities: no Edema Neurological: Sensation intact Skin: no Rash Psych/Mental Status: Mood NL - Procedures Procedures: Procedures Procedure Code Date BLOOD TRANSFUSION SERVICE 08981 10/23/16 EGD BIOPSY SINGLE/MULTIPLE 51378 11/03/16 EXCISION OF ESOPHAGUS, ENDO, DIAGN [id number] 11/03/16 TRANSFUSE NONAUT PLATELETS IN PERIPH VEIN, PERC [id number] 06/25/15 TRANSFUSE NONAUT RED BLOOD CELLS IN PERIPH VEIN, [facility] [id number] 10/23/16 Assessment/Plan - Problem List Patient Problems: All Active Problems Abdominal hernia (Acute) Abdominal pain (Acute) R10.9 Alzheimer's dementia (Acute) G30.9 Anemia of chronic renal failure (Acute) N18.9, D63.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.22 Duodenal ulcer (Acute) Fracture of proximal end of left humerus (Acute) S42.202A Hyponatremia (Acute) E87.1 Asthma (Acute) J45.909 CVA, old, 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 - Assessment Assessment: see above - Plan Plan: Will repeat CBC this AM Will order GI consult Will order Hem/Onc Consult will resume previous medications Patient to have CT scan of the abdomen Will request surgical consult with Dr. Michael for evaluation of abdominal hernia noted on CT scan. Patient evaluated by General Surgery. Please see dictated note. Patient recently underwent upper endoscopy for severe anemia. Please dictated report. Now on Protonix BID. Biopsy report noted. No H. Pylori. Patient was seen and evaluated by Hem/Onc for anemia and thrombocytopenia. Please see dictated report. Will continue ferrous IV Patient was seen and evaluated by Nephrology for chronic renal failure. Please see dictated report. Currently stable. Will continue current treatment. diet now adanced to regular diet. Insulin 70/30 resumes. discharge planning for tomorrow. Nutritional Asmnt/Malnutr-PDOC - Dietary Evaluation Malnutrition Findings (Please click <Entered> for more info): Nutritional Asmnt/Malnutrition Start: 11/07/16 11: 45 Text: Status: Complete Freq: Document 11/07/16 16:35 SANTOS (Rec: 11/07/16 16:37 SANTOS ESPARZA- [id number]) Nutritional Asmnt/Malnutrition Patient General Information Patient / S.O Can't verbalize diet edu
[2016-11-09] MEDS: Levothyroxine 0.025 Mg Tab PO SCH (06:28)
[2016-11-09] MEDS: INSULIN ASPART SLIDING SCALE 100 UNITS/ML UNIT SUBQ SCH ×2 (07:08→12:06)
--- NOTE | 2016-11-09 07:54 | General Progress Note ---
Subjective - Review of Systems Service Date: 11/09/16 Subjective: Patient was seen and evaluated today. Patient denies nausea or vomiting. decrease abdominal pain. now on a regular diet. insulin 70/30 restarted. Stool guaic negative x 1. Objective - Results Result Diagrams: 11/08/16 06:20 11/06/16 06:50 Recent Labs: Laboratory Last Values WBC 8.8 Th/cmm (4.8-10.8) 11/08/16 06:20 RBC 3.09 Mil/cmm (3.80-5.20) L 11/08/16 06:20 Hgb 9.1 gm/dL (11.7-16.1) L 11/08/16 06:20 Hct 26.8 % (35.0-45.0) L 11/08/16 06:20 MCV 86.7 fl (81-100) 11/08/16 06:20 MCH 29.5 pg (27.0-31.0) 11/08/16 06:20 MCHC Differential 34.1 pg (28.0-36.0) 11/08/16 06:20 RDW 13.9 % (11.5-20.0) 11/08/16 06:20 Plt Count 57 Th/cmm (150-400) L D 11/08/16 06:20 MPV 10.1 fl 11/08/16 06:20 Neutrophils % 67.5 % (40.0-80.0) 11/08/16 06:20 Band Neutrophils % 1 % (0-10) 11/06/16 06:50 Lymphocytes % 22.3 % (20.0-50.0) 11/08/16 06:20 Monocytes % 6.3 % (2.0-10.0) 11/08/16 06:20 Eosinophils % 3.0 % (0.0-5.0) 11/08/16 06:20 Basophils % 0.9 % (0.0-2.0) 11/08/16 06:20 Neutrophils (Manual) 63 % (40-80) 11/06/16 06:50 Lymphocytes 24 % (20-50) 11/06/16 06:50 Monocytes 5 % (2-10) 11/06/16 06:50 Eosinophils 7 % (0-5) H 11/06/16 06:50 Basophils 1 % (0-3) 11/05/16 07:15 Platelet Estimate DECREASED PLATELETS (NORMAL) 11/06/16 06:50 Platelet Morphology NORMAL (NORMAL) 11/05/16 07:15 Anisocytosis 1+ 11/04/16 06:40 RBC Morph Micro Appear NORMAL (NORMAL) 11/05/16 07:15 Smear Path Review [employer]ER 11/08/16 06:20 Eos Smear Source URINE 11/07/16 04:00 Eos Smear Total Cells NONE SEEN (NONE SEEN) 11/07/16 04:00 PT 10.6 SECONDS (9.5-11.5) 11/05/16 07:15 INR 1.02 (0.5-1.4) 11/05/16 07:15 PTT (Actin FS) 27.7 SECONDS (26.0-38.0) 11/03/16 21:49 Sodium 133 mEq/L (136-145) L 11/06/16 06:50 Potassium 4.3 mEq/L (3.5-5.1) 11/06/16 06:50 Chloride 109 mEq/L (98-107) H 11/06/16 06:50 Carbon Dioxide 18.4 mEq/L (21.0-31.0) L 11/06/16 06:50 Anion Gap 9.9 (7.0-16.0) 11/06/16 06:50 BUN 20 mg/dL (7-25) 11/06/16 06:50 Creatinine 2.1 mg/dL (0.6-1.2) H 11/06/16 06:50 Est GFR ( Amer) TNP 11/06/16 06:50 Est GFR (Non-Af Amer) TNP 11/06/16 06:50 BUN/Creatinine Ratio 9.5 11/06/16 06:50 Glucose 60 mg/dL (70-105) L 11/06/16 06:50 POC Glucose 123 MG/DL (70 - 105) H 11/09/16 06:30 Uric Acid 5.2 mg/dL (2.3-6.6) 11/06/16 06:50 Calcium 8.3 mg/dL (8.6-10.3) L 11/06/16 06:50 Phosphorus 2.8 mg/dL (2.5-5.0) 11/06/16 06:50 Magnesium 2.0 mg/dL (1.9-2.7) 11/06/16 06:50 Total Bilirubin 0.3 mg/dL (0.3-1.0) 11/06/16 06:50 AST 14 U/L (13-39) 11/06/16 06:50 ALT 5 U/L (7-52) L 11/06/16 06:50 Alkaline Phosphatase 69 U/L (34-104) 11/06/16 06:50 Troponin I 0.01 ng/mL (0.01-0.05) 11/03/16 21:49 Total Protein 6.1 gm/dL (6.0-8.3) 11/06/16 06:50 Albumin 3.1 gm/dL (3.7-5.3) L 11/06/16 06:50 Globulin 3.0 gm/dL 11/06/16 06:50 Albumin/Globulin Ratio 1.0 (1.0-1.8) 11/06/16 06:50 Lipase 3 U/L (11-82) L 11/03/16 21:49 Urine Source CLEAN C 11/03/16 22:00 Urine Color YELLOW 11/03/16 22:00 Urine Clarity CLEAR (CLEAR) 11/03/16 22:00 Urine pH 6.0 11/03/16 22:00 Ur Specific [place] 1.010 (1.005-1.030) 11/03/16 22:00 Urine Protein NEGATIVE mg/dL (NEGATIVE) 11/03/16 22:00 Urine Glucose (UA) NEGATIVE mg/dL (NEGATIVE) 11/03/16 22:00 Urine Ketones NEGATIVE mg/dL (NEGATIVE) 11/03/16 22:00 Urine Blood NEGATIVE (NEGATIVE) 11/03/16 22:00 Urine Nitrate NEGATIVE (NEGATIVE) 11/03/16 22:00 Urine Bilirubin NEGATIVE (NEGATIVE) 11/03/16 22:00 Urine Urobilinogen 0.2 E.U./dL (0.2 - 1.0) 11/03/16 22:00 Ur Leukocyte Esterase NEGATIVE (NEGATIVE) 11/03/16 22:00 Urine RBC 0-2 /hpf (0-5) 11/03/16 22:00 Urine WBC 0-2 /hpf (0-5) 11/03/16 22:00 Ur Epithelial Cells FEW /lpf (FEW) 11/03/16 22:00 Urine Bacteria FEW /hpf (NONE SEEN) 11/03/16 22:00 Ur Random Sodium 106 mmol/L 11/07/16 04:00 Urine Creatinine 66.0 mg/dl (28.0-217.0) 11/07/16 04:00 Stool Occult Blood NEGATIVE (NEGATIVE) 11/07/16 18:00 Blood Type O POSITIVE 11/03/16 21:49 Antibody Screen NEGATIVE 11/03/16 21:49 - Physical Exam Vitals and I&O: Vital Signs Temp 98.4 F 11/09/16 04:00 Pulse 60 11/09/16 04:00 Resp 18 11/09/16 04:00 BP 154/73 11/09/16 04:00 Pulse Ox 98 11/09/16 04:00 Intake & Output 11/08/16 11/09/16 11/09/16 18:59 06:59 18:59 Intake Total 110 200 Output Total 200 Balance -90 200 Weight (lbs) 58.06 kg 58.06 kg Intake: Intake, IV Amount 110 Sodium Ferric Gluconate 110 125 mg In Sodium Chloride 0.9% 100 ml @ 100 mls/hr IV Q24H [facility] Rx#: [id number] Other 200 Output: Stool 200 Other: Stool Characteristics Liquid Liquid Active Medications: Current Medications Acetaminophen (Tylenol) 650 mg PO Q6H PRN PRN Reason: MILD Pain Stop: 01/03/17 08:14 Amlodipine Besylate (Norvasc) 10 mg PO DAILY [facility] Stop: 01/03/17 08:59 Last Admin: 11/08/16 09:38 Dose: 10 mg Atenolol (Tenormin) 100 mg PO DAILY [facility] Stop: 01/03/17 08:59 Last Admin: 11/08/16 09:38 Dose: 100 mg Clonidine HCl (Catapres) 0.1 mg PO Q8H PRN PRN Reason: BP MAINTENANCE (PER PROTOCOL) Stop: 01/03/17 08:14 Last Admin: 11/08/16 09:38 Dose: 0.1 mg Fenofibrate (Tricor) 134 mg PO DAILY [facility] Stop: 01/03/17 08:59 Last Admin: 11/08/16 09:39 Dose: 134 mg Ferrous Sulfate (Iron) 325 mg PO DAILY [facility] Stop: 01/03/17 08:59 Last Admin: 11/08/16 09:39 Dose: 325 mg Folic Acid (Folate) 1 mg PO DAILY [facility] Stop: 01/03/17 08:59 Last Admin: 11/08/16 09:39 Dose: 1 mg Gabapentin (Neurontin) 300 mg PO DAILY [facility] Stop: 01/03/17 08:59 Last Admin: 11/08/16 09:39 Dose: 300 mg Glimepiride (Amaryl) 4 mg PO DAILY [facility] Stop: 01/03/17 08:59 Last Admin: 11/08/16 09:47 Dose: 4 mg Glucagon (Glucagen) 1 mg IM DAILY PRN PRN Reason: IF BS BELOW 60 Ferric Sodium Gluconate Complex 125 mg/ Sodium Chloride 110 mls @ 100 mls/hr IV Q24H [facility] Stop: 11/14/16 13:59 Last Infusion: 11/08/16 16:15 Dose: Infused Dextrose/Sodium Chloride (D5-0.45ns) 1,000 mls @ 50 mls/hr IV .Q20H [facility] Stop: 01/03/17 23:16 Last Admin: 11/08/16 04:43 Dose: 50 mls/hr Insulin Aspart (Novolog Insulin Sliding Scale) 2 - 12 units SUBQ ACHS [facility] PRN Reason: Protocol Stop: 01/03/17 17:07 Last Admin: 11/09/16 07:08 Dose: Not Given Insulin Human Isoph/Insulin Regular (Novolin 70/30) 15 units SUBQ QDAC [facility] PRN Reason: Protocol Stop: 01/04/17 07:29 Last Admin: 11/08/16 07:11 Dose: 15 units Insulin Human Isoph/Insulin Regular (Novolin 70/30) 8 units SUBQ QPM [facility] PRN Reason: Protocol Stop: 01/03/17 16:59 Last Admin: 11/08/16 16:59 Dose: 8 units Levothyroxine Sodium (Synthroid) 0.025 mg PO QDAC [facility] Stop: 01/03/17 09:59 Last Admin: 11/09/16 06:28 Dose: 0.025 mg Losartan Potassium (Cozaar) 50 mg PO DAILY [facility] Stop: 01/03/17 08:59 Last Admin: 11/08/16 09:39 Dose: 50 mg Magnesium Hydroxide (Milk Of Magnesia) 30 ml PO DAILY PRN PRN Reason: Constipation Stop: 01/03/17 08:14 Miscellaneous (Vte Chemical Prophylaxis Screen/ Admission) 1 ea [facility] PRN PRN PRN Reason: PROTOCOL Stop: 01/03/17 14:14 Nitroglycerin (Nitrostat) 0.4 mg SL Q5MIN PRN PRN Reason: Chest Pain Stop: 01/03/17 08:14 Ondansetron HCl (Zofran) 4 mg IV Q4H PRN PRN Reason: Nausea Stop: 01/02/17 23:17 Ondansetron HCl (Zofran Odt) 4 mg SL Q6H PRN PRN Reason: Nausea / Vomiting Stop: 01/03/17 08:14 Pantoprazole Sodium (Protonix) 40 mg IVP BID [facility] Stop: 01/04/17 08:59 Last Admin: 11/08/16 16:22 Dose: 40 mg Simvastatin (Zocor) 10 mg PO QPM [facility] PRN Reason: Protocol Stop: 01/03/17 16:59 Last Admin: 11/08/16 16:22 Dose: 10 mg Tramadol HCl (Ultram) 50 mg PO Q12H [facility] Stop: 01/03/17 09:59 Last Admin: 11/08/16 10:07 Dose: Not Given General: Alert HEENT: Atraumatic Neck: Supple, +2 carotid pulse wo bruit Cardiovascular: Regular rate, Normal S1, Normal S2 Lungs: Clear to auscultation, Normal air movement Abdomen: Bowel sounds, Soft, no Tender Extremities: no Edema Neurological: Sensation intact Skin: no Rash Psych/Mental Status: Mood NL - Procedures Procedures: Procedures Procedure Code Date BLOOD TRANSFUSION SERVICE 41832 10/23/16 EGD BIOPSY SINGLE/MULTIPLE 78405 11/03/16 EXCISION OF ESOPHAGUS, ENDO, DIAGN [id number] 11/03/16 TRANSFUSE NONAUT PLATELETS IN PERIPH VEIN, [facility] 86351K8 06/25/15 TRANSFUSE NONAUT RED BLOOD CELLS IN PERIPH VEIN, [facility] 11827S0 10/23/16 Assessment/Plan - Problem List Patient Problems: All Active Problems Abdominal hernia (Acute) Abdominal pain (Acute) R10.9 Alzheimer's dementia (Acute) G30.9 Anemia of chronic renal failure (Acute) N18.9, D63.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.22 Duodenal ulcer (Acute) Fracture of proximal end of left humerus (Acute) S42.202A Hyponatremia (Acute) E87.1 Asthma (Acute) J45.909 CVA, old, 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 - Assessment Assessment: see above - Plan Plan: Will repeat CBC this AM Will order GI consult Will order Hem/Onc Consult will resume previous medications Patient to have CT scan of the abdomen Will request surgical consult with Dr. Michael for evaluation of abdominal hernia noted on CT scan. Patient evaluated by General Surgery. Please see dictated note. Patient recently underwent upper endoscopy for severe anemia. Please dictated report. Now on Protonix BID. Biopsy report noted. No H. Pylori. Patient was seen and evaluated by Hem/Onc for anemia and thrombocytopenia. Please see dictated report. Will continue ferrous IV. Hemboglobin 9.1. stable. Patient was seen and evaluated by Nephrology for chronic renal failure. Please see dictated report. Currently stable. Will continue current treatment. diet now advanced to regular diet. Insulin 70/30 resumed. discharge patient to SNF if ok with consultants. Nutritional Asmnt/Malnutr-PDOC - Dietary Evaluation Malnutrition Findings (Please click <Entered> for more info): Nutritional Asmnt/Malnutrition Start: 11/07/16 11: 45 Text: Status: Complete Freq: Document 11/07/16 16:35 SANTOS (Rec: 11/07/16 16:37 SANTOS ESPARZA- [email or web address]) Nutritional Asmnt/Malnutrition Patient General Information Patient / S.O Can't verbalize diet edu
[2016-11-09] MEDS: Fenofibrate, Micronized 134 mg Cap PO SCH (09:12)
[2016-11-09] MEDS: Ferrous Sulfate 325 MG TAB PO SCH (09:12)
[2016-11-09] MEDS: INSULIN 70/30 100 UNITS/ML SUBQ SCH (09:13)
--- NOTE | 2016-11-09 12:00 | General Progress Note ---
Subjective - Review of Systems Service Date: 11/09/16 Subjective: feels better Objective - Results Result Diagrams: 11/08/16 06:20 11/06/16 06:50 Recent Labs: Laboratory Last Values WBC 8.8 Th/cmm (4.8-10.8) 11/08/16 06:20 RBC 3.09 Mil/cmm (3.80-5.20) L 11/08/16 06:20 Hgb 9.1 gm/dL (11.7-16.1) L 11/08/16 06:20 Hct 26.8 % (35.0-45.0) L 11/08/16 06:20 MCV 86.7 fl (81-100) 11/08/16 06:20 MCH 29.5 pg (27.0-31.0) 11/08/16 06:20 MCHC Differential 34.1 pg (28.0-36.0) 11/08/16 06:20 RDW 13.9 % (11.5-20.0) 11/08/16 06:20 Plt Count 57 Th/cmm (150-400) L D 11/08/16 06:20 MPV 10.1 fl 11/08/16 06:20 Neutrophils % 67.5 % (40.0-80.0) 11/08/16 06:20 Band Neutrophils % 1 % (0-10) 11/06/16 06:50 Lymphocytes % 22.3 % (20.0-50.0) 11/08/16 06:20 Monocytes % 6.3 % (2.0-10.0) 11/08/16 06:20 Eosinophils % 3.0 % (0.0-5.0) 11/08/16 06:20 Basophils % 0.9 % (0.0-2.0) 11/08/16 06:20 Neutrophils (Manual) 63 % (40-80) 11/06/16 06:50 Lymphocytes 24 % (20-50) 11/06/16 06:50 Monocytes 5 % (2-10) 11/06/16 06:50 Eosinophils 7 % (0-5) H 11/06/16 06:50 Basophils 1 % (0-3) 11/05/16 07:15 Platelet Estimate DECREASED PLATELETS (NORMAL) 11/06/16 06:50 Platelet Morphology NORMAL (NORMAL) 11/05/16 07:15 Anisocytosis 1+ 11/04/16 06:40 RBC Morph Micro Appear NORMAL (NORMAL) 11/05/16 07:15 Smear Path Review [employer] 11/08/16 06:20 Eos Smear Source URINE 11/07/16 04:00 Eos Smear Total Cells NONE SEEN (NONE SEEN) 11/07/16 04:00 PT 10.6 SECONDS (9.5-11.5) 11/05/16 07:15 INR 1.02 (0.5-1.4) 11/05/16 07:15 PTT (Actin FS) 27.7 SECONDS (26.0-38.0) 11/03/16 21:49 Sodium 133 mEq/L (136-145) L 11/06/16 06:50 Potassium 4.3 mEq/L (3.5-5.1) 11/06/16 06:50 Chloride 109 mEq/L (98-107) H 11/06/16 06:50 Carbon Dioxide 18.4 mEq/L (21.0-31.0) L 11/06/16 06:50 Anion Gap 9.9 (7.0-16.0) 11/06/16 06:50 BUN 20 mg/dL (7-25) 11/06/16 06:50 Creatinine 2.1 mg/dL (0.6-1.2) H 11/06/16 06:50 Est GFR ( Amer) TNP 11/06/16 06:50 Est GFR (Non-Af Amer) TNP 11/06/16 06:50 BUN/Creatinine Ratio 9.5 11/06/16 06:50 Glucose 60 mg/dL (70-105) L 11/06/16 06:50 POC Glucose 123 MG/DL (70 - 105) H 11/09/16 06:30 Uric Acid 5.2 mg/dL (2.3-6.6) 11/06/16 06:50 Calcium 8.3 mg/dL (8.6-10.3) L 11/06/16 06:50 Phosphorus 2.8 mg/dL (2.5-5.0) 11/06/16 06:50 Magnesium 2.0 mg/dL (1.9-2.7) 11/06/16 06:50 Total Bilirubin 0.3 mg/dL (0.3-1.0) 11/06/16 06:50 AST 14 U/L (13-39) 11/06/16 06:50 ALT 5 U/L (7-52) L 11/06/16 06:50 Alkaline Phosphatase 69 U/L (34-104) 11/06/16 06:50 Troponin I 0.01 ng/mL (0.01-0.05) 11/03/16 21:49 Total Protein 6.1 gm/dL (6.0-8.3) 11/06/16 06:50 Albumin 3.1 gm/dL (3.7-5.3) L 11/06/16 06:50 Globulin 3.0 gm/dL 11/06/16 06:50 Albumin/Globulin Ratio 1.0 (1.0-1.8) 11/06/16 06:50 Lipase 3 U/L (11-82) L 11/03/16 21:49 Urine Source CLEAN C 11/03/16 22:00 Urine Color YELLOW 11/03/16 22:00 Urine Clarity CLEAR (CLEAR) 11/03/16 22:00 Urine pH 6.0 11/03/16 22:00 Ur Specific [place] 1.010 (1.005-1.030) 11/03/16 22:00 Urine Protein NEGATIVE mg/dL (NEGATIVE) 11/03/16 22:00 Urine Glucose (UA) NEGATIVE mg/dL (NEGATIVE) 11/03/16 22:00 Urine Ketones NEGATIVE mg/dL (NEGATIVE) 11/03/16 22:00 Urine Blood NEGATIVE (NEGATIVE) 11/03/16 22:00 Urine Nitrate NEGATIVE (NEGATIVE) 11/03/16 22:00 Urine Bilirubin NEGATIVE (NEGATIVE) 11/03/16 22:00 Urine Urobilinogen 0.2 E.U./dL (0.2 - 1.0) 11/03/16 22:00 Ur Leukocyte Esterase NEGATIVE (NEGATIVE) 11/03/16 22:00 Urine RBC 0-2 /hpf (0-5) 11/03/16 22:00 Urine WBC 0-2 /hpf (0-5) 11/03/16 22:00 Ur Epithelial Cells FEW /lpf (FEW) 11/03/16 22:00 Urine Bacteria FEW /hpf (NONE SEEN) 11/03/16 22:00 Ur Random Sodium 106 mmol/L 11/07/16 04:00 Urine Creatinine 66.0 mg/dl (28.0-217.0) 11/07/16 04:00 Stool Occult Blood NEGATIVE (NEGATIVE) 11/07/16 18:00 Blood Type O POSITIVE 11/03/16 21:49 Antibody Screen NEGATIVE 11/03/16 21:49 - Physical Exam Vitals and I&O: Vital Signs Temp 98.8 F 11/09/16 08:00 Pulse 62 11/09/16 11:50 Resp 20 11/09/16 08:00 BP 186/67 11/09/16 09:11 Pulse Ox 98 11/09/16 04:00 Intake & Output 11/08/16 11/09/16 11/09/16 18:59 06:59 18:59 Intake Total 110 200 Output Total 200 Balance -90 200 Weight (lbs) 58.06 kg 58.06 kg Intake: Intake, IV Amount 110 Sodium Ferric Gluconate 110 125 mg In Sodium Chloride 0.9% 100 ml @ 100 mls/hr IV Q24H [facility] Rx#: [id number] Other 200 Output: Stool 200 Other: Stool Characteristics Liquid Liquid Active Medications: Current Medications Acetaminophen (Tylenol) 650 mg PO Q6H PRN PRN Reason: MILD Pain Stop: 01/03/17 08:14 Amlodipine Besylate (Norvasc) 10 mg PO DAILY [facility] Stop: 01/03/17 08:59 Last Admin: 11/09/16 09:11 Dose: Not Given Atenolol (Tenormin) 100 mg PO DAILY [facility] Stop: 01/03/17 08:59 Last Admin: 11/09/16 09:11 Dose: 100 mg Clonidine HCl (Catapres) 0.1 mg PO Q8H PRN PRN Reason: BP MAINTENANCE (PER PROTOCOL) Stop: 01/03/17 08:14 Last Admin: 11/09/16 11:50 Dose: 0.1 mg Fenofibrate (Tricor) 134 mg PO DAILY [facility] Stop: 01/03/17 08:59 Last Admin: 11/09/16 09:12 Dose: 134 mg Ferrous Sulfate (Iron) 325 mg PO DAILY [facility] Stop: 01/03/17 08:59 Last Admin: 11/09/16 09:12 Dose: 325 mg Folic Acid (Folate) 1 mg PO DAILY [facility] Stop: 01/03/17 08:59 Last Admin: 11/09/16 09:12 Dose: 1 mg Gabapentin (Neurontin) 300 mg PO DAILY [facility] Stop: 01/03/17 08:59 Last Admin: 11/09/16 09:10 Dose: 300 mg Glimepiride (Amaryl) 4 mg PO DAILY [facility] Stop: 01/03/17 08:59 Last Admin: 11/09/16 09:12 Dose: 4 mg Glucagon (Glucagen) 1 mg IM DAILY PRN PRN Reason: IF BS BELOW 60 Ferric Sodium Gluconate Complex 125 mg/ Sodium Chloride 110 mls @ 100 mls/hr IV Q24H [facility] Stop: 11/14/16 13:59 Last Infusion: 11/08/16 16:15 Dose: Infused Dextrose/Sodium Chloride (D5-0.45ns) 1,000 mls @ 50 mls/hr IV .Q20H [facility] Stop: 01/03/17 23:16 Last Admin: 11/08/16 04:43 Dose: 50 mls/hr Insulin Aspart (Novolog Insulin Sliding Scale) 2 - 12 units SUBQ ACHS [facility] PRN Reason: Protocol Stop: 01/03/17 17:07 Last Admin: 11/09/16 07:08 Dose: Not Given Insulin Human Isoph/Insulin Regular (Novolin 70/30) 15 units SUBQ QDAC [facility] PRN Reason: Protocol Stop: 01/04/17 07:29 Last Admin: 11/09/16 09:13 Dose: 15 units Insulin Human Isoph/Insulin Regular (Novolin 70/30) 8 units SUBQ QPM [facility] PRN Reason: Protocol Stop: 01/03/17 16:59 Last Admin: 11/08/16 16:59 Dose: 8 units Levothyroxine Sodium (Synthroid) 0.025 mg PO QDAC [facility] Stop: 01/03/17 09:59 Last Admin: 11/09/16 06:28 Dose: 0.025 mg Losartan Potassium (Cozaar) 50 mg PO DAILY [facility] Stop: 01/03/17 08:59 Last Admin: 11/09/16 09:10 Dose: 50 mg Magnesium Hydroxide (Milk Of Magnesia) 30 ml PO DAILY PRN PRN Reason: Constipation Stop: 01/03/17 08:14 Miscellaneous (Vte Chemical Prophylaxis Screen/ Admission) 1 ea [facility] PRN PRN PRN Reason: PROTOCOL Stop: 01/03/17 14:14 Nitroglycerin (Nitrostat) 0.4 mg SL Q5MIN PRN PRN Reason: Chest Pain Stop: 01/03/17 08:14 Ondansetron HCl (Zofran) 4 mg IV Q4H PRN PRN Reason: Nausea Stop: 01/02/17 23:17 Ondansetron HCl (Zofran Odt) 4 mg SL Q6H PRN PRN Reason: Nausea / Vomiting Stop: 01/03/17 08:14 Pantoprazole Sodium (Protonix) 40 mg IVP BID [facility] Stop: 01/04/17 08:59 Last Admin: 11/09/16 09:27 Dose: 40 mg Simvastatin (Zocor) 10 mg PO QPM [facility] PRN Reason: Protocol Stop: 01/03/17 16:59 Last Admin: 11/08/16 16:22 Dose: 10 mg Tramadol HCl (Ultram) 50 mg PO Q12H [facility] Stop: 01/03/17 09:59 Last Admin: 11/09/16 09:26 Dose: Not Given General: Alert HEENT: Atraumatic Neck: Supple, +2 carotid pulse wo bruit Cardiovascular: Regular rate, Normal S1, Normal S2 Lungs: Clear to auscultation, Normal air movement Abdomen: Bowel sounds, Soft, no Tender Extremities: no Edema Neurological: Sensation intact Skin: no Rash Psych/Mental Status: Mood NL - Procedures Procedures: Procedures Procedure Code Date BLOOD TRANSFUSION SERVICE 97968 10/23/16 EGD BIOPSY SINGLE/MULTIPLE 91415 11/03/16 EXCISION OF ESOPHAGUS, ENDO, DIAGN 1PH96MG 11/03/16 TRANSFUSE NONAUT PLATELETS IN PERIPH VEIN, [facility] 45803S1 06/25/15 TRANSFUSE NONAUT RED BLOOD CELLS IN PERIPH VEIN, [facility] 35288O1 10/23/16 Assessment/Plan - Problem List Patient Problems: All Active Problems Abdominal hernia (Acute) Abdominal pain (Acute) R10.9 Alzheimer's dementia (Acute) G30.9 Anemia of chronic renal failure (Acute) N18.9, D63.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 * functional iron deficiency anemia. * Anemia of chronic kidney disease. Continue ferrlecit, folate hematologically stable Nutritional Asmnt/Malnutr-PDOC - Dietary Evaluation Malnutrition Findings (Please click <Entered> for more info): Nutritional Asmnt/Malnutrition Start: 11/07/16 11: 45 Text: Status: Complete Freq: Document 11/07/16 16:35 SANTOS (Rec: 11/07/16 16:37 SANTOS ESPARZA- FNS1) Nutritional Asmnt/Malnutrition Patient General Information Patient / S.O Can't verbalize diet edu
== END 2016-11-09 13:47 | disposition home or self-care (01) | DRG 384 ==
LOC: ER 20:56 → MSI 23:00
PROVIDERS: ADMIT Family Medicine; ATTEND Family Medicine
PROC: 0DB58ZX Excision of Esophagus, Via Natural or Artificial Opening Endoscopic, Diagnostic (ICD-10-PCS; principal; 2016-11-03)
PROC: 0DB98ZX Excision of Duodenum, Via Natural or Artificial Opening Endoscopic, Diagnostic (ICD-10-PCS; 2016-11-03)
PROC: 0DB68ZX Excision of Stomach, Via Natural or Artificial Opening Endoscopic, Diagnostic (ICD-10-PCS; 2016-11-03)
DX: K26.9 Duodenal ulcer, unspecified as acute or chronic, without hemorrhage or perforation (principal); E11.21 Type 2 diabetes mellitus with diabetic nephropathy; E11.649 Type 2 diabetes mellitus with hypoglycemia without coma; D69.6 Thrombocytopenia, unspecified; E87.1 Hypo-osmolality and hyponatremia; I69.954 Hemiplegia and hemiparesis following unspecified cerebrovascular disease affecting left non-dominant side; N39.0 Urinary tract infection, site not specified; K20.9 Esophagitis, unspecified; K29.70 Gastritis, unspecified, without bleeding; D63.1 Anemia in chronic kidney disease; I51.7 Cardiomegaly; E78.5 Hyperlipidemia, unspecified; N18.9 Chronic kidney disease, unspecified; M19.90 Unspecified osteoarthritis, unspecified site; Z66 Do not resuscitate; I12.9 Hypertensive chronic kidney disease with stage 1 through stage 4 chronic kidney disease, or unspecified chronic kidney disease; J45.909 Unspecified asthma, uncomplicated; E03.9 Hypothyroidism, unspecified; F02.80 Dementia in other diseases classified elsewhere, unspecified severity, without behavioral disturbance, psychotic disturbance, mood disturbance, and anxiety; G30.9 Alzheimer's disease, unspecified; K46.9 Unspecified abdominal hernia without obstruction or gangrene; K44.9 Diaphragmatic hernia without obstruction or gangrene; K25.9 Gastric ulcer, unspecified as acute or chronic, without hemorrhage or perforation; D50.9 Iron deficiency anemia, unspecified; Z86.718 Personal history of other venous thrombosis and embolism; Z79.4 Long term (current) use of insulin; Z93.3 Colostomy status; Z85.038 Personal history of other malignant neoplasm of large intestine; Z83.3 Family history of diabetes mellitus; Z82.3 Family history of stroke; Z82.49 Family history of ischemic heart disease and other diseases of the circulatory system; Z80.9 Family history of malignant neoplasm, unspecified
CPT/HCPCS: 36415-UA; 71010-TC; 76700-TC; 80048-TC; 80053-TC; 81001-TC; 81015-TC; 82270-TC; 82570-TC; 82947-TC; 82948-90; 83690-TC; 83735-TC; 83930-90; 84100-TC; 84300-TC; 84484-TC; 84550-TC; 85007-TC; 85025-TC; 85027-TC; 85610-TC; 86850-TC; 86900-TC; 86901-TC; 88305-90; 88312-90; 88313-90; 90799; 93005; C9113; J1815; J2001; J2405; J2704; J2916; J7040; Z7610

== ENCOUNTER 2016-11-30 22:06 | Inpatient (IN) | payer MEDICARE, MEDICAID ==
--- NOTE | 2016-11-30 22:43 | ED Physician Chart ---
Chief Complaint/HPI - Patient Information Date Seen:: 11/30/16 Time Seen:: 22:28 Chief Complaint:: LOW PLATLETS History of Present Illness:: THIS IS A PATIENT WITH A LONG HISTORY OF ANEMIA AND LOW PLATLETS SENT HER FROM THE [facility] FOR EVALUATION AND TREATMENT. SHE IS VERY PALE. Allergies:: Allergies Allergy/AdvReac Type Severity Reaction Status Date / Time No Known Allergies Allergy Verified 11/30/16 22:10 Vitals:: Vital Signs - 8 hr 11/30/16 22:10 Temp 98.2 F HR 78 RR 20 BP 148/72 Historian:: Patient Review:: Nurse's Note Reviewed Review of Systems - Review of Systems General/Constitutional: No fever, No chills, No weight loss, Weakness, No diaphoresis, No edema, No loss of appetite Skin: No skin lesions, No rash, No bruising, Other (PALE) Head: Headache, No light-headedness Eyes: No loss of vision, No pain, No diplopia ENT: No earache, No nasal drainage, No sore throat, No tinnitus Neck: No neck pain, No swelling, No thyromegaly, No stiffness, No mass noted Cardio Vascular: No chest pain, No palpitations, No PND, No orthopnea, No edema Pulmonary: No SOB, No cough, No sputum, No wheezing GI: No nausea, No vomiting, No diarrhea, No pain, No melena, No hematochezia, No constipation, No hematemesis G/U: No dysuria, No frequency, No hematuria Musculoskeletal: No bone or joint pain, No back pain, No muscle pain Endocrine: No polyuria, No polydipsia Psychiatric: No prior psych history, No depression, No anxiety, No suicidal ideation Hematopoietic: No bruising, No lymphadenopathy Allergic/Immuno: No urticaria, No angioedema Neurological: No syncope, No focal symptoms, No weakness, No paresthesia, No headache, No seizure, No dizziness, No confusion, No vertigo Past Medical History - Past Medical History Obtainable: Yes Past Medical History: HTN, DM, Dyslipidemia, PUD/GERD Family History: None Social History: Non Smoker, No Alcohol, No Drug Use, Care Facility Surgical History: other (COLOSTOMY, COLECTOMY FOR COLON CANCER.) Psychiatricy History: None Medication: Reviewed Family Medical History - Family Member Mother History Unknown: Yes Ethnicity: Unknown Living Status: Unknown Hx Family Cancer: Yes Hx Family Coronary Artery Disease: No Hx Family Congestive Heart Failure: No Hx Family Hypertension: Yes Hx Family Stroke: Yes Hx Family Diabetes: Yes Hx Family Seizures: No Hx Family Dementia: No Hx Family AIDS: No Hx Family HIV: No Hx Family COPD: No Hx Family Hepatitis: No Hx Family Psychiatric Problems: No Hx Family Tuberculosis: No Physical Exam - Physical Examination General/Constitutional: Awake, Well-developed, well-nourished, Alert, No distress, GCS 15, Non-toxic appearing, Ambulatory Other Gen/Cons comments:: PALE SKIN Head: Atraumatic Eyes: Lids, conjuctiva normal, PERRL, EOMI Skin: Nl inspection, No rash, No skin lesions, No ecchymosis, Well hydrated, No lymphadenopathy ENMT: External ears, nose nl, Nasal exam nl, Lips, teeth, gums nl Neck: Nontender, Full ROM w/o pain, No JVD, No nuchal rigidity, No bruit, No mass, No stridor Respiratory: Nl effort/Exclusion, Clear to Auscultation, No Wheeze/Rhonchi/Rales Cardio Vascular: RRR, No murmur, gallop, rubs, NL S1 S2 GI: No tenderness/rebounding/guarding, No organomegaly, No hernia, Normal BS's, Nondistended, No mass/bruits, No McBurney tenderness Other GI comments:: FUNCTIONING COLOSTOMY NOTE IN THE LEFT LOWER ABDOMEN : No CVA tenderness Extremities: No tenderness or effusion, Full ROM, normal strength in all extremities, No edema, Normal digits & nails Other Extremities comments:: LEFT HUMERUS AREA TENDERNESS OF A HEALING FRACTURE. Neuro/Psych: Alert/oriented, DTR's symmetric, Normal sensory exam, Normal motor strength, Judgement/insight normal, Mood normal, Normal gait, No focal deficits Misc: normal gait, Normal back, No paraspinal tenderness Labs/Radiology/EKG Results - Lab Results Results: Abnormal Lab Results 11/30/16 11/30/16 11/30/16 22:39 22:39 22:39 WBC 7.4 RBC 3.17 L Hgb 9.3 L Hct 28.1 L MCV 88.8 MCH 29.2 MCHC Differential 32.9 RDW 14.7 Plt Count 24 L* MPV 11.2 PT 11.2 INR 1.08 PTT (Actin FS) 29.5 Sodium Potassium Chloride Carbon Dioxide Anion Gap BUN Creatinine Est GFR ( Amer) Est GFR (Non-Af Amer) BUN/Creatinine Ratio Glucose Calcium Total Bilirubin AST ALT Alkaline Phosphatase Troponin I Total Protein Albumin Globulin Albumin/Globulin Ratio Triglycerides 164 H Cholesterol 90 LDL Cholesterol Direct 40 L HDL Cholesterol 29 11/30/16 11/30/16 22:39 22:39 WBC RBC Hgb Hct MCV MCH MCHC Differential RDW Plt Count MPV PT INR PTT (Actin FS) Sodium 132 L Potassium 4.9 Chloride 105 Carbon Dioxide 23.2 Anion Gap 8.7 BUN 43 H Creatinine 2.3 H Est GFR ( Amer) TNP Est GFR (Non-Af Amer) TNP BUN/Creatinine Ratio 18.7 Glucose 291 H Calcium 9.3 Total Bilirubin 0.3 AST 15 ALT 7 Alkaline Phosphatase 71 Troponin I 0.01 Total Protein 6.4 Albumin 3.5 L Globulin 2.9 Albumin/Globulin Ratio 1.2 Triglycerides Cholesterol LDL Cholesterol Direct HDL Cholesterol - Radiology Results Results: CHEST X-RAY = CM - EKG Interpretations EKG Time:: 23:11 Rate & Rhythm: RATE=64 SINUS [place]: RIGHT Assessment - Assessment General Assessment: LOW PLATLETS ANEMIA ED Septic Shock - . Is Septic Shock (SBP<90, OR Lactate>4 mmol\L) present?: No - <6hrs of presentation: Vital Signs: Vital Signs - 8 hr 11/30/16 22:10 Temp 98.2 F HR 78 RR 20 BP 148/72 Reassessment (Disposition) - Reassessment Reassessment Condition:: Unchanged - Diagnosis Diagnosis:: LOW PLATELETS ANEMIA - Patient Disposition Discharge/Transfer:: Acute Care w/in this hosp Admitting Medical Physician:: Ashish Gonzalez Condition at Disposition:: Unchanged ED Discharge Plan - Patient Disposition Admit/Discharge/Transfer: Acute Care w/in this hosp Condition at Disposition: Stable
[2016-11-30 22:51] LABS: HEMATOCRIT 28.1 % (35.0-45.0); HEMOGLOBIN 9.3 gm/dL (11.7-16.1); MEAN CELL VOLUME 88.8 fl (81-100); MEAN CORPUSCULAR HEMOGLOBIN 29.2 pg (27.0-31.0); MEAN CORPUSCULAR HGB CONC 32.9 pg (28.0-36.0); MEAN PLATELET VOLUME 11.2 fl; RED BLOOD COUNT 3.17 Mil/cmm (3.80-5.20); RED CELL DISTRIBUTION WIDTH 14.7 % (11.5-20.0); WHITE BLOOD COUNT 7.4 Th/cmm (4.8-10.8)
[2016-11-30 23:04] LABS: PLATELET COUNT 24 Th/cmm (150-400)
[2016-11-30 23:06] LABS: INR 1.08 (0.5-1.4); PROTHROMBIN TIME (TEST) 11.2 SECONDS (9.5-11.5)
[2016-11-30 23:11] LABS: ALB/GLOB RATIO 1.2 (1.0-1.8); ALKALINE PHOSPHATASE 71 U/L (34-104); ANION GAP 8.7 (7.0-16.0); BILIRUBIN,TOTAL 0.3 mg/dL (0.3-1.0); BUN - UREA NITROGEN 43 mg/dL (7-25); BUN/CREATININE RATIO 18.7; CALCIUM SERUM 9.3 mg/dL (8.6-10.3); CARBON DIOXIDE 23.2 mEq/L (21.0-31.0); CHLORIDE 105 mEq/L (98-107); CHOLESTEROL 90 mg/dL (<200); CREATININE - SERUM 2.3 mg/dL (0.6-1.2); GLUCOSE 291 mg/dL (70-105); POTASSIUM SERUM 4.9 mEq/L (3.5-5.1); SGOT 15 U/L (13-39); SGPT/ALT 7 U/L (7-52); SODIUM SERUM 132 mEq/L (136-145); TRIGLYCERIDES 164 mg/dL (<150)
[2016-11-30 23:37] LABS: BAND NEUTROPHILE 2 % (0-10); EOSINOPHIL 1 % (0-5); NEUTROPHILS 70 % (40-80); PLATELET ESTIMATE DECREASED PLATELETS (NORMAL); TOTAL CELLS COUNTED 100
[2016-12-01] MEDS ORDERED: Magnesium Hydroxide (MOM) 30 mL UDC PO PRN (00:54)
[2016-12-01] MEDS ORDERED: GLUCAGON HCl 1 MG KIT IM PRN ×2 (01:30→03:13)
[2016-12-01] MEDS ORDERED: Dextrose 50% 50 mL Abboject IVP PRN (03:13)
[2016-12-01 03:43] VITALS: BP 148/72
[2016-12-01] MEDS: INSULIN ASPART SLIDING SCALE 100 UNITS/ML UNIT SUBQ SCH ×4 (07:03→21:00)
[2016-12-01 07:19] LABS: HEMATOCRIT 25.9 % (35.0-45.0); HEMOGLOBIN 8.6 gm/dL (11.7-16.1); MEAN CELL VOLUME 88.7 fl (81-100); MEAN CORPUSCULAR HEMOGLOBIN 29.5 pg (27.0-31.0); MEAN CORPUSCULAR HGB CONC 33.3 pg (28.0-36.0); MEAN PLATELET VOLUME 9.8 fl; RED BLOOD COUNT 2.92 Mil/cmm (3.80-5.20); RED CELL DISTRIBUTION WIDTH 14.1 % (11.5-20.0); WHITE BLOOD COUNT 6.4 Th/cmm (4.8-10.8)
--- NOTE | 2016-12-01 08:10 | History and Physical ---
History of Present Illness - HPI Chief Complaint: severe thrombocytopenia HPI: 80 year old female who presents to [facility] ER from SNF for severe thrombocytopenia noted at the correction. Patient has a previous history of thrombocytopenia, duodenal ulcer, anemia of chronic disease, history of asthma, CVA, chronic renal failure, colon ca, colostomy, diabetes mellitus, fracture of proximal end of left humerus, hyperlipidemia, hyponatremia, hypertension, thyroid disorder. While in the ER her platelets were noted to be 24K and hemoglobin of 9.3. She was subsequently admitted for further evaluation and treatment. 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: CVA GI: Report: Gastritis, Peptic Ulcer, Other (history of colon ca) Psych: Report: Other (alzheimer's dementia) Musculoskeletal: Report: Other (left humeral fracture currently healing) Renal/: Report: Chronic Renal Insuff Endocrine: Report: Diabetes, Hypothyroidism Dermatology: Report: Rash (intertriginous areas) - Past Surgical History Past Surgical History: Other (s/p colostomy) Family Medical History - Family Member Mother History Unknown: Yes Ethnicity: Non- Living Status: Unknown Hx Family Cancer: Yes Hx Family Coronary Artery Disease: No Hx Family Congestive Heart Failure: No Hx Family Hypertension: Yes Hx Family Stroke: Yes Hx Family Diabetes: Yes Hx Family Seizures: No Hx Family Dementia: No Hx Family AIDS: No Hx Family HIV: No Hx Family COPD: No Hx Family Hepatitis: No Hx Family Psychiatric Problems: No Hx Family Tuberculosis: No Social History Smoke: No Alcohol: None Drugs: None Lives: Alone - Medications Home Medications: Home Medication Medication Instructions Recorded Type Atenolol [Tenormin*] 100 mg PO DAILY 05/10/15 History Glimepiride [Amaryl*] 4 mg PO DAILY 05/10/15 History Insulin Aspart Mix 70/30 [NovoLOG 18 units SUBQ QPM 05/10/15 History MIX 70/30] Insulin Aspart Mix 70/30 [NovoLOG 30 units SUBQ QAM 05/10/15 History MIX 70/30] Levothyroxine [Synthroid] 25 mcg PO DAILY 05/10/15 History Nitroglycerin [Nitroglycerin*] 0.4 mg SL Q5MIN PRN 05/10/15 History amLODIPine Besylate [Norvasc*] 10 mg PO DAILY 05/10/15 History cloNIDine HCl [Catapres] 0.1 mg PO BID 05/10/15 History Acetaminophen [Tylenol] 650 mg PO Q6HR PRN 06/07/15 History Simvastatin [Zocor] 10 mg PO QPM 06/07/15 History Fenofibrate Nanocrystallized 134 mg PO DAILY 06/25/15 History [Tricor] Insulin Aspart Sliding Scale 0 units SUBQ ACHS #0 unit 06/27/15 Rx [NovoLOG INSULIN SLIDING SCALE] Aspirin 81 mg PO DAILY 10/23/16 History Ferrous Sulfate [Feosol*] 325 mg PO DAILY 10/23/16 History Gabapentin 300 mg PO DAILY 10/23/16 History Losartan Potassium [Cozaar] 50 mg PO DAILY 10/23/16 History Magnesium Hydroxide [Milk of 30 ml PO DAILY PRN 10/23/16 History Magnesia] Ranitidine HCl [Zantac] 150 mg PO HS 10/23/16 History Folic Acid [Folate*] 1 mg PO DAILY tab 10/26/16 Rx cloNIDine HCl [Catapres] 0.1 mg PO Q8HR PRN tab 10/26/16 Rx Glucagon,Human Recombinant 1 mg IM DAILY PRN 11/03/16 History [Glucagon Emergency Kit] Megestrol Acetate 10 ml PO BID 11/30/16 History Pantoprazole [Protonix] 40 mg PO DAILY 11/30/16 History - Allergies Allergies/Adverse Reactions: Allergies Allergy/AdvReac Type Severity Reaction Status Date / Time No Known Allergies Allergy Verified 11/30/16 22:10 Review of Systems - Review of Systems Constitutional: Report: Weakness, Malaise Eyes: Report: No Significant ENT: Report: No Significant Respiratory: Report: No Significant Cardiovascular: Report: No Significant Gastrointestinal: Report: No Significant Genitourinary: Report: No Significant Musculoskeletal: Report: No Significant Skin: Report: Other (pale) Neurological: Report: No Significant Physical Exam - Physical Exam HEENT: Report: Ears Nose Throat within normal limits, Pharnyx within normal limits Neck: Report: Within normal limits Cardiovascular Systems: Report: +s1/s2 noted Respiratory: Report: Breath Sounds are within normal limits Abdomen: Report: Non-tender to palpation Back: Report: Inspection of back is within normal limits. Extremities: Report: Non-tender to palpation. Skin: Report: Skin Rash noted (intertriginous areas) Neuro/Psych: Report: Mood affect is within normal limits - Lab Results All Lab Results last 24 hours: Laboratory Last Values WBC 7.4 Th/cmm (4.8-10.8) 11/30/16 22:39 RBC 3.17 Mil/cmm (3.80-5.20) L 11/30/16 22:39 Hgb 9.3 gm/dL (11.7-16.1) L 11/30/16 22:39 Hct 28.1 % (35.0-45.0) L 11/30/16 22:39 MCV 88.8 fl (81-100) 11/30/16 22:39 MCH 29.2 pg (27.0-31.0) 11/30/16 22:39 MCHC Differential 32.9 pg (28.0-36.0) 11/30/16 22:39 RDW 14.7 % (11.5-20.0) 11/30/16 22:39 Plt Count 24 Th/cmm (150-400) L* 11/30/16 22:39 MPV 11.2 fl 11/30/16 22:39 Band Neutrophils % 2 % (0-10) 11/30/16 22:39 Neutrophils (Manual) 70 % (40-80) 11/30/16 22:39 Lymphocytes 26 % (20-50) 11/30/16 22:39 Monocytes 1 % (2-10) L 11/30/16 22:39 Eosinophils 1 % (0-5) 11/30/16 22:39 Platelet Estimate DECREASED PLATELETS (NORMAL) 11/30/16 22:39 Platelet Morphology (NORMAL) 11/30/16 22:39 PT 11.2 SECONDS (9.5-11.5) 11/30/16 22:39 INR 1.08 (0.5-1.4) 11/30/16 22:39 PTT (Actin FS) 29.5 SECONDS (26.0-38.0) 11/30/16 22:39 Sodium 132 mEq/L (136-145) L 11/30/16 22:39 Potassium 4.9 mEq/L (3.5-5.1) 11/30/16 22:39 Chloride 105 mEq/L (98-107) 11/30/16 22:39 Carbon Dioxide 23.2 mEq/L (21.0-31.0) 11/30/16 22:39 Anion Gap 8.7 (7.0-16.0) 11/30/16 22:39 BUN 43 mg/dL (7-25) H 11/30/16 22:39 Creatinine 2.3 mg/dL (0.6-1.2) H 11/30/16 22:39 Est GFR ( Amer) TNP 11/30/16 22:39 Est GFR (Non-Af Amer) TNP 11/30/16 22:39 BUN/Creatinine Ratio 18.7 11/30/16 22:39 Glucose 291 mg/dL (70-105) H 11/30/16 22:39 POC Glucose 228 MG/DL (70 - 105) H 12/01/16 05:42 Hemoglobin A1c % 5.5 % (4.0-6.0) 11/30/16 22:39 Calcium 9.3 mg/dL (8.6-10.3) 11/30/16 22:39 Total Bilirubin 0.3 mg/dL (0.3-1.0) 11/30/16 22:39 AST 15 U/L (13-39) 11/30/16 22:39 ALT 7 U/L (7-52) 11/30/16 22:39 Alkaline Phosphatase 71 U/L (34-104) 11/30/16 22:39 Troponin I 0.01 ng/mL (0.01-0.05) 11/30/16 22:39 Total Protein 6.4 gm/dL (6.0-8.3) 11/30/16 22:39 Albumin 3.5 gm/dL (3.7-5.3) L 11/30/16 22:39 Globulin 2.9 gm/dL 11/30/16 22:39 Albumin/Globulin Ratio 1.2 (1.0-1.8) 11/30/16 22:39 Triglycerides 164 mg/dL (<150) H 11/30/16 22:39 Cholesterol 90 mg/dL (<200) 11/30/16 22:39 LDL Cholesterol Direct 40 mg/dL (75-193) L 11/30/16 22:39 HDL Cholesterol 29 mg/dL (23-92) 11/30/16 22:39 TSH 0.41 uIU/ml (0.34-5.60) 11/30/16 22:39 Laboratory Results - last 24 hr 12/01/16 05:42 POC Glucose 228 H - Assessment Assessment: severe thrombocytopenia anemia acute on chronic renal failure colon ca CVA alzheimer's dementia asthma cardiomegaly diabetes mellitus duodenal ulcer fracture of left humerus hyperlipidemia thyroid disorder. - Plan Plan: severe thrombocytopenia -- will order hem/onc consult anemia ... repeat CBC, order stool occult acute on chronic renal failure will repeat CMP, consult renal colon ca ... consult GI CVA ... stable alzheimer's dementia asthma cardiomegaly diabetes mellitus duodenal ulcer ... on protonix IV fracture of left humerus ... will order xray of left shoulder hyperlipidemia ... continue statin thyroid disorder. ... will order TSH level
--- NOTE | 2016-12-01 08:26 | Diagnostic Imaging Report ---
CHEST X-RAY: AP view INDICATION: Shortness of breath COMPARISON: 11/05/2016 FINDINGS: The patient is rotated. Cardiomegaly is noted. Left basal density is noted. Chronic lung changes are noted with increased left lung linear markings likely due to subsegmental atelectasis versus scarring. Atherosclerotic vascular disease noted. Degenerative changes of the spine are noted. Chronic appearing left proximal humeral fracture is noted. IMPRESSION: Left basal density probably due to superimposition of soft tissue structures including the heart. Otherwise no focal consolidation identified Left lung subsegmental atelectasis versus scarring Cardiomegaly and atherosclerotic vascular disease. Left proximal humeral fracture which appears chronic.
[2016-12-01] MEDS ORDERED: Nystatin Cream 100,000 u/gm Cream 15 gm TP PRN (08:29)
[2016-12-01] MEDS: Fenofibrate, Micronized 134 mg Cap PO SCH (08:52)
[2016-12-01] MEDS: Ferrous Sulfate 325 MG TAB PO SCH (08:52)
[2016-12-01] MEDS ORDERED: Pantoprazole 40 mg EC Tab PO SCH (09:00)
[2016-12-01] MEDS ORDERED: Aspirin 81mg Chewable Tab PO SCH (09:00)
[2016-12-01] MEDS: INSULIN 70/30 100 UNITS/ML SUBQ SCH ×2 (09:00→16:33)
[2016-12-01] MEDS: Levothyroxine 0.025 Mg Tab PO SCH (09:08)
--- NOTE | 2016-12-01 09:31 | Diagnostic Imaging Report ---
Left humerus (2 views) HISTORY: Fracture Compared with a prior exam of 2016, there has developed increasing displacement and impaction of a fracture across the left humeral neck. IMPRESSION: 1. Increasing displacement and impaction associated with a left humeral neck fracture since the exam of October 08, 2016.
[2016-12-01 10:40] LABS: PLATELET COUNT 16 Th/cmm (150-400)
[2016-12-01 10:45] LABS: HEMATOCRIT 28.1 % (37.0-47.0); RBC RETICULOCYTE COUNT 3.17 Mil/cmm; RETICULOCYTES % COUNTED 2.3 % (0.5-1.5)
[2016-12-01 11:15] LABS: BAND NEUTROPHILE 1 % (0-10); EOSINOPHIL 2 % (0-5); NEUTROPHILS 59 % (40-80); TOTAL CELLS COUNTED 100
[2016-12-01 11:16] LABS: PLATELET ESTIMATE DECREASED PLATELETS (NORMAL); PLATELET MORPHOLOGY NORMAL (NORMAL)
[2016-12-01] MEDS ORDERED: VTE Chemical Prophylaxis Screen/Admission MC PRN (14:42)
[2016-12-01 16:23] LABS: URINE BILIRUBIN NEGATIVE (NEGATIVE); URINE BLOOD TRACE (NEGATIVE); URINE GLUCOSE (UA) NEGATIVE (NEGATIVE); URINE KETONE NEGATIVE (NEGATIVE); URINE PH 6.5 (4.6 - 8.0); URINE PROTEIN >=300 mg/dL (NEGATIVE); URINE UROBILINOGEN 0.2 E.U./dL (0.2 - 1.0)
[2016-12-01 16:58] LABS: URINE COLOR YELLOW
--- NOTE | 2016-12-01 16:58 | History & Physical ---
ADMIT DATE: 12/01/2016 REFERRED BY: Dr. Gonzalez. HISTORY OF PRESENT ILLNESS: The patient is a 80-year-old female who is well known to me. She had history of chronic thrombocytopenia and anemia. She also had history of colon cancer in the past and refused colonoscopy. She was admitted and found to have worsening thrombocytopenia; therefore, I was asked to evaluate. The patient was seen by the GI and the Pepcid and Protonix were discontinued because of the low platelets. During the previous hospitalization, she was evaluated for anemia and iron studies showing iron deficiency and she was given IV iron supplementation. Her last anemia workup was from October of this year and last B12 and folate level was from May last year. Ultrasound of the abdomen showed normal size of the spleen in October 2016. PAST MEDICAL HISTORY: Colon cancer, chronic kidney disease, diabetes and chronic anemia. MEDICATIONS: Reviewed. PHYSICAL EXAMINATION: GENERAL: Awake. VITAL SIGNS: Stable. HEENT: Pale complexion. NECK: No lymphadenopathy. CHEST: Clear. ABDOMEN: Soft. Colostomy in place. No masses. EXTREMITIES: No edema. NERVOUS SYSTEM: No focal deficits. LABORATORY DATA: Liver function is normal. Creatinine 2.3. PT, PTT normal. Platelets 16 with normal MCV, hemoglobin 8.6 and the mean platelet volume is normal. ASSESSMENT: 1. Progressive thrombocytopenia dating to previous years, likely related to myelodysplastic syndrome and less likely drug induced. The patient will need bone marrow biopsy for confirmation of myelodysplastic syndrome. I will repeat folic acid and B12 level in this patient with history of laparoscopic colectomy and potential B12 deficiency. 2. Anemia of chronic kidney disease, status post iron deficiency and IV iron treatment. I will repeat iron studies. The patient is not bleeding and no need for platelet transfusion. I will monitor along with you. Thank you Dr. Gonzalez for the opportunity to participate in the care of this interesting case with you. [facility]# [id number]
[2016-12-01 17:10] LABS: URINE BACTERIA MANY /hpf (NONE SEEN); URINE EPITHELIAL CELLS FEW /lpf (FEW); URINE WBC 25-50 /hpf (0-5)
[2016-12-01] MEDS: methylPREDNISolone SS 40 mg Vial IVP SCH (18:18)
--- NOTE | 2016-12-01 22:53 | Consultation ---
DATE OF CONSULTATION: 12/01/2016 REASON FOR CONSULTATION: Anemia and thrombocytopenia. HISTORY OF PRESENT ILLNESS: This is a 80-year-old female with history of colon cancer, status post resection and colostomy approximately 5 years ago, old stroke, CKD, asthma, diabetes mellitus, humeral fracture, hyperlipidemia, hypertension, and hypothyroidism. She was admitted for worsening anemia and thrombocytopenia. There is no overt GI bleeding. The patient denies abdominal pain, nausea, or vomiting. She had an upper endoscopy done on 10/23/2016 which showed mild esophagitis and duodenal ulcers. Also, small hiatal hernia was identified. It is unclear when her last colonoscopy was. PAST MEDICAL HISTORY: As above. Also notable for IVC filter placement. MEDICATIONS: Here are Norvasc, baby aspirin, Tenormin, Pepcid, Tricor, iron, folic acid, Neurontin, glimepiride, insulin sliding scale, insulin 70/30, Synthroid, Cozaar, milk of magnesia p.r.n., Megace, nitroglycerin p.r.n., Protonix daily, and Zocor. ALLERGIES: None. SOCIAL HISTORY: No recent tobacco, alcohol, or drugs. FAMILY HISTORY: Noncontributory. REVIEW OF SYSTEMS: A comprehensive 12-point review of systems was conducted and is only positive for those signs and symptoms present in history of present illness. PHYSICAL EXAMINATION: VITAL SIGNS: Temperature of 97.7, blood pressure is 114/51, pulse of 50, respirations 19, and O2 sats 97%. GENERAL: The patient is well-developed, well-nourished female in no acute distress. HEENT: Sclerae are pale. Oropharynx is clear. CARDIOVASCULAR: Regular rate and rhythm. LUNGS: With occasional rhonchi at the base. ABDOMEN: Soft, nontender, and nondistended. Intact left lower quadrant colostomy. EXTREMITIES: No clubbing, cyanosis, or edema. RECTAL: Deferred. LABORATORY DATA AND IMAGING: WBC 6.4, hemoglobin most recently of 8.6, platelet count is 16,000 only. Coagulation profile is normal. Creatinine is 2.3. Liver enzymes normal. Albumin 3.5. Cholesterol 90. IMPRESSION: 1. Anemia, multifactorial; could be from anemia of chronic disease or chronic kidney disease, less likely gastrointestinal blood loss. Recent upper endoscopy showed duodenal ulcers; unclear when her last colonoscopy was. 2. History of colon cancer, status post resection and colostomy. 3. History of old strokes, chronic kidney disease, asthma, diabetes mellitus, hypertension, hyperlipidemia, and hypothyroidism. 4. History of humeral fracture. RECOMMENDATIONS: 1. Check stool OB. If this is positive, then consider colonoscopy via stoma. 2. Further anemia and thrombocytopenia workup as per Hematology. 3. We will stop Pepcid and Protonix given thrombocytopenia and start Carafate. 4. Iron. 5. Megace. Thank you, Dr. Pranav Gonzalez, for involving us in the care of your patient. If you have any further questions, please call us. JOB# [id number] [place]
--- NOTE | 2016-12-01 23:30 | Consultation ---
DATE OF CONSULTATION: 12/01/2016 ATTENDING PHYSICIAN: Pranav Gonzalez M.D. CASH SALES AUDIT CLERK: Domenic Carrasco M.D. REASON FOR CONSULTATION: Chronic kidney disease, electrolyte imbalance, and fluid management. HISTORY OF PRESENT ILLNESS: This is a 80-year-old [place] with past medical history of chronic kidney disease, who was brought in because of progressive drop in platelet count. One day prior to admission, the patient had labs drawn, which revealed platelets of 21,000, hemoglobin/hematocrit of 9/29. Her platelet in the Emergency Room was 24,000, with the hemoglobin/hematocrit of 9.3/28.1. She has a history of chronic kidney disease. Her creatinine at the assisted were 35/2.26. Her BUN/creatinine here were 43/2.3. Baseline creatinine usually ranges between 2.2 to 2.3 on previous admissions. She did not have any active bleeding, hematemesis, hematochezia, or melena. She had no nausea or vomiting and no diarrhea. PAST MEDICAL HISTORY: 1. Chronic kidney disease. 2. Essential hypertension. 3. Dyslipidemia. 4. Colon cancer. 5. Type 2 diabetes mellitus. 6. Hypothyroidism. 7. Peptic ulcer disease. 8. Bronchial asthma. 9. Chronic thrombocythemia 10. Anemia of chronic kidney disease. 11. Vitiligo. 12. Fracture of proximal end of left humerus. PAST SURGICAL HISTORY: Status post colectomy with creation of left colostomy bag. CURRENT MEDICATIONS: Currently on acetaminophen, amlodipine, aspirin. atenolol, ceftriaxone, clonidine, famotidine, fenofibrate, ferrous sulfate, folic acid, gabapentin, glimepiride, insulin 70/30, aspart, levothyroxine, losartan, magnesium hydroxide, megestrol acetate, nystatin, pantoprazole, simvastatin, and sucralfate. ALLERGIES: No known drug allergies. SOCIAL AND FAMILY HISTORY: I was not able to obtain directly from the patient because she remains nonverbal at the moment. REVIEW OF SYSTEMS: Again, I was not able to decipher directly from the patient due to her current mental status. PHYSICAL EXAMINATION: GENERAL: The patient is sleeping, but arousable, not in any distress. VITAL SIGNS: Her blood pressure is 119/49, pulse 55, and temperature 97.4 degrees. SKIN: Good turgor, warm, no rash, no jaundice appreciated. Presence of vitiligo. HEENT: Head is normocephalic and atraumatic. Eyes: Extraocular muscles intact. Pupils are equal, round, and reactive to light and accommodates. Anicteric sclerae. Pale conjunctivae. Nose, midline nasal septum. Mouth, moist mucosa with poor dentition. NECK: Supple. No adenopathy, no thyromegaly, and no bruits. Trachea palpated in the midline. CHEST AND CVS: S1 and S2. No rub, murmur, or gallop appreciated. Point of maximal impulse fifth intercostal space, left midclavicular line. No abdominal or femoral bruits appreciated. LUNGS: Equal expansion. No use of accessory muscles. No supraclavicular retractions. Decreased breath sounds, but clear to auscultation without any wheeze. BREASTS: Symmetrical, without any discharge. GASTROINTESTINAL: Flat, soft. Positive for bowel sounds. No bruits either diastolic or systolic. Presence of left colostomy bag. RECTAL: Lax sphincter tone. GENITOURINARY: Normal appearing female genitalia. MUSCULOSKELETAL: No effusions present in her joints, but unable to assess her range of motion. EXTREMITIES: No evidence of edema, cyanosis, or clubbing with palpable femoral, but unable to fully appreciate popliteal and dorsalis pedis pulses. NEUROLOGIC: The patient is awake; however, she is not able to follow my neuro commands, so I was not able to pursue further my neuro exam. LABORATORY DATA: Did reveal sodium of 132, potassium 4.9, chloride 105, bicarbonate 23, BUN 43, creatinine 2.3, glucose 291, calcium 9.3, and albumin 3.1. White count 6.4, hemoglobin 8.6, hematocrit 25.9, and platelets 16,000. IMPRESSION: 1. Chronic kidney disease. GFR of 21 mL per minute, stage 4. 2. Colon cancer, status post colectomy with colostomy. 3. Chronic thrombocytopenia. 4. Anemia of chronic kidney disease. 5. Vitiligo. 6. Essential hypertension. 7. Dyslipidemia. 8. Type 2 diabetes mellitus with chronic kidney disease. 9. Hypothyroidism. 10. Peptic ulcer disease. 11. Bronchial asthma. 12. Fracture of proximal end of humerus PLAN: 1. Urinalysis. 2. Urine spot sodium. 3. Urine eosinophils and creatinine. 4. Urine microalbumin to creatinine ratio. 5. Follow up electrolytes. Thank you Dr. Gonzalez for this consult and we will follow the patient closely with you. [facility]# [id number]
[2016-12-02] MEDS: methylPREDNISolone SS 40 mg Vial IVP SCH (03:01)
[2016-12-02 06:12] LABS: IRON SATURATION 12 % (15-55); TIBC (LCI) 339 ug/dL (250-450); UIBC 298 ug/dL (118-369)
[2016-12-02 07:32] LABS: HEMOGLOBIN 9.9 gm/dL (11.7-16.1); MEAN CELL VOLUME 88.2 fl (81-100); MEAN CORPUSCULAR HEMOGLOBIN 29.8 pg (27.0-31.0); MEAN CORPUSCULAR HGB CONC 33.7 pg (28.0-36.0); MEAN PLATELET VOLUME 11.4 fl; RED BLOOD COUNT 3.34 Mil/cmm (3.80-5.20); RED CELL DISTRIBUTION WIDTH 14.2 % (11.5-20.0); WHITE BLOOD COUNT 7.6 Th/cmm (4.8-10.8)
[2016-12-02 07:41] LABS: ANION GAP 15.3 (7.0-16.0); BUN - UREA NITROGEN 50 mg/dL (7-25); BUN/CREATININE RATIO 20.8; CALCIUM SERUM 8.9 mg/dL (8.6-10.3); CARBON DIOXIDE 17.7 mEq/L (21.0-31.0); CHLORIDE 109 mEq/L (98-107); CREATININE - SERUM 2.4 mg/dL (0.6-1.2); GLUCOSE 233 mg/dL (70-105); SODIUM SERUM 137 mEq/L (136-145); URIC ACID 5.6 mg/dL (2.3-6.6)
[2016-12-02] MEDS: INSULIN ASPART SLIDING SCALE 100 UNITS/ML UNIT SUBQ SCH ×4 (08:04→22:03)
[2016-12-02 08:08] LABS: HEMATOCRIT 29.4 % (35.0-45.0); PLATELET COUNT 33 Th/cmm (150-400)
--- NOTE | 2016-12-02 08:08 | General Progress Note ---
Subjective - Review of Systems Service Date: 12/02/16 Subjective: Awake,Alert,Afebrile. Denies abdominal pain, no nausea or vomiting. Objective - Results Result Diagrams: 12/02/16 06:00 12/02/16 06:00 Recent Labs: Laboratory Last Values WBC 6.4 Th/cmm (4.8-10.8) 12/01/16 06:22 RBC 2.92 Mil/cmm (3.80-5.20) L 12/01/16 06:22 Hgb 8.6 gm/dL (11.7-16.1) L 12/01/16 06:22 Hct 25.9 % (35.0-45.0) L 12/01/16 06:22 MCV 88.7 fl (81-100) 12/01/16 06:22 MCH 29.5 pg (27.0-31.0) 12/01/16 06:22 MCHC Differential 33.3 pg (28.0-36.0) 12/01/16 06:22 RDW 14.1 % (11.5-20.0) 12/01/16 06:22 Plt Count 16 Th/cmm (150-400) L* 12/01/16 06:22 MPV 9.8 fl 12/01/16 06:22 Band Neutrophils % 1 % (0-10) 12/01/16 06:22 Neutrophils (Manual) 59 % (40-80) 12/01/16 06:22 Lymphocytes 33 % (20-50) 12/01/16 06:22 Monocytes 4 % (2-10) 12/01/16 06:22 Eosinophils 2 % (0-5) 12/01/16 06:22 Atypical Lymphocytes 1 % 12/01/16 06:22 Platelet Estimate DECREASED PLATELETS (NORMAL) 12/01/16 06:22 Platelet Morphology NORMAL (NORMAL) 12/01/16 06:22 RBC Morph Micro Appear NORMAL (NORMAL) 12/01/16 06:22 Total Retics Counted 2.3 % (0.5-1.5) H 11/30/16 22:39 Absolute Retic 72.9 Th/cmm 11/30/16 22:39 Corrected Retic Count 1.4 % (0.5-1.5) 11/30/16 22:39 Eos Smear Source URINE 12/01/16 15:30 Eos Smear Total Cells NONE SEEN (NONE SEEN) 12/01/16 15:30 PT 11.2 SECONDS (9.5-11.5) 11/30/16 22:39 INR 1.08 (0.5-1.4) 11/30/16 22:39 PTT (Actin FS) 29.5 SECONDS (26.0-38.0) 11/30/16 22:39 Sodium 137 mEq/L (136-145) 12/02/16 06:00 Potassium 5.0 mEq/L (3.5-5.1) 12/02/16 06:00 Chloride 109 mEq/L (98-107) H 12/02/16 06:00 Carbon Dioxide 17.7 mEq/L (21.0-31.0) L 12/02/16 06:00 Anion Gap 15.3 (7.0-16.0) 12/02/16 06:00 BUN 50 mg/dL (7-25) H 12/02/16 06:00 Creatinine 2.4 mg/dL (0.6-1.2) H 12/02/16 06:00 Est GFR ( Amer) TNP 12/02/16 06:00 Est GFR (Non-Af Amer) TNP 12/02/16 06:00 BUN/Creatinine Ratio 20.8 12/02/16 06:00 Glucose 233 mg/dL (70-105) H 12/02/16 06:00 POC Glucose 223 MG/DL (70 - 105) H 12/02/16 05:52 Hemoglobin A1c % 5.5 % (4.0-6.0) 11/30/16 22:39 Uric Acid 5.6 mg/dL (2.3-6.6) 12/02/16 06:00 Calcium 8.9 mg/dL (8.6-10.3) 12/02/16 06:00 Phosphorus 2.0 mg/dL (2.5-5.0) L 12/02/16 06:00 Magnesium 2.0 mg/dL (1.9-2.7) 12/02/16 06:00 Iron 41 ug/dL (27-139) 11/30/16 22:39 TIBC 339 ug/dL (250-450) 11/30/16 22:39 Iron Saturation 12 % (15-55) L 11/30/16 22:39 Unsaturated IBC 298 ug/dL (118-369) 11/30/16 22:39 Total Bilirubin 0.3 mg/dL (0.3-1.0) 11/30/16 22:39 AST 15 U/L (13-39) 11/30/16 22:39 ALT 7 U/L (7-52) 11/30/16 22:39 Alkaline Phosphatase 71 U/L (34-104) 11/30/16 22:39 Troponin I 0.01 ng/mL (0.01-0.05) 11/30/16 22:39 Total Protein 6.4 gm/dL (6.0-8.3) 11/30/16 22:39 Albumin 3.5 gm/dL (3.7-5.3) L 11/30/16 22:39 Globulin 2.9 gm/dL 11/30/16 22:39 Albumin/Globulin Ratio 1.2 (1.0-1.8) 11/30/16 22:39 Triglycerides 164 mg/dL (<150) H 11/30/16 22:39 Cholesterol 90 mg/dL (<200) 11/30/16 22:39 LDL Cholesterol Direct 40 mg/dL (75-193) L 11/30/16 22:39 HDL Cholesterol 29 mg/dL (23-92) 11/30/16 22:39 TSH 0.41 uIU/ml (0.34-5.60) 11/30/16 22:39 Urine Source CLEAN C 12/01/16 15:30 Urine Color YELLOW 12/01/16 15:30 Urine Clarity CLOUDY (CLEAR) H 12/01/16 15:30 Urine pH 6.5 (4.6 - 8.0) 12/01/16 15:30 Ur Specific [place] 1.020 (1.005-1.030) 12/01/16 15:30 Urine Protein >=300 mg/dL (NEGATIVE) 12/01/16 15:30 Urine Glucose (UA) NEGATIVE mg/dL (NEGATIVE) 12/01/16 15:30 Urine Ketones NEGATIVE mg/dL (NEGATIVE) 12/01/16 15:30 Urine Blood TRACE (NEGATIVE) 12/01/16 15:30 Urine Nitrate NEGATIVE (NEGATIVE) 12/01/16 15:30 Urine Bilirubin NEGATIVE (NEGATIVE) 12/01/16 15:30 Urine Urobilinogen 0.2 E.U./dL (0.2 - 1.0) 12/01/16 15:30 Ur Leukocyte Esterase MODERATE (NEGATIVE) H 12/01/16 15:30 Urine RBC 2-5 /hpf (0-5) 12/01/16 15:30 Urine WBC 25-50 /hpf (0-5) H 12/01/16 15:30 Ur Epithelial Cells FEW /lpf (FEW) 12/01/16 15:30 Urine Bacteria MANY /hpf (NONE SEEN) 12/01/16 15:30 Ur Random Sodium 94 mmol/L 12/01/16 15:30 Urine Creatinine 53.0 mg/dl (28.0-217.0) 12/01/16 15:30 Stool Occult Blood NEGATIVE (NEGATIVE) 12/01/16 15:50 - Physical Exam Vitals and I&O: Vital Signs Temp 97.6 F 12/02/16 07:43 Pulse 75 12/02/16 07:43 Resp 17 12/02/16 07:43 BP 161/74 12/02/16 07:43 Pulse Ox 96 12/02/16 07:43 Intake & Output 12/01/16 12/02/16 12/02/16 18:59 06:59 18:59 Intake Total 400 Output Total 1 Balance 399 Weight (lbs) 55.338 kg Intake: Oral 400 Output: Stool 1 Other: # Voids 3 Active Medications: Current Medications Acetaminophen (Tylenol) 650 mg PO Q6HR PRN PRN Reason: Pain or Fever >101 Stop: 01/30/17 00:53 Amlodipine Besylate (Norvasc) 10 mg PO DAILY [facility] Stop: 01/30/17 08:59 Last Admin: 12/01/16 08:52 Dose: 10 mg Atenolol (Tenormin) 100 mg PO DAILY [facility] Stop: 01/30/17 08:59 Last Admin: 12/01/16 08:53 Dose: 100 mg Dextrose (Glutose 40%) 18.75 gm PO PRN PRN PRN Reason: Blood Glucose less than 70 Stop: 01/30/17 03:12 Dextrose (D50w) 50 ml IVP PRN PRN PRN Reason: Blood Glucose less than 70 Stop: 01/30/17 03:12 Fenofibrate (Tricor) 134 mg PO DAILY [facility] Stop: 01/30/17 08:59 Last Admin: 12/01/16 08:52 Dose: 134 mg Ferrous Sulfate (Iron) 325 mg PO DAILY [facility] Stop: 01/30/17 08:59 Last Admin: 12/01/16 08:52 Dose: 325 mg Folic Acid (Folate) 1 mg PO DAILY [facility] Stop: 01/30/17 08:59 Last Admin: 12/01/16 08:53 Dose: 1 mg Gabapentin (Neurontin) 300 mg PO DAILY [facility] Stop: 01/30/17 08:59 Last Admin: 12/01/16 08:52 Dose: 300 mg Glimepiride (Amaryl) 4 mg PO DAILY [facility] Stop: 01/30/17 08:59 Last Admin: 12/01/16 08:52 Dose: 4 mg Glucagon (Glucagen) 1 mg IM PRN PRN PRN Reason: Blood Glucose less than 70 Stop: 01/30/17 03:12 Ceftriaxone Sodium 1 gm/ (Dextrose) 50 mls @ 100 mls/hr IV Q24H [facility] Stop: 01/31/17 08:59 Insulin Aspart (Novolog Insulin Sliding Scale) 0 units SUBQ ACHS [facility] PRN Reason: Protocol Stop: 01/30/17 07:29 Last Admin: 12/01/16 21:00 Dose: Not Given Insulin Human Isoph/Insulin Regular (Novolin 70/30) 18 units SUBQ QPM [facility] Stop: 01/30/17 16:59 Last Admin: 12/01/16 16:33 Dose: Not Given Insulin Human Isoph/Insulin Regular (Novolin 70/30) 30 units SUBQ QAM [facility] Stop: 01/30/17 08:59 Last Admin: 12/01/16 09:00 Dose: 30 units Levothyroxine Sodium (Synthroid) 0.025 mg PO DAILY [facility] Stop: 01/30/17 08:59 Last Admin: 12/01/16 09:08 Dose: 0.025 mg Losartan Potassium (Cozaar) 50 mg PO DAILY [facility] Stop: 01/30/17 08:59 Last Admin: 12/01/16 09:08 Dose: 50 mg Magnesium Hydroxide (Milk Of Magnesia) 30 ml PO DAILY PRN PRN Reason: Constipation Stop: 01/30/17 00:53 Megestrol Acetate (Megace) 400 mg PO BID [facility] Stop: 01/30/17 08:59 Last Admin: 12/01/16 16:34 Dose: 400 mg Methylprednisolone Sodium Succinate (Solu-Medrol) 60 mg IVP Q8H [facility] Stop: 01/31/17 10:59 Miscellaneous (Vte Chemical Prophylaxis Screen/ Admission) 1 ea [facility] PRN PRN PRN Reason: PROTOCOL Stop: 01/30/17 14:41 Nitroglycerin (Nitrostat) 0.4 mg SL Q5MIN PRN PRN Reason: Chest Pain Stop: 01/30/17 00:53 Nystatin (Mycostatin Cream) 1 appl TP DAILY PRN PRN Reason: Rash Stop: 01/30/17 08:28 Simvastatin (Zocor) 10 mg PO QPM [facility] PRN Reason: Protocol Stop: 01/30/17 16:59 Last Admin: 12/01/16 16:35 Dose: 10 mg Sucralfate (Carafate) 1 gm PO BID [facility] Stop: 01/30/17 16:59 Last Admin: 12/01/16 16:35 Dose: 1 gm General: Alert, Oriented x3, No acute distress HEENT: Atraumatic, PERRLA, EOMI Neck: Supple Cardiovascular: Regular rate, Normal S1, Normal S2 Lungs: Clear to auscultation Abdomen: Bowel sounds, Soft, Other (colostomy noted) Extremities: no Clubbing, no Cyanosis, no Edema Skin: Other (pale) - Procedures Procedures: Procedures Procedure Code Date BLOOD TRANSFUSION SERVICE 48598 10/23/16 EGD BIOPSY SINGLE/MULTIPLE 03257 11/03/16 EXCISION OF DUODENUM, ENDO, DIAGN [id number] 11/03/16 EXCISION OF ESOPHAGUS, ENDO, DIAGN [id number] 11/03/16 EXCISION OF STOMACH, ENDO, DIAGN [id number] 11/03/16 TRANSFUSE NONAUT PLATELETS IN PERIPH VEIN, [facility] [id number] 06/25/15 TRANSFUSE NONAUT RED BLOOD CELLS IN PERIPH VEIN, [facility] [id number] 10/23/16 Assessment/Plan - Problem List Patient Problems: All Active Problems Abdominal hernia (Acute) Abdominal pain (Acute) R10.9 Alzheimer's dementia (Acute) G30.9 Anemia of chronic renal failure (Acute) N18.9, D63.1 Asthma (Acute) J45.909 CVA, old, 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 Cardiomegaly (Acute) I51.7 Chronic renal failure (Acute) Colon cancer (Acute) Diabetes mellitus (Acute) E11.9 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 - Plan Plan: severe thrombocytopenia -- 25K --> 12K appreciated hem/onc note. for possible bone marrow biopsy. Repeat CBC for tomorrow. anemia ... slight drop of hemoglobin, dilutional. will repeat cbc acute on chronic renal failure will repeat .... appreciate nephrology note. will continue to monitor renal function colon ca ... stable s/p colectomy duodenal ulcers ... on carafate. PPI Dc'ed CVA ... stable alzheimer's dementia asthma cardiomegaly diabetes mellitus fracture of left humerus ... will order xray of left shoulder hyperlipidemia ... continue statin thyroid disorder. ... stable. UTI ... started rocephin 1gm IV
[2016-12-02] MEDS: Fenofibrate, Micronized 134 mg Cap PO SCH (09:14)
[2016-12-02] MEDS: Ferrous Sulfate 325 MG TAB PO SCH (09:15)
[2016-12-02] MEDS: Levothyroxine 0.025 Mg Tab PO SCH (09:15)
[2016-12-02] MEDS: INSULIN 70/30 100 UNITS/ML SUBQ SCH ×2 (09:29→17:49)
[2016-12-02 09:43] LABS: BAND NEUTROPHILE 5 % (0-10); NEUTROPHILS 83 % (40-80); PLATELET ESTIMATE DECREASED PLATELETS (NORMAL); PLATELET MORPHOLOGY NORMAL (NORMAL); TOTAL CELLS COUNTED 100
--- NOTE | 2016-12-02 14:40 | General Progress Note ---
Subjective - Review of Systems Service Date: 12/02/16 Subjective: awake, verbal, comfortable Objective - Results Result Diagrams: 12/02/16 06:00 12/02/16 06:00 Recent Labs: Laboratory Last Values WBC 7.6 Th/cmm (4.8-10.8) 12/02/16 06:00 RBC 3.34 Mil/cmm (3.80-5.20) L 12/02/16 06:00 Hgb 9.9 gm/dL (11.7-16.1) L 12/02/16 06:00 Hct 29.4 % (35.0-45.0) L D 12/02/16 06:00 MCV 88.2 fl (81-100) 12/02/16 06:00 MCH 29.8 pg (27.0-31.0) 12/02/16 06:00 MCHC Differential 33.7 pg (28.0-36.0) 12/02/16 06:00 RDW 14.2 % (11.5-20.0) 12/02/16 06:00 Plt Count 33 Th/cmm (150-400) L D 12/02/16 06:00 MPV 11.4 fl 12/02/16 06:00 Band Neutrophils % 5 % (0-10) 12/02/16 06:00 Neutrophils (Manual) 83 % (40-80) H 12/02/16 06:00 Lymphocytes 10 % (20-50) L 12/02/16 06:00 Monocytes 2 % (2-10) 12/02/16 06:00 Eosinophils 2 % (0-5) 12/01/16 06:22 Atypical Lymphocytes 1 % 12/01/16 06:22 Platelet Estimate DECREASED PLATELETS (NORMAL) 12/02/16 06:00 Platelet Morphology NORMAL (NORMAL) 12/02/16 06:00 RBC Morph Micro Appear NORMAL (NORMAL) 12/02/16 06:00 Total Retics Counted 2.3 % (0.5-1.5) H 11/30/16 22:39 Absolute Retic 72.9 Th/cmm 11/30/16 22:39 Corrected Retic Count 1.4 % (0.5-1.5) 11/30/16 22:39 Eos Smear Source URINE 12/01/16 15:30 Eos Smear Total Cells NONE SEEN (NONE SEEN) 12/01/16 15:30 PT 11.2 SECONDS (9.5-11.5) 11/30/16 22:39 INR 1.08 (0.5-1.4) 11/30/16 22:39 PTT (Actin FS) 29.5 SECONDS (26.0-38.0) 11/30/16 22:39 Sodium 137 mEq/L (136-145) 12/02/16 06:00 Potassium 5.0 mEq/L (3.5-5.1) 12/02/16 06:00 Chloride 109 mEq/L (98-107) H 12/02/16 06:00 Carbon Dioxide 17.7 mEq/L (21.0-31.0) L 12/02/16 06:00 Anion Gap 15.3 (7.0-16.0) 12/02/16 06:00 BUN 50 mg/dL (7-25) H 12/02/16 06:00 Creatinine 2.4 mg/dL (0.6-1.2) H 12/02/16 06:00 Est GFR ( Amer) TNP 12/02/16 06:00 Est GFR (Non-Af Amer) TNP 12/02/16 06:00 BUN/Creatinine Ratio 20.8 12/02/16 06:00 Glucose 233 mg/dL (70-105) H 12/02/16 06:00 POC Glucose 314 MG/DL (70 - 105) H 12/02/16 11:33 Hemoglobin A1c % 5.5 % (4.0-6.0) 11/30/16 22:39 Uric Acid 5.6 mg/dL (2.3-6.6) 12/02/16 06:00 Calcium 8.9 mg/dL (8.6-10.3) 12/02/16 06:00 Phosphorus 2.0 mg/dL (2.5-5.0) L 12/02/16 06:00 Magnesium 2.0 mg/dL (1.9-2.7) 12/02/16 06:00 Iron 41 ug/dL (27-139) 11/30/16 22:39 TIBC 339 ug/dL (250-450) 11/30/16 22:39 Iron Saturation 12 % (15-55) L 11/30/16 22:39 Unsaturated IBC 298 ug/dL (118-369) 11/30/16 22:39 Total Bilirubin 0.3 mg/dL (0.3-1.0) 11/30/16 22:39 AST 15 U/L (13-39) 11/30/16 22:39 ALT 7 U/L (7-52) 11/30/16 22:39 Alkaline Phosphatase 71 U/L (34-104) 11/30/16 22:39 Troponin I 0.01 ng/mL (0.01-0.05) 11/30/16 22:39 Total Protein 6.4 gm/dL (6.0-8.3) 11/30/16 22:39 Albumin 3.5 gm/dL (3.7-5.3) L 11/30/16 22:39 Globulin 2.9 gm/dL 11/30/16 22:39 Albumin/Globulin Ratio 1.2 (1.0-1.8) 11/30/16 22:39 Triglycerides 164 mg/dL (<150) H 11/30/16 22:39 Cholesterol 90 mg/dL (<200) 11/30/16 22:39 LDL Cholesterol Direct 40 mg/dL (75-193) L 11/30/16 22:39 HDL Cholesterol 29 mg/dL (23-92) 11/30/16 22:39 Vitamin B12 917 pg/mL (211-946) 11/30/16 22:39 Folic Acid >20.0 ng/mL (>3.0) 11/30/16 22:39 TSH 0.41 uIU/ml (0.34-5.60) 11/30/16 22:39 Urine Source CLEAN C 12/01/16 15:30 Urine Color YELLOW 12/01/16 15:30 Urine Clarity CLOUDY (CLEAR) H 12/01/16 15:30 Urine pH 6.5 (4.6 - 8.0) 12/01/16 15:30 Ur Specific [place] 1.020 (1.005-1.030) 12/01/16 15:30 Urine Protein >=300 mg/dL (NEGATIVE) 12/01/16 15:30 Urine Glucose (UA) NEGATIVE mg/dL (NEGATIVE) 12/01/16 15:30 Urine Ketones NEGATIVE mg/dL (NEGATIVE) 12/01/16 15:30 Urine Blood TRACE (NEGATIVE) 12/01/16 15:30 Urine Nitrate NEGATIVE (NEGATIVE) 12/01/16 15:30 Urine Bilirubin NEGATIVE (NEGATIVE) 12/01/16 15:30 Urine Urobilinogen 0.2 E.U./dL (0.2 - 1.0) 12/01/16 15:30 Ur Leukocyte Esterase MODERATE (NEGATIVE) H 12/01/16 15:30 Urine RBC 2-5 /hpf (0-5) 12/01/16 15:30 Urine WBC 25-50 /hpf (0-5) H 12/01/16 15:30 Ur Epithelial Cells FEW /lpf (FEW) 12/01/16 15:30 Urine Bacteria MANY /hpf (NONE SEEN) 12/01/16 15:30 Ur Random Sodium 94 mmol/L 12/01/16 15:30 Urine Creatinine 53.0 mg/dl (28.0-217.0) 12/01/16 15:30 Stool Occult Blood NEGATIVE (NEGATIVE) 12/01/16 15:50 - Physical Exam Vitals and I&O: Vital Signs Temp 98.7 F 12/02/16 11:00 Pulse 78 12/02/16 11:00 Resp 20 12/02/16 11:00 BP 163/70 12/02/16 11:00 Pulse Ox 95 12/02/16 11:00 Intake & Output 12/01/16 12/02/16 12/02/16 18:59 06:59 18:59 Intake Total 400 300 Output Total 1 3 Balance 399 297 Weight (lbs) 55.338 kg 57.334 kg Intake: Oral 400 300 Output: Urine 3 Stool 1 Other: # Voids 3 # Bowel Movements 0 Active Medications: Current Medications Acetaminophen (Tylenol) 650 mg PO Q6HR PRN PRN Reason: Pain or Fever >101 Stop: 01/30/17 00:53 Amlodipine Besylate (Norvasc) 10 mg PO DAILY [facility] Stop: 01/30/17 08:59 Last Admin: 12/02/16 09:14 Dose: 10 mg Atenolol (Tenormin) 100 mg PO DAILY [facility] Stop: 01/30/17 08:59 Last Admin: 12/02/16 09:14 Dose: 100 mg Dextrose (Glutose 40%) 18.75 gm PO PRN PRN PRN Reason: Blood Glucose less than 70 Stop: 01/30/17 03:12 Dextrose (D50w) 50 ml IVP PRN PRN PRN Reason: Blood Glucose less than 70 Stop: 01/30/17 03:12 Fenofibrate (Tricor) 134 mg PO DAILY [facility] Stop: 01/30/17 08:59 Last Admin: 12/02/16 09:14 Dose: 134 mg Ferrous Sulfate (Iron) 325 mg PO DAILY [facility] Stop: 01/30/17 08:59 Last Admin: 12/02/16 09:15 Dose: 325 mg Folic Acid (Folate) 1 mg PO DAILY [facility] Stop: 01/30/17 08:59 Last Admin: 12/02/16 09:15 Dose: 1 mg Gabapentin (Neurontin) 300 mg PO DAILY [facility] Stop: 01/30/17 08:59 Last Admin: 12/02/16 09:15 Dose: 300 mg Glimepiride (Amaryl) 4 mg PO DAILY [facility] Stop: 01/30/17 08:59 Last Admin: 12/02/16 09:15 Dose: 4 mg Glucagon (Glucagen) 1 mg IM PRN PRN PRN Reason: Blood Glucose less than 70 Stop: 01/30/17 03:12 Ceftriaxone Sodium 1 gm/ (Dextrose) 50 mls @ 100 mls/hr IV Q24H [facility] Stop: 01/31/17 08:59 Last Admin: 12/02/16 09:16 Dose: 100 mls/hr Insulin Aspart (Novolog Insulin Sliding Scale) 0 units SUBQ ACHS [facility] PRN Reason: Protocol Stop: 01/30/17 07:29 Last Admin: 12/02/16 11:47 Dose: 8 units Insulin Human Isoph/Insulin Regular (Novolin 70/30) 18 units SUBQ QPM [facility] Stop: 01/30/17 16:59 Last Admin: 12/01/16 16:33 Dose: Not Given Insulin Human Isoph/Insulin Regular (Novolin 70/30) 30 units SUBQ QAM [facility] Stop: 01/30/17 08:59 Last Admin: 12/02/16 09:29 Dose: 30 units Levothyroxine Sodium (Synthroid) 0.025 mg PO DAILY [facility] Stop: 01/30/17 08:59 Last Admin: 12/02/16 09:15 Dose: 0.025 mg Losartan Potassium (Cozaar) 50 mg PO DAILY [facility] Stop: 01/30/17 08:59 Last Admin: 12/02/16 09:15 Dose: 50 mg Magnesium Hydroxide (Milk Of Magnesia) 30 ml PO DAILY PRN PRN Reason: Constipation Stop: 01/30/17 00:53 Megestrol Acetate (Megace) 400 mg PO BID [facility] Stop: 01/30/17 08:59 Last Admin: 12/02/16 09:15 Dose: 400 mg Methylprednisolone Sodium Succinate (Solu-Medrol) 60 mg IVP Q8H [facility] Stop: 01/31/17 10:59 Last Admin: 12/02/16 11:43 Dose: 60 mg Miscellaneous (Vte Chemical Prophylaxis Screen/ Admission) 1 ea [facility] PRN PRN PRN Reason: PROTOCOL Stop: 01/30/17 14:41 Nitroglycerin (Nitrostat) 0.4 mg SL Q5MIN PRN PRN Reason: Chest Pain Stop: 01/30/17 00:53 Nystatin (Mycostatin Cream) 1 appl TP DAILY PRN PRN Reason: Rash Stop: 01/30/17 08:28 Simvastatin (Zocor) 10 mg PO QPM [facility] PRN Reason: Protocol Stop: 01/30/17 16:59 Last Admin: 12/01/16 16:35 Dose: 10 mg Sucralfate (Carafate) 1 gm PO BID [facility] Stop: 01/30/17 16:59 Last Admin: 12/02/16 09:15 Dose: 1 gm General: Alert, Oriented x3, No acute distress HEENT: Atraumatic, PERRLA, EOMI, Mucous membr. moist/pink Neck: Supple, +2 carotid pulse wo bruit Cardiovascular: Regular rate, Normal S1, Normal S2 Lungs: Clear to auscultation Abdomen: Bowel sounds, Soft, Other (colostomy noted) Extremities: no Cyanosis, no Edema Neurological: Sensation intact Skin: Other (pale), no Rash Psych/Mental Status: Mood NL - Procedures Procedures: Procedures Procedure Code Date BLOOD TRANSFUSION SERVICE 33559 10/23/16 EGD BIOPSY SINGLE/MULTIPLE 49423 11/03/16 EXCISION OF DUODENUM, ENDO, DIAGN [id number] 11/03/16 EXCISION OF ESOPHAGUS, ENDO, DIAGN [id number] 11/03/16 EXCISION OF STOMACH, ENDO, DIAGN [id number] 11/03/16 TRANSFUSE NONAUT PLATELETS IN PERIPH VEIN, [facility] [id number] 06/25/15 TRANSFUSE NONAUT RED BLOOD CELLS IN PERIPH VEIN, 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 Cardiomegaly (Acute) I51.7 Chronic renal failure (Acute) Colon cancer (Acute) Diabetes mellitus (Acute) E11.9 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) E11.22 Duodenal ulcer (Acute) Fracture of proximal end of left humerus (Acute) S42.202A Hyperlipidemia (Acute) E78.5 Hyponatremia (Acute) E87.1 Severe anemia (Acute) D64.9 Severe hypertension (Acute) I10 Thrombocytopenia (Acute) D69.6 Thyroid disorder (Acute) UTI (urinary tract infection) (Acute) - Assessment Assessment: CKD Chronic Thrombocytopenia Anemia of CKD Colon Ca S/P Colectomy w/ Colostomy Vitiligo Ess HTN Type 2 DM - Plan Plan: Lab - Result Diagrams 12/02/16 06:00 12/02/16 06:00 Current Medications Acetaminophen (Tylenol) 650 mg PO Q6HR PRN PRN Reason: Pain or Fever >101 Stop: 01/30/17 00:53 Amlodipine Besylate (Norvasc) 10 mg PO DAILY [facility] Stop: 01/30/17 08:59 Last Admin: 12/02/16 09:14 Dose: 10 mg Atenolol (Tenormin) 100 mg PO DAILY [facility] Stop: 01/30/17 08:59 Last Admin: 12/02/16 09:14 Dose: 100 mg Dextrose (Glutose 40%) 18.75 gm PO PRN PRN PRN Reason: Blood Glucose less than 70 Stop: 01/30/17 03:12 Dextrose (D50w) 50 ml IVP PRN PRN PRN Reason: Blood Glucose less than 70 Stop: 01/30/17 03:12 Fenofibrate (Tricor) 134 mg PO DAILY [facility] Stop: 01/30/17 08:59 Last Admin: 12/02/16 09:14 Dose: 134 mg Ferrous Sulfate (Iron) 325 mg PO DAILY [facility] Stop: 01/30/17 08:59 Last Admin: 12/02/16 09:15 Dose: 325 mg Folic Acid (Folate) 1 mg PO DAILY [facility] Stop: 01/30/17 08:59 Last Admin: 12/02/16 09:15 Dose: 1 mg Gabapentin (Neurontin) 300 mg PO DAILY [facility] Stop: 01/30/17 08:59 Last Admin: 12/02/16 09:15 Dose: 300 mg Glimepiride (Amaryl) 4 mg PO DAILY [facility] Stop: 01/30/17 08:59 Last Admin: 12/02/16 09:15 Dose: 4 mg Glucagon (Glucagen) 1 mg IM PRN PRN PRN Reason: Blood Glucose less than 70 Stop: 01/30/17 03:12 Ceftriaxone Sodium 1 gm/ (Dextrose) 50 mls @ 100 mls/hr IV Q24H [facility] Stop: 01/31/17 08:59 Last Admin: 12/02/16 09:16 Dose: 100 mls/hr Insulin Aspart (Novolog Insulin Sliding Scale) 0 units SUBQ ACHS [facility] PRN Reason: Protocol Stop: 01/30/17 07:29 Last Admin: 12/02/16 11:47 Dose: 8 units Insulin Human Isoph/Insulin Regular (Novolin 70/30) 18 units SUBQ QPM [facility] Stop: 01/30/17 16:59 Last Admin: 12/01/16 16:33 Dose: Not Given Insulin Human Isoph/Insulin Regular (Novolin 70/30) 30 units SUBQ QAM [facility] Stop: 01/30/17 08:59 Last Admin: 12/02/16 09:29 Dose: 30 units Levothyroxine Sodium (Synthroid) 0.025 mg PO DAILY [facility] Stop: 01/30/17 08:59 Last Admin: 12/02/16 09:15 Dose: 0.025 mg Losartan Potassium (Cozaar) 50 mg PO DAILY [facility] Stop: 01/30/17 08:59 Last Admin: 12/02/16 09:15 Dose: 50 mg Magnesium Hydroxide (Milk Of Magnesia) 30 ml PO DAILY PRN PRN Reason: Constipation Stop: 01/30/17 00:53 Megestrol Acetate (Megace) 400 mg PO BID [facility] Stop: 01/30/17 08:59 Last Admin: 12/02/16 09:15 Dose: 400 mg Methylprednisolone Sodium Succinate (Solu-Medrol) 60 mg IVP Q8H [facility] Stop: 01/31/17 10:59 Last Admin: 12/02/16 11:43 Dose: 60 mg Miscellaneous (Vte Chemical Prophylaxis Screen/ Admission) 1 ea [facility] PRN PRN PRN Reason: PROTOCOL Stop: 01/30/17 14:41 Nitroglycerin (Nitrostat) 0.4 mg SL Q5MIN PRN PRN Reason: Chest Pain Stop: 01/30/17 00:53 Nystatin (Mycostatin Cream) 1 appl TP DAILY PRN PRN Reason: Rash Stop: 01/30/17 08:28 Simvastatin (Zocor) 10 mg PO QPM [facility] PRN Reason: Protocol Stop: 01/30/17 16:59 Last Admin: 12/01/16 16:35 Dose: 10 mg Sucralfate (Carafate) 1 gm PO BID [facility] Stop: 01/30/17 16:59 Last Admin: 12/02/16 09:15 Dose: 1 gm slight increse in BUN to 50 w/ Cr. of 2.4 start gentle hydration, replace P04 f/u electrolytes, Lab - Result Diagrams 12/02/16 06:00 12/02/16 06:00 cbc
[2016-12-02] MEDS ORDERED: Sodium Phosphate 20 MMOLE in Sodium Chloride 0.9% 250 ML IV ONE (15:00)
[2016-12-02 15:16] LABS: MICROALBUMIN RANDOM RUINE 1475.1 ug/mL (Not Estab.)
[2016-12-02] MEDS: Sodium Chloride 0.9% 1,000 ML IV SCH (16:51)
--- NOTE | 2016-12-03 04:42 | Admit Criteria Form ---
Admit Criteria Forms - Admit Criteria Diagnosis: ANEMIA, IRON DEFICIENCY OR UNSPECIFIED Clinical Indications for Inpatient Care (Place 'X' for any and all applicable criteria): Admission is indicated for ANY ONE of the following(1)(2)(3)(4)(5)(6)(7): [X] I. Inpatient admission required rather than observation care (Also use Anemia, Iron Deficiency or Unspecified: Observation Care guideline as appropriate) because of ANY ONE of the following: [] a) Hemodynamic instability that is severe or persistent [] b) Active bleeding that cannot be rapidly controlled [] c) CVS symptoms (i.e., dyspnea, chest pain, heart failure) that are severe or persistent [] d) Neurologic symptoms (i.e., cognitive impairment, recurrent syncope or near syncope) that are severe or persistent [] e) Cardiac arrhythmias of immediate concern [] f) Acute peripheral ischemia (e.g., pulseless, cool, mottled, or cyanotic extremity) [X] g) High-risk low platelet count [] h) Acute renal failure [] i) Ongoing transfusion for blood loss (greater than 2 units) [] j) IV fluid to replace significant ongoing (eg, >24 hours) losses (> 3 L/m2 per day) [] k) Pulmonary artery catheter monitoring [] l) Supplemental oxygen or respiratory treatments for over 24 hours that are performable only in acute inpatient setting [] m) Immediate inpatient surgery [] n) Other condition, treatment or monitoring requiring inpatient admission [] II Active massive hemorrhage [] III. Active hemolysis with rapidly progressive anemia [A](6) Extended stay beyond goal length of stay may be needed for (17)(18) []a) Diagnosed cause of anemia requiring longer hospitalization (eg, active GI bleeding, immune hemolysis requiring electrophoresis, complications of malignancy requiring acute care []b) Continued emergent anemia indicators (23) []c) Transfusion reactions []d) Associated leukopenia or thrombocytopenia needing inpatient care []e) Active comorbidities (eg, renal failure, heart failure) The original [employer] content created by [employer] has been revised. The portions of the content which have been revised are identified through the use of italic text or in bold. [employer] has neither reviewed nor approved the modified material. All other unmodified content is copyright [employer]. Please see references footnoted in the original [facility] edition 2016 Admit Criteria Met?: Yes
[2016-12-03] MEDS: INSULIN ASPART SLIDING SCALE 100 UNITS/ML UNIT SUBQ SCH ×4 (07:14→21:04)
[2016-12-03 08:07] LABS: % BASOPHILS 0.1 % (0.0-2.0); % EOSINOPHILS 0.1 % (0.0-5.0); % LYMPHOCYTES 9.7 % (20.0-50.0); % NEUTROPHILS 89.1 % (40.0-80.0); HEMATOCRIT 30.1 % (35.0-45.0); HEMOGLOBIN 10.4 gm/dL (11.7-16.1); MEAN CELL VOLUME 86.9 fl (81-100); MEAN CORPUSCULAR HEMOGLOBIN 30.1 pg (27.0-31.0); MEAN CORPUSCULAR HGB CONC 34.6 pg (28.0-36.0); MEAN PLATELET VOLUME 10.6 fl; NEUTROPHILE ABSOLUTE 12.8 Th/cmm (1.8-8.0); RED BLOOD COUNT 3.46 Mil/cmm (3.80-5.20); RED CELL DISTRIBUTION WIDTH 14.2 % (11.5-20.0)
--- NOTE | 2016-12-03 08:10 | General Progress Note ---
Subjective - Review of Systems Service Date: 12/03/16 Subjective: Awake,Alert,Afebrile. Denies abdominal pain, no nausea or vomiting. Denies any active bleeding. no blood in the stool or urine Objective - Results Result Diagrams: 12/02/16 06:00 12/02/16 06:00 Recent Labs: Laboratory Last Values WBC 7.6 Th/cmm (4.8-10.8) 12/02/16 06:00 RBC 3.34 Mil/cmm (3.80-5.20) L 12/02/16 06:00 Hgb 9.9 gm/dL (11.7-16.1) L 12/02/16 06:00 Hct 29.4 % (35.0-45.0) L D 12/02/16 06:00 MCV 88.2 fl (81-100) 12/02/16 06:00 MCH 29.8 pg (27.0-31.0) 12/02/16 06:00 MCHC Differential 33.7 pg (28.0-36.0) 12/02/16 06:00 RDW 14.2 % (11.5-20.0) 12/02/16 06:00 Plt Count 33 Th/cmm (150-400) L D 12/02/16 06:00 MPV 11.4 fl 12/02/16 06:00 Band Neutrophils % 5 % (0-10) 12/02/16 06:00 Neutrophils (Manual) 83 % (40-80) H 12/02/16 06:00 Lymphocytes 10 % (20-50) L 12/02/16 06:00 Monocytes 2 % (2-10) 12/02/16 06:00 Eosinophils 2 % (0-5) 12/01/16 06:22 Atypical Lymphocytes 1 % 12/01/16 06:22 Platelet Estimate DECREASED PLATELETS (NORMAL) 12/02/16 06:00 Platelet Morphology NORMAL (NORMAL) 12/02/16 06:00 RBC Morph Micro Appear NORMAL (NORMAL) 12/02/16 06:00 Total Retics Counted 2.3 % (0.5-1.5) H 11/30/16 22:39 Absolute Retic 72.9 Th/cmm 11/30/16 22:39 Corrected Retic Count 1.4 % (0.5-1.5) 11/30/16 22:39 Eos Smear Source URINE 12/01/16 15:30 Eos Smear Total Cells NONE SEEN (NONE SEEN) 12/01/16 15:30 PT 11.2 SECONDS (9.5-11.5) 11/30/16 22:39 INR 1.08 (0.5-1.4) 11/30/16 22:39 PTT (Actin FS) 29.5 SECONDS (26.0-38.0) 11/30/16 22:39 Sodium 137 mEq/L (136-145) 12/02/16 06:00 Potassium 5.0 mEq/L (3.5-5.1) 12/02/16 06:00 Chloride 109 mEq/L (98-107) H 12/02/16 06:00 Carbon Dioxide 17.7 mEq/L (21.0-31.0) L 12/02/16 06:00 Anion Gap 15.3 (7.0-16.0) 12/02/16 06:00 BUN 50 mg/dL (7-25) H 12/02/16 06:00 Creatinine 2.4 mg/dL (0.6-1.2) H 12/02/16 06:00 Est GFR ( Amer) TNP 12/02/16 06:00 Est GFR (Non-Af Amer) TNP 12/02/16 06:00 BUN/Creatinine Ratio 20.8 12/02/16 06:00 Glucose 233 mg/dL (70-105) H 12/02/16 06:00 POC Glucose 244 MG/DL (70 - 105) H 12/03/16 07:04 Hemoglobin A1c % 5.5 % (4.0-6.0) 11/30/16 22:39 Uric Acid 5.6 mg/dL (2.3-6.6) 12/02/16 06:00 Calcium 8.9 mg/dL (8.6-10.3) 12/02/16 06:00 Phosphorus 2.0 mg/dL (2.5-5.0) L 12/02/16 06:00 Magnesium 2.0 mg/dL (1.9-2.7) 12/02/16 06:00 Iron 41 ug/dL (27-139) 11/30/16 22:39 TIBC 339 ug/dL (250-450) 11/30/16 22:39 Iron Saturation 12 % (15-55) L 11/30/16 22:39 Unsaturated IBC 298 ug/dL (118-369) 11/30/16 22:39 Total Bilirubin 0.3 mg/dL (0.3-1.0) 11/30/16 22:39 AST 15 U/L (13-39) 11/30/16 22:39 ALT 7 U/L (7-52) 11/30/16 22:39 Alkaline Phosphatase 71 U/L (34-104) 11/30/16 22:39 Troponin I 0.01 ng/mL (0.01-0.05) 11/30/16 22:39 Total Protein 6.4 gm/dL (6.0-8.3) 11/30/16 22:39 Albumin 3.5 gm/dL (3.7-5.3) L 11/30/16 22:39 Globulin 2.9 gm/dL 11/30/16 22:39 Albumin/Globulin Ratio 1.2 (1.0-1.8) 11/30/16 22:39 Triglycerides 164 mg/dL (<150) H 11/30/16 22:39 Cholesterol 90 mg/dL (<200) 11/30/16 22:39 LDL Cholesterol Direct 40 mg/dL (75-193) L 11/30/16 22:39 HDL Cholesterol 29 mg/dL (23-92) 11/30/16 22:39 Vitamin B12 917 pg/mL (211-946) 11/30/16 22:39 Folic Acid >20.0 ng/mL (>3.0) 11/30/16 22:39 TSH 0.41 uIU/ml (0.34-5.60) 11/30/16 22:39 Urine Source CLEAN C 12/01/16 15:30 Urine Color YELLOW 12/01/16 15:30 Urine Clarity CLOUDY (CLEAR) H 12/01/16 15:30 Urine pH 6.5 (4.6 - 8.0) 12/01/16 15:30 Ur Specific [place] 1.020 (1.005-1.030) 12/01/16 15:30 Urine Protein >=300 mg/dL (NEGATIVE) 12/01/16 15:30 Urine Glucose (UA) NEGATIVE mg/dL (NEGATIVE) 12/01/16 15:30 Urine Ketones NEGATIVE mg/dL (NEGATIVE) 12/01/16 15:30 Urine Blood TRACE (NEGATIVE) 12/01/16 15:30 Urine Nitrate NEGATIVE (NEGATIVE) 12/01/16 15:30 Urine Bilirubin NEGATIVE (NEGATIVE) 12/01/16 15:30 Urine Urobilinogen 0.2 E.U./dL (0.2 - 1.0) 12/01/16 15:30 Ur Leukocyte Esterase MODERATE (NEGATIVE) H 12/01/16 15:30 Urine RBC 2-5 /hpf (0-5) 12/01/16 15:30 Urine WBC 25-50 /hpf (0-5) H 12/01/16 15:30 Ur Epithelial Cells FEW /lpf (FEW) 12/01/16 15:30 Urine Bacteria MANY /hpf (NONE SEEN) 12/01/16 15:30 Ur Random Sodium 94 mmol/L 12/01/16 15:30 Urine Creatinine 42.2 mg/dl (Not Estab.) 12/01/16 15:30 Urine Microalbumin 1475.1 ug/mL (Not Estab.) 12/01/16 15:30 Microalb/Creat Ratio 3495.5 mg/g creat (0.0-30.0) H 12/01/16 15:30 Stool Occult Blood NEGATIVE (NEGATIVE) 12/01/16 15:50 - Physical Exam Vitals and I&O: Vital Signs Temp 97.7 F 12/02/16 18:09 Pulse 72 12/02/16 18:09 Resp 16 12/02/16 20:00 BP 155/59 12/02/16 18:09 Pulse Ox 95 12/02/16 18:09 Intake & Output 12/02/16 12/03/16 12/03/16 18:59 06:59 18:59 Intake Total 450 Output Total 0 Balance 450 Weight (lbs) 57.153 kg Intake: Oral 450 Output: Other 0 Active Medications: Current Medications Acetaminophen (Tylenol) 650 mg PO Q6HR PRN PRN Reason: Pain or Fever >101 Stop: 01/30/17 00:53 Amlodipine Besylate (Norvasc) 10 mg PO DAILY [facility]AD Stop: 01/30/17 08:59 Last Admin: 12/02/16 09:14 Dose: 10 mg Atenolol (Tenormin) 100 mg PO DAILY [facility] Stop: 01/30/17 08:59 Last Admin: 12/02/16 09:14 Dose: 100 mg Dextrose (Glutose 40%) 18.75 gm PO PRN PRN PRN Reason: Blood Glucose less than 70 Stop: 01/30/17 03:12 Dextrose (D50w) 50 ml IVP PRN PRN PRN Reason: Blood Glucose less than 70 Stop: 01/30/17 03:12 Fenofibrate (Tricor) 134 mg PO DAILY [facility] Stop: 01/30/17 08:59 Last Admin: 12/02/16 09:14 Dose: 134 mg Ferrous Sulfate (Iron) 325 mg PO DAILY [facility] Stop: 01/30/17 08:59 Last Admin: 12/02/16 09:15 Dose: 325 mg Folic Acid (Folate) 1 mg PO DAILY [facility] Stop: 01/30/17 08:59 Last Admin: 12/02/16 09:15 Dose: 1 mg Gabapentin (Neurontin) 300 mg PO DAILY [facility] Stop: 01/30/17 08:59 Last Admin: 12/02/16 09:15 Dose: 300 mg Glimepiride (Amaryl) 4 mg PO DAILY [facility] Stop: 01/30/17 08:59 Last Admin: 12/02/16 09:15 Dose: 4 mg Glucagon (Glucagen) 1 mg IM PRN PRN PRN Reason: Blood Glucose less than 70 Stop: 01/30/17 03:12 Ceftriaxone Sodium 1 gm/ (Dextrose) 50 mls @ 100 mls/hr IV Q24H [facility] Stop: 01/31/17 08:59 Last Admin: 12/02/16 09:16 Dose: 100 mls/hr Sodium Chloride (Nacl 0.9%) 1,000 mls @ 50 mls/hr IV .Q20H [facility] Stop: 01/31/17 14:41 Last Admin: 12/02/16 16:51 Dose: 50 mls/hr Insulin Aspart (Novolog Insulin Sliding Scale) 0 units SUBQ ACHS VLAD PRN Reason: Protocol Stop: 01/30/17 07:29 Last Admin: 12/03/16 07:14 Dose: 4 units Insulin Human Isoph/Insulin Regular (Novolin 70/30) 18 units SUBQ QPM [facility] Stop: 01/30/17 16:59 Last Admin: 12/02/16 17:49 Dose: Not Given Insulin Human Isoph/Insulin Regular (Novolin 70/30) 30 units SUBQ QAM [facility]AD Stop: 01/30/17 08:59 Last Admin: 12/02/16 09:29 Dose: 30 units Levothyroxine Sodium (Synthroid) 0.025 mg PO DAILY [facility] Stop: 01/30/17 08:59 Last Admin: 12/02/16 09:15 Dose: 0.025 mg Losartan Potassium (Cozaar) 50 mg PO DAILY [facility] Stop: 01/30/17 08:59 Last Admin: 12/02/16 09:15 Dose: 50 mg Magnesium Hydroxide (Milk Of Magnesia) 30 ml PO DAILY PRN PRN Reason: Constipation Stop: 01/30/17 00:53 Megestrol Acetate (Megace) 400 mg PO BID [facility] Stop: 01/30/17 08:59 Last Admin: 12/02/16 16:36 Dose: 400 mg Methylprednisolone Sodium Succinate (Solu-Medrol) 60 mg IVP Q8H [facility] Stop: 01/31/17 10:59 Last Admin: 12/03/16 03:30 Dose: 60 mg Miscellaneous (Vte Chemical Prophylaxis Screen/ Admission) 1 ea MC PRN PRN PRN Reason: PROTOCOL Stop: 01/30/17 14:41 Nitroglycerin (Nitrostat) 0.4 mg SL Q5MIN PRN PRN Reason: Chest Pain Stop: 01/30/17 00:53 Nystatin (Mycostatin Cream) 1 appl TP DAILY PRN PRN Reason: Rash Stop: 01/30/17 08:28 Simvastatin (Zocor) 10 mg PO QPM [facility]AD PRN Reason: Protocol Stop: 01/30/17 16:59 Last Admin: 12/02/16 16:36 Dose: 10 mg Sucralfate (Carafate) 1 gm PO BID [facility] Stop: 01/30/17 16:59 Last Admin: 12/02/16 16:33 Dose: 1 gm General: Alert, Oriented x3, No acute distress HEENT: Atraumatic, PERRLA, EOMI, Mucous membr. moist/pink Neck: Supple, +2 carotid pulse wo bruit Cardiovascular: Regular rate, Normal S1, Normal S2 Lungs: Clear to auscultation Abdomen: Bowel sounds, Soft, Other (colostomy noted) Extremities: no Cyanosis, no Edema Neurological: Sensation intact Skin: Other (pale), no Rash Psych/Mental Status: Mood NL - Procedures Procedures: Procedures Procedure Code Date BLOOD TRANSFUSION SERVICE 82336 10/23/16 EGD BIOPSY SINGLE/MULTIPLE 15049 11/03/16 EXCISION OF DUODENUM, ENDO, DIAGN [id number] 11/03/16 EXCISION OF ESOPHAGUS, ENDO, DIAGN [id number] 11/03/16 EXCISION OF STOMACH, ENDO, DIAGN [id number] 11/03/16 TRANSFUSE NONAUT PLATELETS IN PERIPH VEIN, PERC 00135I6 06/25/15 TRANSFUSE NONAUT RED BLOOD CELLS IN PERIPH VEIN, PERC 10570A5 10/23/16 Assessment/Plan - Problem List Patient Problems: All Active Problems Abdominal hernia (Acute) Abdominal pain (Acute) R10.9 Alzheimer's dementia (Acute) G30.9 Anemia of chronic renal failure (Acute) N18.9, D63.1 Asthma (Acute) J45.909 CVA, old, 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 Cardiomegaly (Acute) I51.7 Chronic renal failure (Acute) Colon cancer (Acute) Diabetes mellitus (Acute) E11.9 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 - Plan Plan: severe thrombocytopenia -- will order hem/onc consult anemia ... repeat CBC, order stool occult acute on chronic renal failure will repeat CMP, consult renal colon ca ... consult GI CVA ... stable alzheimer's dementia asthma cardiomegaly diabetes mellitus duodenal ulcer ... on protonix IV fracture of left humerus ... will order xray of left shoulder hyperlipidemia ... continue statin thyroid disorder. ... will order TSH level Nutritional Asmnt/Malnutr-PDOC - Dietary Evaluation Malnutrition Findings (Please click <Entered> for more info): Nutritional Asmnt/Malnutrition Start: 12/01/16 18: 09 Text: Status: Complete Freq: Document 12/02/16 19:09 [facility] (Rec: 12/02/16 19:18 [facility] [id number]) Nutritional Asmnt/Malnutrition Patient General Information Nutritional Screening High Risk Screening Diagnosis Severe thrombocytopenia Pertinent Medical Hx/Surgical Hx HTN, hyperlipidemia, gastritis , peptic ulcer, hx colon cancer s/p colostomy, Alzheimer's dementia, left humeral fracture, renal insufficiency, DM, hypothyroidism, rash Subjective Information Pt is a 80-year-old female from [facility] admitted with chief complaint of severe thrombocytopenia. Pt was awake and able to answer questions. Pt was feeding herself independently and eating with good tolerance. Pt reports good appetite prior to admit. Poor appetite noted here. Pt states, "Food is ok." No muscle or fat depletion noted. Current Diet Order/ Nutrition Support Regular Patient / S.O Can Pertinent Medications Ceftriaxone Sodium, Tricor, Iron, Folate, Novolog, Novolin 70/30, Megace, Solu-Medrol, Zocor, NaCl 0.9% Pertinent Labs (11/30) Na 291H, A1C WNL, Triglyceride 164H, LDL Cholesterol 40L. (12/02) BUN 50H, Creatinine 2.4H, Glucose (fasting) 233H, POC Glucose 209H-434H (pt is noted to be on steroids and regular diet), Phosphorous 2L Nutritional Hx/Data Height 1.55 m Height (Calculated Centimeters) 154.9 Current Weight (lbs) 57.153 kg Weight (Calculated Kilograms) 57.2 Weight (Calculated Grams) 82663.6 Usual body Weight (lbs) 121 % Usual Body Weight 104 [place] Body Weight 105 % [place] Body Weight 120 Weight Status Approriate GI Symptoms GI Symptoms None Food Allergies No Cultural/Ethnic/Zoroastrianism Belief No cultural or anabaptism beliefs noted. Usual diet at home TADEO, CCHO, fortified milk at breakfast Skin Integrity/Comment: Temo Velez. No skin breakdown but rash is noted. Current %PO Poor (25-49%) Estimated Nutritional Goals BEE in Kcals: Using Current wt Calories/Kcals/Kg Based on current wt 57.3 kg Kcals Calculated 3176-4560 kcals/day (25-30 kcals/kg) Protein: Using Current wt Protein g/kg: Based on current wt 57.3 kg Protein Calculated 57 gm/day (1 gm/kg) Fluid: ml 2281-7647 ml/day (30-35 ml/kg) Nutritional Problem 1. Problem Problem Altered nutrition-related laboratory values related to Etiology possible inconsistent carbohydrate intake as evidenced by Signs/Symptoms: admitting glucose 291 and hyperglycemia. Malnutrition Alert Protein-Calorie Malnutrition N/A Is there a minimum of two criteria No selected? Query Text:Check all the applicable criteria. A minimum of two criteria are recommended for diagnosis of either severe or non-severe malnutrition. Malnutrition Related to Morbid Obesity Malnutrition related to morbid obesity No Intervention/Recommendation Recommendations by RD Dietary Education by RD1 Comments 1. Recommend CCHO-60 GM diet for glycemic control. 2. Educate pt on CCHO diet and importance of consistent intake at follow up, as able. Expected Outcomes/Goals Expected Outcomes/Goals Blood glucose will trend towards desired parameters. Physician Parameters for PEM Body Mass Index (BMI) 19 - 24 (Normal) Serum Albumin (g/dl) 3.5 - 5.0 (Normal)
[2016-12-03 08:23] LABS: PLATELET COUNT 108 Th/cmm (150-400); WHITE BLOOD COUNT 14.3 Th/cmm (4.8-10.8)
[2016-12-03 08:24] LABS: ANION GAP 13.7 (7.0-16.0); BUN - UREA NITROGEN 46 mg/dL (7-25); CALCIUM SERUM 9.1 mg/dL (8.6-10.3); CARBON DIOXIDE 19.3 mEq/L (21.0-31.0); CHLORIDE 104 mEq/L (98-107); CREATININE - SERUM 2.3 mg/dL (0.6-1.2); GLUCOSE 234 mg/dL (70-105); PHOSPHOROUS 3.2 mg/dL (2.5-5.0); SODIUM SERUM 133 mEq/L (136-145)
[2016-12-03] MEDS: Fenofibrate, Micronized 134 mg Cap PO SCH (09:53)
[2016-12-03] MEDS: Ferrous Sulfate 325 MG TAB PO SCH (09:55)
[2016-12-03] MEDS: Levothyroxine 0.025 Mg Tab PO SCH (09:55)
--- NOTE | 2016-12-03 10:37 | General Progress Note ---
Subjective - Review of Systems Service Date: 12/03/16 Subjective: awake, ok Objective - Results Result Diagrams: 12/03/16 07:45 12/03/16 07:45 Recent Labs: Laboratory Last Values WBC 14.3 Th/cmm (4.8-10.8) H D 12/03/16 07:45 RBC 3.46 Mil/cmm (3.80-5.20) L 12/03/16 07:45 Hgb 10.4 gm/dL (11.7-16.1) L 12/03/16 07:45 Hct 30.1 % (35.0-45.0) L 12/03/16 07:45 MCV 86.9 fl (81-100) 12/03/16 07:45 MCH 30.1 pg (27.0-31.0) 12/03/16 07:45 MCHC Differential 34.6 pg (28.0-36.0) 12/03/16 07:45 RDW 14.2 % (11.5-20.0) 12/03/16 07:45 Plt Count 108 Th/cmm (150-400) L D 12/03/16 07:45 MPV 10.6 fl 12/03/16 07:45 Neutrophils % 89.1 % (40.0-80.0) H 12/03/16 07:45 Band Neutrophils % 5 % (0-10) 12/02/16 06:00 Lymphocytes % 9.7 % (20.0-50.0) L 12/03/16 07:45 Monocytes % 1.0 % (2.0-10.0) L 12/03/16 07:45 Eosinophils % 0.1 % (0.0-5.0) 12/03/16 07:45 Basophils % 0.1 % (0.0-2.0) 12/03/16 07:45 Neutrophils (Manual) 83 % (40-80) H 12/02/16 06:00 Lymphocytes 10 % (20-50) L 12/02/16 06:00 Monocytes 2 % (2-10) 12/02/16 06:00 Eosinophils 2 % (0-5) 12/01/16 06:22 Atypical Lymphocytes 1 % 12/01/16 06:22 Platelet Estimate DECREASED PLATELETS (NORMAL) 12/02/16 06:00 Platelet Morphology NORMAL (NORMAL) 12/02/16 06:00 RBC Morph Micro Appear NORMAL (NORMAL) 12/02/16 06:00 Total Retics Counted 2.3 % (0.5-1.5) H 11/30/16 22:39 Absolute Retic 72.9 Th/cmm 11/30/16 22:39 Corrected Retic Count 1.4 % (0.5-1.5) 11/30/16 22:39 Eos Smear Source URINE 12/01/16 15:30 Eos Smear Total Cells NONE SEEN (NONE SEEN) 12/01/16 15:30 PT 11.2 SECONDS (9.5-11.5) 11/30/16 22:39 INR 1.08 (0.5-1.4) 11/30/16 22:39 PTT (Actin FS) 29.5 SECONDS (26.0-38.0) 11/30/16 22:39 Sodium 133 mEq/L (136-145) L 12/03/16 07:45 Potassium 4.0 mEq/L (3.5-5.1) 12/03/16 07:45 Chloride 104 mEq/L (98-107) 12/03/16 07:45 Carbon Dioxide 19.3 mEq/L (21.0-31.0) L 12/03/16 07:45 Anion Gap 13.7 (7.0-16.0) 12/03/16 07:45 BUN 46 mg/dL (7-25) H 12/03/16 07:45 Creatinine 2.3 mg/dL (0.6-1.2) H 12/03/16 07:45 Est GFR ( Amer) TNP 12/03/16 07:45 Est GFR (Non-Af Amer) TN 12/03/16 07:45 BUN/Creatinine Ratio 20.0 12/03/16 07:45 Glucose 234 mg/dL (70-105) H 12/03/16 07:45 POC Glucose 244 MG/DL (70 - 105) H 12/03/16 07:04 Hemoglobin A1c % 5.5 % (4.0-6.0) 11/30/16 22:39 Uric Acid 5.6 mg/dL (2.3-6.6) 12/02/16 06:00 Calcium 9.1 mg/dL (8.6-10.3) 12/03/16 07:45 Phosphorus 3.2 mg/dL (2.5-5.0) 12/03/16 07:45 Magnesium 2.0 mg/dL (1.9-2.7) 12/02/16 06:00 Iron 41 ug/dL (27-139) 11/30/16 22:39 TIBC 339 ug/dL (250-450) 11/30/16 22:39 Iron Saturation 12 % (15-55) L 11/30/16 22:39 Unsaturated IBC 298 ug/dL (118-369) 11/30/16 22:39 Total Bilirubin 0.3 mg/dL (0.3-1.0) 11/30/16 22:39 AST 15 U/L (13-39) 11/30/16 22:39 ALT 7 U/L (7-52) 11/30/16 22:39 Alkaline Phosphatase 71 U/L (34-104) 11/30/16 22:39 Troponin I 0.01 ng/mL (0.01-0.05) 11/30/16 22:39 Total Protein 6.4 gm/dL (6.0-8.3) 11/30/16 22:39 Albumin 3.5 gm/dL (3.7-5.3) L 11/30/16 22:39 Globulin 2.9 gm/dL 11/30/16 22:39 Albumin/Globulin Ratio 1.2 (1.0-1.8) 11/30/16 22:39 Triglycerides 164 mg/dL (<150) H 11/30/16 22:39 Cholesterol 90 mg/dL (<200) 11/30/16 22:39 LDL Cholesterol Direct 40 mg/dL (75-193) L 11/30/16 22:39 HDL Cholesterol 29 mg/dL (23-92) 11/30/16 22:39 Vitamin B12 917 pg/mL (211-946) 11/30/16 22:39 Folic Acid >20.0 ng/mL (>3.0) 11/30/16 22:39 TSH 0.41 uIU/ml (0.34-5.60) 11/30/16 22:39 Urine Source CLEAN C 12/01/16 15:30 Urine Color YELLOW 12/01/16 15:30 Urine Clarity CLOUDY (CLEAR) H 12/01/16 15:30 Urine pH 6.5 (4.6 - 8.0) 12/01/16 15:30 Ur Specific [place] 1.020 (1.005-1.030) 12/01/16 15:30 Urine Protein >=300 mg/dL (NEGATIVE) 12/01/16 15:30 Urine Glucose (UA) NEGATIVE mg/dL (NEGATIVE) 12/01/16 15:30 Urine Ketones NEGATIVE mg/dL (NEGATIVE) 12/01/16 15:30 Urine Blood TRACE (NEGATIVE) 12/01/16 15:30 Urine Nitrate NEGATIVE (NEGATIVE) 12/01/16 15:30 Urine Bilirubin NEGATIVE (NEGATIVE) 12/01/16 15:30 Urine Urobilinogen 0.2 E.U./dL (0.2 - 1.0) 12/01/16 15:30 Ur Leukocyte Esterase MODERATE (NEGATIVE) H 12/01/16 15:30 Urine RBC 2-5 /hpf (0-5) 12/01/16 15:30 Urine WBC 25-50 /hpf (0-5) H 12/01/16 15:30 Ur Epithelial Cells FEW /lpf (FEW) 12/01/16 15:30 Urine Bacteria MANY /hpf (NONE SEEN) 12/01/16 15:30 Ur Random Sodium 94 mmol/L 12/01/16 15:30 Urine Creatinine 42.2 mg/dl (Not Estab.) 12/01/16 15:30 Urine Microalbumin 1475.1 ug/mL (Not Estab.) 12/01/16 15:30 Microalb/Creat Ratio 3495.5 mg/g creat (0.0-30.0) H 12/01/16 15:30 Stool Occult Blood NEGATIVE (NEGATIVE) 12/01/16 15:50 - Physical Exam Vitals and I&O: Vital Signs Temp 98.6 F 12/03/16 06:00 Pulse 96 12/03/16 09:55 Resp 16 12/03/16 08:04 BP 158/76 12/03/16 09:55 Pulse Ox 96 12/02/16 22:00 Intake & Output 12/02/16 12/03/16 12/03/16 18:59 06:59 18:59 Intake Total 500 280 Output Total 0 4 Balance 500 276 Weight (lbs) 57.153 kg 57.289 kg Intake: Intake, IV Amount 50 cefTRIAXone 1 gm In 50 Dextrose 5% 50 ml @ 100 mls/hr IV Q24H [facility] Rx#: [id number] Oral 450 280 Output: Urine 4 Other 0 Other: # Bowel Movements 0 Active Medications: Current Medications Acetaminophen (Tylenol) 650 mg PO Q6HR PRN PRN Reason: Pain or Fever >101 Stop: 01/30/17 00:53 Amlodipine Besylate (Norvasc) 10 mg PO DAILY [facility] Stop: 01/30/17 08:59 Last Admin: 12/03/16 09:54 Dose: 10 mg Atenolol (Tenormin) 100 mg PO DAILY [facility] Stop: 01/30/17 08:59 Last Admin: 12/03/16 09:52 Dose: 100 mg Dextrose (Glutose 40%) 18.75 gm PO PRN PRN PRN Reason: Blood Glucose less than 70 Stop: 01/30/17 03:12 Dextrose (D50w) 50 ml IVP PRN PRN PRN Reason: Blood Glucose less than 70 Stop: 01/30/17 03:12 Fenofibrate (Tricor) 134 mg PO DAILY [facility] Stop: 01/30/17 08:59 Last Admin: 12/03/16 09:53 Dose: 134 mg Ferrous Sulfate (Iron) 325 mg PO DAILY [facility] Stop: 01/30/17 08:59 Last Admin: 12/03/16 09:55 Dose: 325 mg Folic Acid (Folate) 1 mg PO DAILY [facility] Stop: 01/30/17 08:59 Last Admin: 12/03/16 09:55 Dose: 1 mg Gabapentin (Neurontin) 300 mg PO DAILY [facility] Stop: 01/30/17 08:59 Last Admin: 12/03/16 09:55 Dose: 300 mg Glimepiride (Amaryl) 4 mg PO DAILY [facility] Stop: 01/30/17 08:59 Last Admin: 12/03/16 09:53 Dose: 4 mg Glucagon (Glucagen) 1 mg IM PRN PRN PRN Reason: Blood Glucose less than 70 Stop: 01/30/17 03:12 Ceftriaxone Sodium 1 gm/ (Dextrose) 50 mls @ 100 mls/hr IV Q24H [facility] Stop: 01/31/17 08:59 Last Admin: 12/03/16 10:03 Dose: 100 mls/hr Sodium Chloride (Nacl 0.9%) 1,000 mls @ 50 mls/hr IV .Q20H [facility] Stop: 01/31/17 14:41 Last Admin: 12/02/16 16:51 Dose: 50 mls/hr Insulin Aspart (Novolog Insulin Sliding Scale) 0 units SUBQ ACHS VLAD PRN Reason: Protocol Stop: 01/30/17 07:29 Last Admin: 12/03/16 07:14 Dose: 4 units Insulin Human Isoph/Insulin Regular (Novolin 70/30) 18 units SUBQ QPM [facility] Stop: 01/30/17 16:59 Last Admin: 12/02/16 17:49 Dose: Not Given Insulin Human Isoph/Insulin Regular (Novolin 70/30) 30 units SUBQ QAM [facility] Stop: 01/30/17 08:59 Last Admin: 12/02/16 09:29 Dose: 30 units Levothyroxine Sodium (Synthroid) 0.025 mg PO DAILY [facility] Stop: 01/30/17 08:59 Last Admin: 12/03/16 09:55 Dose: 0.025 mg Losartan Potassium (Cozaar) 50 mg PO DAILY [facility] Stop: 01/30/17 08:59 Last Admin: 12/03/16 09:55 Dose: 50 mg Magnesium Hydroxide (Milk Of Magnesia) 30 ml PO DAILY PRN PRN Reason: Constipation Stop: 01/30/17 00:53 Megestrol Acetate (Megace) 400 mg PO BID [facility] Stop: 01/30/17 08:59 Last Admin: 12/03/16 09:52 Dose: 400 mg Methylprednisolone Sodium Succinate (Solu-Medrol) 60 mg IVP Q8H [facility] Stop: 01/31/17 10:59 Last Admin: 12/03/16 03:30 Dose: 60 mg Miscellaneous (Vte Chemical Prophylaxis Screen/ Admission) 1 ea MC PRN PRN PRN Reason: PROTOCOL Stop: 01/30/17 14:41 Nitroglycerin (Nitrostat) 0.4 mg SL Q5MIN PRN PRN Reason: Chest Pain Stop: 01/30/17 00:53 Nystatin (Mycostatin Cream) 1 appl TP DAILY PRN PRN Reason: Rash Stop: 01/30/17 08:28 Simvastatin (Zocor) 10 mg PO QPM [facility] PRN Reason: Protocol Stop: 01/30/17 16:59 Last Admin: 12/02/16 16:36 Dose: 10 mg Sucralfate (Carafate) 1 gm PO BID [facility] Stop: 01/30/17 16:59 Last Admin: 12/03/16 09:55 Dose: 1 gm General: Alert, Oriented x3, No acute distress HEENT: Atraumatic, PERRLA, EOMI, Mucous membr. moist/pink Neck: Supple, +2 carotid pulse wo bruit Cardiovascular: Regular rate, Normal S1, Normal S2 Lungs: Clear to auscultation Abdomen: Bowel sounds, Soft, Other (colostomy noted) Extremities: no Cyanosis, no Edema Neurological: Sensation intact Skin: Other (pale), no Rash Psych/Mental Status: Mood NL - Procedures Procedures: Procedures Procedure Code Date BLOOD TRANSFUSION SERVICE 77088 10/23/16 EGD BIOPSY SINGLE/MULTIPLE 89264 11/03/16 EXCISION OF DUODENUM, ENDO, DIAGN [id number] 11/03/16 EXCISION OF ESOPHAGUS, ENDO, DIAGN [id number] 11/03/16 EXCISION OF STOMACH, ENDO, DIAGN [id number] 11/03/16 TRANSFUSE NONAUT PLATELETS IN PERIPH VEIN, PERC 83589Z0 06/25/15 TRANSFUSE NONAUT RED BLOOD CELLS IN PERIPH VEIN, PERC 59988Y2 10/23/16 Assessment/Plan - Problem List Patient Problems: All Active Problems Abdominal hernia (Acute) Abdominal pain (Acute) R10.9 Alzheimer's dementia (Acute) G30.9 Anemia of chronic renal failure (Acute) N18.9, D63.1 Asthma (Acute) J45.909 CVA, old, 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 Cardiomegaly (Acute) I51.7 Chronic renal failure (Acute) Colon cancer (Acute) Diabetes mellitus (Acute) E11.9 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) E11.22 Duodenal ulcer (Acute) Fracture of proximal end of left humerus (Acute) S42.202A Hyperlipidemia (Acute) E78.5 Hyponatremia (Acute) E87.1 Severe anemia (Acute) D64.9 Severe hypertension (Acute) I10 Thrombocytopenia (Acute) D69.6 Thyroid disorder (Acute) UTI (urinary tract infection) (Acute) - Assessment Assessment: * Anemia of CKD * chronic thrombocytopenia * possible MDS * h/o colon cancer * funtional iron deficiency Start iv iron plt/hgb better Nutritional Asmnt/Malnutr-PDOC - Dietary Evaluation Malnutrition Findings (Please click <Entered> for more info): Nutritional Asmnt/Malnutrition Start: 12/01/16 18: 09 Text: Status: Complete Freq: Document 12/02/16 19:09 [facility] (Rec: 12/02/16 19:18 [facility] [id number]) Nutritional Asmnt/Malnutrition Patient General Information Nutritional Screening High Risk Screening Diagnosis Severe thrombocytopenia Pertinent Medical Hx/Surgical Hx HTN, hyperlipidemia, gastritis , peptic ulcer, hx colon cancer s/p colostomy, Alzheimer's dementia, left humeral fracture, renal insufficiency, DM, hypothyroidism, rash Subjective Information Pt is a 80-year-old female from [facility] admitted with chief complaint of severe thrombocytopenia. Pt was awake and able to answer questions. Pt was feeding herself independently and eating with good tolerance. Pt reports good appetite prior to admit. Poor appetite noted here. Pt states, "Food is ok." No muscle or fat depletion noted. Current Diet Order/ Nutrition Support Regular Patient / S.O Can Pertinent Medications Ceftriaxone Sodium, Tricor, Iron, Folate, Novolog, Novolin 70/30, Megace, Solu-Medrol, Zocor, NaCl 0.9% Pertinent Labs (11/30) Na 291H, A1C WNL, Triglyceride 164H, LDL Cholesterol 40L. (12/02) BUN 50H, Creatinine 2.4H, Glucose (fasting) 233H, POC Glucose 209H-434H (pt is noted to be on steroids and regular diet), Phosphorous 2L Nutritional Hx/Data Height 1.55 m Height (Calculated Centimeters) 154.9 Current Weight (lbs) 57.153 kg Weight (Calculated Kilograms) 57.2 Weight (Calculated Grams) 05702.6 Usual body Weight (lbs) 121 % Usual Body Weight 104 [place] Body Weight 105 % [place] Body Weight 120 Weight Status Approriate GI Symptoms GI Symptoms None Food Allergies No Cultural/Ethnic/Quaker Belief No cultural or religion beliefs noted. Usual diet at home TADEO, CCHO, fortified milk at breakfast Skin Integrity/Comment: [place] 13. No skin breakdown but rash is noted. Current %PO Poor (25-49%) Estimated Nutritional Goals BEE in Kcals: Using Current wt Calories/Kcals/Kg Based on current wt 57.3 kg Kcals Calculated 1632-6232 kcals/day (25-30 kcals/kg) Protein: Using Current wt Protein g/kg: Based on current wt 57.3 kg Protein Calculated 57 gm/day (1 gm/kg) Fluid: ml 3119-8241 ml/day (30-35 ml/kg) Nutritional Problem 1. Problem Problem Altered nutrition-related laboratory values related to Etiology possible inconsistent carbohydrate intake as evidenced by Signs/Symptoms: admitting glucose 291 and hyperglycemia. Malnutrition Alert Protein-Calorie Malnutrition N/A Is there a minimum of two criteria No selected? Query Text:Check all the applicable criteria. A minimum of two criteria are recommended for diagnosis of either severe or non-severe malnutrition. Malnutrition Related to Morbid Obesity Malnutrition related to morbid obesity No Intervention/Recommendation Recommendations by RD Dietary Education by RD1 Comments 1. Recommend CCHO-60 GM diet for glycemic control. 2. Educate pt on CCHO diet and importance of consistent intake at follow up, as able. Expected Outcomes/Goals Expected Outcomes/Goals Blood glucose will trend towards desired parameters. Physician Parameters for PEM Body Mass Index (BMI) 19 - 24 (Normal) Serum Albumin (g/dl) 3.5 - 5.0 (Normal)
[2016-12-03] MEDS: Sodium Ferric Gluconate 125 MG in Sodium Chloride 0.9% 100 ML IV SCH (12:03)
[2016-12-03] MEDS: INSULIN 70/30 100 UNITS/ML SUBQ SCH ×2 (12:04→17:17)
[2016-12-03] MEDS: Sodium Chloride 0.9% 1,000 ML IV SCH (15:54)
--- NOTE | 2016-12-03 19:14 | General Progress Note ---
Subjective - Review of Systems Service Date: 12/03/16 Subjective: awake, verbal, comfortable Objective - Results Result Diagrams: 12/03/16 07:45 12/03/16 07:45 Recent Labs: Laboratory Last Values WBC 14.3 Th/cmm (4.8-10.8) H D 12/03/16 07:45 RBC 3.46 Mil/cmm (3.80-5.20) L 12/03/16 07:45 Hgb 10.4 gm/dL (11.7-16.1) L 12/03/16 07:45 Hct 30.1 % (35.0-45.0) L 12/03/16 07:45 MCV 86.9 fl (81-100) 12/03/16 07:45 MCH 30.1 pg (27.0-31.0) 12/03/16 07:45 MCHC Differential 34.6 pg (28.0-36.0) 12/03/16 07:45 RDW 14.2 % (11.5-20.0) 12/03/16 07:45 Plt Count 108 Th/cmm (150-400) L D 12/03/16 07:45 MPV 10.6 fl 12/03/16 07:45 Neutrophils % 89.1 % (40.0-80.0) H 12/03/16 07:45 Band Neutrophils % 5 % (0-10) 12/02/16 06:00 Lymphocytes % 9.7 % (20.0-50.0) L 12/03/16 07:45 Monocytes % 1.0 % (2.0-10.0) L 12/03/16 07:45 Eosinophils % 0.1 % (0.0-5.0) 12/03/16 07:45 Basophils % 0.1 % (0.0-2.0) 12/03/16 07:45 Neutrophils (Manual) 83 % (40-80) H 12/02/16 06:00 Lymphocytes 10 % (20-50) L 12/02/16 06:00 Monocytes 2 % (2-10) 12/02/16 06:00 Eosinophils 2 % (0-5) 12/01/16 06:22 Atypical Lymphocytes 1 % 12/01/16 06:22 Platelet Estimate DECREASED PLATELETS (NORMAL) 12/02/16 06:00 Platelet Morphology NORMAL (NORMAL) 12/02/16 06:00 RBC Morph Micro Appear NORMAL (NORMAL) 12/02/16 06:00 Total Retics Counted 2.3 % (0.5-1.5) H 11/30/16 22:39 Absolute Retic 72.9 Th/cmm 11/30/16 22:39 Corrected Retic Count 1.4 % (0.5-1.5) 11/30/16 22:39 Eos Smear Source URINE 12/01/16 15:30 Eos Smear Total Cells NONE SEEN (NONE SEEN) 12/01/16 15:30 PT 11.2 SECONDS (9.5-11.5) 11/30/16 22:39 INR 1.08 (0.5-1.4) 11/30/16 22:39 PTT (Actin FS) 29.5 SECONDS (26.0-38.0) 11/30/16 22:39 Sodium 133 mEq/L (136-145) L 12/03/16 07:45 Potassium 4.0 mEq/L (3.5-5.1) 12/03/16 07:45 Chloride 104 mEq/L (98-107) 12/03/16 07:45 Carbon Dioxide 19.3 mEq/L (21.0-31.0) L 12/03/16 07:45 Anion Gap 13.7 (7.0-16.0) 12/03/16 07:45 BUN 46 mg/dL (7-25) H 12/03/16 07:45 Creatinine 2.3 mg/dL (0.6-1.2) H 12/03/16 07:45 Est GFR ( Amer) TNP 12/03/16 07:45 Est GFR (Non-Af Amer) [facility] 12/03/16 07:45 BUN/Creatinine Ratio 20.0 12/03/16 07:45 Glucose 234 mg/dL (70-105) H 12/03/16 07:45 POC Glucose 296 MG/DL (70 - 105) H 12/03/16 17:11 Hemoglobin A1c % 5.5 % (4.0-6.0) 11/30/16 22:39 Uric Acid 5.6 mg/dL (2.3-6.6) 12/02/16 06:00 Calcium 9.1 mg/dL (8.6-10.3) 12/03/16 07:45 Phosphorus 3.2 mg/dL (2.5-5.0) 12/03/16 07:45 Magnesium 2.0 mg/dL (1.9-2.7) 12/02/16 06:00 Iron 41 ug/dL (27-139) 11/30/16 22:39 TIBC 339 ug/dL (250-450) 11/30/16 22:39 Iron Saturation 12 % (15-55) L 11/30/16 22:39 Unsaturated IBC 298 ug/dL (118-369) 11/30/16 22:39 Total Bilirubin 0.3 mg/dL (0.3-1.0) 11/30/16 22:39 AST 15 U/L (13-39) 11/30/16 22:39 ALT 7 U/L (7-52) 11/30/16 22:39 Alkaline Phosphatase 71 U/L (34-104) 11/30/16 22:39 Troponin I 0.01 ng/mL (0.01-0.05) 11/30/16 22:39 Total Protein 6.4 gm/dL (6.0-8.3) 11/30/16 22:39 Albumin 3.5 gm/dL (3.7-5.3) L 11/30/16 22:39 Globulin 2.9 gm/dL 11/30/16 22:39 Albumin/Globulin Ratio 1.2 (1.0-1.8) 11/30/16 22:39 Triglycerides 164 mg/dL (<150) H 11/30/16 22:39 Cholesterol 90 mg/dL (<200) 11/30/16 22:39 LDL Cholesterol Direct 40 mg/dL (75-193) L 11/30/16 22:39 HDL Cholesterol 29 mg/dL (23-92) 11/30/16 22:39 Vitamin B12 917 pg/mL (211-946) 11/30/16 22:39 Folic Acid >20.0 ng/mL (>3.0) 11/30/16 22:39 TSH 0.41 uIU/ml (0.34-5.60) 11/30/16 22:39 Urine Source CLEAN C 12/01/16 15:30 Urine Color YELLOW 12/01/16 15:30 Urine Clarity CLOUDY (CLEAR) H 12/01/16 15:30 Urine pH 6.5 (4.6 - 8.0) 12/01/16 15:30 Ur Specific [place] 1.020 (1.005-1.030) 12/01/16 15:30 Urine Protein >=300 mg/dL (NEGATIVE) 12/01/16 15:30 Urine Glucose (UA) NEGATIVE mg/dL (NEGATIVE) 12/01/16 15:30 Urine Ketones NEGATIVE mg/dL (NEGATIVE) 12/01/16 15:30 Urine Blood TRACE (NEGATIVE) 12/01/16 15:30 Urine Nitrate NEGATIVE (NEGATIVE) 12/01/16 15:30 Urine Bilirubin NEGATIVE (NEGATIVE) 12/01/16 15:30 Urine Urobilinogen 0.2 E.U./dL (0.2 - 1.0) 12/01/16 15:30 Ur Leukocyte Esterase MODERATE (NEGATIVE) H 12/01/16 15:30 Urine RBC 2-5 /hpf (0-5) 12/01/16 15:30 Urine WBC 25-50 /hpf (0-5) H 12/01/16 15:30 Ur Epithelial Cells FEW /lpf (FEW) 12/01/16 15:30 Urine Bacteria MANY /hpf (NONE SEEN) 12/01/16 15:30 Ur Random Sodium 94 mmol/L 12/01/16 15:30 Urine Creatinine 42.2 mg/dl (Not Estab.) 12/01/16 15:30 Urine Microalbumin 1475.1 ug/mL (Not Estab.) 12/01/16 15:30 Microalb/Creat Ratio 3495.5 mg/g creat (0.0-30.0) H 12/01/16 15:30 Stool Occult Blood NEGATIVE (NEGATIVE) 12/01/16 15:50 - Physical Exam Vitals and I&O: Vital Signs Temp 98.4 F 12/03/16 16:23 Pulse 72 12/03/16 18:08 Resp 18 12/03/16 16:23 BP 152/74 12/03/16 18:08 Pulse Ox 96 12/03/16 16:23 Intake & Output 12/03/16 12/03/16 12/04/16 06:59 18:59 06:59 Intake Total 280 1160 158.333 Output Total 4 Balance 276 1160 158.333 Weight (lbs) 57.289 kg Intake: Intake, IV Amount 1160 158.333 Sodium Chloride 0.9% 1, 1000 158.333 000 ml @ 50 mls/hr IV . Q20H [facility] Rx#:[id number] Sodium Ferric Gluconate 110 125 mg In Sodium Chloride 0.9% 100 ml @ 100 mls/hr IV Q24HR [facility] Rx#: [id number] cefTRIAXone 1 gm In 50 Dextrose 5% 50 ml @ 100 mls/hr IV Q24H [facility] Rx#: [id number] Oral 280 Output: Urine 4 Other: # Bowel Movements 0 Active Medications: Current Medications Acetaminophen (Tylenol) 650 mg PO Q6HR PRN PRN Reason: Pain or Fever >101 Stop: 01/30/17 00:53 Amlodipine Besylate (Norvasc) 10 mg PO DAILY [facility] Stop: 01/30/17 08:59 Last Admin: 12/03/16 09:54 Dose: 10 mg Atenolol (Tenormin) 100 mg PO DAILY [facility] Stop: 01/30/17 08:59 Last Admin: 12/03/16 09:52 Dose: 100 mg Dextrose (Glutose 40%) 18.75 gm PO PRN PRN PRN Reason: Blood Glucose less than 70 Stop: 01/30/17 03:12 Dextrose (D50w) 50 ml IVP PRN PRN PRN Reason: Blood Glucose less than 70 Stop: 01/30/17 03:12 Fenofibrate (Tricor) 134 mg PO DAILY [facility] Stop: 01/30/17 08:59 Last Admin: 12/03/16 09:53 Dose: 134 mg Folic Acid (Folate) 1 mg PO DAILY [facility] Stop: 01/30/17 08:59 Last Admin: 12/03/16 09:55 Dose: 1 mg Gabapentin (Neurontin) 300 mg PO DAILY [facility] Stop: 01/30/17 08:59 Last Admin: 12/03/16 09:55 Dose: 300 mg Glimepiride (Amaryl) 4 mg PO DAILY [facility] Stop: 01/30/17 08:59 Last Admin: 12/03/16 09:53 Dose: 4 mg Glucagon (Glucagen) 1 mg IM PRN PRN PRN Reason: Blood Glucose less than 70 Stop: 01/30/17 03:12 Ceftriaxone Sodium 1 gm/ (Dextrose) 50 mls @ 100 mls/hr IV Q24H [facility] Stop: 01/31/17 08:59 Last Infusion: 12/03/16 10:33 Dose: Infused Sodium Chloride (Nacl 0.9%) 1,000 mls @ 50 mls/hr IV .Q20H [facility] Stop: 01/31/17 14:41 Last Infusion: 12/03/16 19:04 Dose: 50 mls/hr Ferric Sodium Gluconate Complex 125 mg/ Sodium Chloride 110 mls @ 100 mls/hr IV Q24HR [facility] Stop: 12/08/16 10:44 Last Infusion: 12/03/16 13:09 Dose: Infused Insulin Aspart (Novolog Insulin Sliding Scale) 0 units SUBQ ACHS [facility] PRN Reason: Protocol Stop: 01/30/17 07:29 Last Admin: 12/03/16 17:26 Dose: 6 units Insulin Human Isoph/Insulin Regular (Novolin 70/30) 18 units SUBQ QPM [facility] Stop: 01/30/17 16:59 Last Admin: 12/03/16 17:17 Dose: 18 units Insulin Human Isoph/Insulin Regular (Novolin 70/30) 30 units SUBQ QAM [facility] Stop: 01/30/17 08:59 Last Admin: 12/03/16 12:04 Dose: Not Given Levothyroxine Sodium (Synthroid) 0.025 mg PO DAILY [facility] Stop: 01/30/17 08:59 Last Admin: 12/03/16 09:55 Dose: 0.025 mg Losartan Potassium (Cozaar) 50 mg PO DAILY [facility] Stop: 01/30/17 08:59 Last Admin: 12/03/16 09:55 Dose: 50 mg Magnesium Hydroxide (Milk Of Magnesia) 30 ml PO DAILY PRN PRN Reason: Constipation Stop: 01/30/17 00:53 Megestrol Acetate (Megace) 400 mg PO BID [facility] Stop: 01/30/17 08:59 Last Admin: 12/03/16 17:08 Dose: 400 mg Methylprednisolone Sodium Succinate (Solu-Medrol) 60 mg IVP Q8H [facility] Stop: 01/31/17 10:59 Last Admin: 12/03/16 12:08 Dose: 60 mg Miscellaneous (Vte Chemical Prophylaxis Screen/ Admission) 1 ea MC PRN PRN PRN Reason: PROTOCOL Stop: 01/30/17 14:41 Nitroglycerin (Nitrostat) 0.4 mg SL Q5MIN PRN PRN Reason: Chest Pain Stop: 01/30/17 00:53 Nystatin (Mycostatin Cream) 1 appl TP DAILY PRN PRN Reason: Rash Stop: 01/30/17 08:28 Simvastatin (Zocor) 10 mg PO QPM [facility] PRN Reason: Protocol Stop: 01/30/17 16:59 Last Admin: 12/03/16 17:09 Dose: 10 mg Sucralfate (Carafate) 1 gm PO BID [facility] Stop: 01/30/17 16:59 Last Admin: 12/03/16 17:09 Dose: 1 gm General: Alert, Oriented x3, No acute distress HEENT: Atraumatic, PERRLA, EOMI, Mucous membr. moist/pink Neck: Supple, +2 carotid pulse wo bruit Cardiovascular: Regular rate, Normal S1, Normal S2 Lungs: Clear to auscultation, Other Abdomen: Bowel sounds, Soft, Other (colostomy noted) Extremities: no Cyanosis, no Edema Neurological: Sensation intact Skin: Other (pale), no Rash Psych/Mental Status: Mood NL - Procedures Procedures: Procedures Procedure Code Date BLOOD TRANSFUSION SERVICE 61243 10/23/16 EGD BIOPSY SINGLE/MULTIPLE 22828 11/03/16 EXCISION OF DUODENUM, ENDO, DIAGN [id number] 11/03/16 EXCISION OF ESOPHAGUS, ENDO, DIAGN [id number] 11/03/16 EXCISION OF STOMACH, ENDO, DIAGN [id number] 11/03/16 TRANSFUSE NONAUT PLATELETS IN PERIPH VEIN, [facility] [id number] 06/25/15 TRANSFUSE NONAUT RED BLOOD CELLS IN PERIPH VEIN, [facility] [id number] 10/23/16 Assessment/Plan - Problem List Patient Problems: All Active Problems Abdominal hernia (Acute) Abdominal pain (Acute) R10.9 Alzheimer's dementia (Acute) G30.9 Anemia of chronic renal failure (Acute) N18.9, D63.1 Asthma (Acute) J45.909 CVA, old, 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 Cardiomegaly (Acute) I51.7 Chronic renal failure (Acute) Colon cancer (Acute) Diabetes mellitus (Acute) E11.9 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) E11.22 Duodenal ulcer (Acute) Fracture of proximal end of left humerus (Acute) S42.202A Hyperlipidemia (Acute) E78.5 Hyponatremia (Acute) E87.1 Severe anemia (Acute) D64.9 Severe hypertension (Acute) I10 Thrombocytopenia (Acute) D69.6 Thyroid disorder (Acute) UTI (urinary tract infection) (Acute) - Assessment Assessment: CKD Chronic Thrombocytopenia(ITP) Anemia of CKD Colon Ca S/P Colectomy w/ Colostomy Vitiligo Ess HTN Type 2 DM - Plan Plan: Lab - Result Diagrams 12/02/16 06:00 12/02/16 06:00 Current Medications Acetaminophen (Tylenol) 650 mg PO Q6HR PRN PRN Reason: Pain or Fever >101 Stop: 01/30/17 00:53 Amlodipine Besylate (Norvasc) 10 mg PO DAILY [facility] Stop: 01/30/17 08:59 Last Admin: 12/02/16 09:14 Dose: 10 mg Atenolol (Tenormin) 100 mg PO DAILY [facility] Stop: 01/30/17 08:59 Last Admin: 12/02/16 09:14 Dose: 100 mg Dextrose (Glutose 40%) 18.75 gm PO PRN PRN PRN Reason: Blood Glucose less than 70 Stop: 01/30/17 03:12 Dextrose (D50w) 50 ml IVP PRN PRN PRN Reason: Blood Glucose less than 70 Stop: 01/30/17 03:12 Fenofibrate (Tricor) 134 mg PO DAILY [facility] Stop: 01/30/17 08:59 Last Admin: 12/02/16 09:14 Dose: 134 mg Ferrous Sulfate (Iron) 325 mg PO DAILY [facility] Stop: 01/30/17 08:59 Last Admin: 12/02/16 09:15 Dose: 325 mg Folic Acid (Folate) 1 mg PO DAILY [facility] Stop: 01/30/17 08:59 Last Admin: 12/02/16 09:15 Dose: 1 mg Gabapentin (Neurontin) 300 mg PO DAILY [facility] Stop: 01/30/17 08:59 Last Admin: 12/02/16 09:15 Dose: 300 mg Glimepiride (Amaryl) 4 mg PO DAILY [facility] Stop: 01/30/17 08:59 Last Admin: 12/02/16 09:15 Dose: 4 mg Glucagon (Glucagen) 1 mg IM PRN PRN PRN Reason: Blood Glucose less than 70 Stop: 01/30/17 03:12 Ceftriaxone Sodium 1 gm/ (Dextrose) 50 mls @ 100 mls/hr IV Q24H [facility] Stop: 01/31/17 08:59 Last Admin: 12/02/16 09:16 Dose: 100 mls/hr Insulin Aspart (Novolog Insulin Sliding Scale) 0 units SUBQ ACHS [facility] PRN Reason: Protocol Stop: 01/30/17 07:29 Last Admin: 12/02/16 11:47 Dose: 8 units Insulin Human Isoph/Insulin Regular (Novolin 70/30) 18 units SUBQ QPM [facility] Stop: 01/30/17 16:59 Last Admin: 12/01/16 16:33 Dose: Not Given Insulin Human Isoph/Insulin Regular (Novolin 70/30) 30 units SUBQ QAM [facility] Stop: 01/30/17 08:59 Last Admin: 12/02/16 09:29 Dose: 30 units Levothyroxine Sodium (Synthroid) 0.025 mg PO DAILY [facility] Stop: 01/30/17 08:59 Last Admin: 12/02/16 09:15 Dose: 0.025 mg Losartan Potassium (Cozaar) 50 mg PO DAILY [facility] Stop: 01/30/17 08:59 Last Admin: 12/02/16 09:15 Dose: 50 mg Magnesium Hydroxide (Milk Of Magnesia) 30 ml PO DAILY PRN PRN Reason: Constipation Stop: 01/30/17 00:53 Megestrol Acetate (Megace) 400 mg PO BID [facility] Stop: 01/30/17 08:59 Last Admin: 12/02/16 09:15 Dose: 400 mg Methylprednisolone Sodium Succinate (Solu-Medrol) 60 mg IVP Q8H [facility] Stop: 01/31/17 10:59 Last Admin: 12/02/16 11:43 Dose: 60 mg Miscellaneous (Vte Chemical Prophylaxis Screen/ Admission) 1 ea MC PRN PRN PRN Reason: PROTOCOL Stop: 01/30/17 14:41 Nitroglycerin (Nitrostat) 0.4 mg SL Q5MIN PRN PRN Reason: Chest Pain Stop: 01/30/17 00:53 Nystatin (Mycostatin Cream) 1 appl TP DAILY PRN PRN Reason: Rash Stop: 01/30/17 08:28 Simvastatin (Zocor) 10 mg PO QPM [facility] PRN Reason: Protocol Stop: 01/30/17 16:59 Last Admin: 12/01/16 16:35 Dose: 10 mg Sucralfate (Carafate) 1 gm PO BID [facility] Stop: 01/30/17 16:59 Last Admin: 12/02/16 09:15 Dose: 1 gm kidney fnc remain stable w/ BUN/CR of 46/2.3 start gentle hydration, replace P04 leukocytosis, elevated BS 2nd to steroids P04 has corrected Lab - Result Diagrams 12/02/16 06:00 12/02/16 06:00 cbc Nutritional Asmnt/Malnutr-PDOC - Dietary Evaluation Malnutrition Findings (Please click <Entered> for more info): Nutritional Asmnt/Malnutrition Start: 12/01/16 18: 09 Text: Status: Complete Freq: Document 12/02/16 19:09 [facility] (Rec: 12/02/16 19:18 [facility] [id number]) Nutritional Asmnt/Malnutrition Patient General Information Nutritional Screening High Risk Screening Diagnosis Severe thrombocytopenia Pertinent Medical Hx/Surgical Hx HTN, hyperlipidemia, gastritis , peptic ulcer, hx colon cancer s/p colostomy, Alzheimer's dementia, left humeral fracture, renal insufficiency, DM, hypothyroidism, rash Subjective Information Pt is a 80-year-old female from [facility] admitted with chief complaint of severe thrombocytopenia. Pt was awake and able to answer questions. Pt was feeding herself independently and eating with good tolerance. Pt reports good appetite prior to admit. Poor appetite noted here. Pt states, "Food is ok." No muscle or fat depletion noted. Current Diet Order/ Nutrition Support Regular Patient / S.O Can Pertinent Medications Ceftriaxone Sodium, Tricor, Iron, Folate, Novolog, Novolin 70/30, Megace, Solu-Medrol, Zocor, NaCl 0.9% Pertinent Labs (11/30) Na 291H, A1C WNL, Triglyceride 164H, LDL Cholesterol 40L. (12/02) BUN 50H, Creatinine 2.4H, Glucose (fasting) 233H, POC Glucose 209H-434H (pt is noted to be on steroids and regular diet), Phosphorous 2L Nutritional Hx/Data Height 1.55 m Height (Calculated Centimeters) 154.9 Current Weight (lbs) 57.153 kg Weight (Calculated Kilograms) 57.2 Weight (Calculated Grams) 28165.6 Usual body Weight (lbs) 121 % Usual Body Weight 104 [place] Body Weight 105 % [place] Body Weight 120 Weight Status Approriate GI Symptoms GI Symptoms None Food Allergies No Cultural/Ethnic/Tenriism Belief No cultural or lutheran beliefs noted. Usual diet at home TADEO, CCHO, fortified milk at breakfast Skin Integrity/Comment: [place] 13. No skin breakdown but rash is noted. Current %PO Poor (25-49%) Estimated Nutritional Goals BEE in Kcals: Using Current wt Calories/Kcals/Kg Based on current wt 57.3 kg Kcals Calculated 4282-9440 kcals/day (25-30 kcals/kg) Protein: Using Current wt Protein g/kg: Based on current wt 57.3 kg Protein Calculated 57 gm/day (1 gm/kg) Fluid: ml 9957-4628 ml/day (30-35 ml/kg) Nutritional Problem 1. Problem Problem Altered nutrition-related laboratory values related to Etiology possible inconsistent carbohydrate intake as evidenced by Signs/Symptoms: admitting glucose 291 and hyperglycemia. Malnutrition Alert Protein-Calorie Malnutrition N/A Is there a minimum of two criteria No selected? Query Text:Check all the applicable criteria. A minimum of two criteria are recommended for diagnosis of either severe or non-severe malnutrition. Malnutrition Related to Morbid Obesity Malnutrition related to morbid obesity No Intervention/Recommendation Recommendations by RD Dietary Education by RD1 Comments 1. Recommend CCHO-60 GM diet for glycemic control. 2. Educate pt on CCHO diet and importance of consistent intake at follow up, as able. Expected Outcomes/Goals Expected Outcomes/Goals Blood glucose will trend towards desired parameters. Physician Parameters for PEM Body Mass Index (BMI) 19 - 24 (Normal) Serum Albumin (g/dl) 3.5 - 5.0 (Normal)
[2016-12-04] MEDS: INSULIN ASPART SLIDING SCALE 100 UNITS/ML UNIT SUBQ SCH ×3 (06:30→18:24)
[2016-12-04 06:56] LABS: % BASOPHILS 0.1 % (0.0-2.0); % EOSINOPHILS 0.1 % (0.0-5.0); % LYMPHOCYTES 10.5 % (20.0-50.0); % MONOCYTES 0.5 % (2.0-10.0); % NEUTROPHILS 88.8 % (40.0-80.0); HEMOGLOBIN 8.8 gm/dL (11.7-16.1); MEAN CELL VOLUME 87.8 fl (81-100); MEAN CORPUSCULAR HEMOGLOBIN 29.4 pg (27.0-31.0); MEAN CORPUSCULAR HGB CONC 33.5 pg (28.0-36.0); MEAN PLATELET VOLUME 9.9 fl; NEUTROPHILE ABSOLUTE 7.8 Th/cmm (1.8-8.0); RED CELL DISTRIBUTION WIDTH 14.2 % (11.5-20.0)
[2016-12-04 07:04] LABS: HEMATOCRIT 26.3 % (35.0-45.0); PLATELET COUNT 132 Th/cmm (150-400); WHITE BLOOD COUNT 8.7 Th/cmm (4.8-10.8)
--- NOTE | 2016-12-04 08:09 | General Progress Note ---
Subjective - Review of Systems Service Date: 12/04/16 Subjective: Awake,Alert,Afebrile. Platelets are now 104K. No signs of bleeding. Stool occult negative. Objective - Results Result Diagrams: 12/04/16 06:40 12/03/16 07:45 Recent Labs: Laboratory Last Values WBC 8.7 Th/cmm (4.8-10.8) D 12/04/16 06:40 RBC 3.00 Mil/cmm (3.80-5.20) L 12/04/16 06:40 Hgb 8.8 gm/dL (11.7-16.1) L 12/04/16 06:40 Hct 26.3 % (35.0-45.0) L D 12/04/16 06:40 MCV 87.8 fl (81-100) 12/04/16 06:40 MCH 29.4 pg (27.0-31.0) 12/04/16 06:40 MCHC Differential 33.5 pg (28.0-36.0) 12/04/16 06:40 RDW 14.2 % (11.5-20.0) 12/04/16 06:40 Plt Count 132 Th/cmm (150-400) L D 12/04/16 06:40 MPV 9.9 fl 12/04/16 06:40 Neutrophils % 88.8 % (40.0-80.0) H 12/04/16 06:40 Band Neutrophils % 5 % (0-10) 12/02/16 06:00 Lymphocytes % 10.5 % (20.0-50.0) L 12/04/16 06:40 Monocytes % 0.5 % (2.0-10.0) L 12/04/16 06:40 Eosinophils % 0.1 % (0.0-5.0) 12/04/16 06:40 Basophils % 0.1 % (0.0-2.0) 12/04/16 06:40 Neutrophils (Manual) 83 % (40-80) H 12/02/16 06:00 Lymphocytes 10 % (20-50) L 12/02/16 06:00 Monocytes 2 % (2-10) 12/02/16 06:00 Eosinophils 2 % (0-5) 12/01/16 06:22 Atypical Lymphocytes 1 % 12/01/16 06:22 Platelet Estimate DECREASED PLATELETS (NORMAL) 12/02/16 06:00 Platelet Morphology NORMAL (NORMAL) 12/02/16 06:00 RBC Morph Micro Appear NORMAL (NORMAL) 12/02/16 06:00 Total Retics Counted 2.3 % (0.5-1.5) H 11/30/16 22:39 Absolute Retic 72.9 Th/cmm 11/30/16 22:39 Corrected Retic Count 1.4 % (0.5-1.5) 11/30/16 22:39 Eos Smear Source URINE 12/01/16 15:30 Eos Smear Total Cells NONE SEEN (NONE SEEN) 12/01/16 15:30 PT 11.2 SECONDS (9.5-11.5) 11/30/16 22:39 INR 1.08 (0.5-1.4) 11/30/16 22:39 PTT (Actin FS) 29.5 SECONDS (26.0-38.0) 11/30/16 22:39 Sodium 133 mEq/L (136-145) L 12/03/16 07:45 Potassium 4.0 mEq/L (3.5-5.1) 12/03/16 07:45 Chloride 104 mEq/L (98-107) 12/03/16 07:45 Carbon Dioxide 19.3 mEq/L (21.0-31.0) L 12/03/16 07:45 Anion Gap 13.7 (7.0-16.0) 12/03/16 07:45 BUN 46 mg/dL (7-25) H 12/03/16 07:45 Creatinine 2.3 mg/dL (0.6-1.2) H 12/03/16 07:45 Est GFR ( Amer) TNP 12/03/16 07:45 Est GFR (Non-Af Amer) TN 12/03/16 07:45 BUN/Creatinine Ratio 20.0 12/03/16 07:45 Glucose 234 mg/dL (70-105) H 12/03/16 07:45 POC Glucose 248 MG/DL (70 - 105) H 12/04/16 06:26 Hemoglobin A1c % 5.5 % (4.0-6.0) 11/30/16 22:39 Uric Acid 5.6 mg/dL (2.3-6.6) 12/02/16 06:00 Calcium 9.1 mg/dL (8.6-10.3) 12/03/16 07:45 Phosphorus 3.2 mg/dL (2.5-5.0) 12/03/16 07:45 Magnesium 2.0 mg/dL (1.9-2.7) 12/02/16 06:00 Iron 41 ug/dL (27-139) 11/30/16 22:39 TIBC 339 ug/dL (250-450) 11/30/16 22:39 Iron Saturation 12 % (15-55) L 11/30/16 22:39 Unsaturated IBC 298 ug/dL (118-369) 11/30/16 22:39 Total Bilirubin 0.3 mg/dL (0.3-1.0) 11/30/16 22:39 AST 15 U/L (13-39) 11/30/16 22:39 ALT 7 U/L (7-52) 11/30/16 22:39 Alkaline Phosphatase 71 U/L (34-104) 11/30/16 22:39 Troponin I 0.01 ng/mL (0.01-0.05) 11/30/16 22:39 Total Protein 6.4 gm/dL (6.0-8.3) 11/30/16 22:39 Albumin 3.5 gm/dL (3.7-5.3) L 11/30/16 22:39 Globulin 2.9 gm/dL 11/30/16 22:39 Albumin/Globulin Ratio 1.2 (1.0-1.8) 11/30/16 22:39 Triglycerides 164 mg/dL (<150) H 11/30/16 22:39 Cholesterol 90 mg/dL (<200) 11/30/16 22:39 LDL Cholesterol Direct 40 mg/dL (75-193) L 11/30/16 22:39 HDL Cholesterol 29 mg/dL (23-92) 11/30/16 22:39 Vitamin B12 917 pg/mL (211-946) 11/30/16 22:39 Folic Acid >20.0 ng/mL (>3.0) 11/30/16 22:39 TSH 0.41 uIU/ml (0.34-5.60) 11/30/16 22:39 Urine Source CLEAN C 12/01/16 15:30 Urine Color YELLOW 12/01/16 15:30 Urine Clarity CLOUDY (CLEAR) H 12/01/16 15:30 Urine pH 6.5 (4.6 - 8.0) 12/01/16 15:30 Ur Specific Hardin 1.020 (1.005-1.030) 12/01/16 15:30 Urine Protein >=300 mg/dL (NEGATIVE) 12/01/16 15:30 Urine Glucose (UA) NEGATIVE mg/dL (NEGATIVE) 12/01/16 15:30 Urine Ketones NEGATIVE mg/dL (NEGATIVE) 12/01/16 15:30 Urine Blood TRACE (NEGATIVE) 12/01/16 15:30 Urine Nitrate NEGATIVE (NEGATIVE) 12/01/16 15:30 Urine Bilirubin NEGATIVE (NEGATIVE) 12/01/16 15:30 Urine Urobilinogen 0.2 E.U./dL (0.2 - 1.0) 12/01/16 15:30 Ur Leukocyte Esterase MODERATE (NEGATIVE) H 12/01/16 15:30 Urine RBC 2-5 /hpf (0-5) 12/01/16 15:30 Urine WBC 25-50 /hpf (0-5) H 12/01/16 15:30 Ur Epithelial Cells FEW /lpf (FEW) 12/01/16 15:30 Urine Bacteria MANY /hpf (NONE SEEN) 12/01/16 15:30 Ur Random Sodium 94 mmol/L 12/01/16 15:30 Urine Creatinine 42.2 mg/dl (Not Estab.) 12/01/16 15:30 Urine Microalbumin 1475.1 ug/mL (Not Estab.) 12/01/16 15:30 Microalb/Creat Ratio 3495.5 mg/g creat (0.0-30.0) H 12/01/16 15:30 Stool Occult Blood NEGATIVE (NEGATIVE) 12/01/16 15:50 RPR NONREACTIVE (NONREACTIVE) 11/30/16 22:39 - Physical Exam Vitals and I&O: Vital Signs Temp 98.0 F 12/04/16 04:00 Pulse 68 12/04/16 04:00 Resp 18 12/04/16 04:00 BP 145/62 12/04/16 04:00 Pulse Ox 97 12/04/16 04:00 Intake & Output 0812/04/16 12/04/16 18:59 06:59 18:59 Intake Total 1160 498.333 Balance 1160 498.333 Weight (lbs) 104.054 kg Intake: Intake, IV Amount 1160 158.333 Sodium Chloride 0.9% 1, 1000 158.333 000 ml @ 50 mls/hr IV . Q20H [facility] Rx#:[id number] Sodium Ferric Gluconate 110 125 mg In Sodium Chloride 0.9% 100 ml @ 100 mls/hr IV Q24HR [facility] Rx#: [id number] cefTRIAXone 1 gm In 50 Dextrose 5% 50 ml @ 100 mls/hr IV Q24H [facility] Rx#: [id number] Oral 340 Other: # Voids 2 # Bowel Movements 0 Active Medications: Current Medications Acetaminophen (Tylenol) 650 mg PO Q6HR PRN PRN Reason: Pain or Fever >101 Stop: 01/30/17 00:53 Last Admin: 12/03/16 21:05 Dose: 650 mg Amlodipine Besylate (Norvasc) 10 mg PO DAILY [facility] Stop: 01/30/17 08:59 Last Admin: 12/03/16 09:54 Dose: 10 mg Atenolol (Tenormin) 100 mg PO DAILY [facility] Stop: 01/30/17 08:59 Last Admin: 12/03/16 09:52 Dose: 100 mg Dextrose (Glutose 40%) 18.75 gm PO PRN PRN PRN Reason: Blood Glucose less than 70 Stop: 01/30/17 03:12 Dextrose (D50w) 50 ml IVP PRN PRN PRN Reason: Blood Glucose less than 70 Stop: 01/30/17 03:12 Fenofibrate (Tricor) 134 mg PO DAILY [facility] Stop: 01/30/17 08:59 Last Admin: 12/03/16 09:53 Dose: 134 mg Folic Acid (Folate) 1 mg PO DAILY [facility] Stop: 01/30/17 08:59 Last Admin: 12/03/16 09:55 Dose: 1 mg Gabapentin (Neurontin) 300 mg PO DAILY [facility] Stop: 01/30/17 08:59 Last Admin: 12/03/16 09:55 Dose: 300 mg Glimepiride (Amaryl) 4 mg PO DAILY [facility] Stop: 01/30/17 08:59 Last Admin: 12/03/16 09:53 Dose: 4 mg Glucagon (Glucagen) 1 mg IM PRN PRN PRN Reason: Blood Glucose less than 70 Stop: 01/30/17 03:12 Ceftriaxone Sodium 1 gm/ (Dextrose) 50 mls @ 100 mls/hr IV Q24H [facility] Stop: 01/31/17 08:59 Last Infusion: 12/03/16 10:33 Dose: Infused Sodium Chloride (Nacl 0.9%) 1,000 mls @ 50 mls/hr IV .Q20H [facility] Stop: 01/31/17 14:41 Last Infusion: 12/03/16 19:04 Dose: 50 mls/hr Ferric Sodium Gluconate Complex 125 mg/ Sodium Chloride 110 mls @ 100 mls/hr IV Q24HR [facility] Stop: 12/08/16 10:44 Last Infusion: 12/03/16 13:09 Dose: Infused Insulin Aspart (Novolog Insulin Sliding Scale) 0 units SUBQ ACHS [facility] PRN Reason: Protocol Stop: 01/30/17 07:29 Last Admin: 12/04/16 06:30 Dose: 4 units Insulin Human Isoph/Insulin Regular (Novolin 70/30) 18 units SUBQ QPM [facility] Stop: 01/30/17 16:59 Last Admin: 12/03/16 17:17 Dose: 18 units Insulin Human Isoph/Insulin Regular (Novolin 70/30) 30 units SUBQ QAM [facility] Stop: 01/30/17 08:59 Last Admin: 12/03/16 12:04 Dose: Not Given Levothyroxine Sodium (Synthroid) 0.025 mg PO DAILY [facility] Stop: 01/30/17 08:59 Last Admin: 12/03/16 09:55 Dose: 0.025 mg Losartan Potassium (Cozaar) 50 mg PO DAILY [facility] Stop: 01/30/17 08:59 Last Admin: 12/03/16 09:55 Dose: 50 mg Magnesium Hydroxide (Milk Of Magnesia) 30 ml PO DAILY PRN PRN Reason: Constipation Stop: 01/30/17 00:53 Megestrol Acetate (Megace) 400 mg PO BID [facility] Stop: 01/30/17 08:59 Last Admin: 12/03/16 17:08 Dose: 400 mg Methylprednisolone Sodium Succinate (Solu-Medrol) 60 mg IVP Q8H [facility] Stop: 01/31/17 10:59 Last Admin: 12/04/16 03:38 Dose: 60 mg Miscellaneous (Vte Chemical Prophylaxis Screen/ Admission) 1 ea MC PRN PRN PRN Reason: PROTOCOL Stop: 01/30/17 14:41 Nitroglycerin (Nitrostat) 0.4 mg SL Q5MIN PRN PRN Reason: Chest Pain Stop: 01/30/17 00:53 Nystatin (Mycostatin Cream) 1 appl TP DAILY PRN PRN Reason: Rash Stop: 01/30/17 08:28 Simvastatin (Zocor) 10 mg PO QPM [facility] PRN Reason: Protocol Stop: 01/30/17 16:59 Last Admin: 12/03/16 17:09 Dose: 10 mg Sucralfate (Carafate) 1 gm PO BID [facility] Stop: 01/30/17 16:59 Last Admin: 12/03/16 17:09 Dose: 1 gm General: Alert, Oriented x3, No acute distress HEENT: Atraumatic, PERRLA, EOMI, Mucous membr. moist/pink Neck: Supple, +2 carotid pulse wo bruit Cardiovascular: Regular rate, Normal S1, Normal S2 Lungs: Clear to auscultation, Other Abdomen: Bowel sounds, Soft, Other (colostomy noted) Extremities: no Cyanosis, no Edema Neurological: Sensation intact Skin: Other (pale), no Rash Psych/Mental Status: Mood NL - Procedures Procedures: Procedures Procedure Code Date BLOOD TRANSFUSION SERVICE 35174 10/23/16 EGD BIOPSY SINGLE/MULTIPLE 60142 11/03/16 EXCISION OF DUODENUM, ENDO, DIAGN [id number] 11/03/16 EXCISION OF ESOPHAGUS, ENDO, DIAGN [id number] 11/03/16 EXCISION OF STOMACH, ENDO, DIAGN [id number] 11/03/16 TRANSFUSE NONAUT PLATELETS IN PERIPH VEIN, PERC 07773I9 06/25/15 TRANSFUSE NONAUT RED BLOOD CELLS IN PERIPH VEIN, PERC 19422A7 10/23/16 Assessment/Plan - Problem List Patient Problems: All Active Problems Abdominal hernia (Acute) Abdominal pain (Acute) R10.9 Alzheimer's dementia (Acute) G30.9 Anemia of chronic renal failure (Acute) N18.9, D63.1 Asthma (Acute) J45.909 CVA, old, 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 Cardiomegaly (Acute) I51.7 Chronic renal failure (Acute) Colon cancer (Acute) Diabetes mellitus (Acute) E11.9 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 - Plan Plan: severe thrombocytopenia -- now resolved. Platelets 104K anemia of chronic disease ... stool occult negative. chronic renal insufficiency ... stable. colon ca ... consult GI CVA ... stable alzheimer's dementia asthma cardiomegaly diabetes mellitus ... stable. duodenal ulcer ... on protonix IV fracture of left humerus ... will order xray of left shoulder hyperlipidemia ... continue statin thyroid disorder. ... stable. discharge back to SNF if OK with consults. Nutritional Asmnt/Malnutr-PDOC - Dietary Evaluation Malnutrition Findings (Please click <Entered> for more info): Nutritional Asmnt/Malnutrition Start: 12/01/16 18: 09 Text: Status: Complete Freq: Document 12/02/16 19:09 [facility] (Rec: 12/02/16 19:18 [facility] [id number]) Nutritional Asmnt/Malnutrition Patient General Information Nutritional Screening High Risk Screening Diagnosis Severe thrombocytopenia Pertinent Medical Hx/Surgical Hx HTN, hyperlipidemia, gastritis , peptic ulcer, hx colon cancer s/p colostomy, Alzheimer's dementia, left humeral fracture, renal insufficiency, DM, hypothyroidism, rash Subjective Information Pt is a 80-year-old female from [facility] admitted with chief complaint of severe thrombocytopenia. Pt was awake and able to answer questions. Pt was feeding herself independently and eating with good tolerance. Pt reports good appetite prior to admit. Poor appetite noted here. Pt states, "Food is ok." No muscle or fat depletion noted. Current Diet Order/ Nutrition Support Regular Patient / S.O Can Pertinent Medications Ceftriaxone Sodium, Tricor, Iron, Folate, Novolog, Novolin 70/30, Megace, Solu-Medrol, Zocor, NaCl 0.9% Pertinent Labs (11/30) Na 291H, A1C WNL, Triglyceride 164H, LDL Cholesterol 40L. (12/02) BUN 50H, Creatinine 2.4H, Glucose (fasting) 233H, POC Glucose 209H-434H (pt is noted to be on steroids and regular diet), Phosphorous 2L Nutritional Hx/Data Height 1.55 m Height (Calculated Centimeters) 154.9 Current Weight (lbs) 57.153 kg Weight (Calculated Kilograms) 57.2 Weight (Calculated Grams) 16661.6 Usual body Weight (lbs) 121 % Usual Body Weight 104 [place] Body Weight 105 % [place] Body Weight 120 Weight Status Approriate GI Symptoms GI Symptoms None Food Allergies No Cultural/Ethnic/Scientologist Belief No cultural or synagogue beliefs noted. Usual diet at home TADEO, CCHO, fortified milk at breakfast Skin Integrity/Comment: Temo 13. No skin breakdown but rash is noted. Current %PO Poor (25-49%) Estimated Nutritional Goals BEE in Kcals: Using Current wt Calories/Kcals/Kg Based on current wt 57.3 kg Kcals Calculated 0019-0452 kcals/day (25-30 kcals/kg) Protein: Using Current wt Protein g/kg: Based on current wt 57.3 kg Protein Calculated 57 gm/day (1 gm/kg) Fluid: ml 5477-2858 ml/day (30-35 ml/kg) Nutritional Problem 1. Problem Problem Altered nutrition-related laboratory values related to Etiology possible inconsistent carbohydrate intake as evidenced by Signs/Symptoms: admitting glucose 291 and hyperglycemia. Malnutrition Alert Protein-Calorie Malnutrition N/A Is there a minimum of two criteria No selected? Query Text:Check all the applicable criteria. A minimum of two criteria are recommended for diagnosis of either severe or non-severe malnutrition. Malnutrition Related to Morbid Obesity Malnutrition related to morbid obesity No Intervention/Recommendation Recommendations by RD Dietary Education by RD1 Comments 1. Recommend CCHO-60 GM diet for glycemic control. 2. Educate pt on CCHO diet and importance of consistent intake at follow up, as able. Expected Outcomes/Goals Expected Outcomes/Goals Blood glucose will trend towards desired parameters. Physician Parameters for PEM Body Mass Index (BMI) 19 - 24 (Normal) Serum Albumin (g/dl) 3.5 - 5.0 (Normal)
[2016-12-04] MEDS: Fenofibrate, Micronized 134 mg Cap PO SCH (09:31)
[2016-12-04] MEDS: Levothyroxine 0.025 Mg Tab PO SCH (09:32)
[2016-12-04] MEDS: Sodium Chloride 0.9% 1,000 ML IV SCH (12:08)
[2016-12-04] MEDS: Sodium Ferric Gluconate 125 MG in Sodium Chloride 0.9% 100 ML IV SCH (12:11)
[2016-12-04] MEDS: INSULIN 70/30 100 UNITS/ML SUBQ SCH ×2 (12:22→18:20)
--- NOTE | 2016-12-04 13:49 | General Progress Note ---
Subjective - Review of Systems Service Date: 12/04/16 Subjective: awake, verbal, comfortable Objective - Results Result Diagrams: 12/04/16 06:40 12/03/16 07:45 Recent Labs: Laboratory Last Values WBC 8.7 Th/cmm (4.8-10.8) D 12/04/16 06:40 RBC 3.00 Mil/cmm (3.80-5.20) L 12/04/16 06:40 Hgb 8.8 gm/dL (11.7-16.1) L 12/04/16 06:40 Hct 26.3 % (35.0-45.0) L D 12/04/16 06:40 MCV 87.8 fl (81-100) 12/04/16 06:40 MCH 29.4 pg (27.0-31.0) 12/04/16 06:40 MCHC Differential 33.5 pg (28.0-36.0) 12/04/16 06:40 RDW 14.2 % (11.5-20.0) 12/04/16 06:40 Plt Count 132 Th/cmm (150-400) L D 12/04/16 06:40 MPV 9.9 fl 12/04/16 06:40 Neutrophils % 88.8 % (40.0-80.0) H 12/04/16 06:40 Band Neutrophils % 5 % (0-10) 12/02/16 06:00 Lymphocytes % 10.5 % (20.0-50.0) L 12/04/16 06:40 Monocytes % 0.5 % (2.0-10.0) L 12/04/16 06:40 Eosinophils % 0.1 % (0.0-5.0) 12/04/16 06:40 Basophils % 0.1 % (0.0-2.0) 12/04/16 06:40 Neutrophils (Manual) 83 % (40-80) H 12/02/16 06:00 Lymphocytes 10 % (20-50) L 12/02/16 06:00 Monocytes 2 % (2-10) 12/02/16 06:00 Eosinophils 2 % (0-5) 12/01/16 06:22 Atypical Lymphocytes 1 % 12/01/16 06:22 Platelet Estimate DECREASED PLATELETS (NORMAL) 12/02/16 06:00 Platelet Morphology NORMAL (NORMAL) 12/02/16 06:00 RBC Morph Micro Appear NORMAL (NORMAL) 12/02/16 06:00 Total Retics Counted 2.3 % (0.5-1.5) H 11/30/16 22:39 Absolute Retic 72.9 Th/cmm 11/30/16 22:39 Corrected Retic Count 1.4 % (0.5-1.5) 11/30/16 22:39 Eos Smear Source URINE 12/01/16 15:30 Eos Smear Total Cells NONE SEEN (NONE SEEN) 12/01/16 15:30 PT 11.2 SECONDS (9.5-11.5) 11/30/16 22:39 INR 1.08 (0.5-1.4) 11/30/16 22:39 PTT (Actin FS) 29.5 SECONDS (26.0-38.0) 11/30/16 22:39 Sodium 133 mEq/L (136-145) L 12/03/16 07:45 Potassium 4.0 mEq/L (3.5-5.1) 12/03/16 07:45 Chloride 104 mEq/L (98-107) 12/03/16 07:45 Carbon Dioxide 19.3 mEq/L (21.0-31.0) L 12/03/16 07:45 Anion Gap 13.7 (7.0-16.0) 12/03/16 07:45 BUN 46 mg/dL (7-25) H 12/03/16 07:45 Creatinine 2.3 mg/dL (0.6-1.2) H 12/03/16 07:45 Est GFR ( Amer) TNP 12/03/16 07:45 Est GFR (Non-Af Amer) [facility] 12/03/16 07:45 BUN/Creatinine Ratio 20.0 12/03/16 07:45 Glucose 234 mg/dL (70-105) H 12/03/16 07:45 POC Glucose 184 MG/DL (70 - 105) H 12/04/16 11:30 Hemoglobin A1c % 5.5 % (4.0-6.0) 11/30/16 22:39 Uric Acid 5.6 mg/dL (2.3-6.6) 12/02/16 06:00 Calcium 9.1 mg/dL (8.6-10.3) 12/03/16 07:45 Phosphorus 3.2 mg/dL (2.5-5.0) 12/03/16 07:45 Magnesium 2.0 mg/dL (1.9-2.7) 12/02/16 06:00 Iron 41 ug/dL (27-139) 11/30/16 22:39 TIBC 339 ug/dL (250-450) 11/30/16 22:39 Iron Saturation 12 % (15-55) L 11/30/16 22:39 Unsaturated IBC 298 ug/dL (118-369) 11/30/16 22:39 Total Bilirubin 0.3 mg/dL (0.3-1.0) 11/30/16 22:39 AST 15 U/L (13-39) 11/30/16 22:39 ALT 7 U/L (7-52) 11/30/16 22:39 Alkaline Phosphatase 71 U/L (34-104) 11/30/16 22:39 Troponin I 0.01 ng/mL (0.01-0.05) 11/30/16 22:39 Total Protein 6.4 gm/dL (6.0-8.3) 11/30/16 22:39 Albumin 3.5 gm/dL (3.7-5.3) L 11/30/16 22:39 Globulin 2.9 gm/dL 11/30/16 22:39 Albumin/Globulin Ratio 1.2 (1.0-1.8) 11/30/16 22:39 Triglycerides 164 mg/dL (<150) H 11/30/16 22:39 Cholesterol 90 mg/dL (<200) 11/30/16 22:39 LDL Cholesterol Direct 40 mg/dL (75-193) L 11/30/16 22:39 HDL Cholesterol 29 mg/dL (23-92) 11/30/16 22:39 Vitamin B12 917 pg/mL (211-946) 11/30/16 22:39 Folic Acid >20.0 ng/mL (>3.0) 11/30/16 22:39 TSH 0.41 uIU/ml (0.34-5.60) 11/30/16 22:39 Urine Source CLEAN C 12/01/16 15:30 Urine Color YELLOW 12/01/16 15:30 Urine Clarity CLOUDY (CLEAR) H 12/01/16 15:30 Urine pH 6.5 (4.6 - 8.0) 12/01/16 15:30 Ur Specific [place] 1.020 (1.005-1.030) 12/01/16 15:30 Urine Protein >=300 mg/dL (NEGATIVE) 12/01/16 15:30 Urine Glucose (UA) NEGATIVE mg/dL (NEGATIVE) 12/01/16 15:30 Urine Ketones NEGATIVE mg/dL (NEGATIVE) 12/01/16 15:30 Urine Blood TRACE (NEGATIVE) 12/01/16 15:30 Urine Nitrate NEGATIVE (NEGATIVE) 12/01/16 15:30 Urine Bilirubin NEGATIVE (NEGATIVE) 12/01/16 15:30 Urine Urobilinogen 0.2 E.U./dL (0.2 - 1.0) 12/01/16 15:30 Ur Leukocyte Esterase MODERATE (NEGATIVE) H 12/01/16 15:30 Urine RBC 2-5 /hpf (0-5) 12/01/16 15:30 Urine WBC 25-50 /hpf (0-5) H 12/01/16 15:30 Ur Epithelial Cells FEW /lpf (FEW) 12/01/16 15:30 Urine Bacteria MANY /hpf (NONE SEEN) 12/01/16 15:30 Ur Random Sodium 94 mmol/L 12/01/16 15:30 Urine Creatinine 42.2 mg/dl (Not Estab.) 12/01/16 15:30 Urine Microalbumin 1475.1 ug/mL (Not Estab.) 12/01/16 15:30 Microalb/Creat Ratio 3495.5 mg/g creat (0.0-30.0) H 12/01/16 15:30 Stool Occult Blood NEGATIVE (NEGATIVE) 12/01/16 15:50 RPR NONREACTIVE (NONREACTIVE) 11/30/16 22:39 - Physical Exam Vitals and I&O: Vital Signs Temp 97.8 F 12/04/16 08:00 Pulse 61 12/04/16 09:55 Resp 20 12/04/16 08:00 BP 163/63 12/04/16 09:55 Pulse Ox 97 12/04/16 04:00 Intake & Output 12/03/16 12/04/16 12/04/16 18:59 06:59 18:59 Intake Total 1160 498.333 841.667 Balance 1160 498.333 841.667 Weight (lbs) 104.054 kg Intake: Intake, IV Amount 1160 158.333 841.667 Sodium Chloride 0.9% 1, 1000 158.333 841.667 000 ml @ 50 mls/hr IV . Q20H [facility] Rx#:[id number] Sodium Ferric Gluconate 110 125 mg In Sodium Chloride 0.9% 100 ml @ 100 mls/hr IV Q24HR VLAD Rx#: [id number] cefTRIAXone 1 gm In 50 Dextrose 5% 50 ml @ 100 mls/hr IV Q24H [facility] Rx#: [id number] Oral 340 Other: # Voids 2 # Bowel Movements 0 Active Medications: Current Medications Acetaminophen (Tylenol) 650 mg PO Q6HR PRN PRN Reason: Pain or Fever >101 Stop: 01/30/17 00:53 Last Admin: 12/03/16 21:05 Dose: 650 mg Amlodipine Besylate (Norvasc) 10 mg PO DAILY [facility] Stop: 01/30/17 08:59 Last Admin: 12/04/16 09:55 Dose: 10 mg Atenolol (Tenormin) 100 mg PO DAILY [facility] Stop: 01/30/17 08:59 Last Admin: 12/04/16 09:34 Dose: 100 mg Dextrose (Glutose 40%) 18.75 gm PO PRN PRN PRN Reason: Blood Glucose less than 70 Stop: 01/30/17 03:12 Dextrose (D50w) 50 ml IVP PRN PRN PRN Reason: Blood Glucose less than 70 Stop: 01/30/17 03:12 Fenofibrate (Tricor) 134 mg PO DAILY [facility] Stop: 01/30/17 08:59 Last Admin: 12/04/16 09:31 Dose: 134 mg Folic Acid (Folate) 1 mg PO DAILY [facility] Stop: 01/30/17 08:59 Last Admin: 12/04/16 09:32 Dose: 1 mg Gabapentin (Neurontin) 300 mg PO DAILY [facility] Stop: 01/30/17 08:59 Last Admin: 12/04/16 09:32 Dose: 300 mg Glimepiride (Amaryl) 4 mg PO DAILY [facility] Stop: 01/30/17 08:59 Last Admin: 12/04/16 09:32 Dose: 4 mg Glucagon (Glucagen) 1 mg IM PRN PRN PRN Reason: Blood Glucose less than 70 Stop: 01/30/17 03:12 Ceftriaxone Sodium 1 gm/ (Dextrose) 50 mls @ 100 mls/hr IV Q24H [facility] Stop: 01/31/17 08:59 Last Admin: 12/04/16 09:56 Dose: 50 mls/hr Sodium Chloride (Nacl 0.9%) 1,000 mls @ 50 mls/hr IV .Q20H VLAD Stop: 01/31/17 14:41 Last Admin: 12/04/16 12:08 Dose: 50 mls/hr Ferric Sodium Gluconate Complex 125 mg/ Sodium Chloride 110 mls @ 100 mls/hr IV Q24HR [facility] Stop: 12/08/16 10:44 Last Admin: 12/04/16 12:11 Dose: 100 mls/hr Insulin Aspart (Novolog Insulin Sliding Scale) 0 units SUBQ ACHS VLAD PRN Reason: Protocol Stop: 01/30/17 07:29 Last Admin: 12/04/16 12:44 Dose: 2 units Insulin Human Isoph/Insulin Regular (Novolin 70/30) 18 units SUBQ QPM VLAD Stop: 01/30/17 16:59 Last Admin: 12/03/16 17:17 Dose: 18 units Insulin Human Isoph/Insulin Regular (Novolin 70/30) 30 units SUBQ QAM [facility] Stop: 01/30/17 08:59 Last Admin: 12/04/16 12:22 Dose: Not Given Levothyroxine Sodium (Synthroid) 0.025 mg PO DAILY [facility] Stop: 01/30/17 08:59 Last Admin: 12/04/16 09:32 Dose: 0.025 mg Losartan Potassium (Cozaar) 50 mg PO DAILY [facility] Stop: 01/30/17 08:59 Last Admin: 12/04/16 09:35 Dose: 50 mg Magnesium Hydroxide (Milk Of Magnesia) 30 ml PO DAILY PRN PRN Reason: Constipation Stop: 01/30/17 00:53 Megestrol Acetate (Megace) 400 mg PO BID [facility] Stop: 01/30/17 08:59 Last Admin: 12/04/16 09:33 Dose: 400 mg Methylprednisolone Sodium Succinate (Solu-Medrol) 60 mg IVP Q8H [facility] Stop: 01/31/17 10:59 Last Admin: 12/04/16 03:38 Dose: 60 mg Miscellaneous (Vte Chemical Prophylaxis Screen/ Admission) 1 ea MC PRN PRN PRN Reason: PROTOCOL Stop: 01/30/17 14:41 Nitroglycerin (Nitrostat) 0.4 mg SL Q5MIN PRN PRN Reason: Chest Pain Stop: 01/30/17 00:53 Nystatin (Mycostatin Cream) 1 appl TP DAILY PRN PRN Reason: Rash Stop: 01/30/17 08:28 Simvastatin (Zocor) 10 mg PO QPM VLAD PRN Reason: Protocol Stop: 01/30/17 16:59 Last Admin: 12/03/16 17:09 Dose: 10 mg Sucralfate (Carafate) 1 gm PO BID [facility] Stop: 01/30/17 16:59 Last Admin: 12/04/16 09:32 Dose: 1 gm General: Alert, Oriented x3, No acute distress HEENT: Atraumatic, PERRLA, EOMI, Mucous membr. moist/pink Neck: Supple, +2 carotid pulse wo bruit Cardiovascular: Regular rate, Normal S1, Normal S2 Lungs: Clear to auscultation, Other Abdomen: Bowel sounds, Soft, Other (colostomy noted) Extremities: no Cyanosis, no Edema Neurological: Sensation intact Skin: Other (pale), no Rash Psych/Mental Status: Mood NL - Procedures Procedures: Procedures Procedure Code Date BLOOD TRANSFUSION SERVICE 24223 10/23/16 EGD BIOPSY SINGLE/MULTIPLE 82348 11/03/16 EXCISION OF DUODENUM, ENDO, DIAGN [id number] 11/03/16 EXCISION OF ESOPHAGUS, ENDO, DIAGN [id number] 11/03/16 EXCISION OF STOMACH, ENDO, DIAGN 0BO08NP 11/03/16 TRANSFUSE NONAUT PLATELETS IN PERIPH VEIN, [facility] [id number] 06/25/15 TRANSFUSE NONAUT RED BLOOD CELLS IN PERIPH VEIN, [facility] [id number] 10/23/16 Assessment/Plan - Problem List Patient Problems: All Active Problems Abdominal hernia (Acute) Abdominal pain (Acute) R10.9 Alzheimer's dementia (Acute) G30.9 Anemia of chronic renal failure (Acute) N18.9, D63.1 Asthma (Acute) J45.909 CVA, old, 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 Cardiomegaly (Acute) I51.7 Chronic renal failure (Acute) Colon cancer (Acute) Diabetes mellitus (Acute) E11.9 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) E11.22 Duodenal ulcer (Acute) Fracture of proximal end of left humerus (Acute) S42.202A Hyperlipidemia (Acute) E78.5 Hyponatremia (Acute) E87.1 Severe anemia (Acute) D64.9 Severe hypertension (Acute) I10 Thrombocytopenia (Acute) D69.6 Thyroid disorder (Acute) UTI (urinary tract infection) (Acute) - Assessment Assessment: CKD Chronic Thrombocytopenia(ITP) Anemia of CKD Colon Ca S/P Colectomy w/ Colostomy Vitiligo Ess HTN Type 2 DM - Plan Plan: Lab - Result Diagrams 12/02/16 06:00 12/02/16 06:00 Current Medications Acetaminophen (Tylenol) 650 mg PO Q6HR PRN PRN Reason: Pain or Fever >101 Stop: 01/30/17 00:53 Amlodipine Besylate (Norvasc) 10 mg PO DAILY [facility] Stop: 01/30/17 08:59 Last Admin: 12/02/16 09:14 Dose: 10 mg Atenolol (Tenormin) 100 mg PO DAILY [facility] Stop: 01/30/17 08:59 Last Admin: 12/02/16 09:14 Dose: 100 mg Dextrose (Glutose 40%) 18.75 gm PO PRN PRN PRN Reason: Blood Glucose less than 70 Stop: 01/30/17 03:12 Dextrose (D50w) 50 ml IVP PRN PRN PRN Reason: Blood Glucose less than 70 Stop: 01/30/17 03:12 Fenofibrate (Tricor) 134 mg PO DAILY [facility] Stop: 01/30/17 08:59 Last Admin: 12/02/16 09:14 Dose: 134 mg Ferrous Sulfate (Iron) 325 mg PO DAILY [facility] Stop: 01/30/17 08:59 Last Admin: 12/02/16 09:15 Dose: 325 mg Folic Acid (Folate) 1 mg PO DAILY VLAD Stop: 01/30/17 08:59 Last Admin: 12/02/16 09:15 Dose: 1 mg Gabapentin (Neurontin) 300 mg PO DAILY [facility] Stop: 01/30/17 08:59 Last Admin: 12/02/16 09:15 Dose: 300 mg Glimepiride (Amaryl) 4 mg PO DAILY [facility] Stop: 01/30/17 08:59 Last Admin: 12/02/16 09:15 Dose: 4 mg Glucagon (Glucagen) 1 mg IM PRN PRN PRN Reason: Blood Glucose less than 70 Stop: 01/30/17 03:12 Ceftriaxone Sodium 1 gm/ (Dextrose) 50 mls @ 100 mls/hr IV Q24H [facility]AD Stop: 01/31/17 08:59 Last Admin: 12/02/16 09:16 Dose: 100 mls/hr Insulin Aspart (Novolog Insulin Sliding Scale) 0 units SUBQ ACHS VLAD PRN Reason: Protocol Stop: 01/30/17 07:29 Last Admin: 12/02/16 11:47 Dose: 8 units Insulin Human Isoph/Insulin Regular (Novolin 70/30) 18 units SUBQ QPM [facility] Stop: 01/30/17 16:59 Last Admin: 12/01/16 16:33 Dose: Not Given Insulin Human Isoph/Insulin Regular (Novolin 70/30) 30 units SUBQ QAM [facility] Stop: 01/30/17 08:59 Last Admin: 12/02/16 09:29 Dose: 30 units Levothyroxine Sodium (Synthroid) 0.025 mg PO DAILY [facility] Stop: 01/30/17 08:59 Last Admin: 12/02/16 09:15 Dose: 0.025 mg Losartan Potassium (Cozaar) 50 mg PO DAILY [facility] Stop: 01/30/17 08:59 Last Admin: 12/02/16 09:15 Dose: 50 mg Magnesium Hydroxide (Milk Of Magnesia) 30 ml PO DAILY PRN PRN Reason: Constipation Stop: 01/30/17 00:53 Megestrol Acetate (Megace) 400 mg PO BID [facility] Stop: 01/30/17 08:59 Last Admin: 12/02/16 09:15 Dose: 400 mg Methylprednisolone Sodium Succinate (Solu-Medrol) 60 mg IVP Q8H [facility] Stop: 01/31/17 10:59 Last Admin: 12/02/16 11:43 Dose: 60 mg Miscellaneous (Vte Chemical Prophylaxis Screen/ Admission) 1 ea MC PRN PRN PRN Reason: PROTOCOL Stop: 01/30/17 14:41 Nitroglycerin (Nitrostat) 0.4 mg SL Q5MIN PRN PRN Reason: Chest Pain Stop: 01/30/17 00:53 Nystatin (Mycostatin Cream) 1 appl TP DAILY PRN PRN Reason: Rash Stop: 01/30/17 08:28 Simvastatin (Zocor) 10 mg PO QPM VLAD PRN Reason: Protocol Stop: 01/30/17 16:59 Last Admin: 12/01/16 16:35 Dose: 10 mg Sucralfate (Carafate) 1 gm PO BID VLAD Stop: 01/30/17 16:59 Last Admin: 12/02/16 09:15 Dose: 1 gm kidney fnc remain stable w/ BUN/CR of 46/2.3 start gentle hydration, replace P04 leukocytosis, elevated BS 2nd to steroids P04 has corrected PLTS up to 132 Lab - Result Diagrams 12/02/16 06:00 12/02/16 06:00 cbc Nutritional Asmnt/Malnutr-PDOC - Dietary Evaluation Malnutrition Findings (Please click <Entered> for more info): Nutritional Asmnt/Malnutrition Start: 12/01/16 18: 09 Text: Status: Complete Freq: Document 12/02/16 19:09 [facility] (Rec: 12/02/16 19:18 [facility] [id number]) Nutritional Asmnt/Malnutrition Patient General Information Nutritional Screening High Risk Screening Diagnosis Severe thrombocytopenia Pertinent Medical Hx/Surgical Hx HTN, hyperlipidemia, gastritis , peptic ulcer, hx colon cancer s/p colostomy, Alzheimer's dementia, left humeral fracture, renal insufficiency, DM, hypothyroidism, rash Subjective Information Pt is a 80-year-old female from [facility] admitted with chief complaint of severe thrombocytopenia. Pt was awake and able to answer questions. Pt was feeding herself independently and eating with good tolerance. Pt reports good appetite prior to admit. Poor appetite noted here. Pt states, "Food is ok." No muscle or fat depletion noted. Current Diet Order/ Nutrition Support Regular Patient / S.O Can Pertinent Medications Ceftriaxone Sodium, Tricor, Iron, Folate, Novolog, Novolin 70/30, Megace, Solu-Medrol, Zocor, NaCl 0.9% Pertinent Labs (11/30) Na 291H, A1C WNL, Triglyceride 164H, LDL Cholesterol 40L. (12/02) BUN 50H, Creatinine 2.4H, Glucose (fasting) 233H, POC Glucose 209H-434H (pt is noted to be on steroids and regular diet), Phosphorous 2L Nutritional Hx/Data Height 1.55 m Height (Calculated Centimeters) 154.9 Current Weight (lbs) 57.153 kg Weight (Calculated Kilograms) 57.2 Weight (Calculated Grams) 08169.6 Usual body Weight (lbs) 121 % Usual Body Weight 104 [place] Body Weight 105 % [place] Body Weight 120 Weight Status Approriate GI Symptoms GI Symptoms None Food Allergies No Cultural/Ethnic/Hinduism Belief No cultural or gnosticist beliefs noted. Usual diet at home TADEO, CCHO, fortified milk at breakfast Skin Integrity/Comment: Temo 13. No skin breakdown but rash is noted. Current %PO Poor (25-49%) Estimated Nutritional Goals BEE in Kcals: Using Current wt Calories/Kcals/Kg Based on current wt 57.3 kg Kcals Calculated 1399-5354 kcals/day (25-30 kcals/kg) Protein: Using Current wt Protein g/kg: Based on current wt 57.3 kg Protein Calculated 57 gm/day (1 gm/kg) Fluid: ml 4935-3871 ml/day (30-35 ml/kg) Nutritional Problem 1. Problem Problem Altered nutrition-related laboratory values related to Etiology possible inconsistent carbohydrate intake as evidenced by Signs/Symptoms: admitting glucose 291 and hyperglycemia. Malnutrition Alert Protein-Calorie Malnutrition N/A Is there a minimum of two criteria No selected? Query Text:Check all the applicable criteria. A minimum of two criteria are recommended for diagnosis of either severe or non-severe malnutrition. Malnutrition Related to Morbid Obesity Malnutrition related to morbid obesity No Intervention/Recommendation Recommendations by RD Dietary Education by RD1 Comments 1. Recommend CCHO-60 GM diet for glycemic control. 2. Educate pt on CCHO diet and importance of consistent intake at follow up, as able. Expected Outcomes/Goals Expected Outcomes/Goals Blood glucose will trend towards desired parameters. Physician Parameters for PEM Body Mass Index (BMI) 19 - 24 (Normal) Serum Albumin (g/dl) 3.5 - 5.0 (Normal)
--- NOTE | 2016-12-04 15:33 | GI Progress Note ---
Subjective - Review of Systems Service Date: 12/04/16 Events since last encounter: Pt reports no blood in her stool. Feels well. No other complaints at this time Objective - Results Result Diagrams: 12/04/16 06:40 12/03/16 07:45 Recent Labs: Laboratory Last Values WBC 8.7 Th/cmm (4.8-10.8) D 12/04/16 06:40 RBC 3.00 Mil/cmm (3.80-5.20) L 12/04/16 06:40 Hgb 8.8 gm/dL (11.7-16.1) L 12/04/16 06:40 Hct 26.3 % (35.0-45.0) L D 12/04/16 06:40 MCV 87.8 fl (81-100) 12/04/16 06:40 MCH 29.4 pg (27.0-31.0) 12/04/16 06:40 MCHC Differential 33.5 pg (28.0-36.0) 12/04/16 06:40 RDW 14.2 % (11.5-20.0) 12/04/16 06:40 Plt Count 132 Th/cmm (150-400) L D 12/04/16 06:40 MPV 9.9 fl 12/04/16 06:40 Neutrophils % 88.8 % (40.0-80.0) H 12/04/16 06:40 Band Neutrophils % 5 % (0-10) 12/02/16 06:00 Lymphocytes % 10.5 % (20.0-50.0) L 12/04/16 06:40 Monocytes % 0.5 % (2.0-10.0) L 12/04/16 06:40 Eosinophils % 0.1 % (0.0-5.0) 12/04/16 06:40 Basophils % 0.1 % (0.0-2.0) 12/04/16 06:40 Neutrophils (Manual) 83 % (40-80) H 12/02/16 06:00 Lymphocytes 10 % (20-50) L 12/02/16 06:00 Monocytes 2 % (2-10) 12/02/16 06:00 Eosinophils 2 % (0-5) 12/01/16 06:22 Atypical Lymphocytes 1 % 12/01/16 06:22 Platelet Estimate DECREASED PLATELETS (NORMAL) 12/02/16 06:00 Platelet Morphology NORMAL (NORMAL) 12/02/16 06:00 RBC Morph Micro Appear NORMAL (NORMAL) 12/02/16 06:00 Total Retics Counted 2.3 % (0.5-1.5) H 11/30/16 22:39 Absolute Retic 72.9 Th/cmm 11/30/16 22:39 Corrected Retic Count 1.4 % (0.5-1.5) 11/30/16 22:39 Eos Smear Source URINE 12/01/16 15:30 Eos Smear Total Cells NONE SEEN (NONE SEEN) 12/01/16 15:30 PT 11.2 SECONDS (9.5-11.5) 11/30/16 22:39 INR 1.08 (0.5-1.4) 11/30/16 22:39 PTT (Actin FS) 29.5 SECONDS (26.0-38.0) 11/30/16 22:39 Sodium 133 mEq/L (136-145) L 12/03/16 07:45 Potassium 4.0 mEq/L (3.5-5.1) 12/03/16 07:45 Chloride 104 mEq/L (98-107) 12/03/16 07:45 Carbon Dioxide 19.3 mEq/L (21.0-31.0) L 12/03/16 07:45 Anion Gap 13.7 (7.0-16.0) 12/03/16 07:45 BUN 46 mg/dL (7-25) H 12/03/16 07:45 Creatinine 2.3 mg/dL (0.6-1.2) H 12/03/16 07:45 Est GFR ( Amer) TNP 12/03/16 07:45 Est GFR (Non-Af Amer) TNP 12/03/16 07:45 BUN/Creatinine Ratio 20.0 12/03/16 07:45 Glucose 234 mg/dL (70-105) H 12/03/16 07:45 POC Glucose 184 MG/DL (70 - 105) H 12/04/16 11:30 Hemoglobin A1c % 5.5 % (4.0-6.0) 11/30/16 22:39 Uric Acid 5.6 mg/dL (2.3-6.6) 12/02/16 06:00 Calcium 9.1 mg/dL (8.6-10.3) 12/03/16 07:45 Phosphorus 3.2 mg/dL (2.5-5.0) 12/03/16 07:45 Magnesium 2.0 mg/dL (1.9-2.7) 12/02/16 06:00 Iron 41 ug/dL (27-139) 11/30/16 22:39 TIBC 339 ug/dL (250-450) 11/30/16 22:39 Iron Saturation 12 % (15-55) L 11/30/16 22:39 Unsaturated IBC 298 ug/dL (118-369) 11/30/16 22:39 Total Bilirubin 0.3 mg/dL (0.3-1.0) 11/30/16 22:39 AST 15 U/L (13-39) 11/30/16 22:39 ALT 7 U/L (7-52) 11/30/16 22:39 Alkaline Phosphatase 71 U/L (34-104) 11/30/16 22:39 Troponin I 0.01 ng/mL (0.01-0.05) 11/30/16 22:39 Total Protein 6.4 gm/dL (6.0-8.3) 11/30/16 22:39 Albumin 3.5 gm/dL (3.7-5.3) L 11/30/16 22:39 Globulin 2.9 gm/dL 11/30/16 22:39 Albumin/Globulin Ratio 1.2 (1.0-1.8) 11/30/16 22:39 Triglycerides 164 mg/dL (<150) H 11/30/16 22:39 Cholesterol 90 mg/dL (<200) 11/30/16 22:39 LDL Cholesterol Direct 40 mg/dL (75-193) L 11/30/16 22:39 HDL Cholesterol 29 mg/dL (23-92) 11/30/16 22:39 Vitamin B12 917 pg/mL (211-946) 11/30/16 22:39 Folic Acid >20.0 ng/mL (>3.0) 11/30/16 22:39 TSH 0.41 uIU/ml (0.34-5.60) 11/30/16 22:39 Urine Source CLEAN C 12/01/16 15:30 Urine Color YELLOW 12/01/16 15:30 Urine Clarity CLOUDY (CLEAR) H 12/01/16 15:30 Urine pH 6.5 (4.6 - 8.0) 12/01/16 15:30 Ur Specific [place] 1.020 (1.005-1.030) 12/01/16 15:30 Urine Protein >=300 mg/dL (NEGATIVE) 12/01/16 15:30 Urine Glucose (UA) NEGATIVE mg/dL (NEGATIVE) 12/01/16 15:30 Urine Ketones NEGATIVE mg/dL (NEGATIVE) 12/01/16 15:30 Urine Blood TRACE (NEGATIVE) 12/01/16 15:30 Urine Nitrate NEGATIVE (NEGATIVE) 12/01/16 15:30 Urine Bilirubin NEGATIVE (NEGATIVE) 12/01/16 15:30 Urine Urobilinogen 0.2 E.U./dL (0.2 - 1.0) 12/01/16 15:30 Ur Leukocyte Esterase MODERATE (NEGATIVE) H 12/01/16 15:30 Urine RBC 2-5 /hpf (0-5) 12/01/16 15:30 Urine WBC 25-50 /hpf (0-5) H 12/01/16 15:30 Ur Epithelial Cells FEW /lpf (FEW) 12/01/16 15:30 Urine Bacteria MANY /hpf (NONE SEEN) 12/01/16 15:30 Ur Random Sodium 94 mmol/L 12/01/16 15:30 Urine Creatinine 42.2 mg/dl (Not Estab.) 12/01/16 15:30 Urine Microalbumin 1475.1 ug/mL (Not Estab.) 12/01/16 15:30 Microalb/Creat Ratio 3495.5 mg/g creat (0.0-30.0) H 12/01/16 15:30 Stool Occult Blood NEGATIVE (NEGATIVE) 12/01/16 15:50 RPR NONREACTIVE (NONREACTIVE) 11/30/16 22:39 - Physical Exam Vitals and I&O: Vital Signs Temp 97.8 F 12/04/16 08:00 Pulse 61 12/04/16 09:55 Resp 20 12/04/16 08:00 BP 163/63 12/04/16 09:55 Pulse Ox 97 12/04/16 04:00 Intake & Output 12/03/16 12/04/1617 18:59 06:59 18:59 Intake Total 1160 498.333 841.667 Balance 1160 498.333 841.667 Weight (lbs) 104.054 kg Intake: Intake, IV Amount 1160 158.333 841.667 Sodium Chloride 0.9% 1, 1000 158.333 841.667 000 ml @ 50 mls/hr IV . Q20H [facility] Rx#:[id number] Sodium Ferric Gluconate 110 125 mg In Sodium Chloride 0.9% 100 ml @ 100 mls/hr IV Q24HR [facility] Rx#: [id number] cefTRIAXone 1 gm In 50 Dextrose 5% 50 ml @ 100 mls/hr IV Q24H [facility] Rx#: [id number] Oral 340 Other: # Voids 2 # Bowel Movements 0 Active Medications: Current Medications Acetaminophen (Tylenol) 650 mg PO Q6HR PRN PRN Reason: Pain or Fever >101 Stop: 01/30/17 00:53 Last Admin: 12/03/16 21:05 Dose: 650 mg Amlodipine Besylate (Norvasc) 10 mg PO DAILY [facility] Stop: 01/30/17 08:59 Last Admin: 12/04/16 09:55 Dose: 10 mg Atenolol (Tenormin) 100 mg PO DAILY [facility] Stop: 01/30/17 08:59 Last Admin: 12/04/16 09:34 Dose: 100 mg Dextrose (Glutose 40%) 18.75 gm PO PRN PRN PRN Reason: Blood Glucose less than 70 Stop: 01/30/17 03:12 Dextrose (D50w) 50 ml IVP PRN PRN PRN Reason: Blood Glucose less than 70 Stop: 01/30/17 03:12 Fenofibrate (Tricor) 134 mg PO DAILY [facility] Stop: 01/30/17 08:59 Last Admin: 12/04/16 09:31 Dose: 134 mg Folic Acid (Folate) 1 mg PO DAILY [facility] Stop: 01/30/17 08:59 Last Admin: 12/04/16 09:32 Dose: 1 mg Gabapentin (Neurontin) 300 mg PO DAILY [facility] Stop: 01/30/17 08:59 Last Admin: 12/04/16 09:32 Dose: 300 mg Glimepiride (Amaryl) 4 mg PO DAILY [facility] Stop: 01/30/17 08:59 Last Admin: 12/04/16 09:32 Dose: 4 mg Glucagon (Glucagen) 1 mg IM PRN PRN PRN Reason: Blood Glucose less than 70 Stop: 01/30/17 03:12 Ceftriaxone Sodium 1 gm/ (Dextrose) 50 mls @ 100 mls/hr IV Q24H [facility] Stop: 01/31/17 08:59 Last Admin: 12/04/16 09:56 Dose: 50 mls/hr Sodium Chloride (Nacl 0.9%) 1,000 mls @ 50 mls/hr IV .Q20H [facility] Stop: 01/31/17 14:41 Last Admin: 12/04/16 12:08 Dose: 50 mls/hr Ferric Sodium Gluconate Complex 125 mg/ Sodium Chloride 110 mls @ 100 mls/hr IV Q24HR [facility] Stop: 12/08/16 10:44 Last Admin: 12/04/16 12:11 Dose: 100 mls/hr Insulin Aspart (Novolog Insulin Sliding Scale) 0 units SUBQ ACHS [facility] PRN Reason: Protocol Stop: 01/30/17 07:29 Last Admin: 12/04/16 12:44 Dose: 2 units Insulin Human Isoph/Insulin Regular (Novolin 70/30) 18 units SUBQ QPM [facility] Stop: 01/30/17 16:59 Last Admin: 12/03/16 17:17 Dose: 18 units Insulin Human Isoph/Insulin Regular (Novolin 70/30) 30 units SUBQ QAM [facility] Stop: 01/30/17 08:59 Last Admin: 12/04/16 12:22 Dose: Not Given Levothyroxine Sodium (Synthroid) 0.025 mg PO DAILY [facility] Stop: 01/30/17 08:59 Last Admin: 12/04/16 09:32 Dose: 0.025 mg Losartan Potassium (Cozaar) 50 mg PO DAILY [facility] Stop: 01/30/17 08:59 Last Admin: 12/04/16 09:35 Dose: 50 mg Magnesium Hydroxide (Milk Of Magnesia) 30 ml PO DAILY PRN PRN Reason: Constipation Stop: 01/30/17 00:53 Megestrol Acetate (Megace) 400 mg PO BID [facility] Stop: 01/30/17 08:59 Last Admin: 12/04/16 09:33 Dose: 400 mg Methylprednisolone Sodium Succinate (Solu-Medrol) 60 mg IVP Q8H [facility] Stop: 01/31/17 10:59 Last Admin: 12/04/16 03:38 Dose: 60 mg Miscellaneous (Vte Chemical Prophylaxis Screen/ Admission) 1 ea MC PRN PRN PRN Reason: PROTOCOL Stop: 01/30/17 14:41 Nitroglycerin (Nitrostat) 0.4 mg SL Q5MIN PRN PRN Reason: Chest Pain Stop: 01/30/17 00:53 Nystatin (Mycostatin Cream) 1 appl TP DAILY PRN PRN Reason: Rash Stop: 01/30/17 08:28 Simvastatin (Zocor) 10 mg PO QPM [facility] PRN Reason: Protocol Stop: 01/30/17 16:59 Last Admin: 12/03/16 17:09 Dose: 10 mg Sucralfate (Carafate) 1 gm PO BID [facility] Stop: 01/30/17 16:59 Last Admin: 12/04/16 09:32 Dose: 1 gm General: Alert, Oriented x3, No acute distress HEENT: Atraumatic, PERRLA, EOMI, Mucous membr. moist/pink Neck: Supple, +2 carotid pulse wo bruit Cardiovascular: Regular rate, Normal S1, Normal S2 Lungs: Clear to auscultation, Other Abdomen: Tender (non tender) Extremities: no Cyanosis, no Edema Neurological: Sensation intact Skin: Other (pale), no Rash Psych/Mental Status: Mood NL - Procedures Procedures: Procedures Procedure Code Date BLOOD TRANSFUSION SERVICE 22438 10/23/16 EGD BIOPSY SINGLE/MULTIPLE 78784 11/03/16 EXCISION OF DUODENUM, ENDO, DIAGN [id number] 11/03/16 EXCISION OF ESOPHAGUS, ENDO, DIAGN [id number] 11/03/16 EXCISION OF STOMACH, ENDO, DIAGN [id number] 11/03/16 TRANSFUSE NONAUT PLATELETS IN PERIPH VEIN, PERC 33089U7 06/25/15 TRANSFUSE NONAUT RED BLOOD CELLS IN PERIPH VEIN, PERC [id number] 10/23/16 Assessment/Plan - Problem List Patient Problems: All Active Problems Abdominal hernia (Acute) Abdominal pain (Acute) R10.9 Alzheimer's dementia (Acute) G30.9 Anemia of chronic renal failure (Acute) N18.9, D63.1 Asthma (Acute) J45.909 CVA, old, 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 Cardiomegaly (Acute) I51.7 Chronic renal failure (Acute) Colon cancer (Acute) Diabetes mellitus (Acute) E11.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 She should have colonoscopy performed given histrory of colon ca in the past, although this can be deferred to the outpatient setting. - Continue iron supplementation on discharge
--- NOTE | 2016-12-04 18:03 | General Progress Note ---
Subjective - Review of Systems Service Date: 12/04/16 Subjective: awake, feels good Objective - Results Result Diagrams: 12/04/16 06:40 12/03/16 07:45 Recent Labs: Laboratory Last Values WBC 8.7 Th/cmm (4.8-10.8) D 12/04/16 06:40 RBC 3.00 Mil/cmm (3.80-5.20) L 12/04/16 06:40 Hgb 8.8 gm/dL (11.7-16.1) L 12/04/16 06:40 Hct 26.3 % (35.0-45.0) L D 12/04/16 06:40 MCV 87.8 fl (81-100) 12/04/16 06:40 MCH 29.4 pg (27.0-31.0) 12/04/16 06:40 MCHC Differential 33.5 pg (28.0-36.0) 12/04/16 06:40 RDW 14.2 % (11.5-20.0) 12/04/16 06:40 Plt Count 132 Th/cmm (150-400) L D 12/04/16 06:40 MPV 9.9 fl 12/04/16 06:40 Neutrophils % 88.8 % (40.0-80.0) H 12/04/16 06:40 Band Neutrophils % 5 % (0-10) 12/02/16 06:00 Lymphocytes % 10.5 % (20.0-50.0) L 12/04/16 06:40 Monocytes % 0.5 % (2.0-10.0) L 12/04/16 06:40 Eosinophils % 0.1 % (0.0-5.0) 12/04/16 06:40 Basophils % 0.1 % (0.0-2.0) 12/04/16 06:40 Neutrophils (Manual) 83 % (40-80) H 12/02/16 06:00 Lymphocytes 10 % (20-50) L 12/02/16 06:00 Monocytes 2 % (2-10) 12/02/16 06:00 Eosinophils 2 % (0-5) 12/01/16 06:22 Atypical Lymphocytes 1 % 12/01/16 06:22 Platelet Estimate DECREASED PLATELETS (NORMAL) 12/02/16 06:00 Platelet Morphology NORMAL (NORMAL) 12/02/16 06:00 RBC Morph Micro Appear NORMAL (NORMAL) 12/02/16 06:00 Total Retics Counted 2.3 % (0.5-1.5) H 11/30/16 22:39 Absolute Retic 72.9 Th/cmm 11/30/16 22:39 Corrected Retic Count 1.4 % (0.5-1.5) 11/30/16 22:39 Eos Smear Source URINE 12/01/16 15:30 Eos Smear Total Cells NONE SEEN (NONE SEEN) 12/01/16 15:30 PT 11.2 SECONDS (9.5-11.5) 11/30/16 22:39 INR 1.08 (0.5-1.4) 11/30/16 22:39 PTT (Actin FS) 29.5 SECONDS (26.0-38.0) 11/30/16 22:39 Sodium 133 mEq/L (136-145) L 12/03/16 07:45 Potassium 4.0 mEq/L (3.5-5.1) 12/03/16 07:45 Chloride 104 mEq/L (98-107) 12/03/16 07:45 Carbon Dioxide 19.3 mEq/L (21.0-31.0) L 12/03/16 07:45 Anion Gap 13.7 (7.0-16.0) 12/03/16 07:45 BUN 46 mg/dL (7-25) H 12/03/16 07:45 Creatinine 2.3 mg/dL (0.6-1.2) H 12/03/16 07:45 Est GFR ( Amer) TNP 12/03/16 07:45 Est GFR (Non-Af Amer) [facility] 12/03/16 07:45 BUN/Creatinine Ratio 20.0 12/03/16 07:45 Glucose 234 mg/dL (70-105) H 12/03/16 07:45 POC Glucose 184 MG/DL (70 - 105) H 12/04/16 11:30 Hemoglobin A1c % 5.5 % (4.0-6.0) 11/30/16 22:39 Uric Acid 5.6 mg/dL (2.3-6.6) 12/02/16 06:00 Calcium 9.1 mg/dL (8.6-10.3) 12/03/16 07:45 Phosphorus 3.2 mg/dL (2.5-5.0) 12/03/16 07:45 Magnesium 2.0 mg/dL (1.9-2.7) 12/02/16 06:00 Iron 41 ug/dL (27-139) 11/30/16 22:39 TIBC 339 ug/dL (250-450) 11/30/16 22:39 Iron Saturation 12 % (15-55) L 11/30/16 22:39 Unsaturated IBC 298 ug/dL (118-369) 11/30/16 22:39 Total Bilirubin 0.3 mg/dL (0.3-1.0) 11/30/16 22:39 AST 15 U/L (13-39) 11/30/16 22:39 ALT 7 U/L (7-52) 11/30/16 22:39 Alkaline Phosphatase 71 U/L (34-104) 11/30/16 22:39 Troponin I 0.01 ng/mL (0.01-0.05) 11/30/16 22:39 Total Protein 6.4 gm/dL (6.0-8.3) 11/30/16 22:39 Albumin 3.5 gm/dL (3.7-5.3) L 11/30/16 22:39 Globulin 2.9 gm/dL 11/30/16 22:39 Albumin/Globulin Ratio 1.2 (1.0-1.8) 11/30/16 22:39 Triglycerides 164 mg/dL (<150) H 11/30/16 22:39 Cholesterol 90 mg/dL (<200) 11/30/16 22:39 LDL Cholesterol Direct 40 mg/dL (75-193) L 11/30/16 22:39 HDL Cholesterol 29 mg/dL (23-92) 11/30/16 22:39 Vitamin B12 917 pg/mL (211-946) 11/30/16 22:39 Folic Acid >20.0 ng/mL (>3.0) 11/30/16 22:39 TSH 0.41 uIU/ml (0.34-5.60) 11/30/16 22:39 Urine Source CLEAN C 12/01/16 15:30 Urine Color YELLOW 12/01/16 15:30 Urine Clarity CLOUDY (CLEAR) H 12/01/16 15:30 Urine pH 6.5 (4.6 - 8.0) 12/01/16 15:30 Ur Specific [place] 1.020 (1.005-1.030) 12/01/16 15:30 Urine Protein >=300 mg/dL (NEGATIVE) 12/01/16 15:30 Urine Glucose (UA) NEGATIVE mg/dL (NEGATIVE) 12/01/16 15:30 Urine Ketones NEGATIVE mg/dL (NEGATIVE) 12/01/16 15:30 Urine Blood TRACE (NEGATIVE) 12/01/16 15:30 Urine Nitrate NEGATIVE (NEGATIVE) 12/01/16 15:30 Urine Bilirubin NEGATIVE (NEGATIVE) 12/01/16 15:30 Urine Urobilinogen 0.2 E.U./dL (0.2 - 1.0) 12/01/16 15:30 Ur Leukocyte Esterase MODERATE (NEGATIVE) H 12/01/16 15:30 Urine RBC 2-5 /hpf (0-5) 12/01/16 15:30 Urine WBC 25-50 /hpf (0-5) H 12/01/16 15:30 Ur Epithelial Cells FEW /lpf (FEW) 12/01/16 15:30 Urine Bacteria MANY /hpf (NONE SEEN) 12/01/16 15:30 Ur Random Sodium 94 mmol/L 12/01/16 15:30 Urine Creatinine 42.2 mg/dl (Not Estab.) 12/01/16 15:30 Urine Microalbumin 1475.1 ug/mL (Not Estab.) 12/01/16 15:30 Microalb/Creat Ratio 3495.5 mg/g creat (0.0-30.0) H 12/01/16 15:30 Stool Occult Blood NEGATIVE (NEGATIVE) 12/01/16 15:50 RPR NONREACTIVE (NONREACTIVE) 11/30/16 22:39 - Physical Exam Vitals and I&O: Vital Signs Temp 98.4 F 12/04/16 17:06 Pulse 68 12/04/16 17:06 Resp 18 12/04/16 17:06 BP 148/88 12/04/16 17:06 Pulse Ox 96 12/04/16 17:06 Intake & Output 12/03/16 12/04/16 12/04/16 18:59 06:59 18:59 Intake Total 1160 498.333 841.667 Balance 1160 498.333 841.667 Weight (lbs) 104.054 kg Intake: Intake, IV Amount 1160 158.333 841.667 Sodium Chloride 0.9% 1, 1000 158.333 841.667 000 ml @ 50 mls/hr IV . Q20H [facility] Rx#:[id number] Sodium Ferric Gluconate 110 125 mg In Sodium Chloride 0.9% 100 ml @ 100 mls/hr IV Q24HR [facility] Rx#: [id number] cefTRIAXone 1 gm In 50 Dextrose 5% 50 ml @ 100 mls/hr IV Q24H [facility] Rx#: [id number] Oral 340 Other: # Voids 2 # Bowel Movements 0 Active Medications: Current Medications Acetaminophen (Tylenol) 650 mg PO Q6HR PRN PRN Reason: Pain or Fever >101 Stop: 01/30/17 00:53 Last Admin: 12/03/16 21:05 Dose: 650 mg Amlodipine Besylate (Norvasc) 10 mg PO DAILY [facility] Stop: 01/30/17 08:59 Last Admin: 12/04/16 09:55 Dose: 10 mg Atenolol (Tenormin) 100 mg PO DAILY [facility] Stop: 01/30/17 08:59 Last Admin: 12/04/16 09:34 Dose: 100 mg Dextrose (Glutose 40%) 18.75 gm PO PRN PRN PRN Reason: Blood Glucose less than 70 Stop: 01/30/17 03:12 Dextrose (D50w) 50 ml IVP PRN PRN PRN Reason: Blood Glucose less than 70 Stop: 01/30/17 03:12 Fenofibrate (Tricor) 134 mg PO DAILY [facility] Stop: 01/30/17 08:59 Last Admin: 12/04/16 09:31 Dose: 134 mg Folic Acid (Folate) 1 mg PO DAILY [facility] Stop: 01/30/17 08:59 Last Admin: 12/04/16 09:32 Dose: 1 mg Gabapentin (Neurontin) 300 mg PO DAILY [facility] Stop: 01/30/17 08:59 Last Admin: 12/04/16 09:32 Dose: 300 mg Glimepiride (Amaryl) 4 mg PO DAILY [facility] Stop: 01/30/17 08:59 Last Admin: 12/04/16 09:32 Dose: 4 mg Glucagon (Glucagen) 1 mg IM PRN PRN PRN Reason: Blood Glucose less than 70 Stop: 01/30/17 03:12 Ceftriaxone Sodium 1 gm/ (Dextrose) 50 mls @ 100 mls/hr IV Q24H [facility] Stop: 01/31/17 08:59 Last Admin: 12/04/16 09:56 Dose: 50 mls/hr Sodium Chloride (Nacl 0.9%) 1,000 mls @ 50 mls/hr IV .Q20H [facility] Stop: 01/31/17 14:41 Last Admin: 12/04/16 12:08 Dose: 50 mls/hr Ferric Sodium Gluconate Complex 125 mg/ Sodium Chloride 110 mls @ 100 mls/hr IV Q24HR [facility] Stop: 12/08/16 10:44 Last Admin: 12/04/16 12:11 Dose: 100 mls/hr Insulin Aspart (Novolog Insulin Sliding Scale) 0 units SUBQ ACHS [facility] PRN Reason: Protocol Stop: 01/30/17 07:29 Last Admin: 12/04/16 12:44 Dose: 2 units Insulin Human Isoph/Insulin Regular (Novolin 70/30) 18 units SUBQ QPM [facility] Stop: 01/30/17 16:59 Last Admin: 12/03/16 17:17 Dose: 18 units Insulin Human Isoph/Insulin Regular (Novolin 70/30) 30 units SUBQ QAM [facility] Stop: 01/30/17 08:59 Last Admin: 12/04/16 12:22 Dose: Not Given Levothyroxine Sodium (Synthroid) 0.025 mg PO DAILY [facility] Stop: 01/30/17 08:59 Last Admin: 12/04/16 09:32 Dose: 0.025 mg Losartan Potassium (Cozaar) 50 mg PO DAILY [facility] Stop: 01/30/17 08:59 Last Admin: 12/04/16 09:35 Dose: 50 mg Magnesium Hydroxide (Milk Of Magnesia) 30 ml PO DAILY PRN PRN Reason: Constipation Stop: 01/30/17 00:53 Megestrol Acetate (Megace) 400 mg PO BID [facility] Stop: 01/30/17 08:59 Last Admin: 12/04/16 09:33 Dose: 400 mg Methylprednisolone Sodium Succinate (Solu-Medrol) 60 mg IVP Q8H [facility] Stop: 01/31/17 10:59 Last Admin: 12/04/16 03:38 Dose: 60 mg Miscellaneous (Vte Chemical Prophylaxis Screen/ Admission) 1 ea [facility] PRN PRN PRN Reason: PROTOCOL Stop: 01/30/17 14:41 Nitroglycerin (Nitrostat) 0.4 mg SL Q5MIN PRN PRN Reason: Chest Pain Stop: 01/30/17 00:53 Nystatin (Mycostatin Cream) 1 appl TP DAILY PRN PRN Reason: Rash Stop: 01/30/17 08:28 Simvastatin (Zocor) 10 mg PO QPM [facility] PRN Reason: Protocol Stop: 01/30/17 16:59 Last Admin: 12/03/16 17:09 Dose: 10 mg Sucralfate (Carafate) 1 gm PO BID [facility] Stop: 01/30/17 16:59 Last Admin: 12/04/16 09:32 Dose: 1 gm General: Alert, Oriented x3, No acute distress HEENT: Atraumatic, PERRLA, EOMI, Mucous membr. moist/pink Neck: Supple, +2 carotid pulse wo bruit Cardiovascular: Regular rate, Normal S1, Normal S2 Lungs: Clear to auscultation, Other Abdomen: Tender (non tender) Extremities: no Cyanosis, no Edema Neurological: Sensation intact Skin: Other (pale), no Rash Psych/Mental Status: Mood NL - Procedures Procedures: Procedures Procedure Code Date BLOOD TRANSFUSION SERVICE 58264 10/23/16 EGD BIOPSY SINGLE/MULTIPLE 08393 11/03/16 EXCISION OF DUODENUM, ENDO, DIAGN [id number] 11/03/16 EXCISION OF ESOPHAGUS, ENDO, DIAGN [id number] 11/03/16 EXCISION OF STOMACH, ENDO, DIAGN [id number] 11/03/16 TRANSFUSE NONAUT PLATELETS IN PERIPH VEIN, [facility] [id number] 06/25/15 TRANSFUSE NONAUT RED BLOOD CELLS IN PERIPH VEIN, [facility] [id number] 10/23/16 Assessment/Plan - Problem List Patient Problems: All Active Problems Abdominal hernia (Acute) Abdominal pain (Acute) R10.9 Alzheimer's dementia (Acute) G30.9 Anemia of chronic renal failure (Acute) N18.9, D63.1 Asthma (Acute) J45.909 CVA, old, 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 Cardiomegaly (Acute) I51.7 Chronic renal failure (Acute) Colon cancer (Acute) Diabetes mellitus (Acute) E11.9 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) E11.22 Duodenal ulcer (Acute) Fracture of proximal end of left humerus (Acute) S42.202A Hyperlipidemia (Acute) E78.5 Hyponatremia (Acute) E87.1 Severe anemia (Acute) D64.9 Severe hypertension (Acute) I10 Thrombocytopenia (Acute) D69.6 Thyroid disorder (Acute) UTI (urinary tract infection) (Acute) - Assessment Assessment: * Anemia of CKD * chronic thrombocytopenia * possible MDS * h/o colon cancer * funtional iron deficiency iv iron OB not done plt better hgb down Nutritional Asmnt/Malnutr-PDOC - Dietary Evaluation Malnutrition Findings (Please click <Entered> for more info): Nutritional Asmnt/Malnutrition Start: 12/01/16 18: 09 Text: Status: Complete Freq: Document 12/02/16 19:09 [facility] (Rec: 12/02/16 19:18 [facility] [id number]) Nutritional Asmnt/Malnutrition Patient General Information Nutritional Screening High Risk Screening Diagnosis Severe thrombocytopenia Pertinent Medical Hx/Surgical Hx HTN, hyperlipidemia, gastritis , peptic ulcer, hx colon cancer s/p colostomy, Alzheimer's dementia, left humeral fracture, renal insufficiency, DM, hypothyroidism, rash Subjective Information Pt is a 80-year-old female from [facility] admitted with chief complaint of severe thrombocytopenia. Pt was awake and able to answer questions. Pt was feeding herself independently and eating with good tolerance. Pt reports good appetite prior to admit. Poor appetite noted here. Pt states, "Food is ok." No muscle or fat depletion noted. Current Diet Order/ Nutrition Support Regular Patient / S.O Can Pertinent Medications Ceftriaxone Sodium, Tricor, Iron, Folate, Novolog, Novolin 70/30, Megace, Solu-Medrol, Zocor, NaCl 0.9% Pertinent Labs (11/30) Na 291H, A1C WNL, Triglyceride 164H, LDL Cholesterol 40L. (12/02) BUN 50H, Creatinine 2.4H, Glucose (fasting) 233H, POC Glucose 209H-434H (pt is noted to be on steroids and regular diet), Phosphorous 2L Nutritional Hx/Data Height 1.55 m Height (Calculated Centimeters) 154.9 Current Weight (lbs) 57.153 kg Weight (Calculated Kilograms) 57.2 Weight (Calculated Grams) 67392.6 Usual body Weight (lbs) 121 % Usual Body Weight 104 [place] Body Weight 105 % [place] Body Weight 120 Weight Status Approriate GI Symptoms GI Symptoms None Food Allergies No Cultural/Ethnic/Roman Catholic Belief No cultural or methodist beliefs noted. Usual diet at home TADEO, CCHO, fortified milk at breakfast Skin Integrity/Comment: [place] 13. No skin breakdown but rash is noted. Current %PO Poor (25-49%) Estimated Nutritional Goals BEE in Kcals: Using Current wt Calories/Kcals/Kg Based on current wt 57.3 kg Kcals Calculated 4314-1294 kcals/day (25-30 kcals/kg) Protein: Using Current wt Protein g/kg: Based on current wt 57.3 kg Protein Calculated 57 gm/day (1 gm/kg) Fluid: ml 7106-6697 ml/day (30-35 ml/kg) Nutritional Problem 1. Problem Problem Altered nutrition-related laboratory values related to Etiology possible inconsistent carbohydrate intake as evidenced by Signs/Symptoms: admitting glucose 291 and hyperglycemia. Malnutrition Alert Protein-Calorie Malnutrition N/A Is there a minimum of two criteria No selected? Query Text:Check all the applicable criteria. A minimum of two criteria are recommended for diagnosis of either severe or non-severe malnutrition. Malnutrition Related to Morbid Obesity Malnutrition related to morbid obesity No Intervention/Recommendation Recommendations by RD Dietary Education by RD1 Comments 1. Recommend CCHO-60 GM diet for glycemic control. 2. Educate pt on CCHO diet and importance of consistent intake at follow up, as able. Expected Outcomes/Goals Expected Outcomes/Goals Blood glucose will trend towards desired parameters. Physician Parameters for PEM Body Mass Index (BMI) 19 - 24 (Normal) Serum Albumin (g/dl) 3.5 - 5.0 (Normal)
--- NOTE | 2016-12-06 07:15 | Discharge Summary ---
General Discharge Summary - Discharge Summary Date of Admission: 12/01/16 Admitting Diagnosis: Severe Thrombocytopenia Patient Problems: All Active Problems Abdominal hernia (Acute) Abdominal pain (Acute) R10.9 Alzheimer's dementia (Acute) G30.9 Anemia of chronic renal failure (Acute) N18.9, D63.1 Asthma (Acute) J45.909 CVA, old, 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 Cardiomegaly (Acute) I51.7 Chronic renal failure (Acute) Colon cancer (Acute) Diabetes mellitus (Acute) E11.9 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) E11.22 Duodenal ulcer (Acute) Fracture of proximal end of left humerus (Acute) S42.202A Hyperlipidemia (Acute) E78.5 Hyponatremia (Acute) E87.1 Severe anemia (Acute) D64.9 Severe hypertension (Acute) I10 Thrombocytopenia (Acute) D69.6 Thyroid disorder (Acute) UTI (urinary tract infection) (Acute) Discharge Date: 12/04/16 Discharge Diagnosis: See Above Laboratory Findings: Laboratory Tests 12/01/16 12/01/16 12/01/16 05:42 06:22 11:27 WBC 6.4 RBC 2.92 L Hgb 8.6 L Hct 25.9 L MCV 88.7 MCH 29.5 MCHC Differential 33.3 RDW 14.1 Plt Count 16 L* MPV 9.8 Neutrophils % Band Neutrophils % 1 Lymphocytes % Monocytes % Eosinophils % Basophils % Neutrophils (Manual) 59 Lymphocytes 33 Monocytes 4 Eosinophils 2 Atypical Lymphocytes 1 Platelet Estimate DECREASED PLATELETS Platelet Morphology NORMAL RBC Morph Micro Appear NORMAL Eos Smear Source Eos Smear Total Cells Sodium Potassium Chloride Carbon Dioxide Anion Gap BUN Creatinine Est GFR ( Amer) Est GFR (Non-Af Amer) BUN/Creatinine Ratio Glucose POC Glucose 228 H 78 Uric Acid Calcium Phosphorus Magnesium Urine Source Urine Color Urine Clarity Urine pH Ur Specific [place] Urine Protein Urine Glucose (UA) Urine Ketones Urine Blood Urine Nitrate Urine Bilirubin Urine Urobilinogen Ur Leukocyte Esterase Urine RBC Urine WBC Ur Epithelial Cells Urine Bacteria Ur Random Sodium Urine Creatinine Urine Microalbumin Microalb/Creat Ratio Stool Occult Blood 12/01/16 12/01/16 12/01/16 15:30 15:30 15:30 WBC RBC Hgb Hct MCV MCH MCHC Differential RDW Plt Count MPV Neutrophils % Band Neutrophils % Lymphocytes % Monocytes % Eosinophils % Basophils % Neutrophils (Manual) Lymphocytes Monocytes Eosinophils Atypical Lymphocytes Platelet Estimate Platelet Morphology RBC Morph Micro Appear Eos Smear Source Eos Smear Total Cells Sodium Potassium Chloride Carbon Dioxide Anion Gap BUN Creatinine Est GFR ( Amer) Est GFR (Non-Af Amer) BUN/Creatinine Ratio Glucose POC Glucose Uric Acid Calcium Phosphorus Magnesium Urine Source CLEAN C Urine Color YELLOW Urine Clarity CLOUDY H Urine pH 6.5 Ur Specific [place] 1.020 Urine Protein >=300 Urine Glucose (UA) NEGATIVE Urine Ketones NEGATIVE Urine Blood TRACE Urine Nitrate NEGATIVE Urine Bilirubin NEGATIVE Urine Urobilinogen 0.2 Ur Leukocyte Esterase MODERATE H Urine RBC 2-5 Urine WBC 25-50 H Ur Epithelial Cells FEW Urine Bacteria MANY Ur Random Sodium 94 Urine Creatinine 42.2 Urine Microalbumin 1475.1 Microalb/Creat Ratio 3495.5 H Stool Occult Blood 12/01/16 12/01/16 12/01/16 15:30 15:30 15:50 WBC RBC Hgb Hct MCV MCH MCHC Differential RDW Plt Count MPV Neutrophils % Band Neutrophils % Lymphocytes % Monocytes % Eosinophils % Basophils % Neutrophils (Manual) Lymphocytes Monocytes Eosinophils Atypical Lymphocytes Platelet Estimate Platelet Morphology RBC Morph Micro Appear Eos Smear Source URINE Eos Smear Total Cells NONE SEEN Sodium Potassium Chloride Carbon Dioxide Anion Gap BUN Creatinine Est GFR ( Amer) Est GFR (Non-Af Amer) BUN/Creatinine Ratio Glucose POC Glucose Uric Acid Calcium Phosphorus Magnesium Urine Source Urine Color Urine Clarity Urine pH Ur Specific [place] Urine Protein Urine Glucose (UA) Urine Ketones Urine Blood Urine Nitrate Urine Bilirubin Urine Urobilinogen Ur Leukocyte Esterase Urine RBC Urine WBC Ur Epithelial Cells Urine Bacteria Ur Random Sodium Urine Creatinine 53.0 Urine Microalbumin Microalb/Creat Ratio Stool Occult Blood NEGATIVE 12/01/16 12/02/16 12/02/16 21:05 00:56 05:52 WBC RBC Hgb Hct MCV MCH MCHC Differential RDW Plt Count MPV Neutrophils % Band Neutrophils % Lymphocytes % Monocytes % Eosinophils % Basophils % Neutrophils (Manual) Lymphocytes Monocytes Eosinophils Atypical Lymphocytes Platelet Estimate Platelet Morphology RBC Morph Micro Appear Eos Smear Source Eos Smear Total Cells Sodium Potassium Chloride Carbon Dioxide Anion Gap BUN Creatinine Est GFR ( Amer) Est GFR (Non-Af Amer) BUN/Creatinine Ratio Glucose POC Glucose 86 155 H 223 H Uric Acid Calcium Phosphorus Magnesium Urine Source Urine Color Urine Clarity Urine pH Ur Specific [place] Urine Protein Urine Glucose (UA) Urine Ketones Urine Blood Urine Nitrate Urine Bilirubin Urine Urobilinogen Ur Leukocyte Esterase Urine RBC Urine WBC Ur Epithelial Cells Urine Bacteria Ur Random Sodium Urine Creatinine Urine Microalbumin Microalb/Creat Ratio Stool Occult Blood 12/02/16 12/02/16 12/02/16 06:00 06:00 09:13 WBC 7.6 RBC 3.34 L Hgb 9.9 L Hct 29.4 L D MCV 88.2 MCH 29.8 MCHC Differential 33.7 RDW 14.2 Plt Count 33 L D MPV 11.4 Neutrophils % Band Neutrophils % 5 Lymphocytes % Monocytes % Eosinophils % Basophils % Neutrophils (Manual) 83 H Lymphocytes 10 L Monocytes 2 Eosinophils Atypical Lymphocytes Platelet Estimate DECREASED PLATELETS Platelet Morphology NORMAL RBC Morph Micro Appear NORMAL Eos Smear Source Eos Smear Total Cells Sodium 137 Potassium 5.0 Chloride 109 H Carbon Dioxide 17.7 L Anion Gap 15.3 BUN 50 H Creatinine 2.4 H Est GFR ( Amer) TNP Est GFR (Non-Af Amer) TNP BUN/Creatinine Ratio 20.8 Glucose 233 H POC Glucose 434 H Uric Acid 5.6 Calcium 8.9 Phosphorus 2.0 L Magnesium 2.0 Urine Source Urine Color Urine Clarity Urine pH Ur Specific [place] Urine Protein Urine Glucose (UA) Urine Ketones Urine Blood Urine Nitrate Urine Bilirubin Urine Urobilinogen Ur Leukocyte Esterase Urine RBC Urine WBC Ur Epithelial Cells Urine Bacteria Ur Random Sodium Urine Creatinine Urine Microalbumin Microalb/Creat Ratio Stool Occult Blood 12/02/16 12/02/16 12/02/16 09:18 11:33 17:17 WBC RBC Hgb Hct MCV MCH MCHC Differential RDW Plt Count MPV Neutrophils % Band Neutrophils % Lymphocytes % Monocytes % Eosinophils % Basophils % Neutrophils (Manual) Lymphocytes Monocytes Eosinophils Atypical Lymphocytes Platelet Estimate Platelet Morphology RBC Morph Micro Appear Eos Smear Source Eos Smear Total Cells Sodium Potassium Chloride Carbon Dioxide Anion Gap BUN Creatinine Est GFR ( Amer) Est GFR (Non-Af Amer) BUN/Creatinine Ratio Glucose POC Glucose 388 H 314 H 209 H Uric Acid Calcium Phosphorus Magnesium Urine Source Urine Color Urine Clarity Urine pH Ur Specific [place] Urine Protein Urine Glucose (UA) Urine Ketones Urine Blood Urine Nitrate Urine Bilirubin Urine Urobilinogen Ur Leukocyte Esterase Urine RBC Urine WBC Ur Epithelial Cells Urine Bacteria Ur Random Sodium Urine Creatinine Urine Microalbumin Microalb/Creat Ratio Stool Occult Blood 12/02/16 12/03/16 12/03/16 20:23 07:04 07:45 WBC 14.3 H D RBC 3.46 L Hgb 10.4 L Hct 30.1 L MCV 86.9 MCH 30.1 MCHC Differential 34.6 RDW 14.2 Plt Count 108 L D MPV 10.6 Neutrophils % 89.1 H Band Neutrophils % Lymphocytes % 9.7 L Monocytes % 1.0 L Eosinophils % 0.1 Basophils % 0.1 Neutrophils (Manual) Lymphocytes Monocytes Eosinophils Atypical Lymphocytes Platelet Estimate Platelet Morphology RBC Morph Micro Appear Eos Smear Source Eos Smear Total Cells Sodium Potassium Chloride Carbon Dioxide Anion Gap BUN Creatinine Est GFR ( Amer) Est GFR (Non-Af Amer) BUN/Creatinine Ratio Glucose POC Glucose 264 H 244 H Uric Acid Calcium Phosphorus Magnesium Urine Source Urine Color Urine Clarity Urine pH Ur Specific [place] Urine Protein Urine Glucose (UA) Urine Ketones Urine Blood Urine Nitrate Urine Bilirubin Urine Urobilinogen Ur Leukocyte Esterase Urine RBC Urine WBC Ur Epithelial Cells Urine Bacteria Ur Random Sodium Urine Creatinine Urine Microalbumin Microalb/Creat Ratio Stool Occult Blood 12/03/16 12/03/16 12/03/16 07:45 11:46 17:11 WBC RBC Hgb Hct MCV MCH MCHC Differential RDW Plt Count MPV Neutrophils % Band Neutrophils % Lymphocytes % Monocytes % Eosinophils % Basophils % Neutrophils (Manual) Lymphocytes Monocytes Eosinophils Atypical Lymphocytes Platelet Estimate Platelet Morphology RBC Morph Micro Appear Eos Smear Source Eos Smear Total Cells Sodium 133 L Potassium 4.0 Chloride 104 Carbon Dioxide 19.3 L Anion Gap 13.7 BUN 46 H Creatinine 2.3 H Est GFR ( Amer) TNP Est GFR (Non-Af Amer) TNP BUN/Creatinine Ratio 20.0 Glucose 234 H POC Glucose 165 H 296 H Uric Acid Calcium 9.1 Phosphorus 3.2 Magnesium Urine Source Urine Color Urine Clarity Urine pH Ur Specific [place] Urine Protein Urine Glucose (UA) Urine Ketones Urine Blood Urine Nitrate Urine Bilirubin Urine Urobilinogen Ur Leukocyte Esterase Urine RBC Urine WBC Ur Epithelial Cells Urine Bacteria Ur Random Sodium Urine Creatinine Urine Microalbumin Microalb/Creat Ratio Stool Occult Blood 12/03/16 12/04/16 12/04/16 20:56 06:26 06:40 WBC 8.7 D RBC 3.00 L Hgb 8.8 L Hct 26.3 L D MCV 87.8 MCH 29.4 MCHC Differential 33.5 RDW 14.2 Plt Count 132 L D MPV 9.9 Neutrophils % 88.8 H Band Neutrophils % Lymphocytes % 10.5 L Monocytes % 0.5 L Eosinophils % 0.1 Basophils % 0.1 Neutrophils (Manual) Lymphocytes Monocytes Eosinophils Atypical Lymphocytes Platelet Estimate Platelet Morphology RBC Morph Micro Appear Eos Smear Source Eos Smear Total Cells Sodium Potassium Chloride Carbon Dioxide Anion Gap BUN Creatinine Est GFR ( Amer) Est GFR (Non-Af Amer) BUN/Creatinine Ratio Glucose POC Glucose 261 H 248 H Uric Acid Calcium Phosphorus Magnesium Urine Source Urine Color Urine Clarity Urine pH Ur Specific [place] Urine Protein Urine Glucose (UA) Urine Ketones Urine Blood Urine Nitrate Urine Bilirubin Urine Urobilinogen Ur Leukocyte Esterase Urine RBC Urine WBC Ur Epithelial Cells Urine Bacteria Ur Random Sodium Urine Creatinine Urine Microalbumin Microalb/Creat Ratio Stool Occult Blood 12/04/16 11:30 WBC RBC Hgb Hct MCV MCH MCHC Differential RDW Plt Count MPV Neutrophils % Band Neutrophils % Lymphocytes % Monocytes % Eosinophils % Basophils % Neutrophils (Manual) Lymphocytes Monocytes Eosinophils Atypical Lymphocytes Platelet Estimate Platelet Morphology RBC Morph Micro Appear Eos Smear Source Eos Smear Total Cells Sodium Potassium Chloride Carbon Dioxide Anion Gap BUN Creatinine Est GFR ( Amer) Est GFR (Non-Af Amer) BUN/Creatinine Ratio Glucose POC Glucose 184 H Uric Acid Calcium Phosphorus Magnesium Urine Source Urine Color Urine Clarity Urine pH Ur Specific [place] Urine Protein Urine Glucose (UA) Urine Ketones Urine Blood Urine Nitrate Urine Bilirubin Urine Urobilinogen Ur Leukocyte Esterase Urine RBC Urine WBC Ur Epithelial Cells Urine Bacteria Ur Random Sodium Urine Creatinine Urine Microalbumin Microalb/Creat Ratio Stool Occult Blood Hospital Course: 80 year old female who presents to [facility] ER from SNF for severe thrombocytopenia noted at the [place] [facility]. Patient has a previous history of thrombocytopenia, duodenal ulcer,anemia of chronic disease, history of asthma, CVA,chronic renal failure,colon ca,s/p colostomy, diabetes mellitus, fracute of the proximal end of the left humerus,hyperlipidemia,hyponatremia, hypertension, thyroid disorder. while in the ER the patient had labwork which revealed platelets to be 24K and hemoglobin of 9.3 She was subsequently admitted for further evaluation and treatment. Treatment: Patient improved during her hospital stay. Patient's initial platelets were 24K on 11/30/2016. Upon discharge on 12/04/2016 her platelets were 132K. She was seen and evaluated by Hem/Onc. Please see dictated report. Patient was also see by GI for evaluated for history of GI bleed although her stool occult was negative. Her hemoglobin remained stable. Please see dictated report. Patient's initial Cr was 2.3 on 11/30/2016 which remained stable during her hospital stay. Patient was seen and evaluated by nephrology. Please see dictated report. Patient was subsequently transferred back to SNF to continue current current medication. Condition at Discharge: Stable [facility]position: [facility] Home Medications: Home Medication Medication Instructions Recorded Type Atenolol [Tenormin*] 100 mg PO DAILY 05/10/15 History Glimepiride [Amaryl*] 4 mg PO DAILY 05/10/15 History Insulin Aspart Mix 70/30 [NovoLOG 18 units SUBQ QPM 05/10/15 History MIX 70/30] Insulin Aspart Mix 70/30 [NovoLOG 30 units SUBQ QAM 05/10/15 History MIX 70/30] Levothyroxine [Synthroid] 25 mcg PO DAILY 05/10/15 History Nitroglycerin [Nitroglycerin*] 0.4 mg SL Q5MIN PRN 05/10/15 History amLODIPine Besylate [Norvasc*] 10 mg PO DAILY 05/10/15 History cloNIDine HCl [Catapres] 0.1 mg PO BID 05/10/15 History Acetaminophen [Tylenol] 650 mg PO Q6HR PRN 06/07/15 History Simvastatin [Zocor] 10 mg PO QPM 06/07/15 History Fenofibrate Nanocrystallized 134 mg PO DAILY 06/25/15 History [Tricor] Insulin Aspart Sliding Scale 0 units SUBQ ACHS #0 unit 06/27/15 Rx [NovoLOG INSULIN SLIDING SCALE] Aspirin 81 mg PO DAILY 10/23/16 History Ferrous Sulfate [Feosol*] 325 mg PO DAILY 10/23/16 History Gabapentin 300 mg PO DAILY 10/23/16 History Losartan Potassium [Cozaar] 50 mg PO DAILY 10/23/16 History Magnesium Hydroxide [Milk of 30 ml PO DAILY PRN 10/23/16 History Magnesia] Ranitidine HCl [Zantac] 150 mg PO HS 10/23/16 History Folic Acid [Folate*] 1 mg PO DAILY tab 10/26/16 Rx cloNIDine HCl [Catapres] 0.1 mg PO Q8HR PRN tab 10/26/16 Rx Glucagon,Human Recombinant 1 mg IM DAILY PRN 11/03/16 History [Glucagon Emergency Kit] Megestrol Acetate 10 ml PO BID 11/30/16 History Pantoprazole [Protonix] 40 mg PO DAILY 11/30/16 History Consults and Follow-Up: Ashish Gonzalez [Primary Care Provider] -
== END 2016-12-04 20:40 | disposition home or self-care (01) | DRG 813 ==
LOC: ER 22:06 → MSI 23:55
PROVIDERS: ADMIT Family Medicine; ATTEND Family Medicine
DX: D69.6 Thrombocytopenia, unspecified (principal); N17.9 Acute kidney failure, unspecified; E11.22 Type 2 diabetes mellitus with diabetic chronic kidney disease; K26.9 Duodenal ulcer, unspecified as acute or chronic, without hemorrhage or perforation; I13.10 Hypertensive heart and chronic kidney disease without heart failure, with stage 1 through stage 4 chronic kidney disease, or unspecified chronic kidney disease; I69.359 Hemiplegia and hemiparesis following cerebral infarction affecting unspecified side; E87.1 Hypo-osmolality and hyponatremia; S42.302A Unspecified fracture of shaft of humerus, left arm, initial encounter for closed fracture; N39.0 Urinary tract infection, site not specified; G30.9 Alzheimer's disease, unspecified; F02.80 Dementia in other diseases classified elsewhere, unspecified severity, without behavioral disturbance, psychotic disturbance, mood disturbance, and anxiety; N18.9 Chronic kidney disease, unspecified; J45.909 Unspecified asthma, uncomplicated; E78.5 Hyperlipidemia, unspecified; K21.9 Gastro-esophageal reflux disease without esophagitis; D63.8 Anemia in other chronic diseases classified elsewhere; E03.9 Hypothyroidism, unspecified; K44.9 Diaphragmatic hernia without obstruction or gangrene; D50.9 Iron deficiency anemia, unspecified; D63.1 Anemia in chronic kidney disease; L80 Vitiligo; Z85.038 Personal history of other malignant neoplasm of large intestine; Z93.3 Colostomy status; Z90.49 Acquired absence of other specified parts of digestive tract; Z82.49 Family history of ischemic heart disease and other diseases of the circulatory system; Z82.3 Family history of stroke; Z87.11 Personal history of peptic ulcer disease; Z83.3 Family history of diabetes mellitus; Z79.4 Long term (current) use of insulin
CPT/HCPCS: 36415-UA; 71010-TC; 73060-TC-LT; 80048-TC; 80053-TC; 80061-TC; 81001-TC; 81015-TC; 82043-90; 82270-TC; 82570-TC; 82607-90; 82746-90; 82948-90; 83036-90; 83540-90; 83550-90; 83735-TC; 84100-TC; 84300-TC; 84443-TC; 84484-TC; 84550-TC; 85007-TC; 85025-TC; 85027-TC; 85044-TC; 85610-TC; 85730-TC; 86592-TC; 87086-90; 90799; 93005; J0696; J1815; J2916; J2920; J2930; J7030; Z7610